=== PATIENT | female | born 1945 | race Caucasian/White ===

== ENCOUNTER → 2018-05-28 | Outpatient (CLI) | payer MEDICARE ==
[2018-05-28 11:34] VITALS: BP 140/65; PULSE 72; TEMP 97.6; BMI 41.8
--- NOTE | 2018-05-28 12:31 | P.HPOB ---
History of Present Illness H&P Date: 05/28/18 Chief Complaint: The patient is here for her routine gynecologic exam and mammogram. This is a 72-year-old with an LMP of 1998. It has been about 5 years since her last pelvic exam. She is without gynecologic complaints and denies any postmenopausal bleeding. Review of Systems She had lost about 85 pounds after lap band surgery in 2004. She states her weight can fluctuate by 15 pounds. She denies respiratory, cardiac and G.I. problems. She denies maltreatment or problems with falling. : she recently started Vesicare for overactive bladder symptoms and this has helped significantly. Past Medical History Past Medical History: Asthma, Osteoarthritis (OA) Additional Past Medical History / Comment(s): Arthritis in knees. ADHD. Overactive bladder. 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 History of Any Multi-Drug Resistant Organisms: None Reported Past Surgical History: Bariatric Surgery (Lap band), Cholecystectomy, Tonsillectomy Additional Past Surgical History / Comment(s): Colonoscopy 2012. Past Psychological History: ADD/ADHD, Depression Smoking Status: Never smoker Past Alcohol Use History: Daily (About 5 drinks per week) Past Drug Use History: None Reported Additional History: She is retired and . She is not seeing anybody at this time. - Past Family History Brother(s) Family Medical History: Diabetes Mellitus, Myocardial Infarction (MA) Father Family Medical History: Cancer (Lung) Mother Family Medical History: COPD Medications and Allergies Home Medications Medication Instructions Recorded Confirmed Type Dextroamphetamine/Amphetamine 30 mg PO QAM 07/23/14 05/28/18 History [Adderall Xr] Furosemide [Lasix] 20 mg PO DAILY 07/23/14 05/28/18 History Sertraline [Zoloft] 200 mg PO DAILY 07/23/14 05/28/18 History Albuterol Sulfate [Proventil Hfa] 1 - 2 puff INHALATION Q6HR PRN 05/28/18 History Solifenacin Succinate [Vesicare] mg PO DAILY 05/28/18 History Allergies Allergy/AdvReac Type Severity Reaction Status Date / Time No Known Allergies Allergy Verified 07/23/14 11:15 Exam Vital Signs Temp Pulse BP 05/28/18 11:28 97.6 F 72 140/65 Intake and Output 05/27/18 05/28/18 05/28/18 22:59 06:59 14:59 Other: Weight 107.048 kg Height 5'3", BMI 41.8. This is a well-developed well-nourished white female who is alert and oriented times 3 in no acute distress. HEENT: Within normal limits. NECK: Supple without mass or thyromegaly. CHEST AND LUNGS: Clear to auscultation. HEART: Regular rate and rhythm. BREASTS: Are without mass or discharge. AXILLARY EXAM: Negative for adenopathy. BACK: Negative for CVA tenderness. ABDOMEN: Soft, nontender, without palpable masses. PELVIC EXAM: Normal external genitalia with mild to moderate atrophy. Cervix and vagina appear normal with mild to moderate atrophy. There is no unusual discharge. There is no evidence of prolapse. The uterus is midposition, nongravid size and nontender. There are no palpable adnexal masses or tenderness. RECTAL EXAM: rectal vaginal exam is negative for mass or tenderness and is negative for occult blood. EXTREMITIES: Nontender. IMPRESSION: 1. 72-year-old menopausal female with normal gynecologic exam. PLAN: 1. Pap smear was performed. 2. Self breast awareness was discussed. 3. Screening mammogram will be done today. 4. Osteoporosis prevention was discussed. Bone density testing will be done today. She had a normal bone density test in 2012. 5. She did receive a flu shot in the fall. 6. She knows her blood pressure was mildly elevated and will follow-up with Dr. Jin for her ongoing medical care. 7. She will return in one year. I have stressed the importance of having regular yearly mammograms and yearly gynecologic exams..
--- NOTE | 2018-05-28 15:12 | BD ---
EXAMINATION TYPE: Axial Bone Density DATE OF EXAM: 05/28/2018 COMPARISON: 02/25/2013 CLINICAL HISTORY: Postmenopausal female. Osteoporosis screening. Height: 62.5 IN Weight: 233 LBS RISK FACTORS HISTORY OF: Active: MODERATE Diet low in dairy products/other sources of calcium: YES Postmenopausal woman: AGE 51 Take estrogen and/or progesterone medications: TOOK FOR LESS THAN 1 YEAR AT AGE 51 MEDICATIONS: Additional Medications: ADDEROL XR, ZOLOFT, VESICARE, LASIX, EXAM MEASUREMENTS: Bone mineral densitometry was performed using the Pivotstream System. Bone mineral density as measured about the Lumbar spine is: ----- L1-L4(G/cm2): 1.234 T Score Values are as follows: ----- L2: -0.8 ----- L3: 0.7 ----- L4: 1.5 ----- L1-L4: 0.4 Bone mineral density has: Increased 5.8% since study of: 02/25/2013 Bone mineral density about the R hip (g/cm2): 0.933 Bone mineral density about the L hip (g/cm2): 0.795 T Score values are as follows: -----R Neck: -0.8 -----L Neck: -1.7 -----R Total: -1.1 -----L Total: -1.4 Bone mineral density has: Decreased -7.6% since study of: 02/25/2013 IMPRESSION: Osteopenia (T Score between -2.5 and -1). There is slightly increased risk of fracture and the patient may be considered for treatment. Re-Screen 2-5 years. NOTE: T-SCORE=SD OF THE YOUNG ADULT MEAN.
--- NOTE | 2018-05-30 10:00 | MM ---
Reason for exam: screening (asymptomatic). Last mammogram was performed 5 years and 3 months ago. History: Patient is postmenopausal and is nulliparous. Physical Findings: A clinical breast exam by your physician is recommended on an annual basis and results should be correlated with mammographic findings. MG 3D Screening Mammo W/Cad Bilateral CC and MLO view(s) were taken. Prior study comparison: February 25, 2013, bilateral digital screening mammo w/CAD. November 23, 2009, bilateral digital screening mammogram. There are scattered fibroglandular densities. Focal asymmetry 7 o'clock left breast appears more defined. ASSESSMENT: Incomplete: need additional imaging evaluation, BI-RAD 0 RECOMMENDATION: Special view mammogram of the left breast. If lesion persists on supplemental views, image directed ultrasound is recommended. [facility] will attempt to contact patient to return for supplemental views and ultrasound if indicated.
== END | disposition home or self-care (01) ==
LOC: WWCWWP 10:59
PROVIDERS: ATTEND Obstetrics & Gynecology
DX: Z12.31 Encounter for screening mammogram for malignant neoplasm of breast (principal); M85.80 Other specified disorders of bone density and structure, unspecified site; Z78.0 Asymptomatic menopausal state
CPT/HCPCS: 77063; 77067; 77080

== ENCOUNTER → 2018-06-20 | Outpatient (CLI) | payer MEDICARE ==
--- NOTE | 2018-06-20 14:33 | MM ---
Reason for exam: additional evaluation requested from abnormal screening. Last mammogram was performed 1 month ago. History: Patient is postmenopausal and is nulliparous. Took hormonal contraceptives for 10 years. Physical Findings: Nurse did not find any significant physical abnormalities on exam. MG 3D Work Up W/Cad LT Spot compression CC, spot compression MLO, and LM view(s) were taken of the left breast. Prior study comparison: May 28, 2018, bilateral MG 3d screening mammo w/cad. February 25, 2013, bilateral digital screening mammo w/CAD. The breast tissue is heterogeneously dense. This may lower the sensitivity of mammography. Focal asymmetry at 6 o'clock persist , ultrasound recommended. These results were verbally communicated with the patient and result sheet given to the patient on 06/20/18. ASSESSMENT: Incomplete: need additional imaging evaluation, BI-RAD 0 RECOMMENDATION: Ultrasound of the left breast.
--- NOTE | 2018-06-20 14:41 | USB ---
Reason for exam: additional evaluation requested from abnormal screening. History: Patient is postmenopausal and is nulliparous. Took hormonal contraceptives for 10 years. US Breast Workup Limited LT Technologist: Merleen Hanson RT (R)(M) Left limited breast ultrasound including focal area of concern, retroareolar and axilla demonstrates no cystic or solid lesion seen. These results were verbally communicated with the patient and result sheet given to the patient on 06/20/18. ASSESSMENT: Probably benign, BI-RAD 3 RECOMMENDATION: Follow-up diagnostic mammogram of the left breast in 6 months.
--- NOTE | 2018-06-25 07:52 | P.PN ---
Progress Note - Text Progress Note Date: 06/25/18 The patient underwent left breast workup on 06/20/2018. The assessment was: probably benign. Recommendation for left diagnostic mammogram in 6 months was made. The patient was apparently verbally given the results on the day of the workup. The order slip for left diagnostic mammogram will be mailed to the patient and she is to do this in late November 2017.
== END | disposition home or self-care (01) ==
LOC: RADMAMWWP 08:52
PROVIDERS: ATTEND Obstetrics & Gynecology
DX: R92.8 Other abnormal and inconclusive findings on diagnostic imaging of breast (principal)
CPT/HCPCS: 77065; 76642; G0279; 77061

== ENCOUNTER → 2018-06-20 | Outpatient (CLI) | payer MEDICARE ==
[2018-06-20 10:44] LABS: Albumin 4.4 g/dL (3.5-5.0); Calcium 9.6 mg/dL (8.4-10.2); Potassium 4.1 mmol/L (3.5-5.1); Total Bilirubin 0.5 mg/dL (0.2-1.3); Total Protein 7.1 g/dL (6.3-8.2)
[2018-06-20 10:52] LABS: Basophils # (A) 0.1 k/uL (0-0.2); Basophils % (A) 1 %; Eosinophils # (A) 0.3 k/uL (0-0.7); Eosinophils % (A) 4 %; HGB 14.1 gm/dL (11.4-16.0); Lymphocytes # (A) 1.6 k/uL (1.0-4.8); Lymphocytes % (A) 19 %; MCH 28.8 pg (25.0-35.0); MCHC 32.9 g/dL (31.0-37.0); MCV 87.6 fL (80.0-100.0); Mean Platelet Volume 6.6; Monocytes # (A) 0.5 k/uL (0-1.0); Monocytes % (A) 6 %; Neutrophils # (A) 5.6 k/uL (1.3-7.7); Neutrophils % (A) 68 %; Platelet Count 206 k/uL (150-450); RBC 4.91 m/uL (3.80-5.40); RDW 13.5 % (11.5-15.5); WBC 8.2 k/uL (3.8-10.6)
[2018-06-20 11:00] LABS: T4, Free (Free Thyroxine) 1.22 ng/dL (0.78-2.19)
[2018-06-20 20:55] LABS: Hemoglobin A1C 4.9 % (4.0-6.0)
== END | disposition home or self-care (01) ==
LOC: LABWHC1 10:03
PROVIDERS: ATTEND Internal Medicine Critical Care Medicine
DX: Z00.00 Encounter for general adult medical examination without abnormal findings (principal); K21.9 Gastro-esophageal reflux disease without esophagitis; J45.909 Unspecified asthma, uncomplicated; E66.9 Obesity, unspecified; F90.9 Attention-deficit hyperactivity disorder, unspecified type
CPT/HCPCS: 36415; 80053; 80061; 82306; 83036; 84439; 84443; 85025

== ENCOUNTER → 2019-11-10 | Outpatient (CLI) | payer MEDICARE ==
--- NOTE | 2019-11-10 14:14 | MR ---
EXAMINATION TYPE: MR brain wo con DATE OF EXAM: 11/10/2019 COMPARISON: NONE HISTORY: Imbalance TECHNIQUE: Multiplanar, multisequence images of the brain and brainstem is performed without intravenous contras t. FINDINGS: There are small bilateral subdural hygromas on coronal image 15 and T2-weighted nonfat sat imaging. These measure only 2 mm in greatest thickness. There is an intra-axial right temporal lobe c ystic mass that follows CSF intensity on all sequences measuring 1.9 x 2.5 x 1.1 cm. This abuts but d oes not appear to directly communicate with the temporal horn of the right lateral ventricle on coron al image 15. There is no surrounding vasogenic edema. Diffusion weighted images demonstrate no evidence of a recent infarct or other diffusion abnormality. There is no extra-axial fluid collection. The ventricular system and cisternal spaces are symmetri radha prominent compatible with age-related volume loss. Scattered foci of T2/FLAIR hyperintensity ar e seen throughout the subcortical and periventricular white matter most commonly on the basis of paralegal dylon microangiopathy with the largest in the left frontal lobe measuring 6 mm. Midline structures demonstrate normal morphology other than incidental note of a partially empty sell a turcica. The craniocervical junction appears within normal limits. Post contrast images demonstrat e no abnormal enhancement. The dural venous sinuses appear patent. The visualized sinuses are clear o ther than scant mucosal thickening in the ethmoid sinuses. And the globes are intact. There is partia l opacification of the right mastoid air cells. IMPRESSION: 1. There are small bilateral nearly symmetric subdural hygromas. No midline shift. 2. 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 This appears intra-axial. No mural nodule or internal septations are seen. Although suspicion for neoplasm is low contrast enhanced MRI sequences of the brain are recommended to exclude peripheral enhancement. Temp oral lobe masses can become a seizure focus. Neuroglial cyst, low-grade glioma, or cystic metastasis are possibilities. 3. Mild burden nonspecific white matter change, likely on the basis of chronic microangiopathy and ag e-related volume loss.
== END | disposition home or self-care (01) ==
LOC: RADMRIMAIN 12:46
PROVIDERS: ATTEND Psychiatry & Neurology Neurology
DX: G96.0 Cerebrospinal fluid leak (principal); R90.89 Other abnormal findings on diagnostic imaging of central nervous system
CPT/HCPCS: 70551

== ENCOUNTER → 2019-12-03 | Outpatient (CLI) | payer MEDICARE ==
--- NOTE | 2019-12-03 22:37 | MR ---
EXAMINATION TYPE: MR brain w con DATE OF EXAM: 12/03/2019 COMPARISON: MRI brain November 10, 2019 HISTORY: Unsteadiness/imbalance, abnormal MRI TECHNIQUE: Multiplanar, multisequence images of the brain and brainstem is performed with IV contrast, utilizing 10 mL intravenous Gadavist . FINDINGS: Postcontrast MRI redemonstrates cystic lesion right temporal region measuring 1.9 cm transv ersely coronal image 20 x 1.16 cm craniocaudal dimension by 2.4 cm AP diameter sagittal image 116 of isointensity to CSF without suspicious nodular or septal enhancement. Postcontrast images show no suspicious enhancement or enhancing masses. Patent dural venous sinuses a re seen. Redemonstration of diffuse cerebral atrophy most prominent over the high calvarial region bilaterally . Craniocervical junction is maintained. Sinuses remain grossly clear. Globes are intact. IMPRESSION: No suspicious enhancement in right temporal lesion favoring a neuroenteric cyst or other benign etiology.
== END | disposition home or self-care (01) ==
LOC: RADMRIMAIN 19:47
PROVIDERS: ATTEND Psychiatry & Neurology Neurology
DX: R94.02 Abnormal brain scan (principal); R26.81 Unsteadiness on feet
CPT/HCPCS: 70552; A9585

== ENCOUNTER → 2019-12-30 | Outpatient (CLI) | payer MEDICARE ==
--- NOTE | 2019-12-30 15:53 | MR ---
MRI CERVICAL SPINE: CLINICAL HISTORY: Cervical myelopathy and imbalance with leg weakness all per order. Additional sympt oms of occasional headaches per patient. TECHNIQUE: Multiplanar, multisequence imaging of the cervical spine is performed without IV contrast. COMPARISON: None. FINDINGS: Sagittal images of the cervical spine show the craniocervical junction to appear within nor mal limits. The cervical and upper thoracic spinal cord is normal in course, caliber, and signal. Th ere is slight grade 1 retrolisthesis C4 on C5 and C5 on C6. The vertebral body heights are normal. Mild to moderate disc space narrowing C5-C6 level with mild disc space narrowing C6-C7 level The bone marrow signal intensity is within normal limits. Axial images as C2-C3 level shows focal left posterior central disc protrusion minimally effacing the anterior thecal sac. Axial images at C3-C4 level show more prominent central disc protrusion effacing the anterior thecal sac axial image 36. Axial images at C4-C5 level shows spondylosis with uncovertebral facet degenerative changes and broad -based posterior disc protrusion with slightly more prominent right foraminal component. There is eff acement of the anterior thecal sac. There is mild left and moderate to severe right-sided neural fora garrison narrowing. Axial images at C5-C6 level show spondylolisthesis and broad base posterior spur disc complex and unc overtebral facet spurring effacing anterior thecal sac and causing moderate left with mild to moderat e right-sided neural foraminal narrowing. Axial images at C6-C7 level show broad-based left paracentral disc protrusion effacing the anterolate ral thecal sac mildly, bilateral neural foramina are patent. Axial images at C7-T1 level are within normal limits. IMPRESSION: Multilevel degenerative changes most prominent at C3-C4 through C5-C6 level as detailed a andrea. Spondylolisthesis also noted at mid cervical levels.
== END | disposition home or self-care (01) ==
LOC: RADMRIMAIN 13:42
PROVIDERS: ATTEND Psychiatry & Neurology Neurology
DX: M43.12 Spondylolisthesis, cervical region (principal); M47.812 Spondylosis without myelopathy or radiculopathy, cervical region
CPT/HCPCS: 72141

== ENCOUNTER 2020-04-21 11:54 | Inpatient (IN) | payer MEDICARE ==
[2020-04-21] MEDS ORDERED: KETOROLAC 30 MG/ML 1 ML VIAL IM STA (12:09)
--- NOTE | 2020-04-21 12:12 | ED ---
Lower Extremity Injury HPI - General Chief Complaint: Extremity Injury, Lower Stated Complaint: Fall/knee pain Time Seen by Provider: 04/21/20 12:01 Source: patient, EMS Mode of arrival: EMS Limitations: no limitations - History of Present Illness Initial Comments: Patient is a 74-year-old female presenting to the emergency department via EMS with complaints of right knee pain after ground level fall. Patient states she was walking on grass, with her cane and lost her balance,falling forward, twisting her right knee. Patient states she did not hit her head, no LOC. Her only complaint after this fall is the right knee pain. Patient denies any p revious surgeries of her knees but does state she has bitaleral arthritis. She states she was not able to bear weight after the fall. She denies any chest pain, abdominal pain, upper extremity pain. She has no further complaints. - Related Data Home Medications Medication Instructions Recorded Confirmed Dextroamphetamine/Amphetamine 30 mg PO QAM 07/23/14 05/28/18 [Adderall Xr] Furosemide [Lasix] 20 mg PO DAILY 07/23/14 05/28/18 Sertraline [Zoloft] 200 mg PO DAILY 07/23/14 05/28/18 Albuterol Sulfate [Proventil Hfa] 1 - 2 puff INHALATION Q6HR PRN 05/28/18 05/28/18 Solifenacin Succinate [Vesicare] mg PO DAILY 05/28/18 Allergies Allergy/AdvReac Type Severity Reaction Status Date / Time No Known Allergies Allergy Verified 06/20/18 09:24 Review of Systems ROS Statement: Those systems with pertinent positive or pertinent negative responses have been documented in the HPI. ROS Other: All systems not noted in ROS Statement are negative. Past Medical History Past Medical History: Asthma, Osteoarthritis (OA) Additional Past Medical History / Comment(s): Arthritis in knees. ADHD. Overactive bladder. 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 History of Any Multi-Drug Resistant Organisms: None Reported Past Surgical History: Bariatric Surgery, Cholecystectomy, Tonsillectomy Additional Past Surgical History / Comment(s): Colonoscopy 2012. Past Psychological History: ADD/ADHD, Depression Smoking Status: Never smoker Past Alcohol Use History: Daily Past Drug Use History: None Reported - Past Family History Brother(s) Family Medical History: Diabetes Mellitus, Myocardial Infarction (ME) Father Family Medical History: Cancer (Lung) Mother Family Medical History: COPD General Exam - General Exam Comments Initial Comments: GENERAL: Obese, well-appearing, well-nourished and in no acute distress. HEAD: Atraumatic, normocephalic. EYES: Pupils equal round and reactive to light, extraocular movements intact, sclera anicteric, conjunctiva are normal. ENT: TMs normal, nares patent, oropharynx clear without exudates. Moist mucous membranes. NECK: Normal range of motion, supple without lymphadenopathy or JVD. LUNGS: Breath sounds clear to auscultation bilaterally and equal. No wheezes rales or rhonchi. HEART: Regular rate and rhythm without murmurs, rubs or gallops. ABDOMEN: Soft, nontender, normoactive bowel sounds. No guarding, no rebound. No masses appreciated. : Deferred EXTREMITIES: Pain with palpation of the entire right knee joint. No obvious swelling or deformity, however patient is obsese. Pain with very slight range of motion. She has neurovascular intact. No clubbing or cyanosis. NEUROLOGICAL: Cranial nerves II through XII grossly intact. Normal speech. PSYCH: Normal mood, normal affect. SKIN: Warm, Dry, normal turgor, no rashes or lesions noted. Limitations: no limitations Course Vital Signs 04/21/20 04/21/20 11:56 14:54 Temperature 97.3 F L 98.0 F Pulse Rate 67 63 Respiratory 18 18 Rate Blood Pressure 161/112 109/54 O2 Sat by Pulse 99 97 Oximetry Medical Decision Making - Medical Decision Making Patient is a 74-year-old female presenting with right knee pain after a mechanical fall from ground level. She has no other complaints this fall other than the right knee pain. She is unable to ambulate after the fall. X-rays reveal an acute distal right femur fracture with angulation. I did speak with on-call ortho, BRINDA Asencio, and Dr. Andrea will accept patient, medicine will be on consult. CT of the right knee is pending at this time. Basic labs were drawn and showed no acute abnormalities. Patient is agreement with this plan of care. Patient is given pain control and is comfortable at this time. Case discussed with Dr. Johnson. - Lab Data Result diagrams: 04/21/20 13:08 04/21/20 13:08 Lab Results 04/21/20 04/21/20 04/21/20 Range/Units 13:08 13:08 13:08 WBC 7.7 (3.8-10.6) k/uL RBC 4.88 (3.80-5.40) m/uL Hgb 14.5 (11.4-16.0) gm/dL Hct 43.0 (34.0-46.0) % MCV 88.1 (80.0-100.0) fL MCH 29.6 (25.0-35.0) pg MCHC 33.6 (31.0-37.0) g/dL RDW 14.3 (11.5-15.5) % Plt Count 184 (150-450) k/uL Neutrophils % 77 % Lymphocytes % 14 % Monocytes % 5 % Eosinophils % 2 % Basophils % 1 % Neutrophils # 6.0 (1.3-7.7) k/uL Lymphocytes # 1.1 (1.0-4.8) k/uL Monocytes # 0.4 (0-1.0) k/uL Eosinophils # 0.2 (0-0.7) k/uL Basophils # 0.1 (0-0.2) k/uL PT 10.9 (9.0-12.0) sec INR 1.1 (<1.2) APTT 21.6 L (22.0-30.0) sec Sodium 138 (137-145) mmol/L Potassium 4.9 (3.5-5.1) mmol/L Chloride 104 (98-107) mmol/L Carbon Dioxide 24 (22-30) mmol/L Anion Gap 10 mmol/L BUN 23 H (7-17) mg/dL Creatinine 0.86 (0.52-1.04) mg/dL Est GFR (CKD-EPI)AfAm 78 (>60 ml/min/1.73 sqM) Est GFR (CKD-EPI)NonAf 68 (>60 ml/min/1.73 sqM) Glucose 100 H (74-99) mg/dL Calcium 9.1 (8.4-10.2) mg/dL Total Bilirubin 0.7 (0.2-1.3) mg/dL AST 32 (14-36) U/L ALT 14 (4-34) U/L Alkaline Phosphatase 78 (38-126) U/L Total Protein 7.1 (6.3-8.2) g/dL Albumin 4.2 (3.5-5.0) g/dL Disposition Clinical Impression: Closed fracture of right distal femur, Fall Disposition: ADMITTED IP TO THIS HOSP Condition: Good Decision Date: 04/21/20 Decision Time: 14:37
[2020-04-21] MEDS ORDERED: MORPHINE SULFATE 4 MG/ML SYRINGE IVP STA ×2 (12:46→13:58)
--- NOTE | 2020-04-21 12:49 | XR ---
EXAMINATION TYPE: XR femur RT, XR knee limited RT DATE OF EXAM: 04/21/2020 CLINICAL HISTORY: Fall injury with pain. TECHNIQUE: Two views of the right femur are obtained. 2 views right knee. COMPARISON: None FINDINGS: There is no acute fracture or dislocation seen in the right femur. Mild to moderate superi or joint space loss right hip. The overlying soft tissue appears mild diffuse prominence presumed pr oduct of patient's body habitus. Images of the right knee show acute oblique displaced fracture of distal femoral metadiaphysis with s ome impaction along with lateral and posterior angulation of distal fracture fragment. Moderate to se kecia tricompartment joint space loss at level of right knee is seen along with mild to moderate trico mpartment spurring. IMPRESSION: There is acute comminuted displaced fracture distal right femoral metadiaphysis. (Initial encounter close type posttraumatic fracture)
[2020-04-21] MEDS ORDERED: ONDANSETRON 4 MG/2 ML VIAL IVP STA (13:14)
[2020-04-21 13:30] LABS: Basophils # (A) 0.1 k/uL (0-0.2); Basophils % (A) 1 %; Eosinophils # (A) 0.2 k/uL (0-0.7); Eosinophils % (A) 2 %; HGB 14.5 gm/dL (11.4-16.0); Lymphocytes # (A) 1.1 k/uL (1.0-4.8); Lymphocytes % (A) 14 %; MCH 29.6 pg (25.0-35.0); MCHC 33.6 g/dL (31.0-37.0); MCV 88.1 fL (80.0-100.0); Mean Platelet Volume 7.9; Monocytes # (A) 0.4 k/uL (0-1.0); Monocytes % (A) 5 %; Neutrophils % (A) 77 %; Platelet Count 184 k/uL (150-450); RBC 4.88 m/uL (3.80-5.40); RDW 14.3 % (11.5-15.5); WBC 7.7 k/uL (3.8-10.6)
[2020-04-21 13:41] LABS: Albumin 4.2 g/dL (3.5-5.0); Calcium 9.1 mg/dL (8.4-10.2); Total Bilirubin 0.7 mg/dL (0.2-1.3); Total Protein 7.1 g/dL (6.3-8.2)
[2020-04-21 13:44] LABS: Potassium 4.9 mmol/L (3.5-5.1)
[2020-04-21 14:18] LABS: INR 1.1 (<1.2); Prothrombin Time 10.9 sec (9.0-12.0)
[2020-04-21 14:19] LABS: Partial Thromboplastin Time 21.6 sec (22.0-30.0)
[2020-04-21] MEDS ORDERED: MORPHINE SULFATE 4 MG/ML SYRINGE IV PRN (14:32)
[2020-04-21] MEDS ORDERED: traMADol 50 MG TAB PO PRN (14:32)
[2020-04-21] MEDS ORDERED: ACETAMINOPHEN TAB 325 MG TAB PO PRN (14:32)
[2020-04-21] MEDS ORDERED: ONDANSETRON 4 MG/2 ML VIAL IVP PRN (14:32)
[2020-04-21] MEDS ORDERED: NALOXONE 0.4 MG/ML 1 ML VIAL IV PRN (14:32)
--- NOTE | 2020-04-21 16:03 | CT ---
EXAMINATION TYPE: CT knee RT wo con DATE OF EXAM: 04/21/2020 COMPARISON: Plain film radiographs 04/21/2020 HISTORY: Pain, distal femoral fracture Automated exposure control for dose reduction was used. Unenhanced CT of the right femur was performe d including the right knee with bone and soft tissue window settings submitted. FINDINGS: Angulated and displaced distal right femoral diametaphyseal fracture noted. Proximal fracture compone nt is displaced medially by approximately 1 cm. Mild comminution noted. Soft tissue deformity and paolo ma noted. There is no evidence for fracture of the right knee. Severe changes of osteoarthritis are n oted to involve all compartments of the knee. Small hemarthrosis identified. No underlying bony lesio n is seen with certainty. Spur formation identified. IMPRESSION: DISPLACED AND MILDLY COMMINUTED AND ANGULATED DISTAL RIGHT FEMORAL DIAMETAPHYSEAL FRACTURE.
--- NOTE | 2020-04-21 16:40 | XR ---
EXAMINATION TYPE: XR chest 1V DATE OF EXAM: 04/21/2020 HISTORY: Shortness of breath. COMPARISON: None. TECHNIQUE: Single view of the chest is submitted. FINDINGS: Demonstrated are scattered senescent parenchymal change. There is no evidence for focal infiltrate. The heart is stable. Hilar and mediastinal structures are within normal limits. Degenerative changes are seen of the dorsal spine. IMPRESSION: 1. Chronic changes without evidence for acute pulmonary disease.
[2020-04-21] MEDS ORDERED: HYDROcodone/APAP 5-325MG 1 EACH TAB PO PRN (19:26)
[2020-04-21] MEDS: HYDROmorphone 0.5 MG/0.5 ML SYRINGE IVP PRN (19:43)
[2020-04-22] MEDS: PANTOPRAZOLE 40 MG/10 ML VIAL IVP SCH ×3 (00:52→20:23)
[2020-04-22] MEDS: HYDROmorphone 0.5 MG/0.5 ML SYRINGE IVP PRN ×4 (00:52→16:50)
[2020-04-22] MEDS: LACTATED RINGERS 1,000 ML IV SCH (00:53)
--- NOTE | 2020-04-22 03:12 | CONS ---
CONSULTATION DATE OF SERVICE: 04/21/2020 REASON FOR CONSULTATION: Advice regarding DJD and multiple other medical issues requested by Orthopedic Surgery. HISTORY OF PRESENT ILLNESS: This 74-year-old woman with a past medical history of asthma, history of DJD, history of bariatric surgery, history of cholecystectomy, ADD, ADHD, depression, being followed by Dr. Jin in the outpatient setting apparently fell and had suffered a right distal comminuted displaced femoral metaphyseal fracture and patient admitted for further evaluation. Patient complaining of severe pain. Otherwise, there is no history of any fever or rigors. No history of headache, loss of consciousness, chest pain, palpitations at this time. PAST MEDICAL HISTORY: History of asthma, DJD, history of bariatric surgery, history of cholecystectomy, ADD, ADHD, depression. MEDICATIONS: Home medications are: 1. VESIcare daily. 2. Zoloft 200 mg p.o. daily. 3. Lasix 20 mg daily. 4. Adderall XR 30 mg q.a.m. 5. Albuterol 1 to 2 puffs q.6 p.r.n. ALLERGIES: None. FAMILY HISTORY: History of diabetes, myocardial infarction in the family. SOCIAL HISTORY: No history of smoking. No history of alcohol intake. REVIEW OF SYSTEMS: ENT: No diminished hearing or diminished vision. CARDIOVASCULAR SYSTEM: No angina or palpitations. RESPIRATORY SYSTEM: As mentioned earlier. GI: No nausea. : No dysuria. NERVOUS SYSTEM: No numbness or weakness. ALLERGY/IMMUNOLOGY: No asthma or hayfever. MUSCULOSKELETAL: As mentioned earlier. HEMATOLOGY/ONCOLOGY: No history of anemia. ENDOCRINE: No history of diabetes or hypothyroidism. CONSTITUTIONAL As mentioned earlier. DERMATOLOGY: Negative. RHEUMATOLOGY: Negative. PSYCHIATRY: As mentioned earlier. PHYSICAL EXAMINATION: Patient is alert and oriented x3. Pulse is 63, blood pressure 109/54, respiration 18, temperature 98 degrees, pulse ox 97% on room air. HEENT: Conjunctivae normal. Oral mucosa moist. NECK: No jugular venous distention. No carotid bruit. No lymph node enlargement. CARDIOVASCULAR: S1, S2 muffled. RESPIRATORY: Breath sounds diminished at the bases. No rhonchi, no crackles. ABDOMEN: Soft, obese, nontender. No mass palpable. LEGS: Status post right femoral fracture. NERVOUS SYSTEM: Higher functions as mentioned. Moves all 4 limbs. No focal motor or sensory deficit. LYMPHATICS: No lymphadenopathy of the neck, axillae or groin. SKIN: No ulcer, rash or bleeding. JOINTS: No active deforming arthropathy. LABS: CBC within normal limits and glucose 100. ASSESSMENT: 1. Status post right distal femoral metaphyseal comminuted displaced fracture. 2. History of the asthma. 3. History of degenerative joint disease. 4. History of overactive bladder. 5. History of bariatric surgery. 6. History of cholecystectomy. 7. History attention deficit disorder, attention deficit hyperactivity disorder. 8. History of depression. RECOMMENDATIONS AND DISCUSSION: In this 74-year-old woman who presented with multiple medical issues, at this time I recommend to continue current medications and symptomatic treatment. Patient is medically stable. Patient is cleared for surgery. I would also recommend baseline EKG. Otherwise, a chest x-ray was personally reviewed showed only chronic changes. Otherwise we will follow the patient closely with you. Thank you Dr. Andrea for letting us participate in the care of this patient. Patient may be asked to follow up with Dr. Jin closely after discharge. MMODL / IJN: [id number] /
[2020-04-22 07:59] LABS: Basophils # (A) 0.1 k/uL (0-0.2); Basophils % (A) 1 %; Eosinophils # (A) 0.2 k/uL (0-0.7); Eosinophils % (A) 3 %; HCT 41.3 % (34.0-46.0); Lymphocytes # (A) 0.6 k/uL (1.0-4.8); Lymphocytes % (A) 7 %; MCH 28.2 pg (25.0-35.0); MCHC 31.6 g/dL (31.0-37.0); MCV 89.1 fL (80.0-100.0); Mean Platelet Volume 7.9; Monocytes # (A) 0.8 k/uL (0-1.0); Monocytes % (A) 9 %; Neutrophils # (A) 6.4 k/uL (1.3-7.7); Neutrophils % (A) 80 %; Platelet Count 173 k/uL (150-450); RBC 4.63 m/uL (3.80-5.40); RDW 14.4 % (11.5-15.5); WBC 8.1 k/uL (3.8-10.6)
--- NOTE | 2020-04-22 12:09 | P.HPOR ---
History of Present Illness H&P Date: 04/22/20 Chief Complaint: Right lower extremity leg pain and inability to ambulate due to fracture Patient is a very pleasant 74-year-old female who is [facility] treatment and evaluation regards to her right distal femur fracture. 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 She states she was ambulating in the grass along her driveway yesterday when she twisted and fell awkwardly on her right leg. She's had significant pain at her lower right thigh since that time. She's been unable to ambulate. She is brought to the emergency department at [facility] for further evaluation. She was found to have a right distal femur fracture. She was admitted to orthopedics with medicine and pulmonology consult. She has remained nonweightbearing on the right lower extremity and on bedrest. She states she normally has difficulty with urinary incontinence. She did have some difficulty with urinary retention last night and required straight catheterization. She denies any other injuries at time of the fall. She denies any pain with the left lower extremity. Patient had multiple images taken in the emergency room including x-rays of the right femur and knee and a CT of the right knee. Patient had been discussed in detail with Dr. Andrea. Patient is currently planning for surgical intervention at her right lower extremity tomorrow. Patient states she is ready to proceed forward surgical intervention. Patient has a medical history which includes asthma, obesity, and osteoarthritis of the knees. A knee immobilizer was ordered in the emergency department but has not yet been delivered or fitted for the patient. Past Medical History Past Medical History: Asthma, Osteoarthritis (OA) Additional Past Medical History / Comment(s): Arthritis in knees. ADHD. O veractive bladder. 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 History of Any Multi-Drug Resistant Organisms: None Reported Past Surgical History: Bariatric Surgery, Cholecystectomy, Tonsillectomy Additional Past Surgical History / Comment(s): Colonoscopy 2012. Past Psychological History: ADD/ADHD, Depression Smoking Status: Never smoker Past Alcohol Use History: Daily Past Drug Use History: None Reported - Past Family History Brother(s) Family Medical History: Diabetes Mellitus, Myocardial Infarction ([place]) Father Family Medical History: Cancer Mother Family Medical History: COPD Medications and Allergies Home Medications Medication Instructions Recorded Confirmed Type Furosemide [Lasix] 20 mg PO DAILY 07/23/14 04/22/20 History Sertraline [Zoloft] 200 mg PO DAILY 07/23/14 04/22/20 History Dextroamphetamine/Amphetamine 20 mg PO QAM 04/22/20 04/22/20 History [Adderall Xr] Mirabegron [Myrbetriq] 50 mg PO DAILY 04/22/20 04/22/20 History lamoTRIgine [LaMICtal] 25 mg PO TID 04/22/20 04/22/20 History Allergies Allergy/AdvReac Type Severity Reaction Status Date / Time No Known Allergies Allergy Verified 04/22/20 09:24 Physical Examination Physical Exam: Patient is awake, alert, and oriented 3 Vital signs stable Good chest excursion with deep inspiration and expiration Abdomen soft nontender No signs or symptoms of DVT; no calf pain Patient is able to perform dorsiflexion and plantar flexion and wiggle toes of the lower extremities bilaterally without difficulty Patient's right lower extremity is currently externally rotated with her knee slightly bent Examination of the right knee shows no significant erythema or bruising Significant pain with any palpation over the right distal femur Patient is unable to perform any active range of motion of the right knee due to pain Results Pertinent studies: CT of the right knee taken on 04/21/2020: Angulated and displaced distal right femoral diametaphyseal fracture with mild comminution; soft tissue deformity and edema noted; no evidence of fracture of the right knee; severe osteoarthritis of the right knee; small hemarthrosis identified; no underlying bony lesion is seen with certainty X-rays of the right femur and knee taken on 04/21/2020: Acute comminuted displaced fracture of the right distal femoral diaphysis with some impaction with lateral and posterior angulation of the distal fracture fragment; moderate severe tricompartment joint space loss of the right knee - Labs Labs: Abnormal Lab Results - Last 24 Hours (Table) 04/21/20 04/21/20 04/22/20 Range/Units 13:08 13:08 06:27 Lymphocytes # 0.6 L (1.0-4.8) k/uL APTT 21.6 L (22.0-30.0) sec BUN 23 H (7-17) mg/dL Glucose 100 H (74-99) mg/dL H & H 04/21/20 04/22/20 Range/Units 13:08 06:27 Hgb 14.5 13.0 (11.4-16.0) gm/dL Hct 43.0 41.3 (34.0-46.0) % Coagulation 04/21/20 Range/Units 13:08 INR 1.1 (<1.2) Result Diagrams: 04/22/20 06:27 04/21/20 13:08 Assessment and Plan Assessment: Assessment: Acute traumatic right distal femur fracture status post fall Right lower extremity leg pain Inability to ambulate due to right femur fracture Severe osteoarthritic his right knee Obesity Asthma History of incontinence while standing Episode of urinary retention (1) Right leg pain Current Visit: Yes Status: Acute Code(s): M79.604 - PAIN IN RIGHT LEG SNOMED Code(s): 701158694 (2) Tricompartment osteoarthritis of right knee Current Visit: Yes Status: Acute Code(s): M17.11 - UNILATERAL PRIMARY OSTEOARTHRITIS, RIGHT KNEE SNOMED Code(s): 927660145 (3) Obesity (BMI 30-39.9) Current Visit: Yes Status: Acute Code(s): E66.9 - OBESITY, UNSPECIFIED SNOMED Code(s): 336955429 (4) Asthma Current Visit: Yes Status: Acute Code(s): J45.909 - UNSPECIFIED ASTHMA, UNCOMPLICATED SNOMED Code(s): 959919770 (5) History of urinary incontinence Current Visit: Yes Status: Acute Code(s): Z87.898 - PERSONAL HISTORY OF OTHER SPECIFIED CONDITIONS SNOMED Code(s): 213921315 (6) Closed fracture of right distal femur Current Visit: Yes Status: Acute Code(s): S72.401A - UNSP FRACTURE OF LOWER END OF RIGHT FEMUR, INIT FOR CLOS FX SNOMED Code(s): 477280762 (7) Fall Current Visit: Yes Status: Acute Code(s): W19.XXXA - UNSPECIFIED FALL, INITI AL ENCOUNTER SNOMED Code(s): 8864750 Plan: Plan: 1. Patient has been discussed in detail with Dr. Andrea. Patient does have evidence of a angulated and displaced distal right femur fracture. Patient is unable to weight-bear due to pain and her fracture of the right lower extremity. We discussed surgical intervention at her right femur and discussed that surgical intervention provides the best opportunity for her to have some increased mobilization and ambulation postoperatively at her fracture site. Without surgical intervention, she would have significant difficulty with regaining active mobility without significant difficulty. Patient states at this time she would like to proceed forward with surgical intervention as she feels it provides her the best opportunity to have some relief of her symptoms and i mprovement in her ambulation and mobility. We discussed the proposed surgical intervention will be a right closed intramedullary nail fixation versus ORIF of the right distal femur. We will currently plan for surgical intervention tomorrow afternoon, 04/23/2020. Patient will be seen and examined by medicine and pulmonology for surgical clearance. Patient will plan to become nothing by mouth status starting at midnight on 04/23/2020 in anticipation for surgical intervention. Patient may continue with a regular diet today. 2. Continue pain control with IV and oral medications 3. Patient to remain non-weightbearing on the right lower extremity and on bedrest 4. A knee immobilizer was ordered for the patient in the emergency department. This brace has not yet been delivered. Once his brace has been delivered and fitted appropriately, patient should keep this brace intact at all times. 5. Dr. Joshua in medicine and Dr. Jin in pulmonology is consulted for surgical clearance prior to surgical intervention 6. Due to the patient's urinary retention and current bedrest and nonweig htbearing status on the right lower extremity, we'll plan for Martínez catheter insertion Time with Patient: Greater than 30 (Including obtaining history, physical examination, reviewing of imaging, and dictation.)
--- NOTE | 2020-04-22 16:01 | PN ---
PROGRESS NOTE DATE OF SERVICE: 04/22/2020 This 74-year-old woman who was admitted with a right distal femoral metaphyseal comminuted fracture is being closely monitored. Surgery is being planned per Orthopedic Surgery. No chest pain. No palpitations. No fever. PHYSICAL EXAMINATION: Alert and oriented x3. The pulse is 73, blood pressure 110/64, respiration 18, temperature 98.4, pulse ox 92% on room air. HEENT: Conjunctivae normal. NECK: No jugular venous distention. CARDIOVASCULAR SYSTEM: S1, S2 muffled. RESPIRATORY SYSTEM: Breath sounds diminished at the bases. No rhonchi. No crackles. ABDOMEN: Soft, non-tender. LEGS: Status post fracture. NERVOUS SYSTEM: No focal deficit. LABS: Labs at this time show CBC within normal limits. Other labs are noted. ASSESSMENT: 1. Status post right distal femoral metaphyseal comminuted displaced fracture with severe pain. 2. History of asthma. 3. History of degenerative joint disease. 4. History of overactive bladder. 5. History of bariatric surgery. 6. History of cholecystectomy. 7. History of attention deficit disorder, attention deficit hyperactivity disorder. 8. History of depression. 9. FULL CODE. RECOMMENDATIONS AND DISCUSSION: In this 74-year-old woman who presented with multiple complex medical issues, we will monitor the patient closely, continue the current medications, continue symptomatic treatment. Otherwise continue with pain medications. Will repeat labs also. Will closely follow with Orthopedic Surgery. Repeat labs tomorrow. Further recommendations to follow. See orders for further details. MMODL / IJN: [id number] /
--- NOTE | 2020-04-22 18:37 | CONS ---
CONSULTATION PULMONARY/CRITICAL CARE CONSULTATION: REASON FOR CONSULTATION: Preoperative clearance. This is a 74-year-old female who actually is one of my primary patients. I have been seeing Nicolle for a number of years now. She apparently fell yesterday while at home. She had a ground level fall. She apparently got stuck on the grass with her cane and lost her balance, falling forward. She twisted her right knee. Her right knee came to rest in a pile of gravel and she just felt like she could not get up. She had a friend with her who called EMS and she was brought in to the emergency room, where she was found to have a right femoral fracture. She has been seen by Orthopedics. Dr. Andrea is going to take her to the operating room tomorrow to repair it. Currently she is doing reasonably well. She denies any chest pain or chest discomfort. There is no shortness of breath, difficulty breathing, coughing, wheezing or phlegm production. MEDICATIONS: Home medications are reviewed. She is on Adderall XR, Lasix, Zoloft, Proventil HFA and VESIcare. ALLERGIES: DENIED. MEDICAL HISTORY: Her medical history is positive for very mild intermittent asthma and osteoarthritis. She also suffers from ADHD and overactive bladder. SURGICAL HISTORY: Her surgical history includes bariatric surgery for obesity, cholecystectomy, tonsillectomy and colonoscopy. SOCIAL HISTORY: Negative for tobacco or illicit drug use. She does drink occasionally. She is a social drinker. FAMILY HISTORY: Positive for brother with diabetes and myocardial infarction. Father with lung cancer and mother with COPD. REVIEW OF SYSTEMS: CONSTITUTIONAL: Negative. NEUROLOGIC: Negative. HEENT: Negative. CARDIOVASCULAR: Negative. PULMONARY: Negative. GI: Negative. : Negative. RHEUMATOLOGIC: Right hip and knee pain. IMMUNOLOGIC: Negative. ENDOCRINOLOGIC: Negative. DERMATOLOGIC: Negative. PHYSICAL EXAMINATION: VITAL SIGNS: Current vital signs are reviewed. Temperature is 98.4, heart rate 73, respiratory rate 18, blood pressure 110/64, mean 79, room-air saturation 93%. GENERAL APPEARANCE: Appears in no acute distress. HEENT: Examination is grossly unremarkable. Mucous membranes are moist. NECK: Supple. Full range of motion. No adenopathy. Neck veins are flat. CARDIOVASCULAR: Examination reveals regular rhythm and rate. Heart rate 73. S1, S2 normal. There is no murmur. LUNGS: Lungs reveal clear breath sounds. No wheezes, rhonchi or crackles. Breath sounds are equal. ABDOMEN: Obese. Bowel sounds are heard. EXTREMITIES: Intact. No cyanosis, clubbing or edema. SKIN: Without rash. NEUROLOGIC: Neurologic examination is brief but nonfocal. Her chest x-ray shows no evidence of acute disease. Her CT scans and x-rays are reviewed. LABS: Reviewed. White count 8.1, hemoglobin 13, hematocrit 41.3, platelet count normal. PT, INR and PTT all normal. Electrolytes, kidney function and comprehensive metabolic profile are all negative. Nasopharyngeal swab via RT/PCR is negative for coronavirus. Medications are reviewed. ASSESSMENT: 1. Recent ground level fall with a distal right femur fracture, requiring surgery, which is anticipated to be tomorrow, April 23. 2. History of mild intermittent asthma, not active at this time. 3. Obesity, status post bariatric surgery. 4. Attention deficit hyperactivity disorder. 5. Degenerative joint disease. 6. History of overactive bladder. PLAN: The patient is doing well. She should have no issues with surgery. She is clinically stable. Preoperatively, I do not find her to have any active issues. Additional recommendations and suggestions are forthcoming. MMODL / IJN: [id number] /
[2020-04-23] MEDS: LACTATED RINGERS 1,000 ML IV SCH ×2 (00:54→18:24)
[2020-04-23] MEDS: HYDROmorphone 0.5 MG/0.5 ML SYRINGE IVP PRN ×2 (01:25→10:51)
[2020-04-23] MEDS: ALPRAZolam 0.25 MG TAB PO PRN ×2 (01:25→21:07)
[2020-04-23 06:51] LABS: Basophils % (A) 1 %; Eosinophils # (A) 0.2 k/uL (0-0.7); Eosinophils % (A) 3 %; HCT 38.6 % (34.0-46.0); HGB 12.4 gm/dL (11.4-16.0); Lymphocytes # (A) 0.8 k/uL (1.0-4.8); Lymphocytes % (A) 10 %; MCH 28.4 pg (25.0-35.0); MCHC 32.2 g/dL (31.0-37.0); MCV 88.1 fL (80.0-100.0); Mean Platelet Volume 7.6; Monocytes # (A) 0.6 k/uL (0-1.0); Monocytes % (A) 8 %; Neutrophils % (A) 78 %; Platelet Count 140 k/uL (150-450); RBC 4.38 m/uL (3.80-5.40); RDW 14.2 % (11.5-15.5); WBC 7.8 k/uL (3.8-10.6)
[2020-04-23 07:03] LABS: Calcium 8.4 mg/dL (8.4-10.2); Potassium 4.1 mmol/L (3.5-5.1)
[2020-04-23] MEDS: PANTOPRAZOLE 40 MG/10 ML VIAL IVP SCH ×2 (08:22→21:09)
[2020-04-23] MEDS ORDERED: IV FLUID CONTINUATION 300 ML IV ONE (11:40)
[2020-04-23] MEDS ORDERED: DEXAMETHASONE SOD PHOSPHATE 10 MG/ML 1 ML VIAL IV ONE (11:59)
[2020-04-23] MEDS ORDERED: ONDANSETRON 4 MG/2 ML VIAL IVP ONE (12:00)
[2020-04-23] MEDS ORDERED: KETAMINE 10 MG/ML 20 ML VIAL ONE (13:35)
[2020-04-23] MEDS ORDERED: fentaNYL (PF) 50 MCG/ML 2 ML AMP ONE (13:35)
[2020-04-23] MEDS ORDERED: PROPOFOL 10 MG/ML 20 ML VIAL IV ONE (13:35)
[2020-04-23] MEDS ORDERED: MIDAZOLAM 2 MG/2 ML VIAL ONE (13:35)
[2020-04-23] MEDS ORDERED: SODIUM CHLORIDE 0.9% 50 ML with ceFAZolin 2,000 MG IV ONE ×2 (13:40)
[2020-04-23] MEDS ORDERED: LACTATED RINGERS 1,000 ML IV ONE (15:40)
--- NOTE | 2020-04-23 15:59 | P.OP ---
Date of Procedure: 04/23/20 Procedure(s) Performed: PREOPERATIVE DIAGNOSES: 1. Right supracondylar femur fracture POSTOPERATIVE DIAGNOSES: 1. Right supracondylar femur fracture with severe comminution 2. Osteoporosis PROCEDURES PERFORMED: 1. Right supracondylar femur fracture open reduction and internal fixation usi ng Synthes periarticular locking plate ANESTHESIA: Spinal with sedation ENGINEERING PATTERNMAKER: Yoon Mckeon PA-C (assistance with exposure, hemostasis, retraction, fixation, closure, dressing, splint) COMPLICATIONS: None ESTIMATED BLOOD LOSS: 200 mL. DISPOSITION: To post-anesthesia care unit INDICATIONS: Mrs. Corona is a 74-year-old female with a history of falling and sustaining a displaced fracture of the right distal femur. Discussion has been held regarding treatment options and patient desires to proceed with open reduction and internal fixation. Risks and potential complications of this operation were discussed at length. These are inclusive of, but not limited to: Bleeding, infection, scarring, discomfort, blood vessel and/or nerve damage, stiffness of the knee, tendon injury, malunion, nonunion, hardware irritation, need for further surgery, blood clot, pulmonary embolism, , loss of ability to walk, and other risks. Consent form has been signed. PROCEDURE: After appropriate consent was obtained, the patient was taken to the operating room placed in the supine position. Anesthesia was initiated, and after confirmation of adequate anesthesia, the patient was carefully positioned. Care was taken to make sure that all pressure points were adequately padded. Prepping and draping were completed in the usual aseptic fashion using ChloraPrep. Timeout was called, confirming patient identity, side, procedure, and administration of antibiotics. C-arm imaging was used throughout the case for assessment of fracture reduction and hardware placement. The joint line was carefully marked on the skin using C-arm imaging guidance, and a lateral incision was created just beyond the joint line distally and proximally for a distance of about 8 cm. Incision was carried down through skin into subcu tissues and down to fascia. IT band and investing fascia was split in line with its fibers and care was taken to stay anterior to the lateral collateral ligament insertion on the femur. Fracture hematoma was evacuated. Bone was exposed for as much visualization as was necessary to place the periarticular plate in a submuscular fashion. Preoperative CT scanning bruno wed no evidence of intercondylar split. The fracture was further reduced with longitudinal traction on the table using a triangular reduction frame. Towels were placed under the fracture site as necessary to adjust the fracture position until an acceptable alignment was achieved. Once the alignment appeared satisfactory in both AP and lateral planes, the periarticular plate was inserted in submuscular bridging fashion along the lateral side of the femur and pinned proximally with a stab incision over the proximal screw holes. Traction was then held on the femur to further reduce the fracture, and the plate was pinned distally as well. Next, several locking screws were placed within the distal fragment to firmly affix the distal fragment to the plate. Subsequently, several small stab wound incisions were created for placement of the proximal locking screws. As the screws were being placed, C-arm interrogation was used to make sure that the screw lengths were adequate and that the hardware placement was satisfactory. Final tightening of the screws was performed by hand, and final C-arm images were taken and saved. The area was thoroughly irrigated with normal saline and hemostasis was obtained throughout the case using electrocautery. Closure of the fascia and IT band was performed using #2 Vicryl suture in interrupted fashion, followed by 2-0 Vicryl suture in subcutaneous tissues. Gallant were used for the skin. Sterile dressing was then applied with abundant Webril covering, and snug knee immobilizer. Vascular status of the foot remained unchanged. Patient tolerated the procedure well and taken to recovery room in stable condition. Sponge and needle counts were correct.
[2020-04-23] MEDS ORDERED: HYDROcodone/APAP 5-325MG 1 EACH TAB PO PRN (16:30)
[2020-04-23] MEDS ORDERED: hydrOXYzine PAMOATE 25 MG CAP PO PRN (16:30)
[2020-04-23] MEDS: HYDROmorphone 1 MG/ML 1 ML SYRINGE IVP ONE ×2 (16:54→17:01)
--- NOTE | 2020-04-23 17:00 | XR ---
EXAMINATION TYPE: XR femur RT, FL guidance operating room DATE OF EXAM: 04/23/2020 COMPARISON: NONE HISTORY: 74-year-old female ORIF right distal femur fracture FINDINGS: There is side plate and multiple screw fixation across the distal femoral shaft extending into the re gion of the metaphysis. FLUOROSCOPY Fluoroscopy time of 2.57 minutes was used during distal right femur fixation. 2 image/s document/s t he procedure. IMPRESSION: Intraoperative fluoroscopy as above.
[2020-04-23 18:13] LABS: Basophils % (A) 0 %; Eosinophils % (A) 0 %; HGB 12.6 gm/dL (11.4-16.0); Lymphocytes # (A) 0.4 k/uL (1.0-4.8); Lymphocytes % (A) 4 %; MCH 28.3 pg (25.0-35.0); MCHC 32.2 g/dL (31.0-37.0); MCV 88.1 fL (80.0-100.0); Mean Platelet Volume 7.6; Monocytes # (A) 0.5 k/uL (0-1.0); Monocytes % (A) 5 %; Neutrophils # (A) 9.7 k/uL (1.3-7.7); Neutrophils % (A) 90 %; Platelet Count 133 k/uL (150-450); RBC 4.43 m/uL (3.80-5.40); WBC 10.7 k/uL (3.8-10.6)
--- NOTE | 2020-04-23 18:42 | PN ---
PROGRESS NOTE DATE OF SERVICE: 04/23/2020 This 74-year-old woman who was admitted after right distal femoral metaphyseal comminuted displaced fracture underwent right open reduction internal fixation using Synthes periarticular locking plate. The patient tolerated the procedure well. Postoperatively the patient is mildly confused. No chest pain. No palpitations. No fever. PHYSICAL EXAMINATION: Pulse 71, blood pressure 122/71, respiration 16, temperature 98 degrees. HEENT: Conjunctivae normal. NECK: No jugular venous distention. CARDIOVASCULAR SYSTEM: S1, S2 muffled. RESPIRATORY SYSTEM: Breath sounds diminished at the bases. No rhonchi. No crackles. ABDOMEN: Soft, non-tender. LEGS: Status post surgery. NERVOUS SYSTEM: No focal deficit. LABS: Platelets 140. Sodium 134. ASSESSMENT: 1. Status post right distal femoral metaphyseal comminuted displaced fracture with severe pain, status post open reduction internal fixation using the Synthes periarticular locking plate. 2. Mild postoperative delirium, as expected. 3. History of asthma. 4. History of degenerative joint disease. 5. Mild hyponatremia. 6. Mild thrombocytopenia. 7. History of degenerative joint disease. 8. History of overactive bladder. 9. History of bariatric surgery. 10.History of cholecystectomy. 11.History of attention deficit disorder, attention deficit hyperactivity disorder. 12.History of depression. 13.FULL CODE. RECOMMENDATIONS AND DISCUSSION: I recommend to continue current medications, continue with the monitoring, symptomatic treatment. Repeat labs in the morning. Reduce the pain medication if the patient continues to be confused. Will continue to monitor. Supplement vitamins and closely follow with Orthopedic Surgery. DVT prophylaxis. Further recommendations to follow. MMODL / IJN: [id number] /
[2020-04-23] MEDS: HYDROcodone/APAP 5-325MG 1 EACH TAB PO PRN (21:07)
[2020-04-23] MEDS: lamoTRIgine 25 MG TAB PO SCH (21:08)
[2020-04-23] MEDS: SENNOSIDES-DOCUSATE SODIUM 1 EACH TAB PO SCH (21:08)
[2020-04-23] MEDS: ASPIRIN 81 MG PO SCH (21:08)
[2020-04-24] MEDS: LACTATED RINGERS 1,000 ML IV SCH ×5 (00:46→21:20)
[2020-04-24] MEDS: HYDROcodone/APAP 5-325MG 1 EACH TAB PO PRN ×3 (03:28→18:14)
[2020-04-24 07:23] LABS: Calcium 8.4 mg/dL (8.4-10.2)
[2020-04-24] MEDS: AMPHETAMINE PO SCH (09:29)
[2020-04-24] MEDS: DEXTROAMPHETAMINE PO SCH (09:29)
[2020-04-24] MEDS: PANTOPRAZOLE 40 MG/10 ML VIAL IVP SCH ×2 (09:30→21:13)
[2020-04-24] MEDS: SERTRALINE 100 MG TAB PO SCH (09:30)
[2020-04-24] MEDS: THIAMINE 100 MG TAB PO SCH (09:31)
[2020-04-24] MEDS: MULTIVITAMINS, THERA 1 EACH TAB PO SCH (09:31)
[2020-04-24] MEDS: FOLIC ACID 1 MG TAB PO SCH (09:31)
[2020-04-24] MEDS: FUROSEMIDE 20 MG TAB PO SCH (09:31)
[2020-04-24] MEDS: lamoTRIgine 25 MG TAB PO SCH ×3 (09:31→21:14)
[2020-04-24] MEDS: ASPIRIN 81 MG PO SCH ×2 (09:31→21:13)
[2020-04-24] MEDS: ALPRAZolam 0.25 MG TAB PO PRN ×2 (09:38→21:14)
[2020-04-24] MEDS: PATIENT'S OWN MED (Mirabegron [Myrbetriq] 50 MG) PO SCH (10:19)
--- NOTE | 2020-04-24 11:29 | P.PN ---
Subjective Progress Note Date: 04/24/20 This patient is a 74-year-old female that is status-post right supracondylar femur fracture open reduction internal fixation on 04/23/[address] Andrea. Today's postoperative day #1. The patient is seen and examined bedside. Patient states she is experiencing mild to moderate pain in the right thigh this morning. She recently received a dose of [place]. She has been up with physical therapy and to the bedside chair. She states she has been remaining toe-touch weight bearing on the operative leg. She tolerated her breakfast well. Patient states she feels tired this morning, otherwise she feels well. She denies chest pain, shortness breath, nausea, vomiting, fevers, chills. Vital signs stable. Objective - Vital Signs Vital signs: Vital Signs Temp 98.7 F 04/24/20 05:04 Pulse 68 04/24/20 05:04 Resp 16 04/24/20 05:04 BP 110/67 04/24/20 05:04 Pulse Ox 95 04/24/20 05:04 Intake & Output 04/23/20 04/24/20 04/24/20 18:59 06:59 18:59 Intake Total 1450 1790 Output Total 300 350 Balance 1150 1440 Intake: IV 1450 Intake, IV Titration 800 Amount Lactated Ringers 1,000 ml 700 @ 100 mls/hr IV .Q10H [facility] Rx#:[id number] ceFAZolin 2 gm In Sodium 100 Chloride 0.9% 50 ml @ 100 mls/hr IVPB Q8HR [facility] Rx# :[id number] Oral 590 Other 400 Output: Urine 100 350 Uretheral (Martínez) 350 Estimated Blood Loss 200 Other: Voiding Method Indwelling Catheter Indwelling Catheter - Exam On examination, the patient is sitting up in the bedside chair in no apparent distress. She is alert and oriented 3. On inspection of the right lower extremity, there is a knee immobilizer in place. Knee immobilizer is opened and reveals a clean, dry, intact surgical dressing in place. There is no drainage or bleeding through the dressing. The right lower extremity is warm and well- perfused with brisk capillary refill distally. Dorsalis pedis pulse +2. Motor and sensory function appear to be intact of the right lower extremity. Patient has good strength and range of motion of the right ankle. - Labs CBC & Chem 7: 04/23/20 17:54 04/24/20 05:30 Labs: Abnormal Lab Results - Last 24 Hours (Table) 04/23/20 04/24/20 Range/Units 17:54 05:30 WBC 10.7 H (3.8-10.6) k/uL Plt Count 133 L (150-450) k/uL Neutrophils # 9.7 H (1.3-7.7) k/uL Lymphocytes # 0.4 L (1.0-4.8) k/uL Sodium 134 L (137-145) mmol/L BUN 20 H (7-17) mg/dL Glucose 136 H (74-99) mg/dL Assessment and Plan Assessment: Status-post right supracondylar femur fracture open reduction and internal fixation on 04/23/[address] Andrea. Postoperative day #1. Plan: - Toe-touch weightbearing on the operative leg. Up with assistance, up with a walker. Physical therapy for gait and balance training. - Keep knee immobilizer in place at all times. - Ice and elevate right thigh for swelling and pain control. [place] and IV Dilaudid as needed for pain control. - Aspirin 81 mg twice a day for DVT prophylaxis. - 2 doses of postoperative antibiotics complete. - We appreciate internal medicine for perioperative medical management. - Patient is planning to discharge to rehab, most likely on Sunday, if medically cleared. Patient discussed with Dr. Andrea.
--- NOTE | 2020-04-24 14:23 | P.PN ---
Subjective Progress Note Date: 04/24/20 Principal diagnosis: Right supracondylar femur fracture, status post open reduction and internal fixation on 04/23/2020. Postoperative day #1 The patient is seen today 04/24/2020 in follow-up on the regular medical floor. She had a right supracondylar femur fracture and is status post open reduction and internal fixation on 04/23/2020. Postoperative day #1. She is currently sitting up in a chair at the bedside. Right leg immobilizer in place. Pedal pulses palpable. She is awake and alert in no acute distress. Her pain is currently well controlled. She is afebrile. Hemodynamically stable. No shortness of breath, cough or congestion. 18 O2 saturations in the 90s on room air. Sodium 134. Potassium 4.0. Creatinine 0.77. She is working well with the incentive spirometer. Objective - Vital Signs Vital signs: Vital Signs Temp 98 F 04/24/20 11:20 Pulse 67 04/24/20 11:20 Resp 16 04/24/20 11:20 BP 111/57 04/24/20 11:20 Pulse Ox 95 04/24/20 11:20 Intake & Output 04/23/20 04/24/20 04/24/20 18:59 06:59 18:59 Intake Total 1450 1790 Output Total 300 350 320 Balance 1150 1440 -320 Intake: IV 1450 Intake, IV Titration 800 Amount Lactated Ringers 1,000 ml 700 @ 100 mls/hr IV .Q10H [facility] Rx#:[id number] ceFAZolin 2 gm In Sodium 100 Chloride 0.9% 50 ml @ 100 mls/hr IVPB Q8HR [facility] Rx# :[id number] Oral 590 Other 400 Output: Urine 100 350 320 Uretheral (Martínez) 350 220 Estimated Blood Loss 200 Other: Voiding Method Indwelling Catheter Indwelling Catheter Indwelling Catheter - Exam GENERAL EXAM: Alert, very pleasant 74-year-old female patient. Currently up in a chair at the bedside, on room air,comfortable in no apparent distress. HEAD: Normocephalic. EYES: Normal reaction of pupils, equal size. NOSE: Clear with pink turbinates. THROAT: No erythema or exudates. NECK: No masses, no JVD. CHEST: No chest wall deformity. LUNGS: Equal air entry with no crackles, wheeze, rhonchi or dullness. CVS: S1 and S2 normal with no audible murmur, regular rhythm. ABDOMEN: No hepatosplenomegaly, normal bowel sounds, no guarding or rigidity. SPINE: No scoliosis or deformity SKIN: No rashes CENTRAL NERVOUS SYSTEM: No focal deficits, tone is normal in all 4 extremities. EXTREMITIES: Right leg immobilizer in place. There is trace peripheral edema. No clubbing, no cyanosis. Peripheral pulses are intact. - Labs CBC & Chem 7: 04/23/20 17:54 04/24/20 05:30 Labs: Abnormal Lab Results - Last 24 Hours (Table) 04/23/20 04/24/20 Range/Units 17:54 05:30 WBC 10.7 H (3.8-10.6) k/uL Plt Count 133 L (150-450) k/uL Neutrophils # 9.7 H (1.3-7.7) k/uL Lymphocytes # 0.4 L (1.0-4.8) k/uL Sodium 134 L (137-145) mmol/L BUN 20 H (7-17) mg/dL Glucose 136 H (74-99) mg/dL Assessment and Plan Assessment: 1 Recent ground-level fall with right supracondylar femur fracture, status post open reduction and internal fixation using Synthes periarticular locking plate. Postoperative day #1. 2 History of mild intermittent chronic bronchial asthma, currently inactive and stable 3 Obesity, status post bariatric surgery For Attention deficit hyperactivity disorder 5 Degenerative joint disease 6 History of overactive bladder Plan: The patient was seen and evaluated by Dr. Jin She is currently stable from the pulmonary standpoint Continue to work with the incentive spirometer Increase her activity as tolerated We'll continue to follow I, the cosigning physician, performed a history & physical examination of the patient. Lungs sounds are clear. Maintaining good O2 saturations in the 90s on room air. I discussed the assessment and plan of care with my nurse practitioner, Keily Paulino. I attest to the above note as dictated by her.
--- NOTE | 2020-04-24 15:49 | PN ---
PROGRESS NOTE DATE OF SERVICE: 04/24/2020 This 74-year-old woman was admitted after right distal femur fracture surgery, is being closely monitored. The patient is complaining of some anxiety. No chest pain. No palpitations. No fever. PT, OT evaluating the patient closely for possible ECF rehab. PHYSICAL EXAMINATION: Alert and oriented x3. Pulse 67, blood pressure 111/57, respirations 16, temperature 98 degrees, pulse ox 94% on room air. HEENT: Conjunctivae clear. Oral mucosa moist. NECK: No jugular venous distention. No lymph node enlargement. RESPIRATORY: Breath sounds diminished at the bases. No rhonchi, no crackles. HEART: S1 and S2, muffled. ABDOMEN: Soft, nontender. LEGS: Status post right leg surgery. NERVOUS: No focal motor or sensory deficits. LABS: WBC 10.2, hemoglobin 12.4 sodium 134. ASSESSMENT: 1. Status post right distal femoral metaphyseal community displaced fracture with severe pain status post ORIF with Synthes periarticular locking plate. 2. Mild postoperative delirium as expected, improved. 3. History of asthma. 4. History of degenerative joint disease. 5. Mild hyponatremia. 6. Mild thrombocytopenia. 7. History of overactive bladder. 8. History of bariatric surgery. 9. History of cholecystectomy. 10.History attention deficit disorder, attention deficit hyperactivity disorder. 11.History of depression. 12.FULL CODE. RECOMMENDATIONS AND DISCUSSION: Recommend to continue current medications, continue to monitor, continue symptomatic treatment. Otherwise, I will recommend repeat CBC. Monitor the platelets closely. DVT prophylaxis. Resume the home medications. Would closely follow with Orthopedic surgery. Further recommendations to follow. MMODL / IJN: [id number] /
[2020-04-24] MEDS: HYDROmorphone 0.5 MG/0.5 ML SYRINGE IVP PRN (21:14)
[2020-04-24] MEDS: SENNOSIDES-DOCUSATE SODIUM 1 EACH TAB PO SCH (21:14)
[2020-04-25] MEDS: FUROSEMIDE 20 MG TAB PO SCH (09:59)
[2020-04-25] MEDS: lamoTRIgine 25 MG TAB PO SCH ×3 (09:59→21:33)
[2020-04-25] MEDS: FOLIC ACID 1 MG TAB PO SCH (09:59)
[2020-04-25] MEDS: ASPIRIN 81 MG PO SCH ×2 (09:59→20:12)
[2020-04-25] MEDS: SERTRALINE 100 MG TAB PO SCH (10:01)
[2020-04-25] MEDS: THIAMINE 100 MG TAB PO SCH (10:01)
[2020-04-25] MEDS: PANTOPRAZOLE 40 MG/10 ML VIAL IVP SCH (10:01)
[2020-04-25] MEDS: MULTIVITAMINS, THERA 1 EACH TAB PO SCH (10:01)
[2020-04-25] MEDS: PATIENT'S OWN MED (Mirabegron [Myrbetriq] 50 MG) PO SCH (10:01)
[2020-04-25] MEDS: DEXTROAMPHETAMINE PO SCH (10:02)
[2020-04-25] MEDS: LACTATED RINGERS 1,000 ML IV SCH ×2 (10:02→17:30)
[2020-04-25] MEDS: AMPHETAMINE PO SCH (10:02)
[2020-04-25] MEDS: HYDROcodone/APAP 5-325MG 1 EACH TAB PO PRN (10:11)
--- NOTE | 2020-04-25 11:16 | P.PN ---
Subjective Progress Note Date: 04/25/20 This patient is a 74-year-old female that is status-post right supracondylar femur fracture open reduction internal fixation on 04/23/[address] Andrea. Today's postoperative day #2. The patient is seen and examined bedside. The patient states her pain is currently well-controlled in the right thigh. She has been up with physical therapy this morning, and she states she feels more confident transferring to the bedside chair with a walker. She states she tolerated her breakfast well. She has not yet had a bowel movement postoperatively, she denies abdominal pain. She states she is feeling well this morning and has no complaints. Patient denies chest pain, soreness breath, nausea, vomiting, fevers, chills. Vital signs stable. Objective - Vital Signs Vital signs: Vital Signs Temp 99 F 04/25/20 04:30 Pulse 72 04/25/20 08:00 Resp 18 04/25/20 08:00 BP 123/57 04/25/20 04:30 Pulse Ox 98 04/25/20 04:30 Intake & Output 04/24/20 04/25/20 04/25/20 18:59 06:59 18:59 Intake Total 1420 Output Total 420 800 Balance -420 620 Intake: Intake, IV Titration 700 Amount Lactated Ringers 1,000 ml 700 @ 100 mls/hr IV .Q10H [facility] Rx#:[id number] Oral 720 Output: Urine 420 800 Uretheral (Martínez) 220 350 Other: Voiding Method Indwelling Catheter Indwelling Catheter Indwelling Catheter # Voids 0 - Exam On examination, the patient is sitting up in the bedside chair in no apparent distress. She is alert and oriented 3. On inspection of the right lower extremity, there is a knee immobilizer in place. Knee immobilizer is opened and reveals a clean, dry, intact surgical dressing in place. There is no drainage or bleeding through the dressing. The right lower extremity is warm and well- perfused with brisk capillary refill distally. Dorsalis pedis pulse +2. Motor and sensory function appear to be intact of the right lower extremity. Patient has good strength and range of motion of the right ankle. - Labs CBC & Chem 7: 04/23/20 17:54 04/24/20 05:30 Assessment and Plan Assessment: Status-post right supracondylar femur fracture open reduction and internal fixation on 04/23/[address] Andrea. Postoperative day #2. Plan: - Toe-touch weightbearing on the operative leg. Up with assistance, up with a walker. Physical therapy for gait and balance training. - Keep knee immobilizer in place at all times. - Ice and elevate right thigh for swelling and pain control. [place] as needed for pain control, decrease use of IV Dilaudid as tolerated. - Aspirin 81 mg twice a day for DVT prophylaxis. - 2 doses of postoperative antibiotics complete. - We appreciate internal medicine for perioperative medical management. - Patient is planning to discharge to rehab, most likely on Sunday, if medically cleared. Patient discussed with Dr. Andrea.
--- NOTE | 2020-04-25 13:06 | P.PN ---
Subjective Progress Note Date: 04/25/20 Principal diagnosis: Right supracondylar femur fracture, status post open reduction and internal fixation on 04/23/2020. Postoperative day #1 The patient is seen today 04/25/2020 in follow-up on the regular medical floor. She is currently sitting up in a chair at the bedside. Right leg immobilizer in place.She had a right supracondylar femur fracture and is status post open reduction and internal fixation on 04/23/2020. Postoperative day #2. She denies any shortness of breath, cough or congestion. Continues to maintain good O2 saturations in the 90s on room air. She's afebrile. Hemodynamically stable. Surgical site pain is well controlled. She has been working with physical therapy. Objective - Vital Signs Vital signs: Vital Signs Temp 98.5 F 04/25/20 11:16 Pulse 69 04/25/20 11:16 Resp 16 04/25/20 11:16 BP 101/52 04/25/20 11:16 Pulse Ox 94 L 04/25/20 11:16 Intake & Output 04/24/20 04/25/20 04/25/20 18:59 06:59 18:59 Intake Total 1420 Output Total 420 800 Balance -420 620 Intake: Intake, IV Titration 700 Amount Lactated Ringers 1,000 ml 700 @ 100 mls/hr IV .Q10H [facility] Rx#:[id number] Oral 720 Output: Urine 420 800 Uretheral (Martínez) 220 350 Other: Voiding Method Indwelling Catheter Indwelling Catheter Indwelling Catheter # Voids 0 - Exam GENERAL EXAM: Alert, very pleasant 74-year-old female patient. Currently up in a chair at the bedside, on room air, comfortable in no apparent distress. HEAD: Normocephalic. EYES: Normal reaction of pupils, equal size. NOSE: Clear with pink turbinates. THROAT: No erythema or exudates. NECK: No masses, no JVD. CHEST: No chest wall deformity. LUNGS: Equal air entry with no crackles, wheeze, rhonchi or dullness. CVS: S1 and S2 normal with no audible murmur, regular rhythm. ABDOMEN: No hepatosplenomegaly, normal bowel sounds, no guarding or rigidity. SPINE: No scoliosis or deformity SKIN: No rashes CENTRAL NERVOUS SYSTEM: No focal deficits, tone is normal in all 4 extremities. EXTREMITIES: Right leg immobilizer in place. There is trace peripheral edema. No clubbing, no cyanosis. Peripheral pulses are intact. - Labs CBC & Chem 7: 04/23/20 17:54 04/24/20 05:30 Assessment and Plan Assessment: 1 Recent ground-level fall with right supracondylar femur fracture, status post open reduction and internal fixation using Synthes periarticular locking plate. Postoperative day #2. 2 History of mild intermittent chronic bronchial asthma, currently inactive and stable 3 Obesity, status post bariatric surgery For Attention deficit hyperactivity disorder 5 Degenerative joint disease 6 History of overactive bladder Plan: The patient was seen and evaluated by Dr. Jin She is stable from the pulmonary standpoint Continue to work with the incentive spirometer Increase her activity as tolerated Probable discharge to subacute rehab in the a.m. We'll continue to follow I, the cosigning physician, performed a history & physical examination of the patient. Lungs sounds are clear. Maintaining good O2 saturations in the 90s on room air. I discussed the assessment and plan of care with my nurse practitioner, Keily Paulino. I attest to the above note as dictated by her.
--- NOTE | 2020-04-25 17:08 | PN ---
PROGRESS NOTE DATE OF SERVICE: 04/25/2020 This 71-year-old woman who was admitted with right distal femoral fracture is being closely monitored. No chest pain. No palpitations. No fever. PHYSICAL EXAMINATION: Alert and oriented x2. Pulse 69. Blood pressure 101/52, respirations 16, temperature 98.4, pulse ox 94% on room air. HEENT: Conjunctivae normal. NECK: No JVD. CARDIOVASCULAR: S1, S2 muffled. RESPIRATORY: Breath sounds diminished in the bases. Scattered rhonchi. No crackles. ABDOMEN: Soft, nontender. LEGS are no edema. No swelling. NERVOUS SYSTEM: No focal deficits. LABS: WBC 10.7, hemoglobin 12.6. ASSESSMENT: 1. Status post right distal femoral metaphyseal comminuted displaced fracture with severe pain status post ORIF with Synthes periarticular locking plate. 2. Mild postoperative delirium as expected, improved. 3. History of asthma. 4. History of degenerative joint disease. 5. Mild hyponatremia. 6. Gait dysfunction. 7. Mild thrombocytopenia. 8. History of overactive bladder. 9. History of bariatric surgery. 10.History of cholecystectomy. 11.History attention-deficit disorder/attention-deficit/hyperactivity disorder. 12.History of depression. 13.FULL CODE. RECOMMENDATIONS AND DISCUSSION: I recommend to continue current medications. Continue to monitor. Symptomatic treatment. Otherwise at this time PT/OT evaluation. Continue the pain management. Pain medications. Closely follow with Orthopedic surgery. Further recommendations to follow. MMODL / IJN: [id number] /
[2020-04-25 17:20] LABS: Basophils % (A) 1 %; Eosinophils # (A) 0.3 k/uL (0-0.7); Eosinophils % (A) 3 %; HCT 32.5 % (34.0-46.0); HGB 10.6 gm/dL (11.4-16.0); Lymphocytes # (A) 0.9 k/uL (1.0-4.8); Lymphocytes % (A) 11 %; MCH 28.9 pg (25.0-35.0); MCHC 32.7 g/dL (31.0-37.0); MCV 88.7 fL (80.0-100.0); Mean Platelet Volume 7.9; Monocytes # (A) 0.6 k/uL (0-1.0); Monocytes % (A) 8 %; Neutrophils # (A) 6.1 k/uL (1.3-7.7); Neutrophils % (A) 76 %; Platelet Count 166 k/uL (150-450); RBC 3.66 m/uL (3.80-5.40); RDW 14.3 % (11.5-15.5)
[2020-04-25] MEDS: PANTOPRAZOLE 40 MG TABLET PO SCH (17:28)
[2020-04-25] MEDS: SENNOSIDES-DOCUSATE SODIUM 1 EACH TAB PO SCH (20:12)
[2020-04-25] MEDS: HYDROmorphone 0.5 MG/0.5 ML SYRINGE IVP PRN (23:44)
[2020-04-26] MEDS: LACTATED RINGERS 1,000 ML IV SCH ×3 (05:54→16:19)
[2020-04-26] MEDS: FOLIC ACID 1 MG TAB PO SCH (09:13)
[2020-04-26] MEDS: ASPIRIN 81 MG PO SCH (09:13)
[2020-04-26] MEDS: MULTIVITAMINS, THERA 1 EACH TAB PO SCH (09:13)
[2020-04-26] MEDS: THIAMINE 100 MG TAB PO SCH (09:13)
[2020-04-26] MEDS: SERTRALINE 100 MG TAB PO SCH (09:13)
[2020-04-26] MEDS: lamoTRIgine 25 MG TAB PO SCH ×2 (09:14→17:53)
[2020-04-26] MEDS: AMPHETAMINE PO SCH (09:14)
[2020-04-26] MEDS: FUROSEMIDE 20 MG TAB PO SCH (09:14)
[2020-04-26] MEDS: PATIENT'S OWN MED (Mirabegron [Myrbetriq] 50 MG) PO SCH (09:14)
[2020-04-26] MEDS: PANTOPRAZOLE 40 MG TABLET PO SCH ×2 (09:14→17:53)
[2020-04-26] MEDS: DEXTROAMPHETAMINE PO SCH (09:14)
--- NOTE | 2020-04-26 10:48 | P.DS ---
Providers Date of admission: 04/21/20 14:52 Expected date of discharge: 04/26/20 Attending physician: Robert Andrea Consults: 04/21/20 14:32 Consult Physician Stat Consulting Provider: Trever Joshua Consult Reason/Comments: Right distal femur fracture, medical management Do you want consulting provider notified?: Yes 04/21/20 18:11 Consult Physician Routine Consulting Provider: Kevon Jin Consult Reason/Comments: knew the pt Do you want consulting provider notified?: Yes Primary care physician: Kevon Jin [place] Hospital Course: This is a 74-year-old female that sustained a right supracondylar femur fracture. Patient presented to [facility] on 04/21/20 and was admitted under the care of Dr. Andrea for surgical intervention. Patient was seen by Dr. Jin and Dr. Joshua pre-operatively and cleared for surgery. Patient underwent an open reduction and internal fixation of the right supracondylar femur fracture on 04/23/20. The procedure was performed without complication or sequelae. The patient is doing well postoperatively. Labs and vital signs are stable on day of discharge. Patient is seen and examined bedside this morning. She states the pain in her right thigh is currently well-controlled. She states she has worked with physical therapy this morning, and per physical therapy, she is transferring to the bedside chair with a walker without issue. She has not had a bowel movement post-operatively, she denies abdominal pain. She denies chest pain, shortness of breath, nausea, vomiting, fevers, chills. She overall feels well. There are no complaints the day of discharge. Vital signs stable. On examination, the patient is sitting up in the bedside chair in no apparent distress. She is alert and oriented 3. On inspection of the right lower extremity, there is a knee immobilizer in place. Knee immobilizer is opened and reveals a clean, dry, intact surgical dressing in place. There is no drainage or bleeding through the dressing. Thigh is soft and compressible. The right lower extremity is warm and well-perfused with brisk capillary refill distally. Dorsalis pedis pulse +2. Motor and sensory function appear to be intact of the right lower extremity. Patient has good strength and range of motion of the right ankle. Patient Condition at Discharge: Good Plan - Discharge Summary Discharge Rx Participant: No New Discharge Prescriptions: New Aspirin 81 mg PO BID 30 Days #60 chewable HYDROcodone/APAP 5-325MG [Sula 5-325] 1 tab PO Q6HR PRN 7 Days #30 tab PRN Reason: Pain No Action Sertraline [Zoloft] 200 mg PO DAILY Furosemide [Lasix] 20 mg PO DAILY Mirabegron [Myrbetriq] 50 mg PO DAILY lamoTRIgine [LaMICtal] 25 mg PO TID Dextroamphetamine/Amphetamine [Adderall Xr] 20 mg PO QAM Discharge Medication List Furosemide [Lasix] 20 mg PO DAILY 07/23/14 [History] Sertraline [Zoloft] 200 mg PO DAILY 07/23/14 [History] Dextroamphetamine/Amphetamine [Adderall Xr] 20 mg PO QAM 04/22/20 [History] Mirabegron [Myrbetriq] 50 mg PO DAILY 04/22/20 [History] lamoTRIgine [LaMICtal] 25 mg PO TID 04/22/20 [History] Aspirin 81 mg PO BID 30 Days #60 chewable 04/26/20 [Rx] HYDROcodone/APAP 5-325MG [Sula 5-325] 1 tab PO Q6HR PRN 7 Days #30 tab 04/26/20 [Rx] Follow up Appointment(s)/Referral(s): Kevon Jin DO [Primary Care Provider] - 1-2 days Robert Andrea MD [STAFF PHYSICIAN] - 2 Weeks Activity/Diet/Wound Care/Special Instructions: Toe-touch weight bearing on operative leg. Physical therapy for gait and balance training. Keep knee immobilizer in place at all times. Optifoam dressing in place for 7-10 days. Aspirin 81mg BID for 1 month for DVT prophylaxis. Take pain medications as prescribed. Follow-up with Dr. Andrea in 2 weeks. Call the office with any questions or concerns, Discharge Disposition: TRANSFER TO SNF/ECF
[2020-04-26 12:40] VITALS: BP 142/75; PULSE 68; RESP 16; TEMP 98.7
--- NOTE | 2020-04-26 13:18 | P.PN ---
Subjective Progress Note Date: 04/26/20 On today's evaluation of 04/26/2020 on seeing this patient for a follow-up. The patient is doing well. The patient is postop day #3. The patient underwent a ORIF of a right supracondylar femur fracture. She is going to be discharged to rehabilitation today. No respiratory difficulties. She is hemodynamic is stable. No altered mentation. No nausea vomiting diarrhea or abdominal pain. No other complaints otherwise. She is afebrile. Her white cell count is at 8 with a hemoglobin of 10.6. No other significant events otherwise over the past 24 hours. Objective - Vital Signs Vital signs: Vital Signs Temp 98.7 F 04/26/20 11:15 Pulse 68 04/26/20 11:15 Resp 16 04/26/20 11:15 BP 142/75 04/26/20 11:15 Pulse Ox 100 04/26/20 11:15 Intake & Output 04/25/20 04/26/20 04/26/20 18:59 06:59 18:59 Intake Total 800 Output Total 650 600 Balance -650 200 Intake: Intake, IV Titration 800 Amount Lactated Ringers 1,000 ml 800 @ 100 mls/hr IV .Q10H [facility] Rx#:[id number] Output: Urine 650 600 Other: Voiding Method Indwelling Catheter Indwelling Catheter Indwelling Catheter # Voids 0 - Exam GENERAL EXAM: Alert, very pleasant 74-year-old female patient. Currently up in a chair at the bedside, on room air, comfortable in no apparent distress. HEAD: Normocephalic. EYES: Normal reaction of pupils, equal size. NOSE: Clear with pink turbinates. THROAT: No erythema or exudates. NECK: No masses, no JVD. CHEST: No chest wall deformity. LUNGS: Equal air entry with no crackles, wheeze, rhonchi or dullness. CVS: S1 and S2 normal with no audible murmur, regular rhythm. ABDOMEN: No hepatosplenomegaly, normal bowel sounds, no guarding or rigidity. SPINE: No scoliosis or deformity SKIN: No rashes CENTRAL NERVOUS SYSTEM: No focal deficits, tone is normal in all 4 extremities. EXTREMITIES: Right leg immobilizer in place. There is trace peripheral edema. No clubbing, no cyanosis. Peripheral pulses are intact. - Labs CBC & Chem 7: 04/25/20 17:10 04/24/20 05:30 Labs: Abnormal Lab Results - Last 24 Hours (Table) 04/25/20 Range/Units 17:10 RBC 3.66 L (3.80-5.40) m/uL Hgb 10.6 L (11.4-16.0) gm/dL Hct 32.5 L (34.0-46.0) % Lymphocytes # 0.9 L (1.0-4.8) k/uL Assessment and Plan Plan: 1 right supracondylar femur fracture secondary to fall and the patient is post ORIF and the patient is postop day #3 2 History of mild intermittent chronic bronchial asthma, currently inactive and stable 3 Obesity, status post bariatric surgery For Attention deficit hyperactivity disorder 5 Degenerative joint disease 6 History of overactive bladder Plan Adequate pain control with [place] Will need rehabilitation the patient is going to [facility] further rehabilitation Outpatient medications have been resumed Follow-up with us in the office following her discharge from rehabilitation.
--- NOTE | 2020-04-26 16:25 | PN ---
PROGRESS NOTE DATE OF SERVICE: 04/26/2020 This 74-year-old woman was admitted after right distal metaphyseal femoral fracture also had ARF. The patient is receiving PT, OT as the pain is tolerable. At this time according to the patient is slated to go to ECF at this time. No chest pain. No palpitations. No fever. Dr. Jin is following the patient in the outpatient setting. PHYSICAL EXAMINATION: Alert and oriented x3. Pulse is 68. Blood pressure 140/70, respirations 16, temperature 98.7, pulse ox 100% on room air. HEENT: Conjunctivae normal. NECK: No jugular venous distension. CARDIOVASCULAR SYSTEM: S1, S2, muffled. RESPIRATION: Breath sounds diminished at the bases, no rhonchi, no crackles. ABDOMEN: Soft, nontender. LEGS: Status post surgery. NERVOUS SYSTEM: No focal deficits. LABS: WBC 8.2, hemoglobin 10.6, sodium 135. ASSESSMENT: 1. Status post right distal femoral metaphyseal community displaced fracture with severe pain status, post ORIF with Synthes periarticular locking plate. 2. Mild possibly delirium as expected, improved. 3. History of asthma. 4. Degenerative joint disease. 5. Mild hyponatremia. 6. Gait dysfunction. 7. History of mild thrombocytopenia. 8. History of overactive bladder. 9. History of bariatric surgery. 10.History of cholecystectomy. 11.History of depression. 12.FULL CODE. RECOMMENDATION: I recommend to continue current management and symptomatic treatment. I recommended follow up with Dr. Richardson in the ECF and follow up with Dr. Jin after discharge from the ECF. The rest of the recommendations per Orthopedic Surgery. Please see orders for the details. MMODL / IJN: [id number] /
== END 2020-04-26 18:15 | DRG 481 ==
LOC: EC 11:54 → 5NMEDONC 14:52
PROVIDERS: ADMIT Orthopaedic Surgery; ATTEND Orthopaedic Surgery
PROC: 0QSB04Z Reposition Right Lower Femur with Internal Fixation Device, Open Approach (ICD-10-PCS; principal; 2020-04-23 12:30)
DX: S72.451A Displaced supracondylar fracture without intracondylar extension of lower end of right femur, initial encounter for closed fracture (principal); E87.1 Hypo-osmolality and hyponatremia; N17.9 Acute kidney failure, unspecified; F05 Delirium due to known physiological condition; Z11.59 Encounter for screening for other viral diseases; D69.6 Thrombocytopenia, unspecified; Z68.38 Body mass index [BMI] 38.0-38.9, adult; M81.0 Age-related osteoporosis without current pathological fracture; M17.0 Bilateral primary osteoarthritis of knee; F90.9 Attention-deficit hyperactivity disorder, unspecified type; N32.81 Overactive bladder; E66.9 Obesity, unspecified; F32.9 Major depressive disorder, single episode, unspecified; F41.9 Anxiety disorder, unspecified; J45.20 Mild intermittent asthma, uncomplicated; R32 Unspecified urinary incontinence; R33.9 Retention of urine, unspecified; W01.0XXA Fall on same level from slipping, tripping and stumbling without subsequent striking against object, initial encounter; X50.1XXA Overexertion from prolonged static or awkward postures, initial encounter; Z79.899 Other long term (current) drug therapy; Z90.49 Acquired absence of other specified parts of digestive tract; Z98.890 Other specified postprocedural states; Z98.84 Bariatric surgery status; Z82.5 Family history of asthma and other chronic lower respiratory diseases; Z83.3 Family history of diabetes mellitus; Z82.49 Family history of ischemic heart disease and other diseases of the circulatory system; Z80.1 Family history of malignant neoplasm of trachea, bronchus and lung
CPT/HCPCS: 36415; 71045; 80048; 80053; 85025; 85610; 85730; 93005; 96372; 96374; 96375; 96376; 99285

== ENCOUNTER → 2023-02-22 | Outpatient (CLI) | payer MEDICARE ==
[2023-02-23 00:10] LABS: Anion Gap 10.8 mmol/L (10.00-18.00); Blood Urea Nitrogen 17.4 mg/dL (9.0-27.0); Carbon Dioxide 25.2 mmol/L (20.0-27.5); Non-African American GFR(CKD) 62.1 (60.0-200.0)
[2023-02-23 01:32] LABS: HCT 41.6 % (37.2-46.3); HGB 12.8 g/dL (12.0-15.0); MCHC 30.8 g/dL (32.0-37.0); NRBC Per 100 WBC 0 /100 WBCS (0.0-0.0); Platelet Count 191 X 10*3/uL (140-440); RBC 4.57 X 10*6/uL (4.10-5.20); WBC 7.18 X 10*3/uL (4.50-10.00)
== END | disposition home or self-care (01) ==
LOC: LABPAT 11:48
PROVIDERS: ATTEND Internal Medicine Interventional Cardiology
DX: Z01.812 Encounter for preprocedural laboratory examination (principal); R94.39 Abnormal result of other cardiovascular function study
CPT/HCPCS: 80051; 82565; 84520; 85027

== ENCOUNTER 2023-02-23 06:37 | Day surgery (SDC) | payer MEDICARE ==
[2023-02-20 14:43] VITALS: BMI 36.3
[~2023-02-23 06:37] MED LIST: ALPRAZolam 0.25 MG TAB PO PRN; ALPRAZolam 0.5 MG TAB PO PRN; ASPIRIN 325 MG TAB PO ONE; ATORVASTATIN 80 MG TAB PO ONE; HEPARIN SODIUM,PORCINE 10,000 UNIT in SODIUM CHLORIDE 0.9% 1,000 ML IRRIGATION PRN; HEPARIN SODIUM,PORCINE 2,500 UNIT in SODIUM CHLORIDE 0.9% 250 ML IRRIGATION PRN; NITROGLYCERIN SL TABS 0.4 MG TAB SUBLINGUAL PRN; SODIUM CHLORIDE 0.9% 1,000 ML in EMPTY BAG 1 BAG IV SCH
[2023-02-23] MEDS ORDERED: ASPIRIN 81 MG ONE (06:54)
[2023-02-23] MEDS ORDERED: fentaNYL (PF) 50 MCG/ML 2 ML AMP ONE (07:05)
[2023-02-23] MEDS ORDERED: VERAPAMIL 2.5 MG/ML 2 ML AMP ONE (07:09)
[2023-02-23] MEDS ORDERED: HEPARIN SODIUM 1,000 UN/ML (10ML VL) ONE (07:10)
[2023-02-23] MEDS: BENZOCAINE SPRAY 1 CAN TOPICAL ONE ×2 (07:11→07:19)
[2023-02-23] MEDS ORDERED: MIDAZOLAM 2 MG/2 ML VIAL IV ONE ×2 (07:20→07:23)
[2023-02-23] MEDS ORDERED: fentaNYL (PF) 50 MCG/ML 2 ML AMP IV ONE (07:20)
[2023-02-23 07:22] VITALS: TEMP 97
--- NOTE | 2023-02-23 07:38 | P.PCN ---
Date of Procedure: 02/23/23 Description of Procedure: Indication: Aortic regurgitation Procedure Description: After explaining the procedure to the patient, it's risk and complications, blood pressure, heart rate and O2 saturation were monitored. The throat was sprayed with Cetacaine. Patient received 3 mg intravenous Versed, 50 mcg intravenous fentanyl. The probe was introduced into the esophagus without difficulty. There was inability to advance the probe to the stomach. Images were obtained. Following that, the probe was removed. There was no immediate complication. Findings: Left atrial size is mildly dilated, left atrial appendage is normal. Left ventricular size and systolic function are normal. The aortic valve is a tricuspid valve with mild fibrocalcific changes and preserved opening. The mitral valve reveals severe calcification of the posterior mitral valve leaflets, the tricuspid valve is normal. The descending thoracic aorta is normal. The intra-atrial septum is highly mobile. No pericardial effusion was noted. Contrast bubble study revealed no shunting across the intra-atrial septum with Valsalva maneuver. Doppler: Pulse wave and color Doppler were obtained, and revealed mild mitral with mild to moderate tricuspid regurgitation. The estimated right ventricle systolic pressure is 45 mmHg. Moderate aortic regurgitation was noted. No shunting across the intra-atrial septum was noted. Conclusion: 1. Normal left ventricle size and systolic function 2. Aortic sclerosis with no evidence of stenosis with moderate aortic regurgitation 3. And mild mitral regurgitation 4. Mild to moderate tricuspid regurgitation with moderate pulmonary hypertension 5. Highly mobile intra-atrial septum with no evidence of shunting
[2023-02-23] MEDS ORDERED: LIDOCAINE 1% INJ 10MG/ML (5 ML VIAL-PF) SQ ONE (07:49)
[2023-02-23] MEDS ORDERED: VERAPAMIL SYRINGE (5 MG/10 ML) INTRAARTER ONE (07:50)
[2023-02-23 07:52] VITALS: RESP 16
[2023-02-23] MEDS ORDERED: HEPARIN SODIUM 1,000 UN/ML (10ML VL) IVP ONE (07:53)
[2023-02-23] MEDS ORDERED: IOPAMIDOL-370 125ML BTL INJ ONE (08:00)
[2023-02-23] MEDS ORDERED: RX INFO: IV CONTRAST WAS GIVEN 1 EACH MISC MISCELLANE PRN (08:10)
[2023-02-23] MEDS ORDERED: ALBUTEROL NEBULIZED 2.5 MG/3 ML INHALATION PRN (08:11)
[2023-02-23] MEDS ORDERED: traZODone HCL 50 MG TAB PO PRN (08:11)
[2023-02-23] MEDS ORDERED: SODIUM CHLORIDE 0.9% 1,000 ML IV SCH (08:15)
--- NOTE | 2023-02-23 08:17 | P.CARDCATH ---
Date of Procedure: 02/23/23 Description of Procedure: Cardiac Catheterization: The patient is a 77 female with a history of hyperlipidemia who has been complaining of progressive dyspnea on exertion, had an abnormal MPI. Recommendations were made regarding cardiac catheterization, the risks and the complications were discussed with the patient who is in full understanding and agreement. 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 Using Xylocaine Anesthesia and Seldinger technique, a 6-Cymro sheath was introduced in the right radial artery . Subsequently, selective coronary angiography was performed using a 5-Cymro 3.5 bend Graham catheter. Multiple views of the coronary artery including hemiaxial views were obtained. The right Graham catheter was used to cross the aortic valve and LVEDP was calculated. Following that, catheter and sheath were removed. Hemostasis was obtained with deployment of TR band . There was no immediate complication. Patient was returned to room in stable condition. Of note, the patient received a total of 5000 units of intravenous heparin as well as intra-arterial verapamil. Findings: Severe mitral annulus calcification was noted Left main: This is a large size vessel, short, bifurcating into LAD and left circumflex, left main has no high-grade stenosis LAD: This is a large size vessel, reaching to the apex, giving rise to a large proximal diagonal branch, second diagonal branch is moderate in caliber. The LAD proximally has a 20% plaque there is another plaque of 30-40% after the second diagonal branch, the rest of the vessel has no high-grade stenosis. A 50% plaque at the takeoff of the second diagonal branch was noted. Left circumflex: This is a large nondominant vessel giving rise to a large obtuse marginal branch, the proximal left circumflex has a 20% plaque the rest of the vessel has no high-grade stenosis. RCA: This is a dominant vessel bifurcating into PDA and PLV the mid RCA has a 20% plaque the rest of the vessel has no high-grade stenosis Left Ventriculogram: Not performed Hemodynamics: There was no gradient across the aortic valve , LVEDP was 12-16 mmHg Conclusion: 1. Mild to moderate disease in the LAD 2. Mild RCA and left circumflex disease 3. Right dominance 4. Mitral annulus calcification Recommendations: I have recommended to continue medical therapy with aggressive coronary risks modification. The findings and the recommendations were discussed with the patient and the family and they were in full understanding and agreement. Duration of sedation is 19 minutes.
[2023-02-23] MEDS ORDERED: NON FORMULARY DRUG (Vitamin C/Biotin [Hair, Skin And Nails Chew] 1 EACH Tab.Chew) PO SCH (09:00)
[2023-02-23] MEDS ORDERED: ASPIRIN 81 MG PO SCH (09:00)
[2023-02-23] MEDS ORDERED: DEXTROAMPHETAMINE PO SCH (09:00)
[2023-02-23] MEDS ORDERED: AMPHETAMINE PO SCH (09:00)
[2023-02-23 11:18] VITALS: BP 112/69; PULSE 73
[2023-02-23] MEDS ORDERED: SERTRALINE 100 MG TAB PO SCH (21:00)
[2023-02-23] MEDS ORDERED: lamoTRIgine 25 MG TAB PO SCH (21:00)
== END 2023-02-23 12:22 | disposition home or self-care (01) ==
LOC: CATHCVL 06:37
PROVIDERS: ATTEND Internal Medicine Interventional Cardiology
DX: I25.10 Atherosclerotic heart disease of native coronary artery without angina pectoris (principal); I08.3 Combined rheumatic disorders of mitral, aortic and tricuspid valves; I27.20 Pulmonary hypertension, unspecified; I25.9 Chronic ischemic heart disease, unspecified; E78.5 Hyperlipidemia, unspecified; Z86.16 Personal history of COVID-19; Z85.79 Personal history of other malignant neoplasms of lymphoid, hematopoietic and related tissues; Z82.49 Family history of ischemic heart disease and other diseases of the circulatory system; Z79.899 Other long term (current) drug therapy; J45.909 Unspecified asthma, uncomplicated; F32.A Depression, unspecified; Z79.51 Long term (current) use of inhaled steroids; Z79.82 Long term (current) use of aspirin; Z98.84 Bariatric surgery status; Z90.49 Acquired absence of other specified parts of digestive tract
CPT/HCPCS: 93458; 93312; 93320; 93325; 99152; C1769 ×2; C1894; J2250; J2001; J3010; J1644; Q9967

== ENCOUNTER 2024-03-09 15:40 | Emergency (ER) | payer MEDICARE ==
[2024-03-09 18:04] LABS: Partial Thromboplastin Time 24.8 sec (22.0-30.0); Prothrombin Time 10.7 sec (10.0-12.5)
[2024-03-09] MEDS: MORPHINE SULFATE 2 MG/ML SYRINGE IVP ONE (18:05)
[2024-03-09 18:06] LABS: Anisocytosis Slight; Basophils # (A) 0.1 k/uL (0-0.2); Basophils % (A) 0 %; Eosinophils # (A) 0.6 k/uL (0-0.7); Eosinophils % (A) 3 %; HCT 29.2 % (34.0-46.0); HGB 9.2 gm/dL (11.4-16.0); Hypochromasia Slight; Lymphocytes % (A) 6 %; MCH 27.4 pg (25.0-35.0); MCHC 31.5 g/dL (31.0-37.0); MCV 86.9 fL (80.0-100.0); Mean Platelet Volume 7.7; Monocytes % (A) 5 %; Neutrophils # (A) 15.9 k/uL (1.3-7.7); Neutrophils % (A) 85 %; Platelet Count 190 k/uL (150-450); RBC 3.36 m/uL (3.80-5.40); RDW 17.5 % (11.5-15.5); WBC 18.8 k/uL (3.8-10.6)
[2024-03-09 18:19] LABS: ALT 10 U/L (4-34); AST 37 U/L (14-36); African American GFR (CKD) 21 (>60 ml/min/1.73 sqM); Alkaline Phosphatase 131 U/L (38-126); Anion Gap 16 mmol/L; Blood Urea Nitrogen 47 mg/dL (7-17); Calcium 9.3 mg/dL (8.4-10.2); Carbon Dioxide 14 mmol/L (22-30); Chloride 111 mmol/L (98-107); Glucose 97 mg/dL (74-99); Non-African American GFR(CKD) 18 (>60 ml/min/1.73 sqM); Potassium 3.8 mmol/L (3.5-5.1); Sodium 141 mmol/L (137-145); Total Bilirubin 0.5 mg/dL (0.2-1.3)
--- NOTE | 2024-03-09 19:04 | XR ---
EXAMINATION TYPE: XR lumbar spine 2 or 3V DATE OF EXAM: 03/09/2024 6:22 PM CLINICAL INDICATION:Female, 78 years old with history of back pain sciatica; COMPARISON: None TECHNIQUE: XR lumbar spine 2 or 3V - Frontal, lateral and coned in L5-S1 lateral views of the spine. FINDINGS: No evidence of any acute osseous pathology. No evidence of loss of vertebral body height i s seen. There is normal alignment of the lumbar vertebral bodies. Mild scattered disc space narrowing . Multilevel marginal osteophyte formation throughout the visualized spine. There is facet joint arth ropathy throughout the spine. Scattered at least mild neural foraminal stenosis. Gastric lap band is present and appears in appropriate position. Right upper quadrant likely secondary clips. IMPRESSION: 1. No acute fracture. 2. Moderate multilevel disc degeneration.
--- NOTE | 2024-03-09 19:04 | XR ---
EXAMINATION TYPE: XR chest 2V DATE OF EXAM: 03/09/2024 6:22 PM CLINICAL INDICATION:Female, 78 years old with history of Chest Pain; COMPARISON: Chest radiographs from 04/21/2020. TECHNIQUE: XR chest 2V Frontal and lateral views of the chest. FINDINGS: Lungs/Pleura: There is no evidence of pleural effusion, focal consolidation, or pneumothorax. Pulmonary vascularity: Unremarkable. Heart/mediastinum: Cardiomediastinal silhouette is unremarkable. Musculoskeletal: Degenerative changes of the shoulder joints. Other findings: None IMPRESSION: No acute cardiopulmonary disease/process.
--- NOTE | 2024-03-09 19:13 | ED ---
Extremity Problem HPI - General Chief complaint: Extremity Problem,Nontraumatic Stated complaint: Back pain Time Seen by Provider: 03/09/24 15:56 Source: patient, EMS Mode of arrival: EMS Limitations: no limitations - History of Present Illness Initial comments: 78-year-old female with a history of lymphedema and no known history of CHF primarily presenting to the ED with a chief complaint of "sciatica". Denies any new injury or trauma. Reports over the past few weeks has had pain from her left buttock going down her left leg. Also reports since the has had increasing bilateral lower extremity swelling. Denies pain of the legs. Denies shortness of breath or chest pain. Due to both of these, reports that she is having lots of difficulties taking care of herself at home. Reports that symptoms became so bad she fears that she will not be able to take care of herself and go to her PCP later this week and therefore called EMS to help her bring her here for further evaluation. No other complaints at this time. Upon obtaining additional history. Patient reports remote history of incontinence device placed. Since then she reports pelvic pain and vaginal bleeding for at least the past year and a half and reportedly kept putting off evaluation of this vaginal bleeding and pelvic pain as she thought that this was secondary to this device being implanted. Patient reports today pain is worse than usual as well. - Related Data Home Medications Medication Instructions Recorded Confirmed lamoTRIgine [LaMICtal] 75 mg PO HS 04/22/20 02/23/23 Albuterol Sulfate [Proventil Hfa] 1 puff INHALATION Q6H PRN 02/20/23 02/20/23 Aspirin 81 mg PO DAILY 02/20/23 02/23/23 Dextroamphetamine/Amphetamine 25 mg PO DAILY 02/20/23 02/23/23 [Adderall Xr 25 mg Capsule] Sertraline [Zoloft] 200 mg PO HS 02/20/23 02/23/23 Vitamin C/Biotin [Hair, Skin and 1 tab PO DAILY 02/20/23 02/23/23 Nails Chew] traZODone HCL [Desyrel] 50 mg PO HS PRN 02/20/23 02/23/23 Previous Rx's Medication Instructions Recorded Atorvastatin [Lipitor] 40 mg PO HS #90 tablet 02/23/23 Allergies Allergy/AdvReac Type Severity Reaction Status Date / Time No Known Allergies Allergy Verified 02/20/23 13:51 Review of Systems ROS Statement: Those systems with pertinent positive or pertinent negative responses have been documented in the HPI. ROS Other: All systems not noted in ROS Statement are negative. Past Medical History Past Medical History: Asthma, GERD/Reflux, Osteoarthritis (OA) Additional Past Medical History / Comment(s): lymph edema lower legs-uses compression pump at night and velco wraps during the day., Overactive bladder with urine incontinence., has neuro stimulator for incontence (states currently not working)., frequent diarrhea., pt has lap band., arthritis knees., hx of covid jan 17 with residual cough., See Cardiology [facility] & [facility]. History of Any Multi-Drug Resistant Organisms: None Reported Past Surgical History: Bariatric Surgery, Cholecystectomy, Tonsillectomy Additional Past Surgical History / Comment(s): Colonoscopy , lap band with hiatal hernia repair (Dr. Pink), fx right femur (march 2020)., interstem neuro stimulatoror (Sep 2022)., Past Anesthesia/Blood Transfusion Reactions: No Reported Reaction, Motion Sickness Past Psychological History: ADD/ADHD, Anxiety, Depression Smoking Status: Never smoker Past Alcohol Use History: Occasional Past Drug Use History: None Reported - Past Family History Brother(s) Family Medical History: Cancer, COPD, Diabetes Mellitus, Deep Vein Thrombosis (DVT), Hypertension, Myocardial Infarction ([place]), Vascular Disorder Additional Family Medical History / Comment(s): pt has twin brothers. non hodgkins lymphoma, bladder cancer Father Family Medical History: Cancer, Coronary Artery Disease (CAD) Mother Family Medical History: COPD General Exam Limitations: no limitations General appearance: alert, in no apparent distress Eye exam: Present: normal appearance Neck exam: Present: normal inspection Respiratory exam: Present: normal lung sounds bilaterally Cardiovascular Exam: Present: regular rate GI/Abdominal exam: Present: soft, normal bowel sounds. Absent: distended, tenderness, guarding, rebound, rigid Extremities exam: Present: other (Swelling of bilateral lower extremities. DP/PT pulses palpable.) Back exam: Present: other (No midline spinal tenderness to palpation.) Neurological exam: Present: alert, oriented X3 Skin exam: Present: warm, dry Course Vital Signs 03/09/24 03/09/24 15:48 18:03 Temperature 98.0 F Pulse Rate 76 80 Respiratory 18 18 Rate Blood Pressure 186/79 205/95 O2 Sat by Pulse 97 97 Oximetry Medical Decision Making - Medical Decision Making Was pt. sent in by a medical professional or institution (BRINDA Liz, DIETICIAN, urgent care, hospital, or usp...) When possible be specific @ -No Did you speak to anyone other than the patient for history (EMS, parent, family, police, friend...)? What history was obtained from this source @ -No Did you review nursing and triage notes (agree or disagree)? Why? @ -I reviewed and agree with nursing and triage notes Were old charts reviewed (outside hosp., previous admission, EMS record, old EKG, old radiological studies, urgent care reports/EKG's, usp records)? Report findings @ -No old charts were reviewed Differential Diagnosis (chest pain, altered mental status, abdominal pain women, abdominal pain men, vaginal bleeding, weakness, fever, dyspnea, syncope, headache, dizziness, GI bleed, back pain, seizure, CVA, palpatations, mental health, musculoskeletal)? @ -Differential Musculoskeletal Muscular strain, contusion, ligament sprain, fracture, arthritis, septic arthritis, bursitis, cellulitis, muscle spasm, nerve compression, DVT, arterial occlusion, herpes zoster, electrolyte abnormality, tumor.... This is not meant to be in all inclusive list EKG interpreted by me (3pts min.). @ -EKG interpreted me showing a sinus rhythm at [address] or T wave changes. PA 164, QRS 114, QT/QTc 416/443. X-rays interpreted by me (1pt min.). @ -None done CT interpreted by me (1pt min.). @ -Noncontrast CT of abdomen pelvis interpreted by me which reveals pelvic lymphadenopathy suspicious for malignancy/metastatic disease. Also findings of left pelvic sidewall mass which erodes into the osseous structures near the acetabulum. U/S interpreted by me (1pt. min.). @ -None done What testing was considered but not performed or refused? (CT, X-rays, U/S, labs)? Why? @ -None What meds were considered but not given or refused? Why? @ -None Did you discuss the management of the patient with other professionals (professionals i.e. BRINDA Liz, DIETICIAN, lab, RT, psych nurse, oncology social worker, sales vice president, teacher, occupational health and safety officer, piano case and bench assembler)? Give summary @ -Case discussed with of general surgery who advises transfer Case discussed with Dr. Prieot Carranza of Project Manager/Team Coach/Onc, who will see the patient at [facility] Case discussed with Dr. Riley, ED attending at [facility], who accepted ED to ED transfer. Was smoking cessation discussed for >3mins.? @ -No Was critical care preformed (if so, how long)? @ -No Were there social determinants of health that impacted care today? How? (Homelessness, low income, unemployed, alcoholism, drug addiction, transportation, low edu. Level, literacy, decrease access to med. care, fdc, rehab)? @ -No Was there de-escalation of care discussed even if they declined (Discuss DNR or withdrawal of care, Hospice)? DNR status @ -No What co-morbidities impacted this encounter? (DM, HTN, Smoking, COPD, CAD, Cancer, CVA, ARF, Chemo, Hep., AIDS, mental health diagnosis, sleep apnea, morbid obesity)? @ -None Was patient admitted / discharged? Hospital course, mention meds given and route, prescriptions, significant lab abnormalities, going to OR and other pertinent info. @ -Transfer 78-year-old female presenting initially to the ED with complaints of sciatic pain with pain starting from the buttocks going down her left leg however upon further investigation reports ever since she had a device implanted for urinary incontinence has also had increasing pelvic pain and vaginal bleeding. Laboratory studies reviewed. CBC significant for an elevated white blood cell count at 18.8, anemia with hemoglobin 9.2, elevated neutrophils at 15.9. Chemistry panel significant for kidney injury with a BUN of 47, creatinine of 2.46. UA shows no significant evidence of infection at this time. CT abdomen pelvis shows pelvic lymphadenopathy with a left pelvic sidewall mass with erosion into the osseous structures near the acetabulum with bilateral hydronephrosis secondary to this. At this time, patient will need multidisciplinary care and therefore will be transferred to [facility], which is her preferred facility. Spoke to physicians as above who will see the patient at [facility]. Discussed plan of care with patient who is in agreement. Undiagnosed new problem with uncertain prognosis? @ -No Drug Therapy requiring intensive monitoring for toxicity (Heparin, Nitro, Insulin, Cardizem)? @ -No Were any procedures done? @ -No Diagnosis/symptom? @ -Left pelvic mass with erosion to osseous structures, kidney injury Acute, or Chronic, or Acute on Chronic? @ -Acute on chronic Uncomplicated (without systemic symptoms) or Complicated (systemic symptoms)? @ -Complicated Side effects of treatment? @ -No Exacerbation, Progression, or Severe Exacerbation? @ -No Poses a threat to life or bodily function? How? (Chest pain, [place], [place], pneumonia, PE, COPD, DKA, ARF, appy, cholecystitis, CVA, Diverticulitis, Homicidal, Suicidal, threat to staff... and all critical care pts) @ -Possibly - Lab Data Result diagrams: 03/09/24 17:50 03/09/24 17:50 Lab Results 03/09/24 03/09/24 03/09/24 Range/Units 17:50 17:50 17:50 WBC 18.8 H (3.8-10.6) k/uL RBC 3.36 L (3.80-5.40) m/uL Hgb 9.2 L (11.4-16.0) gm/dL Hct 29.2 L (34.0-46.0) % MCV 86.9 (80.0-100.0) fL MCH 27.4 (25.0-35.0) pg MCHC 31.5 (31.0-37.0) g/dL RDW 17.5 H (11.5-15.5) % Plt Count 190 (150-450) k/uL MPV 7.7 Neutrophils % 85 % Lymphocytes % 6 % Monocytes % 5 % Eosinophils % 3 % Basophils % 0 % Neutrophils # 15.9 H (1.3-7.7) k/uL Lymphocytes # 1.0 (1.0-4.8) k/uL Monocytes # 1.0 (0-1.0) k/uL Eosinophils # 0.6 (0-0.7) k/uL Basophils # 0.1 (0-0.2) k/uL Hypochromasia Slight Anisocytosis Slight PT 10.7 (10.0-12.5) sec INR 1.0 (<1.2) APTT 24.8 (22.0-30.0) sec Sodium 141 (137-145) mmol/L Potassium 3.8 (3.5-5.1) mmol/L Chloride 111 H (98-107) mmol/L Carbon Dioxide 14 L (22-30) mmol/L Anion Gap 16 mmol/L BUN 47 H (7-17) mg/dL Creatinine 2.46 H (0.52-1.04) mg/dL Est GFR (CKD-EPI)AfAm 21 (>60 ml/min/1.73 sqM) Est GFR (CKD-EPI)NonAf 18 (>60 ml/min/1.73 sqM) Glucose 97 (74-99) mg/dL Calcium 9.3 (8.4-10.2) mg/dL Magnesium 2.0 (1.6-2.3) mg/dL Total Bilirubin 0.5 (0.2-1.3) mg/dL AST 37 H (14-36) U/L ALT 10 (4-34) U/L Alkaline Phosphatase 131 H (38-126) U/L Troponin I (0.000-0.034) ng/mL NT-Pro-B Natriuret Pep pg/mL Total Protein 7.0 (6.3-8.2) g/dL Albumin 4.0 (3.5-5.0) g/dL Urine Color Urine Appearance (Clear) Urine pH (5.0-8.0) Ur Specific Fountain (1.001-1.035) Urine Protein (Negative) Urine Glucose (UA) (Negative) Urine Ketones (Negative) Urine Blood (Negative) Urine Nitrite (Negative) Urine Bilirubin (Negative) Urine Urobilinogen (<2.0) mg/dL Ur Leukocyte Esterase (Negative) Urine RBC (0-5) /hpf Urine WBC (0-5) /hpf Urine Bacteria (None) /hpf 03/09/24 03/09/24 03/09/24 Range/Units 17:50 17:50 19:45 WBC (3.8-10.6) k/uL RBC (3.80-5.40) m/uL Hgb (11.4-16.0) gm/dL Hct (34.0-46.0) % MCV (80.0-100.0) fL MCH (25.0-35.0) pg MCHC (31.0-37.0) g/dL RDW (11.5-15.5) % Plt Count (150-450) k/uL MPV Neutrophils % % Lymphocytes % % Monocytes % % Eosinophils % % Basophils % % Neutrophils # (1.3-7.7) k/uL Lymphocytes # (1.0-4.8) k/uL Monocytes # (0-1.0) k/uL Eosinophils # (0-0.7) k/uL Basophils # (0-0.2) k/uL Hypochromasia Anisocytosis PT (10.0-12.5) sec INR (<1.2) APTT (22.0-30.0) sec Sodium (137-145) mmol/L Potassium (3.5-5.1) mmol/L Chloride (98-107) mmol/L Carbon Dioxide (22-30) mmol/L Anion Gap mmol/L BUN (7-17) mg/dL Creatinine (0.52-1.04) mg/dL Est GFR (CKD-EPI)AfAm (>60 ml/min/1.73 sqM) Est GFR (CKD-EPI)NonAf (>60 ml/min/1.73 sqM) Glucose (74-99) mg/dL Calcium (8.4-10.2) mg/dL Magnesium (1.6-2.3) mg/dL Total Bilirubin (0.2-1.3) mg/dL AST (14-36) U/L ALT (4-34) U/L Alkaline Phosphatase (38-126) U/L Troponin I 0.022 (0.000-0.034) ng/mL NT-Pro-B Natriuret Pep 73209 pg/mL Total Protein (6.3-8.2) g/dL Albumin (3.5-5.0) g/dL Urine Color Yellow Urine Appearance Clear (Clear) Urine pH 6.0 (5.0-8.0) Ur Specific Fountain 1.021 (1.001-1.035) Urine Protein 1+ H (Negative) Urine Glucose (UA) Negative (Negative) Urine Ketones Negative (Negative) Urine Blood Large H (Negative) Urine Nitrite Negative (Negative) Urine Bilirubin Negative (Negative) Urine Urobilinogen <2.0 (<2.0) mg/dL Ur Leukocyte Esterase Small H (Negative) Urine RBC >182 H (0-5) /hpf Urine WBC 7 H (0-5) /hpf Urine Bacteria Rare H (None) /hpf Disposition Clinical Impression: Pelvic mass, Kidney injury Disposition: OTHER INSTITUTION NOT DEFINED Condition: Good Referrals: Mark Richardson DO [Primary Care Provider] - 1-2 days Time of Disposition: 23:00 - Out of Hospital Transfer - Req. Specs Out of Hospital Transfer - Requested Specifics: Other Emergency Center ([facility])
--- NOTE | 2024-03-09 19:55 | US ---
EXAMINATION TYPE: US venous doppler duplex LE BI DATE OF EXAM: 03/09/2024 7:28 PM COMPARISON: NONE CLINICAL INDICATION: Female, 78 years old with history of r/o dvt; pain lymphedema exam limited due t o body habitus. SIDE PERFORMED: Bilateral TECHNIQUE: The lower extremity deep venous system is examined utilizing real time linear array sonog gregorio with graded compression, doppler sonography and color-flow sonography. VESSELS IMAGED: Common Femoral Vein Deep Femoral Vein Greater Saphenous Vein * Femoral Vein Popliteal Vein Right Leg: Negative for DVT Left Leg: Negative for DVT IMPRESSION: Grayscale, color doppler, spectral doppler imaging performed of the deep veins of the lo wer extremities. There is normal flow, compressibility, vascular waveforms.
[2024-03-09 20:21] LABS: Appearance,Urine Clear (Clear); Bacteria,Urine Rare /hpf; Bilirubin,Urine Negative (Negative); Blood,Urine Large (Negative); Color,Urine Yellow; Glucose,Urine (UA) Negative (Negative); Ketones,Urine Negative (Negative); Leukocyte Esterase,Urine Small (Negative); Nitrite,Urine Negative (Negative); Protein,Urine 1+ (Negative); RBC,Urine >182 /hpf (0-5); Specific Gravity,Urine 1.021 (1.001-1.035); Urobilinogen,Urine <2.0 mg/dL (<2.0); WBC,Urine 7 /hpf (0-5)
--- NOTE | 2024-03-09 21:38 | CT ---
EXAMINATION TYPE: CT abdomen pelvis wo con CT DLP: 1375.4 mGycm, Automated exposure control for dose reduction was used. DATE OF EXAM: 03/09/2024 9:22 PM COMPARISON: CT abdomen pelvis most recent from CLINICAL INDICATION:Female, 78 years old with history of hematuria; Bilateral lower extremity edema a nd back pain. hematuria TECHNIQUE: Axial CT abdomen pelvis wo con;Sagittal and coronal reformats were created on a separate workstation. Contrast used: mL of , (none if empty) Oral contrast used: without Oral Contrast (none if empty) FINDINGS: LOWER CHEST: Heart is mildly enlarged for size. Pulmonary vascular congestion with interstitial and b ursal thickening most pronounced in left lower lung. ABDOMEN LIVER: Unremarkable GALLBLADDER AND BILE DUCTS: Gallbladder is surgically absent with mild intrahepatic and extra hepatic biliary dilatation likely physiologic and a postcholecystectomy change. No evidence of choledocholit hiasis. PANCREAS: Unremarkable. SPLEEN: Unremarkable. ADRENAL GLANDS: Unremarkable. KIDNEYS AND URETERS: Bilateral hydroureteronephrosis with poor evaluation of the distal ureters due t o pelvic lymphadenopathy and patient's body habitus. PELVIS BLADDER: Unremarkable REPRODUCTIVE: Uterus is poorly visualized due to lack of IV contrast. Possible tubal ligation clips d evices are seen bilaterally. ABDOMEN & PELVIS STOMACH AND BOWEL: No evidence of bowel obstruction. Scattered colonic diverticula. Gastric lap band in place in appropriate position. PERITONEUM/RETROPERITONEUM: No evidence of pneumoperitoneum or free fluid. VASCULATURE: No evidence of aortic aneurysm. MUSCULOSKELETAL: No acute osseous abnormalities. Moderate disc degeneration changes are present throu ghout the thoracolumbar spine. Grade I anterolisthesis of L3 on L4. The1 LYMPH NODES: Enlarged lymph nodes are seen within the pelvis findings are new from prior. The largest in the right external iliac chain measuring up to 33 mm in short axis and in the left external iliac chain measuring 17 mm. Additional left pelvic sidewall soft tissue mass with erosion into the left a cetabulum. Series 201 image 115. Mass measures roughly 39 x 25 mm. SOFT TISSUE/ABDOMINAL WALL: Diffuse anasarca of the soft tissues. There are stimulator device is present. IMPRESSION: 1. Pelvic lymphadenopathy suspicious for malignancy/metastatic disease until proven otherwise. The l eft pelvic sidewall mass does erode into the osseous structures near the acetabulum. Evaluation limit ed without IV contrast. Consideration for MRI pelvis recommended for further evaluation of the bony s tructures and uterus. Oncology workup recommended. 2. Cardiomegaly with Diffuse anasarca of the soft tissues. Correlate with serum BNP for congestive h eart failure. 3. Bilateral hydronephrosis likely secondary to #1.
[2024-03-10 01:43] VITALS: RESP 18
[2024-03-10] MEDS: MORPHINE SULFATE 4 MG/ML SYRINGE IVP STA (02:32)
[2024-03-10 03:04] VITALS: BP 165/77; PULSE 76; TEMP 98.1
== END 2024-03-10 02:32 | disposition other institution (70) ==
LOC: EC 15:40
DX: S37.002A Unspecified injury of left kidney, initial encounter (principal); R22.43 Localized swelling, mass and lump, lower limb, bilateral; R19.00 Intra-abdominal and pelvic swelling, mass and lump, unspecified site; X58.XXXA Exposure to other specified factors, initial encounter
CPT/HCPCS: 99285 ×2; 96374 ×2; 96376 ×2; 36415; 93005; 83880; 80053; 83735; 84484; 85025; 85610; 85730; 81001; 72100; 71046; 93970; 74176; J2270 ×2

== ENCOUNTER 2024-04-26 18:34 | Inpatient (IN) | payer MEDICARE ==
--- NOTE | 2024-04-26 19:07 | ED ---
General Adult HPI - General Chief complaint: Recheck/Abnormal Lab/Rx Stated complaint: hypertension Time Seen by Provider: 04/26/24 18:37 Source: patient, EMS, RN notes reviewed Mode of arrival: EMS Limitations: no limitations - History of Present Illness Initial comments: Patient is a pleasant 78-year-old female presenting from assisted with concerns for hypertension. Patient had blood pressure of 200 and refused her medications. Patient states she refused her medications because she does not trust them at the assisted. Patient is there recently. Patient states she was in the hospital recently with new diagnosis of stage IV endometrial cancer. Treatment has not been started yet for this. Patient has no complaints otherwise. Patient does admit to having decreased appetite and not eating or drinking much recently. Patient also admits to having some loose stools when questioned. - Related Data Home Medications Medication Instructions Recorded Confirmed lamoTRIgine [LaMICtal] 75 mg PO HS@209904/22/20 04/26/24 Sertraline [Zoloft] 100 mg PO HS@209902/20/23 04/26/24 ARIPiprazole [Abilify] 15 mg PO DAILY@79904/26/24 04/26/24 Acetaminophen Tab [Tylenol Tab] 500 - 1,000 mg PO Q8H PRN 04/26/24 04/26/24 Albuterol Sulfate [Albuterol 1 - 2 puff PO RT-Q4H PRN 04/26/24 04/26/24 Sulfate Hfa] Biotin 5,000 mcg PO DAILY@79904/26/24 04/26/24 Cholecalciferol [Vitamin D3 (25 100 mcg PO DAILY 04/26/24 04/26/24 Mcg = 1000 Iu)] Ensure Clear 120 - 237 ml PO TID@0800,1200,1700 04/26/24 04/26/24 Ferrous Sulfate [Feosol] 325 mg PO DAILY@79904/26/24 04/26/24 HYDROcodone/APAP 10-325MG [[place] 1 tab PO Q4HR PRN 04/26/24 04/26/24 10-325] Ipratropium-Albuterol Nebulize 3 ml INHALATION RT-Q6H PRN 04/26/24 04/26/24 [Duoneb 0.5 mg-3 mg/3 ml Soln] Lidocaine-Prilocaine Cream [Emla 1 applic TOPICAL DAILY@0800 04/26/24 04/26/24 Cream 2.5%/2.5%] Loperamide HCl [Imodium A-D] 2 mg PO BID PRN 04/26/24 04/26/24 Magnesium Hydroxide [Milk of 7,200 mg PO Q48H PRN 04/26/24 04/26/24 Magnesia Concentrate] Melatonin 3 mg PO HS@209904/26/24 04/26/24 Metoprolol Tartrate [Lopressor] 50 mg PO BID@0800,1700 04/26/24 04/26/24 Na Phos,M-B/Na Phos,Di-Ba [Fleet 133 ml RECTAL DAILY PRN 04/26/24 04/26/24 Adult] bisacodyL [Dulcolax] 10 mg RECTAL DAILY PRN 04/26/24 04/26/24 guaiFENesin [guaiFENesin Oral 200 mg PO Q4H PRN 04/26/24 04/26/24 Solution] ondansetron HCL [Ondansetron HCl] 8 mg PO Q8H PRN 04/26/24 04/26/24 ondansetron HCL [Zofran] 4 mg PO TID@0600,1400,2200 04/26/24 04/26/24 traZODone HCL [Desyrel] 75 mg PO HS@209904/26/24 04/26/24 Allergies Allergy/AdvReac Type Severity Reaction Status Date / Time No Known Allergies Allergy Verified 04/26/24 19:27 Review of Systems ROS Statement: Those systems with pertinent positive or pertinent negative responses have been documented in the HPI. ROS Other: All systems not noted in ROS Statement are negative. Constitutional: Denies: fever Eyes: Denies: eye pain Respiratory: Denies: dyspnea Cardiovascular: Denies: chest pain Gastrointestinal: Reports: as per HPI, nausea. Denies: vomiting Genitourinary: Denies: dysuria Musculoskeletal: Denies: back pain Past Medical History Past Medical History: Asthma, Cancer, GERD/Reflux, Osteoarthritis (OA) Additional Past Medical History / Comment(s): lymph edema lower legs-uses compression pump at night and velco wraps during the day., Overactive bladder with urine incontinence., has neuro stimulator for incontinence (states currently not working)., frequent diarrhea., pt has lap band., arthritis knees., hx of covid jan 17 with residual cough., See [facility]. Has recent stage 4 endometrial cancer. History of Any Multi-Drug Resistant Organisms: None Reported Past Surgical History: Bariatric Surgery, Cholecystectomy, Tonsillectomy Additional Past Surgical History / Comment(s): Colonoscopy , lap band with hi atal hernia repair (Dr. Pink), fx right femur (march 2020)., interstem neuro stimulatoror (Sep 2022)., Past Anesthesia/Blood Transfusion Reactions: No Reported Reaction, Motion Sickness Past Psychological History: ADD/ADHD, Anxiety, Depression Smoking Status: Never smoker Past Alcohol Use History: Occasional Past Drug Use History: None Reported - Past Family History Brother(s) Family Medical History: Cancer, COPD, Diabetes Mellitus, Deep Vein Thrombosis (DVT), Hypertension, Myocardial Infarction ([place]), Vascular Disorder Additional Family Medical History / Comment(s): pt has twin brothers. non hodgkins lymphoma, bladder cancer Father Family Medical History: Cancer, Coronary Artery Disease (CAD) Mother Family Medical History: COPD General Exam Limitations: no limitations General appearance: alert, in no apparent distress Head exam: Present: normocephalic Eye exam: Present: normal appearance ENT exam: Present: mucous membranes dry Neck exam: Present: normal inspection Respiratory exam: Present: normal lung sounds bilaterally Cardiovascular Exam: Present: regular rate, normal rhythm GI/Abdominal exam: Present: soft. Absent: distended, tenderness, pulsatile mass Extremities exam: Present: normal inspection Neurological exam: Present: alert, oriented X3 Psychiatric exam: Present: normal affect, normal mood Skin exam: Present: normal color Course Vital Signs 04/26/24 18:54 Temperature 98.2 F Pulse Rate 65 Respiratory 16 Rate Blood Pressure 195/82 O2 Sat by Pulse 97 Oximetry EKG Findings - EKG Results: EKG: interpreted by ERMD, sinus rhythm, normal axis, normal QRS, normal ST/T Medical Decision Making - Medical Decision Making Was pt. sent in by a medical professional or institution (, PA, STEEL [employer]TER, urgent care, hospital, or assisted...) When possible be specific @ -Patient was sent from nursing facility Did you speak to anyone other than the patient for history (EMS, parent, family, police, friend...)? What history was obtained from this source @ -No Did you review nursing and triage notes (agree or disagree)? Why? @ -I reviewed and agree with nursing and triage notes Were old charts reviewed (outside hosp., previous admission, EMS record, old EKG, old radiological studies, urgent care reports/EKG's, assisted records)? Report findings @ -Chart reviewed from nursing facility Differential Diagnosis (chest pain, altered mental status, abdominal pain women, abdominal pain men, vaginal bleeding, weakness, fever, dyspnea, syncope, headache, dizziness, GI bleed, back pain, seizure, CVA, palpatations, mental health, musculoskeletal)? @ -MDM differential mild to mental EKG interpreted by me (3pts min.). @ -As above X-rays interpreted by me (1pt min.). @ -Chest x-ray shows no acute process CT interpreted by me (1pt min.). @ -CT scan of the brain similar to previous without acute changes U/S interpreted by me (1pt. min.). @ -None done What testing was considered but not performed or refused? (CT, X-rays, U/S, labs)? Why? @ -None What meds were considered but not given or refused? Why? @ -None Did you discuss the management of the patient with other professionals (professionals i.e. , PA, [employer]TER, lab, RT, psych nurse, foster care social worker, [employer], teacher, medical officer, high risk case manager)? Give summary @ -Case discussed with Dr. Mcmillan who will admit covering Dr. Ambrose, who admits for Dr. Richardson. Was smoking cessation discussed for >3mins.? @ -No Was critical care preformed (if so, how long)? @ -No Were there social determinants of health that impacted care today? How? (Homelessness, low income, unemployed, alcoholism, drug addiction, transp ortation, low edu. Level, literacy, decrease access to med. care, skilled nursing, rehab)? @ -No Was there de-escalation of care discussed even if they declined (Discuss DNR or withdrawal of care, Hospice)? DNR status @ -No What co-morbidities impacted this encounter? (DM, HTN, Smoking, COPD, CAD, Cancer, CVA, ARF, Chemo, Hep., AIDS, mental health diagnosis, sleep apnea, morbid obesity)? @ -None Was patient admitted / discharged? Hospital course, mention meds given and route, prescriptions, significant lab abnormalities, going to OR and other pertinent info. @ -Patient presents with concerns for hypertension and possible change in mental status, refusing medications. Patient has urinary tract infection and elevated white blood cell count. Patient will be admitted with psychiatric consult Undiagnosed new problem with uncertain prognosis? @ -No Drug Therapy requiring intensive monitoring for toxicity (Heparin, Nitro, Insulin, Cardizem)? @ -No Were any procedures done? @ -No Diagnosis/symptom? @ -UTI, altered mental status Acute, or Chronic, or Acute on Chronic? @ -Acute, acute Uncomplicated (without systemic symptoms) or Complicated (systemic symptoms)? @ -Default Side effects of treatment? @ -No Exacerbation, Progression, or Severe Exacerbation? @ -No Poses a threat to life or bodily function? How? (Chest pain, [place], [place], pneumonia, PE, COPD, DKA, ARF, appy, cholecystitis, CVA, Diverticulitis, Homicidal, Suicidal, threat to staff... and all critical care pts) @ -No - Lab Data Result diagrams: 04/26/24 19:14 04/26/24 19:14 Lab Results 04/26/24 04/26/24 04/26/24 Range/Units 19:12 19:14 19:14 WBC 17.2 H (3.8-10.6) k/uL RBC 3.53 L (3.80-5.40) m/uL Hgb 9.7 L (11.4-16.0) gm/dL Hct 30.6 L (34.0-46.0) % MCV 86.8 (80.0-100.0) fL MCH 27.6 (25.0-35.0) pg MCHC 31.8 (31.0-37.0) g/dL RDW 17.8 H (11.5-15.5) % Plt Count 172 (150-450) k/uL MPV 7.4 Neutrophils % 90 % Lymphocytes % 5 % Monocytes % 3 % Eosinophils % 1 % Basophils % 1 % Neutrophils # 15.5 H (1.3-7.7) k/uL Lymphocytes # 0.8 L (1.0-4.8) k/uL Monocytes # 0.5 (0-1.0) k/uL Eosinophils # 0.1 (0-0.7) k/uL Basophils # 0.1 (0-0.2) k/uL Hypochromasia Moderate Poikilocytosis Slight Anisocytosis Slight PT 11.1 (10.0-12.5) sec INR 1.0 (<1.2) APTT 25.0 (22.0-30.0) sec Sodium (137-145) mmol/L Potassium (3.5-5.1) mmol/L Chloride (98-107) mmol/L Carbon Dioxide (22-30) mmol/L Anion Gap mmol/L BUN (7-17) mg/dL Creatinine (0.52-1.04) mg/dL Est GFR (CKD-EPI)AfAm (>60 ml/min/1.73 sqM) Est GFR (CKD-EPI)NonAf (>60 ml/min/1.73 sqM) Glucose (74-99) mg/dL POC Glucose (mg/dL) 111 H (70-110) mg/dL POC Glu Cork Tile Floor Layer ID Mark Wadsworth Calcium (8.4-10.2) mg/dL Total Bilirubin (0.2-1.3) mg/dL AST (14-36) U/L ALT (4-34) U/L Alkaline Phosphatase (38-126) U/L Troponin I (0.000-0.034) ng/mL Total Protein (6.3-8.2) g/dL Albumin (3.5-5.0) g/dL Urine Color Urine Appearance (Clear) Urine pH (5.0-8.0) Ur Specific [place] (1.001-1.035) Urine Protein (Negative) Urine Glucose (UA) (Negative) Urine Ketones (Negative) Urine Blood (Negative) Urine Nitrite (Negative) Urine Bilirubin (Negative) Urine Urobilinogen (<2.0) mg/dL Ur Leukocyte Esterase (Negative) Urine RBC (0-5) /hpf Urine WBC (0-5) /hpf Urine WBC Clumps (None) /hpf Ur Squamous Epith Cells (0-4) /hpf Amorphous Sediment (None) /hpf 04/26/24 04/26/24 04/26/24 Range/Units 19:14 19:14 19:43 WBC (3.8-10.6) k/uL RBC (3.80-5.40) m/uL Hgb (11.4-16.0) gm/dL Hct (34.0-46.0) % MCV (80.0-100.0) fL MCH (25.0-35.0) pg MCHC (31.0-37.0) g/dL RDW (11.5-15.5) % Plt Count (150-450) k/uL MPV Neutrophils % % Lymphocytes % % Monocytes % % Eosinophils % % Basophils % % Neutrophils # (1.3-7.7) k/uL Lymphocytes # (1.0-4.8) k/uL Monocytes # (0-1.0) k/uL Eosinophils # (0-0.7) k/uL Basophils # (0-0.2) k/uL Hypochromasia Poikilocytosis Anisocytosis PT (10.0-12.5) sec INR (<1.2) APTT (22.0-30.0) sec Sodium 133 L (137-145) mmol/L Potassium 4.8 (3.5-5.1) mmol/L Chloride 104 (98-107) mmol/L Carbon Dioxide 23 (22-30) mmol/L Anion Gap 6 mmol/L BUN 20 H (7-17) mg/dL Creatinine 1.03 (0.52-1.04) mg/dL Est GFR (CKD-EPI)AfAm 61 (>60 ml/min/1.73 sqM) Est GFR (CKD-EPI)NonAf 53 (>60 ml/min/1.73 sqM) Glucose 108 H (74-99) mg/dL POC Glucose (mg/dL) (70-110) mg/dL POC Glu Cork Tile Floor Layer ID Calcium 9.0 (8.4-10.2) mg/dL Total Bilirubin 0.7 (0.2-1.3) mg/dL AST 24 (14-36) U/L ALT 9 (4-34) U/L Alkaline Phosphatase 139 H (38-126) U/L Troponin I <0.012 (0.000-0.034) ng/mL Total Protein 6.4 (6.3-8.2) g/dL Albumin 3.6 (3.5-5.0) g/dL Urine Color Light Brown Urine Appearance Cloudy H (Clear) Urine pH 7.5 (5.0-8.0) Ur Specific [place] 1.013 (1.001-1.035) Urine Protein 1+ H (Negative) Urine Glucose (UA) Negative (Negative) Urine Ketones Trace H (Negative) Urine Blood Large H (Negative) Urine Nitrite Negative (Negative) Urine Bilirubin Negative (Negative) Urine Urobilinogen <2.0 (<2.0) mg/dL Ur Leukocyte Esterase Large H (Negative) Urine RBC >182 H (0-5) /hpf Urine WBC 96 H (0-5) /hpf Urine WBC Clumps Occasional H (None) /hpf Ur Squamous Epith Cells 1 (0-4) /hpf Amorphous Sediment Occasional H (None) /hpf Disposition Clinical Impression: Urinary tract infection, Altered mental status Disposition: ADMITTED IP TO THIS HOSP Is patient prescribed a controlled substance at d/c from ED?: No Referrals: Mark Richardson DO [Primary Care Provider] - 1-2 days Time of Disposition: 21:11
[2024-04-26 19:14] LABS: Glucose,Whole Blood 111 mg/dL (70-110)
[2024-04-26 19:29] LABS: Anisocytosis Slight; Basophils # (A) 0.1 k/uL (0-0.2); Basophils % (A) 1 %; Eosinophils # (A) 0.1 k/uL (0-0.7); Eosinophils % (A) 1 %; HCT 30.6 % (34.0-46.0); HGB 9.7 gm/dL (11.4-16.0); Hypochromasia Moderate; Lymphocytes # (A) 0.8 k/uL (1.0-4.8); Lymphocytes % (A) 5 %; MCH 27.6 pg (25.0-35.0); MCHC 31.8 g/dL (31.0-37.0); MCV 86.8 fL (80.0-100.0); Mean Platelet Volume 7.4; Monocytes # (A) 0.5 k/uL (0-1.0); Monocytes % (A) 3 %; Neutrophils # (A) 15.5 k/uL (1.3-7.7); Neutrophils % (A) 90 %; Platelet Count 172 k/uL (150-450); Poikilocytosis Slight; RBC 3.53 m/uL (3.80-5.40); RDW 17.8 % (11.5-15.5); WBC 17.2 k/uL (3.8-10.6)
[2024-04-26 19:32] LABS: Prothrombin Time 11.1 sec (10.0-12.5)
[2024-04-26 19:34] LABS: ALT 9 U/L (4-34); AST 24 U/L (14-36); African American GFR (CKD) 61 (>60 ml/min/1.73 sqM); Albumin 3.6 g/dL (3.5-5.0); Alkaline Phosphatase 139 U/L (38-126); Blood Urea Nitrogen 20 mg/dL (7-17); Carbon Dioxide 23 mmol/L (22-30); Chloride 104 mmol/L (98-107); Glucose 108 mg/dL (74-99); Non-African American GFR(CKD) 53 (>60 ml/min/1.73 sqM); Total Bilirubin 0.7 mg/dL (0.2-1.3); Total Protein 6.4 g/dL (6.3-8.2)
[2024-04-26] MEDS: SODIUM CHLORIDE 0.9% 1,000 ML IV ONE (19:36)
[2024-04-26] MEDS: FAMOTIDINE 20 MG/2 ML VIAL IV STA (19:37)
[2024-04-26] MEDS: METOPROLOL TARTRATE 25 MG TAB PO STA (19:37)
[2024-04-26] MEDS: ONDANSETRON 4 MG/2 ML VIAL IVP STA (19:38)
[2024-04-26 20:10] LABS: Anion Gap 6 mmol/L; Potassium 4.8 mmol/L (3.5-5.1); Sodium 133 mmol/L (137-145)
[2024-04-26 20:35] LABS: Amorphous Sediment,Urine Occasional /hpf; Appearance,Urine Cloudy (Clear); Bilirubin,Urine Negative (Negative); Blood,Urine Large (Negative); Color,Urine Light Brown; Glucose,Urine (UA) Negative (Negative); Ketones,Urine Trace (Negative); Leukocyte Esterase,Urine Large (Negative); Nitrite,Urine Negative (Negative); PH, Urine 7.5 (5.0-8.0); Protein,Urine 1+ (Negative); RBC,Urine >182 /hpf (0-5); Specific Gravity,Urine 1.013 (1.001-1.035); Squamous Epithelial Cell,Urine 1 /hpf (0-4); Urobilinogen,Urine <2.0 mg/dL (<2.0); WBC,Urine 96 /hpf (0-5)
[2024-04-26] MEDS ORDERED: ONDANSETRON 4 MG/2 ML VIAL IVP PRN (21:12)
[2024-04-26] MEDS ORDERED: NALOXONE 0.4 MG/ML 1 ML VIAL IV PRN (21:12)
[2024-04-26] MEDS ORDERED: ACETAMINOPHEN TAB 325 MG TAB PO PRN (21:12)
[2024-04-26] MEDS ORDERED: IPRATROPIUM-ALBUTEROL 3 ML NEB INHALATION PRN (21:14)
[2024-04-26] MEDS ORDERED: guaiFENesin SYRUP 100MG/5ML 200 MG/10 ML CUP PO PRN (21:14)
[2024-04-26] MEDS: HYDROcodone/APAP 10-325MG 1 EACH TAB PO PRN (22:50)
--- NOTE | 2024-04-26 23:15 | XR ---
EXAMINATION TYPE: XR chest 2V DATE OF EXAM: 04/26/2024 COMPARISON: 03/09/2024 TECHNIQUE: PA and lateral views submitted. HISTORY: Altered mental status FINDINGS: Mediport catheter seen somewhat coiled in the soft tissue the neck with the tip overlies the SVC. Hea rt is enlarged and there is tortuosity of the aorta with atherosclerotic change. Underlying COPD. Sma ll amount of air is seen along the right chest wall. No sizable pneumothorax. There does appear to be increased density in the lateral view only at the left lung base with tiny left pleural effusion. No overt failure. IMPRESSION: 1. There is increased density at the left lung base with tiny effusion correlate for underlying pneum onia. Underlying neoplasm not excluded. Consider follow-up CT of the chest.
--- NOTE | 2024-04-26 23:28 | CT ---
EXAM: CT Head Without Intravenous Contrast CLINICAL HISTORY: ITS.REASON CT Reason: Altered mental status TECHNIQUE: Axial computed tomography images of the head/brain without intravenous contrast. This CT exam was performed using one or more of the following dose reduction techniques: automated exposure control, adjustment of the mA and/or kV according to patient size, and/or use of iterative reconstruction technique. COMPARISON: No relevant prior studies available. FINDINGS: No acute intracranial hemorrhage. No midline shift or mass effect. The territorial segura-white matter differentiation is maintained throughout. Age-related cerebral volume loss. Periventricular and subcortical white matter hypoattenuation, consistent with chronic microangiopathy. The visualized orbits appear grossly unremarkable. The calvarium is intact. The visualized paranasal sinuses and mastoid air cells are grossly clear. IMPRESSION: No acute intracranial hemorrhage, midline shift, or mass effect.
[2024-04-27 03:50] LABS: Anisocytosis Slight; Basophils % (A) 0 %; Eosinophils % (A) 0 %; HCT 30.8 % (34.0-46.0); HGB 9.6 gm/dL (11.4-16.0); Hypochromasia Moderate; Lymphocytes # (A) 0.8 k/uL (1.0-4.8); Lymphocytes % (A) 5 %; MCH 27.5 pg (25.0-35.0); MCHC 31.2 g/dL (31.0-37.0); MCV 88.2 fL (80.0-100.0); Mean Platelet Volume 7.7; Monocytes # (A) 0.7 k/uL (0-1.0); Monocytes % (A) 4 %; Neutrophils # (A) 15.3 k/uL (1.3-7.7); Neutrophils % (A) 90 %; Platelet Count 167 k/uL (150-450); Poikilocytosis Slight; RBC 3.49 m/uL (3.80-5.40); RDW 17.7 % (11.5-15.5)
[2024-04-27 04:49] LABS: ALT 10 U/L (4-34); AST 28 U/L (14-36); African American GFR (CKD) 59 (>60 ml/min/1.73 sqM); Albumin 3.5 g/dL (3.5-5.0); Alkaline Phosphatase 137 U/L (38-126); Anion Gap 8 mmol/L; Blood Urea Nitrogen 20 mg/dL (7-17); Carbon Dioxide 21 mmol/L (22-30); Chloride 105 mmol/L (98-107); Glucose 109 mg/dL (74-99); Non-African American GFR(CKD) 51 (>60 ml/min/1.73 sqM); Potassium 4.8 mmol/L (3.5-5.1); Sodium 134 mmol/L (137-145); Total Bilirubin 0.9 mg/dL (0.2-1.3); Total Protein 6.2 g/dL (6.3-8.2)
[2024-04-27] MEDS: HALOPERIDOL LACTATE 5 MG/ML 1 ML VIAL IVP ONE (06:55)
[2024-04-27] MEDS ORDERED: NON FORMULARY DRUG (Biotin [Biotin] 5,000 MCG Tab.Chew) PO SCH (08:00)
[2024-04-27] MEDS ORDERED: FAMOTIDINE 20 MG TAB PO SCH (09:00)
[2024-04-27] MEDS: FAMOTIDINE 20 MG TAB PO SCH ×2 (09:13→13:04)
[2024-04-27] MEDS: FERROUS SULFATE 325 MG TAB PO SCH (09:13)
[2024-04-27] MEDS: METOPROLOL TARTRATE 50 MG TAB PO SCH (09:13)
[2024-04-27] MEDS: CHOLECALCIFEROL 25 MCG (1000 IU) TABLET PO SCH (09:14)
--- NOTE | 2024-04-27 10:58 | P.CN ---
Psychiatric Consult - . Consult date: 04/27/24 Consult:: 04/27/24 10:51 Patient Name: Anupama Corona Date of : 1945 Patient Status: Observation Attending Provider: Puneet Rajan Date: 04/27/24 19:05 Initialization Date: 04/26/24 19:05 This is a psychiatric assessment on Noelle nicholson who is a 78-year-old female and is currently hospitalized for uncontrolled hypertension Patient was requested for a psychiatric evaluation due to refusal of taking her medications Patient has stated that she had refused her medications because she did not trust them at the senior living Patient however states that she is taking her medications here She also reported that she is being treated for cancer but had much difficulty explaining the type of cancer Patient has recently been diagnosed with stage IV endometrial cancer Patient states that she had to trials of chemotherapy and that they have not done any more treatment since then She states that she currently lives in a senior living and otherwise is not having any issues She states that she is not suicidal or homicidal she states that she would like to get back on her feet and get her walker so she can go around helping people She said that she was taught some self defense techniques yesterday She also states that she has to go to the [facility] She states that many of her family members are currently hospitalized and [facility] She said that she has a degree in [employer] and 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 Orientation times 1 Dressed and Groomed: Adequately in hospital clothes. Casually dressed and groomed Obese Pleasant and cooperative. Psychomotor Activity: Normal psychomotor activity Speech: Normal in tone, quality, ,verbal Mood: Euthymic, pleasant Affect: euthymic. SI or HI: None. Perceptual disturbance: None. Thought Content: Mild cognitive decline noted with decline in her recent memory Thought Process: Goal directed sequential Cognition: Impaired Judgment and Insight: Has some insight AIMS: Normal Labs: Available labs reviewed. Diagnosis: Major neurocognitive disorder/mild dementia History of bipolar disorder? Plan: Patient this time is not a candidate for inpatient psychiatric hospitalization The patient at this time admits that she is taking her medications and her refusal to take the medication appears to be sporadic No further intervention appears to be necessary at this time except for increased the patient with support to take the medications as prescribed Patient is currently on Abilify 15 mg and if the paranoia continues to be significantly worse then would recommend increasing it to up to 30 mg a day or switching to a different antipsychotic like Latuda 20 to 100 mg a day or Resporal to 20 mg a day as tolerated Monitor for EPS tremors tardive dyskinesia or akathisia QTc prolongation Thank you very much for your kind referral and please feel free to contact me if you have any further questions Jorge Dunlap MD
[2024-04-27] MEDS ORDERED: QUEtiapine 25 MG TAB PO PRN (11:48)
[2024-04-27] MEDS ORDERED: LOSARTAN-HCTZ 50-12.5 MG 1 EACH TAB PO SCH (11:50)
--- NOTE | 2024-04-27 11:59 | P.HPIM ---
History of Present Illness Patient send 71-year-old female [facility] because of elevated blood pressure although her blood pressure is 1 in 170s systolic at this time. Although patient is being treated for multiple medical problems at this time patient is significantly abnormal urine when questioned about symptoms of UTI patient does admit to occasional dysuria. Patient has significantly increased white blood cell count in the urine. Patient does have leukocytosis 20 which is not explained by anything else chest x-ray was done which showed nodular lesion because of which I am obtaining a CT of the chest. Patient apparently was confused as well requiring Haldol last night because of which CT of the head was obtained and patient was eval by psychiatry and they believe it secondary to dementia which I agree with the patient is alert oriented x 3 but does have memory issues. Patient has significant muscle wasting does not amb[facility] much [facility] the [facility]. [facility]. Is occasionally confused Review of systems: Rest of the review of systems are negative except those mentioned above - PHYSICAL EXAMINATION: GENERAL: The patient is alert and oriented x3, not in any acute distress. Well developed, well nourished. Still confused obese HEENT: Pupils are round and equally reacting to light. EOMI. No scleral icterus. No conjunctival pallor. Normocephalic, atraumatic. No pharyngeal erythema. No thyromegaly. CARDIOVASCULAR: S1 and S2 present. No murmurs, rubs, or gallops. PULMONARY: Chest is clear to auscultation, no wheezing or crackles. ABDOMEN: Soft, nontender, nondistended, normoactive bowel sounds. No palpable organomegaly. MUSCULOSKELETAL: No joint swelling or deformity. EXTREMITIES: No cyanosis, clubbing, extensive bilateral pedal edema NEUROLOGICAL: Gross neurological examination did not reveal any focal deficits. SKIN: No rashes. Assessment and plan -Possible urinary tract infection unexplained leukocytosis and symptoms of dysuria along with abnormal urine, patient will be continued on Rocephin urine cultures in the are pending at this time -Pulmonary nodule on on the x-ray will obtain a CT of the chest without contrast for this -Uncontrolled elevated blood pressure patient is hypertensive patient was started on losartan because of pedal edema and not using any calcium channel blockers the patient is mildly hyponatremic because of which hydrochlorothiazide is probably not a good idea patient is slightly hypervolemic with pedal edema because of which I will use a dose of Lasix. -Hypervolemic hyponatremia IV fluids will be discontinued Lasix as mentioned above -Chronic venous stasis and peripheral edema secondary to venous stasis -Asthma without any acute exacerbation -Lymphedema of bilateral lower extremities patient does use compression pumps -Vascular dementia moderate-severe -Depression For above-mentioned chronic medical problems patient was resumed on appropriate home medications -Generalized deconditioning physical therapy Occupational Therapy eval DVT prophylaxis: 60 mg of Lovenox patient creatinine is at borderline need to be monitored. Past Medical History Past Medical History: Asthma, Cancer, GERD/Reflux, Osteoarthritis (OA) Additional Past Medical History / Comment(s): lymph edema lower legs-uses compression pump at night and velco wraps during the day., Overactive bladder with urine incontinence., has neuro stimulator for incontinence (states currently not working)., frequent diarrhea., pt has lap band., arthritis knees., hx of covid dec 22 with residual cough., See [facility]. Has recent stage 4 endometrial cancer. History of Any Multi-Drug Resistant Organisms: None Reported Past Surgical History: Bariatric Surgery, Cholecystectomy, Tonsillectomy Additional Past Surgical History / Comment(s): Colonoscopy , lap band with hia rosa hernia repair (Dr. Pink), fx right femur (march 2020)., interstem neuro stimulatoror (Sep 2022)., Past Anesthesia/Blood Transfusion Reactions: No Reported Reaction, Motion Sickness Past Psychological History: ADD/ADHD, Anxiety, Depression Smoking Status: Never smoker Past Alcohol Use History: Occasional Past Drug Use History: None Reported - Past Family History Brother(s) Family Medical History: Cancer, COPD, Diabetes Mellitus, Deep Vein Thrombosis (DVT), Hypertension, Myocardial Infarction (SD), Vascular Disorder Additional Family Medical History / Comment(s): pt has twin brothers. non hodgkins lymphoma, bladder cancer Father Family Medical History: Cancer, Coronary Artery Disease (CAD) Mother Family Medical History: COPD Medications and Allergies Home Medications Medication Instructions Recorded Confirmed Type lamoTRIgine [LaMICtal] 75 mg PO HS@209904/22/20 04/26/24 History Sertraline [Zoloft] 100 mg PO HS@209902/20/23 04/26/24 History ARIPiprazole [Abilify] 15 mg PO DAILY@79904/26/2404/26/24 History Acetaminophen Tab [Tylenol Tab] 500 - 1,000 mg PO Q8H PRN 04/26/24 04/26/24 History Albuterol Sulfate [Albuterol 1 - 2 puff PO RT-Q4H PRN 04/26/24 04/26/24 History Sulfate Hfa] Biotin 5,000 mcg PO DAILY@0800 04/26/24 04/26/24 History Cholecalciferol [Vitamin D3 (25 100 mcg PO DAILY 04/26/24 04/26/24 History Mcg = 1000 Iu)] Ensure Clear 120 - 237 ml PO TID@0800,1200,1700 04/26/24 04/26/24 History Ferrous Sulfate [Feosol] 325 mg PO DAILY@0800 04/26/24 04/26/24 History HYDROcodone/APAP 10-325MG [[place] 1 tab PO Q4HR PRN 04/26/24 04/26/24 History 10-325] Ipratropium-Albuterol Nebulize 3 ml INHALATION RT-Q6H PRN 04/26/24 04/26/24 History [Duoneb 0.5 mg-3 mg/3 ml Soln] Lidocaine-Prilocaine Cream [Emla 1 applic TOPICAL DAILY@0804/26/24 04/26/24 History Cream 2.5%/2.5%] Loperamide HCl [Imodium A-D] 2 mg PO BID PRN 04/26/24 04/26/24 History Magnesium Hydroxide [Milk of 7,200 mg PO Q48H PRN 04/26/24 04/26/24 History Magnesia Concentrate] Melatonin 3 mg PO HS@2100 04/26/24 04/26/24 History Metoprolol Tartrate [Lopressor] 50 mg PO BID@0800,1700 04/26/24 04/26/24 History Na Phos,M-B/Na Phos,Di-Ba [Fleet 133 ml RECTAL DAILY PRN 04/26/24 04/26/24 History Adult] bisacodyL [Dulcolax] 10 mg RECTAL DAILY PRN 04/26/24 04/26/24 History guaiFENesin [guaiFENesin Oral 200 mg PO Q4H PRN 04/26/24 04/26/24 History Solution] ondansetron HCL [Ondansetron HCl] 8 mg PO Q8H PRN 04/26/24 04/26/24 History ondansetron HCL [Zofran] 4 mg PO TID@0600,1400,2200 04/26/24 04/26/24 History traZODone HCL [Desyrel] 75 mg PO HS@2100 04/26/24 04/26/24 History Allergies Allergy/AdvReac Type Severity Reaction Status Date / Time No Known Allergies Allergy Verified 04/26/24 19:27 Physical Exam Vitals: Vital Signs Temp Pulse Pulse Resp BP BP Pulse Ox 04/27/24 09:20 64 16 184/76 96 04/27/24 06:40 97.8 F 62 16 176/89 96 04/27/24 04:34 60 18 169/76 96 04/27/24 03:08 59 L 17 163/63 98 04/27/24 02:00 92 16 135/88 97 04/26/24 18:54 98.2 F 65 16 195/82 97 Intake and Output 04/26/24 04/27/24 04/27/24 22:59 06:59 14:59 Other: Voiding Method Diaper Incontinent Weight 96.615 kg Results CBC & Chem 7: 04/27/24 02:56 04/27/24 02:56 Labs: Abnormal Lab Results - Last 24 Hours (Table) 04/26/24 04/26/24 04/26/24 Range/Units 19:12 19:14 19:14 WBC 17.2 H (3.8-10.6) k/uL RBC 3.53 L (3.80-5.40) m/uL Hgb 9.7 L (11.4-16.0) gm/dL Hct 30.6 L (34.0-46.0) % RDW 17.8 H (11.5-15.5) % Neutrophils # 15.5 H (1.3-7.7) k/uL Lymphocytes # 0.8 L (1.0-4.8) k/uL Sodium 133 L (137-145) mmol/L Carbon Dioxide (22-30) mmol/L BUN 20 H (7-17) mg/dL Creatinine (0.52-1.04) mg/dL Glucose 108 H (74-99) mg/dL POC Glucose (mg/dL) 111 H (70-110) mg/dL Alkaline Phosphatase 139 H (38-126) U/L Total Protein (6.3-8.2) g/dL Urine Appearance (Clear) Urine Protein (Negative) Urine Ketones (Negative) Urine Blood (Negative) Ur Leukocyte Esterase (Negative) Urine RBC (0-5) /hpf Urine WBC (0-5) /hpf Urine WBC Clumps (None) /hpf Amorphous Sediment (None) /hpf 04/26/24 04/27/24 04/27/24 Range/Units 19:43 02:56 02:56 WBC 17.0 H (3.8-10.6) k/uL RBC 3.49 L (3.80-5.40) m/uL Hgb 9.6 L (11.4-16.0) gm/dL Hct 30.8 L (34.0-46.0) % RDW 17.7 H (11.5-15.5) % Neutrophils # 15.3 H (1.3-7.7) k/uL Lymphocytes # 0.8 L (1.0-4.8) k/uL Sodium 134 L (137-145) mmol/L Carbon Dioxide 21 L (22-30) mmol/L BUN 20 H (7-17) mg/dL Creatinine 1.06 H (0.52-1.04) mg/dL Glucose 109 H (74-99) mg/dL POC Glucose (mg/dL) (70-110) mg/dL Alkaline Phosphatase 137 H (38-126) U/L Total Protein 6.2 L (6.3-8.2) g/dL Urine Appearance Cloudy H (Clear) Urine Protein 1+ H (Negative) Urine Ketones Trace H (Negative) Urine Blood Large H (Negative) Ur Leukocyte Esterase Large H (Negative) Urine RBC >182 H (0-5) /hpf Urine WBC 96 H (0-5) /hpf Urine WBC Clumps Occasional H (None) /hpf Amorphous Sediment Occasional H (None) /hpf
[2024-04-27] MEDS ORDERED: NIFEdipine 10 MG CAP PO SCH (12:00)
[2024-04-27] MEDS: LOSARTAN 50 MG TAB PO SCH (13:02)
[2024-04-27] MEDS: FUROSEMIDE 10 MG/ML 4 ML VIAL IV STA (13:03)
--- NOTE | 2024-04-27 14:25 | CT ---
EXAMINATION TYPE: CT chest wo con CT DLP: 320.2 mGycm, Automated exposure control for dose reduction was used. DATE OF EXAM: 04/27/2024 2:11 PM COMPARISON: 03/09/2024 CT. CLINICAL INDICATION:Female, 78 years old with history of Pulmonary nodule; TECHNIQUE: Multiple axial images were obtained through the chest. Sagittal and coronal reformats were created for review. Contrast used: mL of (None if empty) Oral contrast used: (None if empty) FINDINGS: LUNGS/ PLEURA: Right upper lobe medial 3 mm nodule series 201 image 19. Right lower lobe nodule measu ring 3 mm image 57. Airspace consolidation changes in the left lung base with small left pleural effusion. AIRWAY: Patent and unremarkable. HEART: Heart is mildly enlarged for size. Mitral valve annular desiccation. Aortic valve consultation s. Coronary artery calcifications. MEDIASTINUM: No gross evidence of adenopathy. VASCULATURE: No aortic aneurysm. Partially visualized IVC filter. MUSCULOSKELETAL: No acute osseous abnormalities SOFT TISSUES/LYMPH NODES: Anasarca is throughout the soft tissues. LOWER NECK: No significant findings. UPPER ABDOMEN: Partially visualized left ureteral stent. Patellar surgically absent. Gastric lap band identified hardware appears intact. IMPRESSION: 1. Left lower lung airspace consolidation has progressed from prior on 03/09/2024 with associated lef t pleural effusion correlate for pneumonia. 2. Sub-5 mm nodules in the right upper lung and right lower lung which in the setting cancer could r epresent metastatic disease. 3. Mild cardiomegaly
[2024-04-27] MEDS: ARIPiprazole 15 MG TAB PO SCH (15:58)
[2024-04-27] MEDS: traZODone HCL 50 MG TAB PO SCH (21:16)
[2024-04-27] MEDS: MELATONIN 3 MG TABLET PO SCH (21:17)
[2024-04-27] MEDS: SERTRALINE 100 MG TAB PO SCH (21:17)
[2024-04-27] MEDS: lamoTRIgine 25 MG TAB PO SCH (21:17)
--- NOTE | 2024-04-28 00:22 | P.CNNES ---
History of Present Illness Consult date: 04/27/24 Requesting physician: Chong Benoit Reason for Consult: Altered mental status History of Present Illness: Patient is a 78-year-old female, recently diagnosed with advanced endometrial cancer came to the hospital by ambulance yesterday at 6:34 PM for altered mental status. Patient does not know details, but I spoke to patient's brother, who believes that mental confusion is related to pain medication. She is on "heavy duty of pain medication". 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 She has no children. Patient at present concerned about "not able to have children" because of endometrial cancer. As per EMS flowsheet, when they arrived, patient was laying supine in the bed in care of nursing staff. Staff mentioned that patient was found to be hypertensive and initially refused transport and medication, finally agreed to transport by EMS for checkout. Patient mentioned that she "does not trust the staff here". She mentioned that she has been having abdominal cramping and pain for approximately 2 to 3 weeks and was diagnosed the same time with endometrial cancer. She is also complaining of shortness of breath and nausea. Patient was alert, oriented [address] person[address] EKG shows sinus rhythm. Patient's blood pressure was 220/102, pulse rate 64, respiration 18, saturation 96%. Repeat blood pressure was 220/100. Blood test shows WBC 17.2, hemoglobin 9.7, platelets are normal. PT PTT normal, sodium 133 potassium is normal renal functions normal. Hepatic panel normal. Troponin negative. UA shows large amount of leukocyte esterase and more than 182 RBCs and 96 WBC with occasional clumps. 1 squamous epithelial cell. EKG showed sinus rhythm. Chest x-ray showed increased density at the left lung base with tiny effusion, correlate for underlying pneumonia. Underlying neoplasm not excluded. Consider follow-up CT of the chest. CT of the head showed no acute process, midline shift. I personally reviewed CT head, agree with the findings. There is evidence of a cystic lesion in the right temporal lobe, which has been present as far as MRI from 11/10/2019. CT of the chest on 04/27/2024 revealed l eft lower lobe airspace consolidation has progressed from prior on 03/09/2024 with associated left pleural effusion, correlate for pneumonia. Sub-5 mm nodules in the right upper lung and right lower lung which in the setting of cancer could represent metastatic disease. Mild cardiomegaly. Patient was diagnosed with endometrial cancer about 2 to 3 weeks ago. It is advanced, at least 3-4 stage, per patient's brother. Patient recently started having sciatica. Workup revealed endometrial cancer. It was felt too late to be treated with surgery. She underwent chemo cycles and was then transferred to [facility]. At present she cannot walk on her own. She has not been able to walk for last 4 months. Her balance is off, needs 24 hours care at this time. She also has problem with the knees, cannot stand on the legs. Patient is a non-smoker, very seldom drinks alcohol. Review of Systems All pertinent positive and negative review of systems mentioned in the HPI. Patient has significant peripheral edema. Denies headache. No chest pain. Past Medical History Past Medical History: Asthma, Cancer, GERD/Reflux, Osteoarthritis (OA) Additional Past Medical History / Comment(s): lymph edema lower legs-uses compression pump at night and velco wraps during the day., Overactive bladder with urine incontinence., has neuro stimulator for incontinence (states currently not working)., frequent diarrhea., pt has lap band., arthritis knees., hx of covid jan 17 with residual cough., See [facility]. Has recent stage 4 endometrial cancer. History of Any Multi-Drug Resistant Organisms: None Reported Past Surgical History: Bariatric Surgery, Cholecystectomy, Tonsillectomy Additional Past Surgical History / Comment(s): Colonoscopy , lap band with hiatal hernia repair (Dr. Pink), fx right femur (march 2020)., interstem neuro stimulatoror (Sep 2022)., Past Anesthesia/Blood Transfusion Reactions: No Reported Reaction, Motion Sickness Smoking Status: Never smoker - Past Family History Brother(s) Family Medical History: Cancer, COPD, Diabetes Mellitus, Deep Vein Thrombosis (DVT), Hypertension, Myocardial Infarction (PR), Vascular Disorder Additional Family Medical History / Comment(s): pt has twin brothers. non hodgkins lymphoma, bladder cancer Father Family Medical History: Cancer, Coronary Artery Disease (CAD) Mother Family Medical History: COPD Medications and Allergies Home Medications Medication Instructions Recorded Confirmed Type lamoTRIgine [LaMICtal] 75 mg PO HS@2100 04/22/20 04/26/24 History Sertraline [Zoloft] 100 mg PO HS@209902/20/23 04/26/24 History ARIPiprazole [Abilify] 15 mg PO DAILY@79904/26/24 04/26/24 History Acetaminophen Tab [Tylenol Tab] 500 - 1,000 mg PO Q8H PRN 04/26/24 04/26/24 History Albuterol Sulfate [Albuterol 1 - 2 puff PO RT-Q4H PRN 04/26/24 04/26/24 History Sulfate Hfa] Biotin 5,000 mcg PO DAILY@79904/26/24 04/26/24 History Cholecalciferol [Vitamin D3 (25 100 mcg PO DAILY 04/26/24 04/26/24 History Mcg = 1000 Iu)] Ensure Clear 120 - 237 ml PO TID@0800,1200,1700 04/26/24 04/26/24 History Ferrous Sulfate [Feosol] 325 mg PO DAILY@79904/26/24 04/26/24 History HYDROcodone/APAP 10-325MG [[place]ora 1 tab PO Q4HR PRN 04/26/24 04/26/24 History 10-325] Ipratropium-Albuterol Nebulize 3 ml INHALATION RT-Q6H PRN 04/26/24 04/26/24 History [Duoneb 0.5 mg-3 mg/3 ml Soln] Lidocaine-Prilocaine Cream [Emla 1 applic TOPICAL DAILY@79904/26/24 04/26/24 History Cream 2.5%/2.5%] Loperamide HCl [Imodium A-D] 2 mg PO BID PRN 04/26/24 04/26/24 History Magnesium Hydroxide [Milk of 7,200 mg PO Q48H PRN 04/26/24 04/26/24 History Magnesia Concentrate] Melatonin 3 mg PO HS@209904/26/24 04/26/24 History Metoprolol Tartrate [Lopressor] 50 mg PO BID@0800,1700 04/26/24 04/26/24 History Na Phos,M-B/Na Phos,Di-Ba [Fleet 133 ml RECTAL DAILY PRN 04/26/24 04/26/24 History Adult] bisacodyL [Dulcolax] 10 mg RECTAL DAILY PRN 04/26/24 04/26/24 History guaiFENesin [guaiFENesin Oral 200 mg PO Q4H PRN 04/26/24 04/26/24 History Solution] ondansetron HCL [Ondansetron HCl] 8 mg PO Q8H PRN 04/26/24 04/26/24 History ondansetron HCL [Zofran] 4 mg PO TID@0600,1400,2200 04/26/24 04/26/24 History traZODone HCL [Desyrel] 75 mg PO HS@2100 04/26/24 04/26/24 History Allergies Allergy/AdvReac Type Severity Reaction Status Date / Time No Known Allergies Allergy Verified 04/26/24 19:27 Physical Examination - Vital Signs Vital Signs: Vital Signs Temp Pulse Pulse Pulse Resp BP BP 04/27/24 16:35 98.5 F 65 14 04/27/24 15:00 98.2 F 72 16 189/90 04/27/24 14:00 64 16 04/27/24 09:20 64 16 184/76 04/27/24 06:40 97.8 F 62 16 176/89 04/27/24 04:34 60 18 169/76 04/27/24 03:08 59 L 17 163/63 04/27/24 02:00 92 16 135/88 BP Pulse Ox 04/27/24 16:35 146/74 97 04/27/24 15:00 97 04/27/24 14:00 04/27/24 09:20 96 04/27/24 06:40 96 04/27/24 04:34 96 04/27/24 03:08 98 04/27/24 02:00 97 Intake and Output 04/27/24 04/27/24 04/27/24 06:59 14:59 22:59 Other: Voiding Method Diaper Diaper Incontinent Incontinent Weight 96.615 kg Patient is an elderly female, very pleasant, in no acute distress. Patient is alert awake oriented to time place and person. Patient knows it is April 2024 and that she is in [facility] imported on [place] and name of the current president Mr. Miller. She knows her age 78. Speech and language functions are normal. Patient can name and repeat very well. No aphasia or dysarthria. Attention, concentration and fund of knowledge is adequate. Detailed cognitive function testing deferred. On cranial nerve examination, pupils are small, equal, round and reacting to light, visual galindo are full on confrontation, with no neglect on double simultaneous stimulation. Extraocular muscles are intact with no nystagmus. Face is symmetric, tongue protrudes to the midline. Palatal elevation and sensation normal, hearing and shoulder shrug normal, facial sensation normal. On muscle strength testing, there is no pronator drift and the strength is normal in arms and legs distally and proximally, except hip flexion which is 4- on the right, 2 left. Deep tendon reflexes are symmetric all over and plantars are probable upgoing bilaterally. Sensory to touch is equal with no neglect on double simultaneous stimulation. Cerebellar function showed no ataxia for [id number] testing. No dysdiadochokinesia. No ataxia for [id number] testing on either side. Tone and bulk of muscles normal. Gait deferred.. On general examination, there is no carotid bruit or murmur, S1-S2 audible. Chest is clear on consultation. Abdomen is soft nontender. No organomegaly, bowel sounds present. Peripheral pulses are present. Moderate to severe peripheral edema. Results - Laboratory Findings CBC and BMP: 04/27/24 02:56 04/27/24 02:56 Abnormal Lab Findings: Abnormal Labs 04/26/24 04/26/24 04/26/24 19:12 19:14 19:14 WBC 17.2 H RBC 3.53 L Hgb 9.7 L Hct 30.6 L RDW 17.8 H Neutrophils # 15.5 H Lymphocytes # 0.8 L Sodium 133 L Carbon Dioxide BUN 20 H Creatinine Glucose 108 H POC Glucose (mg/dL) 111 H Alkaline Phosphatase 139 H Total Protein Urine Appearance Urine Protein Urine Ketones Urine Blood Ur Leukocyte Esterase Urine RBC Urine WBC Urine WBC Clumps Amorphous Sediment 04/26/24 04/27/24 04/27/24 19:43 02:56 02:56 WBC 17.0 H RBC 3.49 L Hgb 9.6 L Hct 30.8 L RDW 17.7 H Neutrophils # 15.3 H Lymphocytes # 0.8 L Sodium 134 L Carbon Dioxide 21 L BUN 20 H Creatinine 1.06 H Glucose 109 H POC Glucose (mg/dL) Alkaline Phosphatase 137 H Total Protein 6.2 L Urine Appearance Cloudy H Urine Protein 1+ H Urine Ketones Trace H Urine Blood Large H Ur Leukocyte Esterase Large H Urine RBC >182 H Urine WBC 96 H Urine WBC Clumps Occasional H Amorphous Sediment Occasional H Assessment and Plan Assessment: * Altered mental status, likely due to metabolic encephalopathy. Reasons multifactorial, including possibility of UTI, pain medications. * Recent diagnosis of endometrial cancer, stage IV. * Lymphedema lower extremities * Chronic incontinence, has neurostimulator. * Obesity Plan: * Patient being treated with ceftriaxone for UTI. CT of chest also showed possibility of pneumonia. Also has left pleural effusion. * Check B12, folate. * TSH is elevated 5.53, with normal free T41.26. We will defer to IM. * Hemoglobin A1c 5.4. * Patient has stage IV endometrial cancer. Suggest oncology consultation. * Dr. Anup Jin to resume neurology service in the morning. * Thank you for the consultation. Time with Patient: Greater than 30
[2024-04-28 02:14] LABS: Anisocytosis Slight; HCT 31.2 % (34.0-46.0); HGB 9.8 gm/dL (11.4-16.0); Hypochromasia Moderate; MCH 27.7 pg (25.0-35.0); MCHC 31.3 g/dL (31.0-37.0); MCV 88.3 fL (80.0-100.0); Mean Platelet Volume 7.7; Platelet Count 154 k/uL (150-450); RBC 3.54 m/uL (3.80-5.40); RDW 17.9 % (11.5-15.5); WBC 23.7 k/uL (3.8-10.6)
[2024-04-28 02:18] LABS: African American GFR (CKD) 52 (>60 ml/min/1.73 sqM); Anion Gap 12 mmol/L; Blood Urea Nitrogen 23 mg/dL (7-17); Calcium 9.2 mg/dL (8.4-10.2); Carbon Dioxide 24 mmol/L (22-30); Chloride 100 mmol/L (98-107); Glucose 118 mg/dL (74-99); Magnesium 1.9 mg/dL (1.6-2.3); Non-African American GFR(CKD) 45 (>60 ml/min/1.73 sqM); Potassium 4.1 mmol/L (3.5-5.1); Sodium 136 mmol/L (137-145)
[2024-04-28] MEDS: ENOXAPARIN 60 MG/0.6 ML SYRINGE SQ SCH (08:42)
[2024-04-28] MEDS: FOLIC ACID 1 MG TAB PO SCH (11:42)
[2024-04-28] MEDS: hydrALAZINE HCL 25 MG TAB PO SCH (11:42)
[2024-04-28] MEDS: SODIUM CHLORIDE 0.9% 1,000 ML IV SCH (15:05)
--- NOTE | 2024-04-28 16:30 | P.PN ---
Subjective Progress Note Date: 04/28/24 Patient send 71-year-old female sent in from jail because of elevated blood pressure although her blood pressure is 1 in 170s systolic at this time. Although patient is being treated for multiple medical problems at this time patient is significantly abnormal urine when questioned about symptoms of UTI patient does admit to occasional dysuria. Patient has significantly increased white blood cell count in the urine. Patient does have leukocytosis 20 which is not explained by anything else chest x-ray was done which showed nodular lesion because of which I am obtaining a CT of the chest. Patient apparently was confused as well requiring Haldol last night because of which CT of the head was obtained and patient was eval by psychiatry and they believe it secondary to dementia which I agree with the patient is alert oriented x 3 but does have memory issues. Patient has significant muscle wasting does not ambulate much at the jail. Patient was discharged from jail after her hospitalization. Is occasionally confused 04/28/2024 Patient is evaluated today in follow up. Having difficulty with bowel movement and will be given soap suds enema. Urine culture positive for gram negative bacilli. Blood culture does come back positive for enterococcus. On IV ceftriaxone and IV daptomycin. Chest CT was completed in follow-up for the lung nodules found on the chest x-ray. Chest CT shows left lower lung airspace consolidation progressed from prior on March 09, 2024 with associated left pleural effusion correlate for pneumonia. There is a sub-5 mm nodules in the right upper lung and right lower lung which in the setting of cancer could represent metastatic disease. There is mild cardiomegaly. White blood cell count 23.7. BUN 23, creatinine 1.17. Review of Systems Constitutional: Denied any fatigue denied any fever. Cardio vascular: denied any chest pain, palpitations Gastrointestinal: denied any nausea, vomiting, diarrhea, reports constipation Pulmonary: Denied any shortness of breath cough Neurologic denied any new focal deficits All inpatient medications were reviewed and appropriate changes in these medications as dictated in the interval history and assessment and plan. PHYSICAL EXAMINATION: GENERAL: The patient is alert and oriented x3, not in any acute distress. Well developed, well nourished. Still confused obese HEENT: Pupils are round and equally reacting to light. EOMI. No scleral icterus. No conjunctival pallor. Normocephalic, atraumatic. No pharyngeal erythema. No thyromegaly. CARDIOVASCULAR: S1 and S2 present. No murmurs, rubs, or gallops. PULMONARY: Chest is clear to auscultation, no wheezing or crackles. ABDOMEN: Soft, nontender, nondistended, normoactive bowel sounds. No palpable organomegaly. MUSCULOSKELETAL: No joint swelling or deformity. EXTREMITIES: No cyanosis, clubbing, extensive bilateral pedal edema NEUROLOGICAL: Gross neurological examination did not reveal any focal deficits. SKIN: No rashes. Assessment and plan -Urinary tract infection with sepsis unexplained leukocytosis and symptoms of dysuria along with abnormal urine, patient will be continued on Rocephin urine cultures showing gram negative bacilli -Pulmonary nodule on on the x-ray with follow up chest CT revealing pulmonary nodules unable to rule out metastatic disease -Enterococcus bacteremia on IV daptomycin repeat cultures pending and ID has been consulted for further evaluation. -Recent diagnosis of stage IV endometrial cancer -Uncontrolled elevated blood pressure patient is hypertensive patient was started on losartan because of pedal edema and not using any calcium channel blockers the patient is mildly hyponatremic because of which hydrochlorothiazide is probably not a good idea patient is slightly hypervolemic with pedal edema. BP improving. -Hypervolemic hyponatremia although on room air. Patient with sepsis and bacteremia will be continued on IV fluids. -Chronic venous stasis and peripheral edema secondary to venous stasis -Asthma without any acute exacerbation -Lymphedema of bilateral lower extremities patient does use compression pumps -Vascular dementia moderate-severe -Depression -Generalized deconditioning physical therapy Occupational Therapy eval DVT prophylaxis: 60 mg of Lovenox patient creatinine is at borderline need to be monitored. The impression and plan of care has been dictated by Crystal Christiansen Nurse Practitioner as directed. Dr. Vidal MD I have performed a history and physical examination and medical decision making of this patient, discussed the same with the dictator, and agree with the dictators assessment and plan as written, documented as a scribe. Based on total visit time, I have performed more than 50% of this visit. Objective - Vital Signs Vital signs: Vital Signs Temp 97.6 F 04/28/24 07:00 Pulse 61 04/28/24 11:40 Resp 16 04/28/24 07:00 BP 132/63 04/28/24 11:40 Pulse Ox 99 04/28/24 11:40 FiO2 Intake & Output 04/27/24 04/28/24 04/28/24 18:59 06:59 18:59 Output Total 600 Balance -600 Weight 96.615 kg Output: Urine 600 Other: Voiding Method Diaper Diaper Diaper Incontinent Incontinent External Catheter # Bowel Movements 0 - Labs CBC & Chem 7: 04/28/24 01:25 04/28/24 01:25 Labs: Abnormal Lab Results - Last 24 Hours (Table) 04/28/24 04/28/24 Range/Units 01:25 01:25 WBC 23.7 H (3.8-10.6) k/uL RBC 3.54 L (3.80-5.40) m/uL Hgb 9.8 L (11.4-16.0) gm/dL Hct 31.2 L (34.0-46.0) % RDW 17.9 H (11.5-15.5) % Sodium 136 L (137-145) mmol/L BUN 23 H (7-17) mg/dL Creatinine 1.17 H (0.52-1.04) mg/dL Glucose 118 H (74-99) mg/dL Microbiology - Last 24 Hours (Table) 04/26/24 23:00 Blood Culture - Preliminary Blood 04/26/24 23:24 Urine Culture - Preliminary Urine,Voided Gram Neg Bacilli 04/26/24 23:27 Blood Culture Gram Stain - Preliminary Blood Blood Culture - Preliminary Molecular ID Assessment and Plan Time with Patient: Less than 30
--- NOTE | 2024-04-29 06:47 | P.CONS ---
History of Present Illness - Reason for Consult Consult date: 04/28/24 - History of Present Illness Patient is a 78-year-old female with a past medical history significant for recent diagnosis of stage IV endometrial cancer, hypertension osteoarthritis reflux asthma overactive bladder patient presented to hospital 2 days ago from the local custodial concerning for elevated blood pressure as her systolic was around 200 and the patient refused to take her medication as the patient was not resting them at the custodial patient complains of feeling weak and decreased appetite not eating and drinking anything patient denies having any headache or URI symptoms no chest pain shortness of breath or cough no abdominal pain did have some diarrhea has reported by the ER physician patient on presentation to the hospital was afebrile and no fever have been recorded subsequently patient was not tachycardic hypotensive or hypoxic and no need for supplemental oxygen patient did have a white count of 17.2 at admission which is up to 23.7 creatinine is mildly elevated liver enzymes are normal urine has been positive with large leukocyte Estrace patient blood cultures came back positive with VRE for the patient was started on daptomycin pending evaluation this morning patient did have a CT of the chest during this admission which did shows left lower lobe airspace consolidation has progressed from primus correlate for pneumonia and urine is currently growing gram-negative bacilli Past Medical History Past Medical History: Asthma, Cancer, GERD/Reflux, Osteoarthritis (OA) Additional Past Medical History / Comment(s): lymph edema lower legs-uses compression pump at night and velco wraps during the day., Overactive bladder with urine incontinence., has neuro stimulator for incontinence (states currently not working)., frequent diarrhea., pt has lap band., arthritis knees., hx of covid jan 17 with residual cough., See [facility] Has recent stage 4 endometrial cancer. History of Any Multi-Drug Resistant Organisms: None Reported Past Surgical History: Bariatric Surgery, Cholecystectomy, Tonsillectomy Additional Past Surgical History / Comment(s): Colonoscopy , lap band with hiatal hernia repair (Dr. Pink), fx right femur (march 2020)., interstem neuro stimulatoror (Sep 2022)., Past Anesthesia/Blood Transfusion Reactions: No Reported Reaction, Motion Sickness Smoking Status: Never smoker - Past Family History Brother(s) Family Medical History: Cancer, COPD, Diabetes Mellitus, Deep Vein Thrombosis (DVT), Hypertension, Myocardial Infarction ([place]), Vascular Disorder Additional Family Medical History / Comment(s): pt has twin brothers. non hodgkins lymphoma, bladder cancer Father Family Medical History: Cancer, Coronary Artery Disease (CAD) Mother Family Medical History: COPD Medications and Allergies Home Medications Medication Instructions Recorded Confirmed Type lamoTRIgine [LaMICtal] 75 mg PO HS@209904/22/20 04/26/24 History Sertraline [Zoloft] 100 mg PO HS@209902/20/23 04/26/24 History ARIPiprazole [Abilify] 15 mg PO DAILY@79904/26/24 04/26/24 History Acetaminophen Tab [Tylenol Tab] 500 - 1,000 mg PO Q8H PRN 04/26/24 04/26/24 History Albuterol Sulfate [Albuterol 1 - 2 puff PO RT-Q4H PRN 04/26/24 04/26/24 History Sulfate Hfa] Biotin 5,000 mcg PO DAILY@79904/26/24 04/26/24 History Cholecalciferol [Vitamin D3 (25 100 mcg PO DAILY 04/26/24 04/26/24 History Mcg = 1000 Iu)] Ensure Clear 120 - 237 ml PO TID@0800,1200,1700 04/26/24 04/26/24 History Ferrous Sulfate [Feosol] 325 mg PO DAILY@79904/26/24 04/26/24 History HYDROcodone/APAP 10-325MG [Venus 1 tab PO Q4HR PRN 04/26/24 04/26/24 History 10-325] Ipratropium-Albuterol Nebulize 3 ml INHALATION RT-Q6H PRN 04/26/24 04/26/24 History [Duoneb 0.5 mg-3 mg/3 ml Soln] Lidocaine-Prilocaine Cream [Emla 1 applic TOPICAL DAILY@79904/26/24 04/26/24 History Cream 2.5%/2.5%] Loperamide HCl [Imodium A-D] 2 mg PO BID PRN 04/26/24 04/26/24 History Magnesium Hydroxide [Milk of 7,200 mg PO Q48H PRN 04/26/24 04/26/24 History Magnesia Concentrate] Melatonin 3 mg PO HS@209904/26/24 04/26/24 History Metoprolol Tartrate [Lopressor] 50 mg PO BID@0800,1700 04/26/24 04/26/24 History Na Phos,M-B/Na Phos,Di-Ba [Fleet 133 ml RECTAL DAILY PRN 04/26/24 04/26/24 History Adult] bisacodyL [Dulcolax] 10 mg RECTAL DAILY PRN 04/26/24 04/26/24 History guaiFENesin [guaiFENesin Oral 200 mg PO Q4H PRN 04/26/24 04/26/24 History Solution] ondansetron HCL [Ondansetron HCl] 8 mg PO Q8H PRN 04/26/24 04/26/24 History ondansetron HCL [Zofran] 4 mg PO TID@0600,1400,2200 04/26/24 04/26/24 History traZODone HCL [Desyrel] 75 mg PO HS@2100 04/26/24 04/26/24 History Allergies Allergy/AdvReac Type Severity Reaction Status Date / Time No Known Allergies Allergy Verified 04/26/24 19:27 Physical Exam Vitals: Vital Signs Temp Pulse Pulse Resp BP BP BP 04/28/24 11:40 61 132/63 04/28/24 07:00 97.6 F 67 16 197/74 04/28/24 02:00 98.2 F 66 190/80 04/27/24 20:00 98.1 F 67 187/72 04/27/24 16:35 98.5 F 65 14 146/74 04/27/24 15:00 98.2 F 72 16 189/90 04/27/24 14:00 64 16 Pulse Ox 04/28/24 11:40 99 04/28/24 07:00 96 04/28/24 02:00 97 04/27/24 20:00 95 04/27/24 16:35 97 04/27/24 15:00 97 04/27/24 14:00 Intake and Output 04/27/24 04/28/24 04/28/24 22:59 06:59 14:59 Output Total 600 Balance -600 Output: Urine 600 Other: Voiding Method Diaper Diaper Diaper Incontinent Incontinent External Catheter External Catheter # Bowel Movements 0 Weight 96.615 kg Results CBC & Chem 7: 06/03/24 01:25 04/28/24 01:25 Labs: Abnormal Lab Results - Last 24 Hours (Table) 04/28/24 04/28/24 Range/Units 01:25 01:25 WBC 23.7 H (3.8-10.6) k/uL RBC 3.54 L (3.80-5.40) m/uL Hgb 9.8 L (11.4-16.0) gm/dL Hct 31.2 L (34.0-46.0) % RDW 17.9 H (11.5-15.5) % Sodium 136 L (137-145) mmol/L BUN 23 H (7-17) mg/dL Creatinine 1.17 H (0.52-1.04) mg/dL Glucose 118 H (74-99) mg/dL Microbiology - Last 24 Hours (Table) 04/26/24 23:24 Urine Culture - Preliminary Urine,Voided Gram Neg Bacilli 04/26/24 23:27 Blood Culture Gram Stain - Preliminary Blood Blood Culture - Preliminary Molecular ID Assessment and Plan Plan: 1patient with VRE bacteremia which is usually a gut/urinary source, patient did have some minimal symptom history of incontinence however the urine is showing gram-negative henselae to rule out any intra-abdominal etiology for this bacteremia we will evaluate, pathogen to cause pneumonia 2-blood cultures will be repeated to document clearance of bacteremia 3-check a CT of abdominal pelvis with oral contrast only because of elevated creatinine 4-daptomycin 6 mg/kg IV daily and Rocephin 2 g daily to continue while waiting for the workup to be completed We will follow on clinical condition and cultures to further adjust medication if needed Thank you for this consultation we will follow the patient along with you Dictation was produced using [employer] dictation software. please excuse any grammatical, word or spelling errors. Time with Patient: Greater than 30
[2024-04-29 10:24] LABS: HGB 8.8 g/dL (12.0-15.0); MCH 27.6 pg (27.0-32.0); MCHC 31.4 g/dL (32.0-37.0); MCV 87.8 FL (80.0-97.0); Mean Platelet Volume 10.6 FL (9.5-12.2); NRBC Per 100 WBC 0 X 10*3/uL (0.00-0.01); Platelet Count 127 X 10*3/uL (140-440); RBC 3.19 X 10*6/uL (4.10-5.20); WBC 31.86 X 10*3/uL (4.50-10.00)
[2024-04-29 10:28] LABS: BUN/Creat Ratio 18.23 Ratio (12.00-20.00); Blood Urea Nitrogen 23.7 mg/dL (9.0-27.0); Calcium 8.8 mg/dL (8.7-10.3); Carbon Dioxide 22.6 mmol/L (21.6-31.8); Chloride 100 mmol/L (96-109); Glucose 87 mg/dL (70-110); Magnesium 1.9 mg/dL (1.5-2.4); Potassium 3.8 mmol/L (3.5-5.5); Sodium 138 mmol/L (135-145)
[2024-04-29] MEDS: IOPAMIDOL CONTRAST (ORAL USE) VIAL PO PRN (11:33)
[2024-04-29 12:26] LABS: Basophils # (A) 0.08 X 10*3/uL (0.00-0.10); Basophils % (A) 0.3 %; Eosinophils # (A) 0 X 10*3/uL (0.04-0.35); Eosinophils % (A) 0 %; Lymphocytes # (A) 1.16 X 10*3/uL (0.90-5.00); Lymphocytes % (A) 3.6 %; Monocytes # (A) 1.36 X 10*3/uL (0.20-1.00); Monocytes % (A) 4.3 %; Neutrophils # (A) 29.02 X 10*3/uL (1.80-7.70)
--- NOTE | 2024-04-29 14:12 | CT ---
EXAMINATION TYPE: CT abdomen pelvis wo con CT DLP: 1088.6 mGycm, Automated exposure control for dose reduction was used. DATE OF EXAM: 04/29/2024 1:08 PM COMPARISON: CT abdomen pelvis most recent from 03/09/2024 CLINICAL INDICATION:Female, 78 years old with history of VRE bacteremia; VRE bacteremia TECHNIQUE: Axial CT abdomen pelvis wo con;Sagittal and coronal reformats were created on a separate workstation. Contrast used: mL of , (none if empty) Oral contrast used: with Oral Contrast (none if empty) FINDINGS: LOWER CHEST: Left lower lung airspace opacities heart is mildly enlarged for size. Mitral valve annul ar calcifications. ABDOMEN LIVER: Unremarkable GALLBLADDER AND BILE DUCTS: Unremarkable. PANCREAS: Unremarkable. SPLEEN: Unremarkable. ADRENAL GLANDS: Unremarkable. KIDNEYS AND URETERS: Bilateral ureteral stents are present with details in appropriate position. No evidence of hydronephrosis or renal calculus. The ureters are unremarkable. PELVIS BLADDER: Ureteral stents in appropriate position. Decompressed and grossly unremarkable. REPRODUCTIVE: Unremarkable. ABDOMEN & PELVIS STOMACH AND BOWEL: No evidence of bowel obstruction. Gastric lap band present and in appropriate posi tion. Mild reflux noted. PERITONEUM/RETROPERITONEUM: No evidence of pneumoperitoneum or free fluid. VASCULATURE: No evidence of aortic aneurysm. MUSCULOSKELETAL: Pathologic fracture of the left pelvis according the inferior and superior pubic danny i with intra-articular extension to the left acetabulum additional left iliac fracture also present.. There is fractures of the superior and inferior pubic ramus with intra-articular extension. Left pel daniel sidewall hematoma along the iliac is muscle. Multi leveled degeneration most pronounced in the lo wer spine with grade 1 anterior listhesis of L3 and L4. LYMPH NODES: r there remains lymphadenopathy low pelvis to 33 mm on the right and 31 mm on the left. SOFT TISSUE/ABDOMINAL WALL: Anasarca of the soft tissues. IMPRESSION: 1. New pathologic fractures of the left pelvis likely secondary to mass eroding into the acetabulum seen on prior.. There is an associated hematoma around the fracture site. 2. Left lower lobe airspace consolidation correlate for pneumonia. 3. Ureteral stents in appropriate position. 4. Persistent adenopathy in the pelvis. Findings communicated to Dr. Alonzo Reddy 04/29/2024 2:[address] Kevon Worthington.
--- NOTE | 2024-04-29 15:46 | P.PN ---
Subjective Progress Note Date: 04/29/24 Principal diagnosis: Reason for follow-up is a VRE bacteremia and leukocytosis Patient is a 78-year-old female with a past medical history significant for recent diagnosis of stage IV endometrial cancer, hypertension osteoarthritis reflux asthma overactive bladder patient presented to hospital for evaluation of elevated blood pressure and patient also noticed to have elevated white count and evidence of VRE bacteremia. On today's evaluation that is 04/29/2024,the patient remains to be afebrile, patient is on room air not requiring supplemental oxygen and denies any shortness of breath no chest pain or cough.Patient denies having any nausea or vomiting, no abdominal pain and no diarrhea has been reported, patient was initially refusing to drink contrast for the CAT scan subsequently agreed. Patient white count is up to 31.86 creatinine is 1.3 urine showing gram-negative blood culture with VRE repeat blood culture currently pending CT abdominal pelvis with a new pathological fracture left pelvis left lower lobe consolidation Objective - Vital Signs Vital signs: Vital Signs Temp 97.4 F L 04/29/24 07:51 Pulse 64 04/29/24 07:51 Resp 14 04/29/24 07:51 BP 159/71 04/29/24 07:51 Pulse Ox 95 04/29/24 07:51 FiO2 Intake & Output 04/28/24 04/29/24 04/29/24 18:59 06:59 18:59 Other: Voiding Method Diaper Diaper Incontinent # Voids 4 1 # Bowel Movements 1 - Exam GENERAL DESCRIPTION: An elderly female lying in bed in no distress RESPIRATORY SYSTEM: Unlabored breathing , decreased breath sounds at bases HEART: S1 S2 regular rate and rhythm , ABDOMEN: Soft , no tenderness EXTREMITIES: No edema feet - Labs CBC & Chem 7: 04/29/24 07:47 04/29/24 07:47 Labs: Abnormal Lab Results - Last 24 Hours (Table) 04/29/24 04/29/24 Range/Units 07:47 07:47 WBC 31.86 H (4.50-10.00) X 10*3/uL RBC 3.19 L (4.10-5.20) X 10*6/uL Hgb 8.8 L (12.0-15.0) g/dL Hct 28.0 L (37.2-46.3) % MCHC 31.4 L (32.0-37.0) g/dL RDW 18.0 H (11.5-14.5) % Plt Count 127 L (140-440) X 10*3/uL Immature Gran # 0.24 H (0.00-0.04) X 10*3/uL Neutrophils # 29.02 H (1.80-7.70) X 10*3/uL Monocytes # 1.36 H (0.20-1.00) X 10*3/uL Eosinophils # 0 L (0.04-0.35) X 10*3/uL Anion Gap 15.40 H (4.00-12.00) mmol/L Est GFR (CKD-EPI) 42 L (>=60) Microbiology - Last 24 Hours (Table) 04/28/24 01:25 Blood Culture - Preliminary Blood 04/28/24 01:41 Blood Culture - Preliminary Blood 04/26/24 23:00 Blood Culture - Preliminary Blood 04/26/24 23:27 Blood Culture Gram Stain - Preliminary Blood Blood Culture - Preliminary Enterococcus faecalis Molecular ID 04/26/24 23:24 Urine Culture - Preliminary Urine,Voided Gram Neg Bacilli Assessment and Plan (1) Leukocytosis Current Visit: Yes Status: Acute Code(s): D72.829 - ELEVATED WHITE BLOOD CELL COUNT, UNSPECIFIED SNOMED Code(s): 937846382 (2) Positive blood culture Current Visit: Yes Status: Acute Code(s): R78.81 - BACTEREMIA SNOMED Code(s): 179619616 (3) Urinary tract infection Current Visit: Yes Status: Acute Code(s): N39.0 - URINARY TRACT INFECTION, SITE NOT SPECIFIED SNOMED Code(s): 73704724 Plan: 1patient with VRE bacteremia which is usually a gut/urinary source, patient did have some minimal symptom history of incontinence however the urine is showing gram-negative henselae to rule out any intra-abdominal etiology for this bacteremia we will evaluate, pathogen to cause pneumonia 2-blood cultures has been repeated to document clearance of bacteremia 3-CT of abdominal pelvis with oral contrast only because of elevated creatinine, did shows evidence of pathological fracture to the pelvis and associated hematoma 4-patient benefit from oncology/Ortho evaluation for the pelvic fracture and the hematoma continue with daptomycin with worsening of the white count we will switch Rocephin to Zosyn Dictation was produced using [employer] software. please excuse any grammatical, word or spelling errors. Time with Patient: Greater than 30
[2024-04-29] MEDS: ERTAPENEM 1 GM in SODIUM CHLORIDE 0.9% 50 ML IVPB SCH (15:47)
--- NOTE | 2024-04-29 18:00 | P.PN ---
Subjective Progress Note Date: 04/29/24 I am seeing the patient for the first time during this admission. Per Dr. Emanuel it seems patient has AMS due to metabolic encephalopathy and pain medication. Upon seeing the patient she continues to be drowsy. Objective - Vital Signs Vital signs: Vital Signs Temp 98.5 F 04/29/24 14:00 Pulse 62 04/29/24 14:00 Resp 14 04/29/24 14:00 BP 144/70 04/29/24 14:00 Pulse Ox 96 04/29/24 14:00 FiO2 Intake & Output 04/28/24 04/29/24 04/29/24 18:59 06:59 18:59 Other: Voiding Method Diaper Diaper Incontinent # Voids 4 1 1 # Bowel Movements 1 1 - Exam General: Lying in bed and does not appear in acute distress. Neuro: Limited The patient is drowsy but is awakeable to voice. Is oriented to self. She correctly stated the current year and stated the month is January. She stated she is in [facility]. Patient is following simple commands. No facial weakness. Neuro: Strength is limited in assessment because of her cooperation. - Labs CBC & Chem 7: 04/29/24 07:47 04/29/24 07:47 Labs: Abnormal Lab Results - Last 24 Hours (Table) 04/29/24 04/29/24 Range/Units 07:47 07:47 WBC 31.86 H (4.50-10.00) X 10*3/uL RBC 3.19 L (4.10-5.20) X 10*6/uL Hgb 8.8 L (12.0-15.0) g/dL Hct 28.0 L (37.2-46.3) % MCHC 31.4 L (32.0-37.0) g/dL RDW 18.0 H (11.5-14.5) % Plt Count 127 L (140-440) X 10*3/uL Immature Gran # 0.24 H (0.00-0.04) X 10*3/uL Neutrophils # 29.02 H (1.80-7.70) X 10*3/uL Monocytes # 1.36 H (0.20-1.00) X 10*3/uL Eosinophils # 0 L (0.04-0.35) X 10*3/uL Anion Gap 15.40 H (4.00-12.00) mmol/L Est GFR (CKD-EPI) 42 L (>=60) Microbiology - Last 24 Hours (Table) 04/26/24 23:24 Urine Culture - Final Urine,Voided Escherichia coli 04/28/24 01:25 Blood Culture - Preliminary Blood 04/28/24 01:41 Blood Culture - Preliminary Blood 04/26/24 23:00 Blood Culture - Preliminary Blood 04/26/24 23:27 Blood Culture Gram Stain - Preliminary Blood Blood Culture - Preliminary Enterococcus faecalis Molecular ID Assessment and Plan Assessment: * Altered mental status, likely due to metabolic encephalopathy and septic encephalopathy (acute UTI septsemia). * Sepsis with Acute UTI and culture is E coli Bactermia with blood culture positive for Enteroccocus faecalis * Recent diagnosis of endometrial cancer, stage IV. * Lymphedema lower extremities * Chronic incontinence, has neurostimulator. * Obesity Plan: * I.D. is on board. * B12: 632, folate 7.8. Because of low normal folate will start patient on folic acid 1mg daily. * TSH is elevated 5.53, with normal free T41.26. We will defer to IM. * Hemoglobin A1c 5.4. * Patient has stage IV endometrial cancer. Oncology is on consult. * Will defer the rest of medical management to the primary team and other specialist. Will follow-up with patient sporadically. Time with Patient: Less than 30
--- NOTE | 2024-04-29 20:53 | P.PN ---
Subjective Progress Note Date: 04/29/24 Patient send 71-year-old female sent in from residential because of elevated blood pressure although her blood pressure is 1 in 170s systolic at this time. Although patient is being treated for multiple medical problems at this time patient is significantly abnormal urine when questioned about symptoms of UTI patient does admit to occasional dysuria. Patient has significantly increased white blood cell count in the urine. Patient does have leukocytosis 20 which is not explained by anything else chest x-ray was done which showed nodular lesion because of which I am obtaining a CT of the chest. Patient apparently was confused as well requiring Haldol last night because of which CT of the head was obtained and patient was eval by psychiatry and they believe it secondary to dementia which I agree with the patient is alert oriented x 3 but does have memory issues. Patient has significant muscle wasting does not ambulate much at the residential. Patient was discharged from residential after her hospitalization. Is occasionally confused 04/28/2024 Patient is evaluated today in follow up. Having difficulty with bowel movement and will be given soap suds enema. Urine culture positive for gram negative bacilli. Blood culture does come back positive for enterococcus. On IV ceftriaxone and IV daptomycin. Chest CT was completed in follow-up for the lung nodules found on the chest x-ray. Chest CT shows left lower lung airspace consolidation progressed from prior on March 09, 2024 with associated left pleural effusion correlate for pneumonia. There is a sub-5 mm nodules in the right upper lung and right lower lung which in the setting of cancer could represent metastatic disease. There is mild cardiomegaly. White blood cell count 23.7. BUN 23, creatinine 1.17. 04/29/2024 Patient evaluated today resting in bed more lethargic than yesterday. Patients white blood cell count continues to worsen and currently 31.86. ID following and abdominal pelvis CT was done showing a new pathologic fracture of the left pelvis likely secondary to mass eroding into the acetabulum as seen on prior. There is associated hematoma around the fracture site. Left lower lobe airspace consolidation concerning for pneumonia. Ureteral stents are in place. Persistent adenopathy in the pelvis. The findings of the pelvic lymphadenopathy were found on CT scan back in february of 2024 at that time patient was noted to have hydronephrosis and appears to have undergone ureteral stent placement since. C ontinues on antibiotics IV daptomycin and IV zosyn. Review of Systems Constitutional: Reports fatigue, denied any fever. Cardio vascular: denied any chest pain, palpitations Gastrointestinal: denied any nausea, vomiting, diarrhea Pulmonary: Denied any shortness of breath cough Neurologic denied any new focal deficits All inpatient medications were reviewed and appropriate changes in these medi cations as dictated in the interval history and assessment and plan. PHYSICAL EXAMINATION: GENERAL: The patient is alert and oriented x2, lethargic, not in any acute distress. Well developed, well nourished. Still confused obese HEENT: Pupils are round and equally reacting to light. EOMI. No scleral icterus. No conjunctival pallor. Normocephalic, atraumatic. No pharyngeal erythema. No thyromegaly. CARDIOVASCULAR: S1 and S2 present. No murmurs, rubs, or gallops. PULMONARY: Chest is clear to auscultation, no wheezing or crackles. ABDOMEN: Soft, nontender, nondistended, normoactive bowel sounds. No palpable organomegaly. MUSCULOSKELETAL: No joint swelling or deformity. EXTREMITIES: No cyanosis, clubbing, extensive bilateral pedal edema NEUROLOGICAL: Gross neurological examination did not reveal any focal deficits. Diffuse weakness. SKIN: No rashes. Assessment and plan -Urinary tract infection with sepsis unexplained leukocytosis and symptoms of dysuria along with abnormal urine, urine culture showing E. Coli -Pulmonary nodule on the x-ray with follow up chest CT revealing pulmonary nodules unable to rule out metastatic disease -Enterococcus bacteremia on IV daptomycin repeat cultures pending and ID following -Recent diagnosis of stage IV endometrial cancer -Leukocytosis oncology has been consulted as white blood cell count is up to 37 with recent diagnosis of stage IV endometrial cancer unsure if patient has been to see oncology as of yet. -Uncontrolled elevated blood pressure patient is hypertensive patient was started on losartan -Hypervolemic hyponatremia resolved. -Chronic venous stasis and peripheral edema secondary to venous stasis -Asthma without any acute exacerbation -Lymphedema of bilateral lower extremities patient does use compression pumps -Vascular dementia moderate-severe -Depression -Generalized deconditioning physical therapy Occupational Therapy eval DVT prophylaxis: 60 mg of Lovenox patient creatinine is at borderline need to be monitored. Patient evaluated today did have bowel movement with the soap suds enema. Not reporting any pain today. Evidence of pathologic fracture which is new in the left pelvis. Also pulmonary nodules and recent diagnosis stage IV endometrial cancer. Oncology and orthopedics have been consulted for evaluation. Continue antibiotics. Repeat blood work in the AM. The impression and plan of care has been dictated by Crystal Christiansen, Nurse Practitioner as directed. Dr. Vidal MD I have performed a history and physical examination and medical decision making of this patient, discussed the same with the dictator, and agree with the dictators assessment and plan as written, documented as a scribe. Based on total visit time, I have performed more than 50% of this visit. Objective - Vital Signs Vital signs: Vital Signs Temp 98.1 F 04/29/24 20:00 Pulse 62 04/29/24 20:00 Resp 15 04/29/24 20:00 BP 155/71 04/29/24 20:00 Pulse Ox 96 04/29/24 20:00 FiO2 Intake & Output 04/29/24 04/29/24 04/30/24 06:59 18:59 06:59 Other: Voiding Method Diaper Incontinent # Voids 1 1 # Bowel Movements 1 - Labs CBC & Chem 7: 04/29/24 07:47 04/29/24 07:47 Labs: Abnormal Lab Results - Last 24 Hours (Table) 04/29/24 04/29/24 Range/Units 07:47 07:47 WBC 31.86 H (4.50-10.00) X 10*3/uL RBC 3.19 L (4.10-5.20) X 10*6/uL Hgb 8.8 L (12.0-15.0) g/dL Hct 28.0 L (37.2-46.3) % MCHC 31.4 L (32.0-37.0) g/dL RDW 18.0 H (11.5-14.5) % Plt Count 127 L (140-440) X 10*3/uL Immature Gran # 0.24 H (0.00-0.04) X 10*3/uL Neutrophils # 29.02 H (1.80-7.70) X 10*3/uL Monocytes # 1.36 H (0.20-1.00) X 10*3/uL Eosinophils # 0 L (0.04-0.35) X 10*3/uL Anion Gap 15.40 H (4.00-12.00) mmol/L Est GFR (CKD-EPI) 42 L (>=60) Microbiology - Last 24 Hours (Table) 04/26/24 23:24 Urine Culture - Final Urine,Voided Escherichia coli 04/28/24 01:25 Blood Culture - Preliminary Blood 04/28/24 01:41 Blood Culture - Preliminary Blood 04/26/24 23:00 Blood Culture - Preliminary Blood 04/26/24 23:27 Blood Culture Gram Stain - Preliminary Blood Blood Culture - Preliminary Enterococcus faecalis Molecular ID Assessment and Plan Time with Patient: Less than 30
[2024-04-30] MEDS: PIPERACILLIN-TAZOBACTAM 3.375 GM in SODIUM CHLORIDE 0.9% 100 ML IVPB SCH (00:57)
[2024-04-30 10:30] LABS: BUN/Creat Ratio 18.08 Ratio (12.00-20.00); Blood Urea Nitrogen 23.5 mg/dL (9.0-27.0); Calcium 8.6 mg/dL (8.7-10.3); Carbon Dioxide 21.7 mmol/L (21.6-31.8); Chloride 100 mmol/L (96-109); Glucose 70 mg/dL (70-110); Magnesium 1.9 mg/dL (1.5-2.4); Potassium 3.7 mmol/L (3.5-5.5); Sodium 137 mmol/L (135-145)
[2024-04-30 10:35] LABS: Basophils # (A) 0.06 X 10*3/uL (0.00-0.10); Basophils % (A) 0.2 %; Eosinophils # (A) 0.01 X 10*3/uL (0.04-0.35); Eosinophils % (A) 0 %; HCT 26.7 % (37.2-46.3); HGB 8.4 g/dL (12.0-15.0); Lymphocytes # (A) 1.04 X 10*3/uL (0.90-5.00); Lymphocytes % (A) 3.7 %; MCH 27.6 pg (27.0-32.0); MCHC 31.5 g/dL (32.0-37.0); MCV 87.8 FL (80.0-97.0); Mean Platelet Volume 10.3 FL (9.5-12.2); Monocytes # (A) 1.29 X 10*3/uL (0.20-1.00); Monocytes % (A) 4.6 %; NRBC Per 100 WBC 0 X 10*3/uL (0.00-0.01); Neutrophils # (A) 25.23 X 10*3/uL (1.80-7.70); Neutrophils % (A) 90.7 %; Platelet Count 110 X 10*3/uL (140-440); RBC 3.04 X 10*6/uL (4.10-5.20); RDW 18.2 % (11.5-14.5); WBC 27.85 X 10*3/uL (4.50-10.00)
--- NOTE | 2024-04-30 12:58 | P.CNOR ---
History of Present Illness - HPI Consult date: 04/30/24 History of present illness: This is a 78-year-old female who is admitted for UTI and altered mental status. Patient states that she has been at a rehab facility for the past couple of months. Patient's past medical history is significant for stage IV endometrial cancer, asthma, GERD, osteoarthritis, lymphedema of the lower legs, urinary incontinence. Orthopedics is consulted for left pathologic pelvis fracture seen on CT of the abdomen and pelvis. Patient denies any recent falls, but is slightly confused this morning. There is no family present in the room at this time. Patient states that she has noticed pain in her left groin. Patient states that she was able to walk with a walker at her rehab facility. Patient is also being followed by infectious disease for positive blood cultures. Patient denies any fever/chills, chest pain, shortness breath, abdominal pain, numbness, weakness or tingling. Review of Systems See HPI. Past Medical History Past Medical History: Asthma, Cancer, GERD/Reflux, Osteoarthritis (OA) Additional Past Medical History / Comment(s): lymph edema lower legs-uses compression pump at night and velco wraps during the day., Overactive bladder with urine incontinence., has neuro stimulator for incontinence (states currently not working)., frequent diarrhea., pt has lap band., arthritis k nees., hx of covid jan 17 with residual cough., See [facility] Has recent stage 4 endometrial cancer. IVC, ureteral stents, recent IV chemo History of Any Multi-Drug Resistant Organisms: None Reported Past Surgical History: Bariatric Surgery, Cholecystectomy, Tonsillectomy Additional Past Surgical History / Comment(s): Colonoscopy , lap band with hiatal hernia repair (Dr. Pink), fx right femur (march 2020)., interstem neuro stimulatoror (Sep 2022)., Past Anesthesia/Blood Transfusion Reactions: No Reported Reaction, Motion Sickness Past Psychological History: ADD/ADHD, Anxiety, Depression Smoking Status: Never smoker Past Alcohol Use History: Occasional Past Drug Use History: None Reported - Past Family History Brother(s) Family Medical History: Cancer, COPD, Diabetes Mellitus, Deep Vein Thrombosis (DVT), Hypertension, Myocardial Infarction (AL), Vascular Disorder Additional Family Medical History / Comment(s): pt has twin brothers. non hodgkins lymphoma, bladder cancer Father Family Medical History: Cancer, Coronary Artery Disease (CAD) Mother Family Medical History: COPD Medications and Allergies Home Medications Medication Instructions Recorded Confirmed Type lamoTRIgine [LaMICtal] 75 mg PO HS@209904/22/20 04/26/24 History Sertraline [Zoloft] 100 mg PO HS@209902/20/23 04/26/24 History ARIPiprazole [Abilify] 15 mg PO DAILY@79904/26/24 04/26/24 History Acetaminophen Tab [Tylenol Tab] 500 - 1,000 mg PO Q8H PRN 04/26/24 04/26/24 History Albuterol Sulfate [Albuterol 1 - 2 puff PO RT-Q4H PRN 04/26/24 04/26/24 History Sulfate Hfa] Biotin 5,000 mcg PO DAILY@79904/26/24 04/26/24 History Cholecalciferol [Vitamin D3 (25 100 mcg PO DAILY 04/26/24 04/26/24 History Mcg = 1000 Iu)] Ensure Clear 120 - 237 ml PO TID@0800,1200,1700 04/26/24 04/26/24 History Ferrous Sulfate [Feosol] 325 mg PO DAILY@79904/26/24 04/26/24 History HYDROcodone/APAP 10-325MG [[place] 1 tab PO Q4HR PRN 04/26/24 04/26/24 History 10-325] Ipratropium-Albuterol Nebulize 3 ml INHALATION RT-Q6H PRN 04/26/24 04/26/24 History [Duoneb 0.5 mg-3 mg/3 ml Soln] Lidocaine-Prilocaine Cream [Emla 1 applic TOPICAL DAILY@79904/26/24 04/26/24 History Cream 2.5%/2.5%] Loperamide HCl [Imodium A-D] 2 mg PO BID PRN 04/26/24 04/26/24 History Magnesium Hydroxide [Milk of 7,200 mg PO Q48H PRN 04/26/24 04/26/24 History Magnesia Concentrate] Melatonin 3 mg PO HS@209904/26/24 04/26/24 History Metoprolol Tartrate [Lopressor] 50 mg PO BID@0800,1700 04/26/24 04/26/24 History Na Phos,M-B/Na Phos,Di-Ba [Fleet 133 ml RECTAL DAILY PRN 04/26/24 04/26/24 His tory Adult] bisacodyL [Dulcolax] 10 mg RECTAL DAILY PRN 04/26/24 04/26/24 History guaiFENesin [guaiFENesin Oral 200 mg PO Q4H PRN 04/26/24 04/26/24 History Solution] ondansetron HCL [Ondansetron HCl] 8 mg PO Q8H PRN 04/26/24 04/26/24 History ondansetron HCL [Zofran] 4 mg PO TID@0600,1400,2200 04/26/24 04/26/24 History traZODone HCL [Desyrel] 75 mg PO HS@2100 04/26/24 04/26/24 History Allergies Allergy/AdvReac Type Severity Reaction Status Date / Time No Known Allergies Allergy Verified 04/26/24 19:27 Physical Examination On exam patient is resting comfortably in bed in no acute distress. Patient is alert and oriented. Left lower extremity: There is mild pain with logroll of the left lower extremity. Patient has lymphedema to bilateral lower extremities. Calves are soft and nontender to palpation. Sensation intact. Neurovascular status and circulatory status are intact. Results A CT of the abdomen and pelvis without contrast dated 04/29/2024 shows: 1. New pathologic fractures of the left pelvis likely secondary to mass eroding into the acetabulum seen on prior. There is an associated hematoma around the fracture site. 2. Left lower lobe airspace consolidation correlate for pneumonia. 3. Ureteral stents in appropriate position. 4. Persistent adenopathy in the pelvis. - Labs Labs: Abnormal Lab Results - Last 24 Hours (Table) 04/29/24 04/29/24 Range/Units 07:47 07:47 WBC 31.86 H (4.50-10.00) X 10*3/uL RBC 3.19 L (4.10-5.20) X 10*6/uL Hgb 8.8 L (12.0-15.0) g/dL Hct 28.0 L (37.2-46.3) % MCHC 31.4 L (32.0-37.0) g/dL RDW 18.0 H (11.5-14.5) % Plt Count 127 L (140-440) X 10*3/uL Immature Gran # 0.24 H (0.00-0.04) X 10*3/uL Neutrophils # 29.02 H (1.80-7.70) X 10*3/uL Monocytes # 1.36 H (0.20-1.00) X 10*3/uL Eosinophils # 0 L (0.04-0.35) X 10*3/uL Anion Gap 15.40 H (4.00-12.00) mmol/L Est GFR (CKD-EPI) 42 L (>=60) Microbiology - Last 24 Hours (Table) 04/26/24 23:24 Urine Culture - Final Urine,Voided Escherichia coli 04/28/24 01:25 Blood Culture - Preliminary Blood 04/28/24 01:41 Blood Culture - Preliminary Blood 04/26/24 23:00 Blood Culture - Preliminary Blood 04/26/24 23:27 Blood Culture Gram Stain - Preliminary Blood Blood Culture - Preliminary Enterococcus faecalis Molecular ID H & H 04/26/24 04/27/24 04/28/24 Range/Units 19:14 02:56 01:25 Hgb 9.7 L 9.6 L 9.8 L (11.4-16.0) gm/dL Hct 30.6 L 30.8 L 31.2 L (34.0-46.0) % 04/29/24 Range/Units 07:47 Hgb 8.8 L (11.4-16.0) gm/dL Hct 28.0 L (34.0-46.0) % Coagulation 04/26/24 Range/Units 19:14 INR 1.0 (<1.2) Result Diagrams: 04/30/24 06:55 04/30/24 06:55 Assessment and Plan (1) Pathologic pelvic fracture Current Visit: Yes Status: Acute Code(s): M84.454A - PATHOLOGICAL FRACTURE, PELVIS, INIT ENCNTR FOR FRACTURE SNOMED Code(s): 192925555 Plan: 1. Patient is to be nonweightbearing to the left lower extremity. 2.An x-ray of the pelvis is pending. Further recommendations pending x-ray results.
--- NOTE | 2024-04-30 13:58 | XR ---
EXAMINATION TYPE: XR pelvis AP view DATE OF EXAM: 04/30/2024 Comparison: Correlation CT 04/29/2024 Clinical History: 78 year-old female fracture Findings: Known lytic osseous disease such as the anterior right acetabulum, left pubic body, left acetabulum. Other known lytic disease involving the left iliac crest with pathologic fracture not well seen. Nondisplaced pathologic fracture left acetabulum and left superior and inferior pubic rami are seen. Bilateral ureteral stents. Left-sided generator device with a sacral stimulator lead to the right. No displaced fracture seen. Lytic disease of the left sacrum not as well appreciated. Impression: Known pathologic fractures of the left pubic rami, left acetabulum, and left iliac wing with underlyi ng lytic osseous disease better seen on patient's CT from yesterday. Lytic lesion anterior right acet abulum also noted.
--- NOTE | 2024-04-30 19:26 | P.PN ---
Progress Note - Text Progress Note Date: 04/30/24 Patient send 71-year-old female sent in from [facility]-way because of elevated blood pressure although her blood pressure is 1 in 170s systolic at this time. Although patient is being treated for multiple medical problems at this time patient is significantly abnormal urine when questioned about symptoms of UTI patient does admit to occasional dysuria. Patient has significantly increased white blood cell count in the urine. Patient does have leukocytosis 20 which is not explained by anything else chest x-ray was done which showed nodular lesion because of which I am obtaining a CT of the chest. Patient apparently was confused as well requiring Haldol last night because of which CT of the head was obtained and patient was eval by psychiatry and they believe it secondary to dementia which I agree with the patient is alert oriented x 3 but does have memory issues. Patient has significant muscle wasting does not ambulate much at the half-way. Patient was discharged from half-way after her hospitalization. Is occasionally confused 04/28/2024 Patient is evaluated today in follow up. Having difficulty with bowel movement and will be given soap suds enema. Urine culture positive for gram negative bacilli. Blood culture does come back positive for enterococcus. On IV ce ftriaxone and IV daptomycin. Chest CT was completed in follow-up for the lung nodules found on the chest x-ray. Chest CT shows left lower lung airspace consolidation progressed from prior on March 09, 2024 with associated left pleural effusion correlate for pneumonia. There is a sub-5 mm nodules in the right upper lung and right lower lung which in the setting of cancer could represent metastatic disease. There is mild cardiomegaly. White blood cell count 23.7. BUN 23, creatinine 1.17. 04/29/2024 Patient evaluated today resting in bed more lethargic than yesterday. Patients white blood cell count continues to worsen and currently 31.86. ID following and abdominal pelvis CT was done showing a new pathologic fracture of the left pelvis likely secondary to mass eroding into the acetabulum as seen on prior. There is associated hematoma around the fracture site. Left lower lobe airspace consolidation concerning for pneumonia. Ureteral stents are in place. Persistent adenopathy in the pelvis. The findings of the pelvic lymphadenopathy were found on CT scan back in february of 2024 at that time patient was noted to have hydronephrosis and appears to have undergone ureteral stent placement since. Continues on antibiotics IV daptomycin and IV zosyn. April 30, 2024: Laying in bed. Baseline full assist. Has chronic pain all over. Had a bowel movement yesterday. Did not eat breakfast. Patient was seen by orthopedics. Diet adjusted Active Medications Acetaminophen (Acetaminophen Tab 325 Mg Tab) 650 mg PO Q6HR PRN PRN Reason: Mild Pain or Fever > 100.5 Albuterol/Ipratropium (Ipratropium-Albuterol 3 Ml Neb) 3 ml INHALATION RT-Q6H PRN PRN Reason: Shortness Of Breath Aripiprazole (Aripiprazole 15 Mg Tab) 15 mg PO DAILY@0800 [facility] Last Admin: 04/30/24 10:41 Dose: 15 mg Cholecalciferol (Cholecalciferol 25 Mcg (1000 Iu) Tablet) 100 mcg PO DAILY [facility] Last Admin: 04/30/24 10:41 Dose: 100 mcg Enoxaparin Sodium (Enoxaparin 60 Mg/0.6 Ml Syringe) 60 mg SQ DAILY [facility] Last Admin: 04/30/24 10:40 Dose: 60 mg Famotidine (Famotidine 20 Mg Tab) 20 mg PO DAILY [facility] Last Admin: 04/30/24 10:41 Dose: 20 mg Ferrous Sulfate (Ferrous Sulfate 325 Mg Tab) 325 mg PO DAILY@0800 [facility] Last Admin: 04/30/24 10:41 Dose: 325 mg Folic Acid (Folic Acid 1 Mg Tab) 1 mg PO DAILY [facility] Last Admin: 04/30/24 10:41 Dose: 1 mg Guaifenesin (Guaifenesin Syrup 100mg/5ml 200 Mg/10 Ml Cup) 200 mg PO Q4H PRN PRN Reason: Cough Hydralazine HCl (Hydralazine Hcl 25 Mg Tab) 25 mg PO BID [facility] Last Admin: 04/30/24 10:42 Dose: 25 mg Daptomycin 400 mg/ Sodium (Chloride) 50 mls @ 100 mls/hr IVPB Q24H [facility] Last Admin: 04/30/24 02:30 Dose: 100 mls/hr Piperacillin Sod/Tazobactam (Sod 3.375 gm/ Sodium Chloride) 100 mls @ 25 mls/hr IVPB Q8HR [facility]; Protocol Last Admin: 04/30/24 17:04 Dose: 25 mls/hr Lamotrigine (Lamotrigine 25 Mg Tab) 75 mg PO HS@2099 [facility] Last Admin: 04/29/24 20:20 Dose: Not Given Losartan Potassium (Losartan 50 Mg Tab) 100 mg PO DAILY [facility] Last Admin: 04/30/24 10:41 Dose: 100 mg Melatonin (Melatonin 3 Mg Tablet) 3 mg PO HS@2099 [facility] Last Admin: 04/29/24 20:20 Dose: Not Given Metoprolol Tartrate (Metoprolol Tartrate 50 Mg Tab) 50 mg PO BID@0800,1700 [facility] Last Admin: 04/30/24 17:05 Dose: 50 mg Naloxone HCl (Naloxone 0.4 Mg/Ml 1 Ml Vial) 0.2 mg IV Q2M PRN PRN Reason: Opioid Reversal Ondansetron HCl (Ondansetron 4 Mg/2 Ml Vial) 4 mg IVP Q8HR PRN PRN Reason: Nausea And Vomiting Quetiapine Fumarate (Quetiapine 25 Mg Tab) 25 mg PO HS PRN PRN Reason: Agitation Sertraline HCl (Sertraline 100 Mg Tab) 100 mg PO HS@2099 [facility] Last Admin: 04/29/24 20:20 Dose: Not Given Trazodone HCl (Trazodone Hcl 50 Mg Tab) 75 mg PO HS@2099 [facility] Last Admin: 04/29/24 20:20 Dose: Not Given On examination: VITAL SIGNS: [98.5, 61, 16, 161/64, 96% room air] GENERAL APPEARANCE: Laying in bed awake not in distress. HEENT: Normal external appearance of nose and ear. Oral cavity normal EYES: Pupils equal. Conjunctiva normal. NECK: JVD not raised. Mass not palpable. RESPIRATORY: Respiratory effort normal. Lungs clear to auscultation. CARDIOVASCULAR: First and second sounds normal. No edema. ABDOMEN: Soft. Liver and spleen not palpable. No tenderness. No mass palpable. PSYCHIATRY: Able to answer simple questions INVESTIGATIONS, reviewed in the clinical context: April 30, 2024: White count was 10.8 hemoglobin 8.4 platelets 110 sodium 137 potassium 3.7 BUN 23.5 creatinine 1.3 B12 632 folate 7.8 Pelvic x-ray known pathological fracture of the left pubic rami. Left acetabulum. Left iliac wing with underlying lytic osseous disease. Lytic lesion also in the anterior right acetabulum noted. CT scan abdomen pelvis with contrast:New pathologic fracture of the left pelvis likely secondary to mass eroding into the acetabulum seen on prior. Associated hematoma around the fracture site. Ureteral stents in appropriate positions. Adenopathy. Assessment and plan -Urinary tract infection with cystitis with sepsis unexplained leukocytosis and symptoms of dysuria along with abnormal urine, urine culture showing E. Coli IV daptomycin -Pulmonary nodule on the x-ray with follow up chest CT revealing pulmonary nodules unable to rule out metastatic disease -Enterococcus bacteremia On IV daptomycin repeat cultures pending and ID following -Recent diagnosis of stage IV endometrial cancer -Leukocytosis could be multifactorial including bacteremia, leukemoid from the malignancy -Essential hypertension Losartan -Hypervolemic hyponatremia resolved. -Chronic venous stasis and peripheral edema secondary to venous stasis -Asthma without any acute exacerbation -Lymphedema of bilateral lower extremities patient does use compression pumps -Vascular dementia moderate-severe -Depression -Generalized deconditioning physical therapy Occupational Therapy eval -DNR -Disposition: [facility]
--- NOTE | 2024-04-30 22:09 | P.CONS ---
History of Present Illness - Reason for Consult Consult date: 04/30/24 stage IV endometrial carcinoma Requesting physician: Sofia Lake - Chief Complaint hypertension - History of Present Illness Pt admitted from [facility] for confusion and hypertension. She was not able to provide me with a lot of details about her recent diagnosis but she reports she has had some chemotherapy for a recent diagnosis of metastatic endometrial cancer. She was seen by Dr. Floyd. Spoke with brother on the phone who reports that pt was diagnosed at [facility] and has had 2 doses of chemo. Records received, summarized below: Patient was admitted to the emergency department at [facility] 03/10/2024 for evaluation of vaginal bleeding, hydronephrosis and acute kidney injury. She was evaluated by Urology and [facility]. She had a left percutaneous nephrostomy tube and right stent placement. He had vaginal and cervical biopsies03/12/24 showing FIGO grade 2 endometrioid type endometrial adenocarcinoma involving vaginal and cervix. CT CAP showing uterine mass, bilateral pelvic lymph nodes, several large soft tissue lesions in the pelvis, lung nodules concerning for metastatic disease. Patient has a large burden of disease. Palliative rosalba tment options of radiation and chemo were discussed. Pt opted for chemo, had port placed. Cycle 1 day 1 of weekly carbo/Taxol 03/31/2024. Keytruda planned to be added to cycle 2. Patient did receive C1 D8 and then was discharged to subacute rehab. She was started on a folic acid supplement. Concerns for DVT/high risk for DVT because of tumor compression on the bilateral lower extremities on the CT. She is not a candidate for anticoagulation because of vaginal bleeding. She did have an IVC filter placed. She was discharged to subacute rehab 04/08/2024. Patient is currently admitted from acute rehab for confusion and hypertension. Patient has blood cultures positive for VRE, urinary culture is showing a different infectious organism. Current imaging: Head CT without IV contrast showed no acute hemorrhage midline shift or mass effect. CT of the chest without contrast reporting left lower lung airspace consolidation progressed from 03/09/2024. Associated left pleural effusion. 5 mm nodules in the right upper lung and right lower lung. CT of the abdomen and pelvis without contrast reporting new pathological fractures of the left pelvis likely secondary to the mass eroding into the acetabulum. There is an associated hematoma around the fracture site. Left lower lobe consolidation. Ureteral stents. Persistent adenopathy in the pelvis. Pelvic x-ray reporting pathological fractures of the left pubic rami, left acetabulum, left iliac wing with underlying lytic osseous disease. Lytic lesion anterior to the right acetabulum also noted. Orthopedics has seen the patient she has been made nonweightbearing to the left lower extremity. Further recommendations after they have reviewed the pelvic x-ray. [facility] imaging 03/25/24 CT CAP with IV and oral contrast reported 5.1 cm soft tissue fullness in the lower uterine segment/cervix. Enlarged bilateral pelvic lymph nodes. Soft tissue enlargement of the left iliopsoas muscle and left obturator internus muscle, soft tissue posterior to obturator internus concerning for tumor invasion which extends into the left sacral neural foramina. Destructive osseous lesion involving the pubic bones bilaterally at the level of the acetabulum as well as the left sacrum. Appears to be a fracture in the left iliac bone near the crest likely pathologic. Pulmonary nodules suspicious for metastasis. Area of consolidation in the left lower lobe either representing masslike infiltrate or neoplasm, small to moderate left pleural effusion. Apparent filling defects in the common iliac vein suspicious for DVT-patient is not a candidate for anticoagulation because of vaginal bleeding, IVC filter was placed. The pelvic masses and adenopathy exert mass effect on the iliac and femoral vessels. Bilateral nephroureteral stents and left percutaneous nephrostomy tube were seen. Adjacent to the medial aspect of the spleen and percutaneous nephrostomy tube is a high attenuation collection suspicious for a hematoma. Review of Systems Focused review of systems is as stated in HPI ROS unobtainable: due to mental status Past Medical History Past Medical History: Asthma, Cancer, GERD/Reflux, Osteoarthritis (OA) Additional Past Medical History / Comment(s): lymph edema lower legs-uses compression pump at night and velco wraps during the day., Overactive bladder with urine incontinence., has neuro stimulator for incontinence (states currently not working)., frequent diarrhea., pt has lap band., arthritis knees., hx of covid jan 17 with residual cough., See [facility] Has recent stage 4 endometrial cancer. IVC, ureteral stents, recent IV chemo History of Any Multi-Drug Resistant Organisms: None Reported Past Surgical History: Bariatric Surgery, Cholecystectomy, Tonsillectomy Additional Past Surgical History / Comment(s): Colonoscopy , lap band with hiatal hernia repair (Dr. Pink), fx right femur (march 2020)., interstem neuro stimulatoror (Sep 2022)., Past Anesthesia/Blood Transfusion Reactions: No Reported Reaction, Motion Sickness Past Psychological History: ADD/ADHD, Anxiety, Depression Smoking Status: Never smoker Past Alcohol Use History: Occasional Past Drug Use History: None Reported - Past Family History Brother(s) Family Medical History: Cancer, COPD, Diabetes Mellitus, Deep Vein Thrombosis (DVT), Hypertension, Myocardial Infarction (PA), Vascular Disorder Additional Family Medical History / Comment(s): pt has twin brothers. non hodgkins lymphoma, bladder cancer Father Family Medical History: Cancer, Coronary Artery Disease (CAD) Mother Family Medical History: COPD Medications and Allergies Home Medications Medication Instructions Recorded Confirmed Type lamoTRIgine [LaMICtal] 75 mg PO HS@209904/22/20 04/26/24 History Sertraline [Zoloft] 100 mg PO HS@209902/20/23 04/26/24 History ARIPiprazole [Abilify] 15 mg PO DAILY@79904/26/24 04/26/24 History Acetaminophen Tab [Tylenol Tab] 500 - 1,000 mg PO Q8H PRN 04/26/24 04/26/24 History Albuterol Sulfate [Albuterol 1 - 2 puff PO RT-Q4H PRN 04/26/24 04/26/24 History Sulfate Hfa] Biotin 5,000 mcg PO DAILY@79904/26/24 04/26/24 History Cholecalciferol [Vitamin D3 (25 100 mcg PO DAILY 04/26/24 04/26/24 History Mcg = 1000 Iu)] Ensure Clear 120 - 237 ml PO TID@0800,1200,1700 04/26/24 04/26/24 History Ferrous Sulfate [Feosol] 325 mg PO DAILY@79904/26/24 04/26/24 History HYDROcodone/APAP 10-325MG [[place] 1 tab PO Q4HR PRN 04/26/24 04/26/24 History 10-325] Ipratropium-Albuterol Nebulize 3 ml INHALATION RT-Q6H PRN 04/26/24 04/26/24 History [Duoneb 0.5 mg-3 mg/3 ml Soln] Lidocaine-Prilocaine Cream [Emla 1 applic TOPICAL DAILY@0800 04/26/24 04/26/24 History Cream 2.5%/2.5%] Loperamide HCl [Imodium A-D] 2 mg PO BID PRN 04/26/24 04/26/24 History Magnesium Hydroxide [Milk of 7,200 mg PO Q48H PRN 04/26/24 04/26/24 History Magnesia Concentrate] Melatonin 3 mg PO HS@2100 04/26/24 04/26/24 History Metoprolol Tartrate [Lopressor] 50 mg PO BID@0800,1700 04/26/24 04/26/24 History Na Phos,M-B/Na Phos,Di-Ba [Fleet 133 ml RECTAL DAILY PRN 04/26/24 04/26/24 History Adult] bisacodyL [Dulcolax] 10 mg RECTAL DAILY PRN 04/26/24 04/26/24 History guaiFENesin [guaiFENesin Oral 200 mg PO Q4H PRN 04/26/24 04/26/24 History Solution] ondansetron HCL [Ondansetron HCl] 8 mg PO Q8H PRN 04/26/24 04/26/24 History ondansetron HCL [Zofran] 4 mg PO TID@0600,1400,2200 04/26/24 04/26/24 History traZODone HCL [Desyrel] 75 mg PO HS@209904/26/24 04/26/24 History Allergies Allergy/AdvReac Type Severity Reaction Status Date / Time No Known Allergies Allergy Verified 04/26/24 19:27 Physical Exam Vitals: Vital Signs Temp Pulse Resp BP BP Pulse Ox 04/30/24 07:45 97.5 F L 64 16 172/66 95 04/30/24 02:26 98.6 F 66 15 147/68 98 04/29/24 20:00 98.1 F 62 15 155/71 96 04/29/24 14:00 98.5 F 62 14 144/70 96 Intake and Output 04/29/24 04/30/24 04/30/24 22:59 06:59 14:59 Other: Voiding Method Incontinent # Voids 2 # Bowel Movements 2 - Constitutional General appearance: cooperative, morbidly obese, no acute distress - EENT coated tongue Eyes: anicteric sclerae, EOMI ENT: hearing grossly normal - Neck Neck: no lymphadenopathy - Respiratory Respiratory: bilateral: CTA - Cardiovascular Rhythm: regular Heart sounds: normal: S1, S2 Abnormal Heart Sounds: systolic murmur (4/6 harsh) leg Peripheral Edema: bilateral: 2+, Pitting - Gastrointestinal large pannus General gastrointestinal: no absent bowel sounds, no decreased bowel sounds, no distended, no hepatomegaly, no hyperactive bowel sounds, normal bowel sounds, no organomegaly, no rigid, no scaphoid, soft, no splenomegaly, no tenderness, no umbilical hernia, no ventral hernia - Integumentary Integumentary: normal - Neurologic Neurologic: CNII-XII intact - Musculoskeletal Musculoskeletal: generalized weakness - Psychiatric A&O to self, not to time or place. She does give details of her health history that are mostly accurate Results CBC & Chem 7: 04/30/24 06:55 04/30/24 06:55 Labs: Abnormal Lab Results - Last 24 Hours (Table) 04/29/24 04/29/24 Range/Units 07:47 07:47 WBC 31.86 H (4.50-10.00) X 10*3/uL RBC 3.19 L (4.10-5.20) X 10*6/uL Hgb 8.8 L (12.0-15.0) g/dL Hct 28.0 L (37.2-46.3) % MCHC 31.4 L (32.0-37.0) g/dL RDW 18.0 H (11.5-14.5) % Plt Count 127 L (140-440) X 10*3/uL Immature Gran # 0.24 H (0.00-0.04) X 10*3/uL Neutrophils # 29.02 H (1.80-7.70) X 10*3/uL Monocytes # 1.36 H (0.20-1.00) X 10*3/uL Eosinophils # 0 L (0.04-0.35) X 10*3/uL Anion Gap 15.40 H (4.00-12.00) mmol/L Est GFR (CKD-EPI) 42 L (>=60) Microbiology - Last 24 Hours (Table) 04/26/24 23:24 Urine Culture - Final Urine,Voided Escherichia coli 04/28/24 01:25 Blood Culture - Preliminary Blood 04/28/24 01:41 Blood Culture - Preliminary Blood 04/26/24 23:00 Blood Culture - Preliminary Blood 04/26/24 23:27 Blood Culture Gram Stain - Preliminary Blood Blood Culture - Preliminary Enterococcus faecalis Molecular ID Chest x-ray: report reviewed CT scan - abdomen: report reviewed CT scan - chest: report reviewed CT Scan - head: report reviewed CT scan - pelvis: report reviewed Assessment and Plan (1) Altered mental status Current Visit: Yes Status: Acute Priority: High Code(s): R41.82 - ALTERED MENTAL STATUS, UNSPECIFIED SNOMED Code(s): 218267772 (2) Pathologic pelvic fracture Current Visit: Yes Status: Acute Priority: High Code(s): M84.454A - PA THOLOGICAL FRACTURE, PELVIS, INIT ENCNTR FOR FRACTURE SNOMED Code(s): 426 161098 (3) Endometrial adenocarcinoma Current Visit: Yes Status: Acute Priority: High Code(s): C54.1 - MALIGNANT NEOPLASM OF ENDOMETRIUM SNOMED Code(s): 137682354 Plan: AMS -Likely secondary to infection -Positive blood and urine cultures -Infectious disease following Endometrial adenocarcinoma -Diagnosed 03/12/2024 -Patient had carbo/Taxol weekly x 2 while inpatient at [place] -Plans for follow-up with Medical Oncologist after case review with [facility] Dr. Sylvester and pt released from rehab -Below is current imaging summarized as well as [facility] imaging from 03/25/2024 summarized. Does not appear to be significant change. -Fracture in the left iliac bone, bilateral pubic bone invasion, may possibly be some additional pathological bony findings. Orthopedics has assessed the patient. Pending additional x-rays. -Radiation Oncology consulted Current imaging: Head CT without IV contrast showed no acute hemorrhage midline shift or mass effect. CT of the chest without contrast reporting left lower lung airspace consolidation progressed from 03/09/2024. Associated left pleural effusion. 5 mm nodules in the right upper lung and right lower lung. CT of the abdomen and pelvis without contrast reporting new pathological fractures of the left pelvis likely secondary to the mass eroding into the acetabulum. There is an associated hematoma around the fracture site. Left lower lobe consolidation. Ureteral stents. Persistent adenopathy in the pelvis. Pelvic x-ray reporting pathological fractures of the left pubic rami, left acetabulum, left iliac wing with underlying lytic osseous disease. Lytic lesion anterior to the right acetabulum also noted. Orthopedics has seen the patient she has been made nonweightbearing to the left lower extremity. Further recommendations after they have reviewed the pelvic x-ray. [facility] imaging 03/25/24: CT CAP with IV and oral contrast reported 5.1 cm soft tissue fullness in the lower uterine segment/cervix. Enlarged bilateral pelvic lymph nodes. Soft tissue enlargement of the left iliopsoas muscle and left obturator internus muscle, soft tissue posterior to obturator internus concerning for tumor invasion which extends into the left sacral neural foramina. Destructive osseous lesion involving the pubic bones bilaterally at the level of the acetabulum as well as the left sacrum. Appears to be a fracture in the left iliac bone near the crest likely pathologic. Pulmonary nodules suspicious for metastasis. Area of consolidation in the left lower lobe either representing masslike infiltrate or neoplasm, small to moderate left pleural effusion. Apparent filling defects in the common iliac vein suspicious for DVT-patient is not a candidate for anticoagulation because of vaginal bleeding, IVC filter was placed. The pelvic masses and adenopathy exert mass effect on the iliac and femoral vessels. Bilateral nephroureteral stents and left percutaneous nephrostomy tube were seen. Adjacent to the medial aspect of the spleen and percutaneous nephrostomy tube is a high attenuation collection suspicious for a hematoma. Current goals are for treatment of infection and for patient to return to rehabilitation. Patient will not be receiving any treatment for malignancy well and rehabilitation. Will plan for follow-up with medical oncologist after rehab to assess the patient's performance status to see if she is still a candidate for palliative treatment.
--- NOTE | 2024-05-01 12:46 | P.PN ---
Subjective Progress Note Date: 05/01/24 05/01/2024: Patient is seen and evaluated at bedside today and x-ray results are discussed. Patient does not complain of any pain or new issues today. Patient states that she is planning to go back to [facility]. 04/30/2024: This is a 78-year-old female who is admitted for UTI and altered mental status. Patient states that she has been at a rehab facility for the past couple of months. Patient's past medical history is significant for stage IV endometrial cancer, asthma, GERD, osteoarthritis, lymphedema of the lower legs, urinary incontinence. Orthopedics is consulted for left pathologic pelvis fracture seen on CT of the abdomen and pelvis. Patient denies any recent falls, but is slightly confused this morning. There is no family present in the room at this time. Patient states that she has noticed pain in her left groin. Patient states that she was able to walk with a walker at her rehab facility. Patient is also being followed by infectious disease for positive blood cultures. Patient denies any fever/chills, chest pain, shortness breath, abdominal pain, numbness, weakness or tingling. Objective - Vital Signs Vital signs: Vital Signs Temp 97.8 F 05/01/24 08:00 Pulse 16 L 05/01/24 08:00 Resp 16 05/01/24 08:00 BP 146/63 05/01/24 08:00 Pulse Ox 97 05/01/24 08:00 FiO2 Intake & Output 04/30/24 05/01/24 05/01/24 18:59 06:59 18:59 Other: Voiding Method Bedpan Diaper Diaper External Catheter # Voids 2 1 # Bowel Movements 1 1 - Exam On exam patient is resting comfortably in bed in no acute distress. Patient is alert and oriented. Left lower extremity: There is mild pain with logroll of the left lower extremity. Patient has lymphedema to bilateral lower extremities. Calves are soft and nontender to palpation. Sensation intact. Neurovascular status and circulatory status are intact. - Labs CBC & Chem 7: 04/30/24 06:55 04/30/24 06:55 Labs: Microbiology - Last 24 Hours (Table) 04/26/24 23:27 Blood Culture Gram Stain - Final Blood Blood Culture - Final Enterococcus faecalis VRE Molecular ID 04/29/24 13:23 Blood Culture - Preliminary Blood 04/28/24 01:25 Blood Culture - Preliminary Blood 04/28/24 01:41 Blood Culture - Preliminary Blood 04/26/24 23:00 Blood Culture - Preliminary Blood Assessment and Plan (1) Pathologic pelvic fracture Current Visit: Yes Status: Acute Priority: High Code(s): M84.454A - PATHOLOGICAL FRACTURE, PELVIS, INIT ENCNTR FOR FRACTURE SNOMED Code(s): 865468517 Plan: X-ray report of the pelvis dated 04/29/2024 reveals: Known pathologic fractures of the left pubic rami, left acetabulum, and left iliac wing with underlying lytic osseous disease better seen on patient CT from yesterday. Lytic lesion anterior right acetabulum also noted. 1. Patient is to be strictly nonweightbearing to bilateral lower extremities. 2. There is no surgical intervention planned. Patient is a poor surgical candidate and palliative care is recommended at this time. Patient may follow up on an as needed basis.
--- NOTE | 2024-05-01 15:59 | P.PN ---
Subjective Progress Note Date: 05/01/24 Principal diagnosis: Metastatic endometrial carcinoma In f/u today pt is more clear in her thinking, she is able to have a clearer discussion. She has pain on the left hip when rolled to that side, she is no non-wt bearing bilaterally-reviewed with PT their plans for her. No other physical c/o at this time. Pt has questions about her diagnosis and what could be expected. We has a long discussion. Objective - Vital Signs Vital signs: Vital Signs Temp 98.2 F 05/01/24 14:53 Pulse 60 05/01/24 14:53 Resp 17 05/01/24 14:53 BP 135/68 05/01/24 14:53 Pulse Ox 97 05/01/24 14:53 FiO2 Intake & Output 04/30/24 05/01/24 05/01/24 18:59 06:59 18:59 Intake Total 118 Balance 118 Intake: Oral 118 Other: Voiding Method Bedpan Diaper Diaper Diaper External Catheter # Voids 2 1 # Bowel Movements 1 1 - Constitutional General appearance: Present: cooperative, morbidly obese, no acute distress - EENT Eyes: Present: anicteric sclerae, EOMI ENT: Present: hearing grossly normal - Respiratory Details: resp even and unlabored - Integumentary Integumentary: Present: pale - Neurologic Neurologic: Present: CNII-XII intact - Musculoskeletal Musculoskeletal: Present: generalized weakness - Psychiatric Psychiatric: Present: A&O x's 3, appropriate affect, intact judgment & insight - Labs CBC & Chem 7: 04/30/24 06:55 04/30/24 06:55 Labs: Microbiology - Last 24 Hours (Table) 04/28/24 01:25 Blood Culture - Preliminary Blood 04/28/24 01:41 Blood Culture - Preliminary Blood 04/26/24 23:27 Blood Culture Gram Stain - Final Blood Blood Culture - Final Enterococcus faecalis VRE Molecular ID 04/29/24 13:23 Blood Culture - Preliminary Blood 04/26/24 23:00 Blood Culture - Preliminary Blood Assessment and Plan (1) Altered mental status Current Visit: Yes Status: Acute Priority: High Code(s): R41.82 - ALTERED MENTAL STATUS, UNSPECIFIED SNOMED Code(s): 820662619 (2) Pathologic pelvic fracture Current Visit: Yes Status: Acute Priority: High Code(s): M84.454A - PATHOLOGICAL FRACTURE, PELVIS, INIT ENCNTR FOR FRACTURE SNOMED Code(s): 972192139 (3) Endometrial adenocarcinoma Current Visit: Yes Status: Acute Priority: High Code(s): C54.1 - MALIGNANT NEOPLASM OF ENDOMETRIUM SNOMED Code(s): 623730424 Plan: AMS -Likely secondary to infection -Positive blood and urine cultures -Infectious disease following -Slightly improved today Endometrial adenocarcinoma -Diagnosed 03/12/2024 -Patient had carbo/Taxol weekly x 2 while inpatient at [place] -Plans for follow-up with Medical Oncologist after case review with [facility] [employer] [facility] [employer] [facility] Dr. Sylvester and pt released from rehab -Prev summarized recent and current imaging (read reports). Does not appear to be significant change. -Fracture in the left iliac bone, bilateral pubic bone invasion, may possibly be some additional pathological bony findings. Orthopedics has assessed the patie nt. Pending additional x-rays. Radiation Oncology consulted. Did speak with Rad Onc this AM -We discussed active cancer treatment and reviewed palliative intent of treatment. We discussed hospice philosophy. She will speak with her family about the same -Discussed case with Attending and Physical therapist Pathological fractures pelvis/hip -Orthopedics want pt non-wt bearing, bilateral hips. -PT explained that pt rehab will be focused on upper body strength, twisting at waist and transferring -Pending Rad Onc eval -Pain mgmt -Pt will need assistive devices Current goals are for treatment of infection and for patient to return to rehabilitation. Patient will not be receiving any treatment for malignancy while in rehabilitation. Appt for follow-up with Medical Oncologist after rehab to assess the patient's performance status to see if she is still a candidate for palliative treatment. Pt will be contacted with appt date and time.
--- NOTE | 2024-05-01 18:22 | P.PN ---
Progress Note - Text Progress Note Date: 05/01/24 Patient send 71-year-old female sent in from [facility] because of elevated blood pressure although her blood pressure is 1 in 170s systolic at this time. Although patient is being treated for multiple medical problems at this time patient is significantly abnormal urine when questioned about symptoms of UTI patient does admit to occasional dysuria. Patient has significantly increased white blood cell count in the urine. Patient does have leukocytosis 20 which is not explained by anything else chest x-ray was done which showed nodular lesion because of which I am obtaining a CT of the chest. Patient apparently was confused as well requiring Haldol last night because of which CT of the head was obtained and patient was eval by psychiatry and they believe it secondary to dementia which I agree with the patient is alert oriented x 3 but does have memory issues. Patient has significant muscle wasting does not ambulate much at the sn[facility]. Patient was discharged from [facility] after her hospitalization. Is occasionally confused 04/28/2024 Patient is evaluated today in follow up. Having difficulty with bowel movement and will be given soap suds enema. Urine culture positive for gram negative bacilli. Blood culture does come back positive for enterococcus. On IV ce ftriaxone and IV daptomycin. Chest CT was completed in follow-up for the lung nodules found on the chest x-ray. Chest CT shows left lower lung airspace consolidation progressed from prior on March 09, 2024 with associated left pleural effusion correlate for pneumonia. There is a sub-5 mm nodules in the right upper lung and right lower lung which in the setting of cancer could represent metastatic disease. There is mild cardiomegaly. White blood cell count 23.7. BUN 23, creatinine 1.17. 04/29/2024 Patient evaluated today resting in bed more lethargic than yesterday. Patients white blood cell count continues to worsen and currently 31.86. ID following and abdominal pelvis CT was done showing a new pathologic fracture of the left pelvis likely secondary to mass eroding into the acetabulum as seen on prior. There is associated hematoma around the fracture site. Left lower lobe airspace consolidation concerning for pneumonia. Ureteral stents are in place. Persistent adenopathy in the pelvis. The findings of the pelvic lymphadenopathy were found on CT scan back in february of 2024 at that time patient was noted to have hydronephrosis and appears to have undergone ureteral stent placement since. Continues on antibiotics IV daptomycin and IV zosyn. April 30, 2024: Laying in bed. Baseline full assist. Has chronic pain all over. Had a bowel movement yesterday. Did not eat breakfast. Patient was seen by orthopedics. Diet adjusted May 01: In some positions patient is rather comfortable. Given her mass in the left pelvic area abutting on the bone is understandable with every movement she will get some more pain. Pending input from Will Calderon from radiation oncology. All of patient's care had otherwise been at [facility]. Oral intake rather limited. He does have some cognitive impairment. Add Marinol Active Medications Acetaminophen (Acetaminophen Tab 325 Mg Tab) 650 mg PO Q6HR PRN PRN Reason: Mild Pain or Fever > 100.5 Albuterol/Ipratropium (Ipratropium-Albuterol 3 Ml Neb) 3 ml INHALATION RT-Q6H PRN PRN Reason: Shortness Of Breath Aripiprazole (Aripiprazole 15 Mg Tab) 15 mg PO DAILY@0800 [facility] Last Admin: 05/01/24 10:54 Dose: 15 mg Cholecalciferol (Cholecalciferol 25 Mcg (1000 Iu) Tablet) 100 mcg PO DAILY [facility] Last Admin: 05/01/24 10:54 Dose: 100 mcg Dronabinol (Dronabinol 2.5 Mg Cap) 5 mg PO AC-BID [facility] Enoxaparin Sodium (Enoxaparin 60 Mg/0.6 Ml Syringe) 60 mg SQ DAILY [facility] Last Admin: 05/01/24 10:54 Dose: 60 mg Famotidine (Famotidine 20 Mg Tab) 20 mg PO DAILY [facility] Last Admin: 05/01/24 10:55 Dose: 20 mg Ferrous Sulfate (Ferrous Sulfate 325 Mg Tab) 325 mg PO DAILY@0800 [facility] Last Admin: 05/01/24 10:55 Dose: 325 mg Folic Acid (Folic Acid 1 Mg Tab) 1 mg PO DAILY [facility] Last Admin: 05/01/24 10:55 Dose: 1 mg Guaifenesin (Guaifenesin Syrup 100mg/5ml 200 Mg/10 Ml Cup) 200 mg PO Q4H PRN PRN Reason: Cough Hydralazine HCl (Hydralazine Hcl 25 Mg Tab) 25 mg PO BID [facility] Last Admin: 05/01/24 10:54 Dose: 25 mg Daptomycin 400 mg/ Sodium (Chloride) 50 mls @ 100 mls/hr IVPB Q24H [facility] Last Admin: 05/01/24 02:27 Dose: 100 mls/hr Ceftriaxone Sodium 2 gm/ (Sodium Chloride) 50 mls @ 100 mls/hr IVPB Q24HR [facility]; Protocol Lamotrigine (Lamotrigine 25 Mg Tab) 75 mg PO HS@2100 [facility] Last Admin: 04/30/24 20:15 Dose: 75 mg Losartan Potassium (Losartan 50 Mg Tab) 100 mg PO DAILY [facility] Last Admin: 05/01/24 10:54 Dose: 100 mg Melatonin (Melatonin 3 Mg Tablet) 3 mg PO HS@2100 [facility] Last Admin: 04/30/24 20:15 Dose: 3 mg Metoprolol Tartrate (Metoprolol Tartrate 50 Mg Tab) 50 mg PO BID@0800,1700 [facility] Last Admin: 05/01/24 18:07 Dose: 50 mg Naloxone HCl (Naloxone 0.4 Mg/Ml 1 Ml Vial) 0.2 mg IV Q2M PRN PRN Reason: Opioid Reversal Ondansetron HCl (Ondansetron 4 Mg/2 Ml Vial) 4 mg IVP Q8HR PRN PRN Reason: Nausea And Vomiting Quetiapine Fumarate (Quetiapine 25 Mg Tab) 25 mg PO HS PRN PRN Reason: Agitation Sertraline HCl (Sertraline 100 Mg Tab) 100 mg PO HS@2100 [facility] Last Admin: 04/30/24 20:16 Dose: 100 mg Trazodone HCl (Trazodone Hcl 50 Mg Tab) 75 mg PO HS@2100 [facility] Last Admin: 04/30/24 20:15 Dose: 75 mg On examination: VITAL SIGNS: 98.2, 60, 17, 135 x 68, 97% room air GENERAL APPEARANCE: Laying in bed awake he is comfortable HEENT: Normal external appearance of nose and ear. Oral cavity normal EYES: Pupils equal. Conjunctiva normal. NECK: JVD not raised. Mass not palpable. RESPIRATORY: Respiratory effort normal. Lungs clear to auscultation. CARDIOVASCULAR: First and second sounds normal. No edema. ABDOMEN: Soft. Liver and spleen not palpable. No tenderness. No mass palpable. PSYCHIATRY: Able to answer simple questions. Patient think she is at [facility]. INVESTIGATIONS, reviewed in the clinical context: April 30, 2024: White count was 10.8 hemoglobin 8.4 platelets 110 sodium 137 potassium 3.7 BUN 23.5 creatinine 1.3 B12 632 folate 7.8 Pelvic x-ray known pathological fracture of the left pubic rami. Left acetabulum. Left iliac wing with underlying lytic osseous disease. Lytic lesion also in the anterior right acetabulum noted. CT scan abdomen pelvis with contrast:New pathologic fracture of the left pelvis likely secondary to mass eroding into the acetabulum seen on prior. Associated hematoma around the fracture site. Ureteral stents in appropriate positions. Adenopathy. Assessment and plan -Urinary tract infection with cystitis with sepsis unexplained leukocytosis and symptoms of dysuria along with abnormal urine, urine culture showing E. Coli IV daptomycin -Pulmonary nodule on the x-ray with follow up chest CT revealing pulmonary nodules unable to rule out metastatic disease -Enterococcus bacteremia On IV daptomycin repeat cultures pending and ID following Recent diagnosis of stage IV endometrial cancer -Diagnosed 03/12/2024 -Patient had carbo/Taxol weekly x 2 while inpatient at [facility] -Plans for follow-up with Medical Oncologist after case review with [employer] Supervisor Onc Dr. Sylvester and pt released from rehab -Prev summarized recent and current imaging (read reports). Does not appear to be significant change. Oncology team is down to the patient about palliative possible radiation treatment. Also possible hospice. -Leukocytosis could be multifactorial including bacteremia, leukemoid from the malignancy -Essential hypertension Losartan -Hypervolemic hyponatremia resolved. -Chronic venous stasis and peripheral edema secondary to venous stasis -Asthma without any acute exacerbation -Lymphedema of bilateral lower extremities patient does use compression pumps -Vascular dementia moderate-severe -Depression -Generalized deconditioning physical therapy Occupational Therapy eval -DNR -Disposition: [facility] Await input from radiation oncologist. Repeat cultures pending.
[2024-05-01] MEDS: droNABinol 2.5 MG CAP PO SCH (19:27)
--- NOTE | 2024-05-01 22:37 | P.PN ---
Subjective Progress Note Date: 04/30/24 Principal diagnosis: Reason for follow-up is a VRE bacteremia and leukocytosis Patient is a 78-year-old female with a past medical history significant for recent diagnosis of stage IV endometrial cancer, hypertension osteoarthritis reflux asthma overactive bladder patient presented to hospital for evaluation of elevated blood pressure and patient also noticed to have elevated white count and evidence of VRE bacteremia. On today's evaluation that is 04/30/2024, the patient continues to be afebrile, the patient is on room air and breathing comfortably, the Pt denies having any chest pain or cough, the patient has been complaining of some lower abdominal pain no vomiting or any diarrhea has been reported by the nursing staff. Patient white count is down to 27.85, creatinine is 1 point 3 repeat blood cultures pending Objective - Vital Signs Vital signs: Vital Signs Temp 98.5 F 04/30/24 14:00 Pulse 61 04/30/24 14:00 Resp 16 04/30/24 14:00 BP 161/64 04/30/24 14:00 Pulse Ox 96 04/30/24 14:00 FiO2 Intake & Output 04/29/24 04/30/24 04/30/24 18:59 06:59 18:59 Other: Voiding Method Incontinent Incontinent Bedpan Diaper External Catheter # Voids 1 2 # Bowel Movements 1 2 - Exam GENERAL DESCRIPTION: An elderly female lying in bed in no distress RESPIRATORY SYSTEM: Unlabored breathing , decreased breath sounds at bases HEART: S1 S2 regular rate and rhythm , ABDOMEN: Soft , no tenderness EXTREMITIES: No edema feet - Labs CBC & Chem 7: 04/30/24 06:55 04/30/24 06:55 Labs: Abnormal Lab Results - Last 24 Hours (Table) 04/30/24 04/30/24 Range/Units 06:55 06:55 WBC 27.85 H (4.50-10.00) X 10*3/uL RBC 3.04 L (4.10-5.20) X 10*6/uL Hgb 8.4 L (12.0-15.0) g/dL Hct 26.7 L (37.2-46.3) % MCHC 31.5 L (32.0-37.0) g/dL RDW 18.2 H (11.5-14.5) % Plt Count 110 L (140-440) X 10*3/uL Immature Gran # 0.22 H (0.00-0.04) X 10*3/uL Neutrophils # 25.23 H (1.80-7.70) X 10*3/uL Monocytes # 1.29 H (0.20-1.00) X 10*3/uL Eosinophils # 0.01 L (0.04-0.35) X 10*3/uL Anion Gap 15.30 H (4.00-12.00) mmol/L Est GFR (CKD-EPI) 42 L (>=60) Calcium 8.6 L (8.7-10.3) mg/dL Microbiology - Last 24 Hours (Table) 04/28/24 01:25 Blood Culture - Preliminary Blood 04/28/24 01:41 Blood Culture - Preliminary Blood 04/26/24 23:00 Blood Culture - Preliminary Blood 04/26/24 23:24 Urine Culture - Final Urine,Voided Escherichia coli 04/26/24 23:27 Blood Culture Gram Stain - Preliminary Blood Blood Culture - Preliminary Enterococcus faecalis Molecular ID Assessment and Plan (1) Leukocytosis Current Visit: Yes Status: Acute Code(s): D72.829 - ELEVATED WHITE BLOOD CELL COUNT, UNSPECIFIED SNOMED Code(s): 135599680 (2) Positive blood culture Current Visit: Yes Status: Acute Code(s): R78.81 - BACTEREMIA SNOMED Code(s): 313008685 (3) Urinary tract infection Current Visit: Yes Status: Acute Code(s): N39.0 - URINARY TRACT INFECTION, SITE NOT SPECIFIED SNOMED Code(s): 82777926 Plan: 1patient with VRE bacteremia which is usually a gut/urinary source, patient did have some minimal symptom history of incontinence however the urine is showing gram-negative henselae to rule out any intra-abdominal etiology for this bacteremia we will evaluate, pathogen to cause pneumonia 2-blood cultures has been repeated to document clearance of bacteremia 3-CT of abdominal pelvis with oral contrast only because of elevated creatinine, did shows evidence of pathological fracture to the pelvis and associated hematoma 4-patient has been ordered by oncology/Ortho 5-blood culture repeated so far pending continue with the daptomycin and Zosyn white count is trending down Dictation was produced using [employer] software. please excuse any grammatical, word or spelling errors. Time with Patient: Less than 30
--- NOTE | 2024-05-01 22:38 | P.PN ---
Subjective Progress Note Date: 05/01/24 Principal diagnosis: Reason for follow-up is a VRE bacteremia and leukocytosis Patient is a 78-year-old female with a past medical history significant for recent diagnosis of stage IV endometrial cancer, hypertension osteoarthritis reflux asthma overactive bladder patient presented to hospital for evaluation of elevated blood pressure and patient also noticed to have elevated white count and evidence of VRE bacteremia. On today's evaluation that is 05/01/2024, Patient is afebrile patient is currently on room air and denies having any shortness of breath, the patient denies any chest pain or cough, the patient did have some nausea but no vomiting some lower abdominal discomfort no diarrhea. No negative has been repeated today blood culture repeat currently pending urine did show E. coli Objective - Vital Signs Vital signs: Vital Signs Temp 97.8 F 05/01/24 08:00 Pulse 16 L 05/01/24 08:00 Resp 16 05/01/24 08:00 BP 146/63 05/01/24 08:00 Pulse Ox 97 05/01/24 08:00 FiO2 Intake & Output 04/30/24 05/01/24 05/01/24 18:59 06:59 18:59 Intake Total 118 Balance 118 Intake: Oral 118 Other: Voiding Method Bedpan Diaper Diaper External Catheter # Voids 2 1 # Bowel Movements 1 1 - Exam GENERAL DESCRIPTION: An elderly female lying in bed in no distress RESPIRATORY SYSTEM: Unlabored breathing , decreased breath sounds at bases HEART: S1 S2 regular rate and rhythm , ABDOMEN: Soft , no tenderness EXTREMITIES: No edema feet - Labs CBC & Chem 7: 04/30/24 06:55 04/30/24 06:55 Labs: Microbiology - Last 24 Hours (Table) 04/28/24 01:25 Blood Culture - Preliminary Blood 04/28/24 01:41 Blood Culture - Preliminary Blood 04/26/24 23:27 Blood Culture Gram Stain - Final Blood Blood Culture - Final Enterococcus faecalis VRE Molecular ID 04/29/24 13:23 Blood Culture - Preliminary Blood 04/26/24 23:00 Blood Culture - Preliminary Blood Assessment and Plan (1) Leukocytosis Current Visit: Yes Status: Acute Code(s): D72.829 - ELEVATED WHITE BLOOD CELL COUNT, UNSPECIFIED SNOMED Code(s): 569769766 (2) Positive blood culture Current Visit: Yes Status: Acute Code(s): R78.81 - BACTEREMIA SNOMED Code(s): 846113153 (3) Urinary tract infection Current Visit: Yes Status: Acute Code(s): N39.0 - URINARY TRACT INFECTION, S ITE NOT SPECIFIED SNOMED Code(s): 52629196 Plan: 1patient with VRE bacteremia which is usually a gut/urinary source, patient did have some minimal symptom history of incontinence however the urine is showing gram-negative henselae to rule out any intra-abdominal etiology for this bacteremia we will evaluate, pathogen to cause pneumonia 2-blood cultures has been repeated to document clearance of bacteremia 3-CT of abdominal pelvis with oral contrast only because of elevated creatinine, did shows evidence of pathological fracture to the pelvis and associated hematoma 4-patient has been ordered by oncology/Ortho 5-blood culture repeated so far pending, source of the VRE bacteremia could be abdominal however the patient did have a systolic murmur we will check an echocardiogram continue with the daptomycin repeat blood culture has been negative so far 6-E. coli urinary tract infection switch Zosyn to Rocephin to which the organism is sensitive Dictation was produced using [employer] dictation software. please excuse any grammatical, word or spelling errors. Time with Patient: Less than 30
--- NOTE | 2024-05-02 10:15 | CA ---
Transthoracic Echo Report Name: Anupama Corona Age: 78 Gender: F : 1945 Exam Date: 05/01/2024 17:30 Exam Location: [place] [facility] Ht (in): 63 Wt (lb): 213 Ordering Physician: Alonzo Stiles MD Attending/Referring Phys: [employer] Manager Yessy Maloney RDCS Procedure CPT: Indications: bacteremia Cardiac Hx: Technical Quality: Fair Contrast 1: Total Dose (mL): Contrast 2: Total Dose (mL): MEASUREMENTS (Male / Female) Normal Values 2D ECHO LV Diastolic Diameter PLAX 4.9 cm 4.2 - 5.9 / 3.9 - 5.3 cm LV Systolic Diameter PLAX 2.4 cm IVS Diastolic Thickness 1.1 cm 0.6 - 1.0 / 0.6 - 0.9 cm LVPW Diastolic Thickness 1.2 cm 0.6 - 1.0 / 0.6 - 0.9 cm LV Relative Wall Thickness 0.5 RV Internal Dim ED PLAX 2.4 cm LVOT Diameter 2.1 cm LA Systolic Diameter LX 4.7 cm 3.0 - 4.0 / 2.7 - 3.8 cm LV Diastolic Volume MOD BP 76.0 cm??? 67 - 155 / 56 - 104 cm??? LV Systolic Volume MOD BP 22.4 cm??? 22 - 58 / 19 - 49 cm??? LV Ejection Fraction MOD BP 70.6 % >= 55 % LV Cardiac Index MOD BP 1264.9 cm???/min???m??? LV Diastolic Volume MOD 4C 84.4 cm??? LV Systolic Volume MOD 4C 25.0 cm??? LV Ejection Fraction MOD 4C 70.4 % LV Cardiac Index MOD 4C 1400.9 cm???/min???m??? LV Diastolic Length 4C 7.0 cm LV Systolic Length 4C 5.5 cm LV Diastolic Volume MOD 2C 67.2 cm??? LV Systolic Volume MOD 2C 10.1 cm??? LV Ejection Fraction MOD 2C 85.0 % LV Cardiac Index MOD 2C 1346.5 cm???/min???m??? LV Diastolic Length 2C 6.8 cm LV Systolic Length 2C 2.4 cm LA Volume 136.3 cm??? 18 - 58 / 22 - 52 cm??? LA Volume Index 64.3 cm???/m??? 16 - 28 cm???/m??? M-MODE Aortic Root Diameter MM 2.8 cm LA Systolic Diameter MM 5.0 cm LA Ao Ratio MM 1.8 AV Cusp Separation MM 0.9 cm DOPPLER AV Peak Velocity 281.1 cm/s AV Peak Gradient 31.6 mmHg AV Mean Velocity 189.9 cm/s AV Mean Gradient 17.2 mmHg AV Velocity Time Integral 70.1 cm AI Peak Velocity 416.4 cm/s AI Peak Gradient 69.4 mmHg AI Pressure Half Time 663.9 ms LVOT Peak Velocity 153.8 cm/s LVOT Peak Gradient 9.5 mmHg LVOT Velocity Time Integral 38.2 cm LVOT Stroke Volume 131.3 cm??? LVOT Stroke Volume Index 66.1 ml/m??? LVOT Cardiac Index 3096.0 cm???/min???m??? AV Area Cont Eq vti 1.9 cm??? AV Area Cont Eq pk 1.9 cm??? MV Peak Velocity 177.7 cm/s MV Peak Gradient 12.6 mmHg MV Mean Velocity 100.7 cm/s MV Mean Gradient 5.0 mmHg MV Velocity Time Integral 63.8 cm MV Area PHT 1.5 cm??? Mitral E Point Velocity 144.6 cm/s Mitral A Point Velocity 156.5 cm/s Mitral E to A Ratio 0.9 MV Deceleration Time 504.8 ms TR Peak Velocity 307.7 cm/s TR Peak Gradient 37.9 mmHg Right Ventricular Systolic Press 42.1 mmHg FINDINGS Left Ventricle Left ventricular ejection fraction is estimated at 60-65 %. Mildly increased septal wall thickness. Mildly increased posterior wall thickness. Left ventricular cavity size normal. No obvious regional wall motion abnormalities. Right Ventricle Normal right ventricular size and function. Mild pulmonary hypertension. Right Atrium Mild right atrial dilatation. Left Atrium Severely increased left atrial diameter. Severely increased left atrial volume. Moderately increased left atrial area. Mitral Valve Mild thickening/calcification of the anterior mitral valve leaflet. Severe thickening/calcification of the posterior mitral valve leaflet. No mitral stenosis. [id number] mitral regurgitation. Aortic Valve Trileaflet aortic valve. Mild aortic stenosis with a peak gradient of 31 mmHg and a mean gradient of 17mmHg. [id number] aortic regurgitation. Tricuspid Valve Structurally normal tricuspid valve. Moderate tricuspid regurgitation. Pulmonic Valve Structurally normal pulmonic valve. Mild pulmonic regurgitation. Pericardium No pericardial or pleural effusion. Aorta Normal size aortic root and proximal ascending aorta. CONCLUSIONS Normal LV function Mild to moderate mitral regurgitation Mild to moderate aortic regurgitation with mild aortic stenosis Previewed by: Dr. Jamie Khan MD (Electronically Signed) Final Date: 02 May 2024 10:14
[2024-05-02 11:33] LABS: Basophils # (A) 0.06 X 10*3/uL (0.00-0.10); Basophils % (A) 0.2 %; Eosinophils # (A) 0.01 X 10*3/uL (0.04-0.35); Eosinophils % (A) 0 %; HCT 29.2 % (37.2-46.3); HGB 8.9 g/dL (12.0-15.0); Lymphocytes # (A) 1.23 X 10*3/uL (0.90-5.00); MCH 27.7 pg (27.0-32.0); MCHC 30.5 g/dL (32.0-37.0); Monocytes # (A) 1.06 X 10*3/uL (0.20-1.00); Monocytes % (A) 4.3 %; NRBC Per 100 WBC 0 X 10*3/uL (0.00-0.01); Neutrophils # (A) 22.26 X 10*3/uL (1.80-7.70); Platelet Count 119 X 10*3/uL (140-440); RBC 3.21 X 10*6/uL (4.10-5.20); RDW 18.4 % (11.5-14.5); WBC 24.75 X 10*3/uL (4.50-10.00)
[2024-05-02 11:37] LABS: ALT 8 U/L (8-44); AST 59 U/L (13-35); Albumin 3.7 g/dL (3.8-4.9); Albumin/Globulin Ratio 1.42 Ratio (1.60-3.17); Alkaline Phosphatase 177 U/L (41-126); BUN/Creat Ratio 18.54 Ratio (12.00-20.00); Blood Urea Nitrogen 24.1 mg/dL (9.0-27.0); Calcium 8.9 mg/dL (8.7-10.3); Carbon Dioxide 21.4 mmol/L (21.6-31.8); Chloride 100 mmol/L (96-109); Globulin 2.6 g/dL (1.6-3.3); Glucose 60 mg/dL (70-110); Potassium 3.6 mmol/L (3.5-5.5); Sodium 139 mmol/L (135-145); Total Bilirubin 0.5 mg/dL (0.3-1.2); Total Protein 6.3 g/dL (6.2-8.2)
[2024-05-02 11:49] LABS: Erythrocyte Sedimentation Rate 34 mm/Hr (0-30)
--- NOTE | 2024-05-02 15:57 | P.CONS ---
History of Present Illness - Reason for Consult Consult date: 05/01/24 Metastatic uterine cancer Requesting physician: Cinda Floyd - Chief Complaint "I have uterine cancer" - History of Present Illness Ms. Corona is a 78-year-old with metastatic uterine cancer, status post 2 cycles of carboplatin/Taxol. She presents with pathologic fractures of the left pubic ramus and iliac wing. Her pertinent history begins with vaginal bleeding in 02/2024. She presented to [facility], with CT imaging demonstrating uterine mass, bilateral pelvic a denopathy, and lung nodules. Biopsies of the vagina/cervix purportedly demonstrated FIGO grade 2 endometrioid carcinoma. She underwent 2 cycles of carboplatin/Taxol and was discharged to [facility]. She also had IVC filter placed. She presented to the ED with HTN on 04/26/2024. CT chest on 04/27/2024 demonstrated LLL airspace consolidation. 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 CT abdomen/pelvis demonstrated pelvic adenopathy with inferior/superior left pubic ramus fractures with extension to the left acetabulum and a left iliac wing fracture. She was seen by orthopedics with no plans for surgery. She is non weightbearing on the left lower extremity. Today, she notes mild pelvic pain, 4/10, which is controlled with Tylenol. She has never had radiation therapy and does not have a pacemaker. Review of Systems as per HPI Past Medical History Past Medical History: Asthma, Cancer, GERD/Reflux, Osteoarthritis (OA) Additional Past Medical History / Comment(s): lymph edema lower legs-uses compression pump at night and velco wraps during the day., Overactive bladder with urine incontinence., has neuro stimulator for incontinence (states currently not working)., frequent diarrhea., pt has lap band., arthritis knees., hx of covid jan 17 with residual cough., See [facility]. Has recent stage 4 endometrial cancer. IVC, ureteral stents, recent IV chemo History of Any Multi-Drug Resistant Organisms: None Reported Past Surgical History: Bariatric Surgery, Cholecystectomy, Tonsillectomy Additional Past Surgical History / Comment(s): Colonoscopy , lap band with hiatal hernia repair (Dr. Pink), fx right femur (march 2020)., interstem neuro stimulatoror (Sep 2022)., Past Anesthesia/Blood Transfusion Reactions: No Reported Reaction, Motion Sickness Past Psychological History: ADD/ADHD, Anxiety, Depression Smoking Status: Never smoker Past Alcohol Use History: Occasional Past Drug Use History: None Reported - Past Family History Brother(s) Family Medical History: Cancer, COPD, Diabetes Mellitus, Deep Vein Thrombosis (DVT), Hypertension, Myocardial Infarction ([place]), Vascular Disorder Additional Family Medical History / Comment(s): pt has twin brothers. non hodgkins lymphoma, bladder cancer Father Family Medical History: Cancer, Coronary Artery Disease (CAD) Mother Family Medical History: COPD Medications and Allergies Home Medications Medication Instructions Recorded Confirmed Type lamoTRIgine [LaMICtal] 75 mg PO HS@209904/22/20 04/26/24 History Sertraline [Zoloft] 100 mg PO HS@209902/20/23 04/26/24 History ARIPiprazole [Abilify] 15 mg PO DAILY@79904/26/24 04/26/24 History Acetaminophen Tab [Tylenol Tab] 500 - 1,000 mg PO Q8H PRN 04/26/24 04/26/24 History Albuterol Sulfate [Albuterol 1 - 2 puff PO RT-Q4H PRN 04/26/24 04/26/24 History Sulfate Hfa] Biotin 5,000 mcg PO DAILY@79904/26/24 04/26/24 History Cholecalciferol [Vitamin D3 (25 100 mcg PO DAILY 04/26/24 04/26/24 History Mcg = 1000 Iu)] Ensure Clear 120 - 237 ml PO TID@0800,1200,1700 04/26/24 04/26/24 History Ferrous Sulfate [Feosol] 325 mg PO DAILY@79904/26/24 04/26/24 History HYDROcodone/APAP 10-325MG [[place] 1 tab PO Q4HR PRN 04/26/24 04/26/24 History 10-325] Ipratropium-Albuterol Nebulize 3 ml INHALATION RT-Q6H PRN 04/26/24 04/26/24 History [Duoneb 0.5 mg-3 mg/3 ml Soln] Lidocaine-Prilocaine Cream [[place] 1 applic TOPICAL DAILY@79904/26/24 04/26/24 History Cream 2.5%/2.5%] Loperamide HCl [Imodium A-D] 2 mg PO BID PRN 04/26/24 04/26/24 History Magnesium Hydroxide [Milk of 7,200 mg PO Q48H PRN 04/26/24 04/26/24 History Magnesia Concentrate] Melatonin 3 mg PO HS@209904/26/24 04/26/24 History Metoprolol Tartrate [Lopressor] 50 mg PO BID@0800,1700 04/26/24 04/26/24 History Na Phos,M-B/Na Phos,Di-Ba [Fleet 133 ml RECTAL DAILY PRN 04/26/24 04/26/24 History Adult] bisacodyL [Dulcolax] 10 mg RECTAL DAILY PRN 04/26/24 04/26/24 History guaiFENesin [guaiFENesin Oral 200 mg PO Q4H PRN 04/26/24 04/26/24 History Solution] ondansetron HCL [Ondansetron HCl] 8 mg PO Q8H PRN 04/26/24 04/26/24 History ondansetron HCL [Zofran] 4 mg PO TID@0600,1400,2200 04/26/24 04/26/24 History traZODone HCL [Desyrel] 75 mg PO HS@209904/26/24 04/26/24 History DAPTOmycin [Cubicin] 500 mg IV DAILY #10 each 05/02/24 Rx cefUROXime axetiL [Ceftin] 500 mg PO BID 10 Days #20 tab 05/02/24 Rx metroNIDAZOLE [Flagyl] 500 mg PO TID #30 tab 05/02/24 Rx Allergies Allergy/AdvReac Type Severity Reaction Status Date / Time No Known Allergies Allergy Verified 04/26/24 19:27 Physical Exam Vitals: Vital Signs Temp Pulse Resp BP BP Pulse Ox 05/02/24 13:58 98.3 F 58 L 16 147/66 99 05/02/24 07:10 97.9 F 57 L 16 159/64 98 05/02/24 01:05 97.6 F 57 L 18 154/78 97 05/01/24 18:46 98.1 F 58 L 18 152/61 98 Intake and Output 05/02/24 05/02/24 05/02/24 06:59 14:59 22:59 Intake Total 550 Balance 550 Intake: Intake, IV Titration 50 Amount DAPTOmycin 400 mg In 50 Sodium Chloride 0.9% 50 ml @ 100 mls/hr IVPB Q24H [facility] Rx#:[id number] Oral 500 Other: # Voids 1 1 # Bowel Movements 1 - Constitutional General appearance: no acute distress - Respiratory Respiratory: negative: prolonged expiration, prolonged inspiration - Psychiatric Psychiatric: A&O x's 3, appropriate affect, intact judgment & insight Results CBC & Chem 7: 05/02/24 06:25 05/02/24 06:25 Labs: Abnormal Lab Results - Last 24 Hours (Table) 05/02/24 05/02/24 Range/Units 06:25 06:25 WBC 24.75 H (4.50-10.00) X 10*3/uL RBC 3.21 L (4.10-5.20) X 10*6/uL Hgb 8.9 L (12.0-15.0) g/dL Hct 29.2 L (37.2-46.3) % MCHC 30.5 L (32.0-37.0) g/dL RDW 18.4 H (11.5-14.5) % Plt Count 119 L (140-440) X 10*3/uL Immature Gran # 0.13 H (0.00-0.04) X 10*3/uL Neutrophils # 22.26 H (1.80-7.70) X 10*3/uL Monocytes # 1.06 H (0.20-1.00) X 10*3/uL Eosinophils # 0.01 L (0.04-0.35) X 10*3/uL ESR 34 H (0-30) mm/Hr Carbon Dioxide 21.4 L (21.6-31.8) mmol/L Anion Gap 17.60 H (4.00-12.00) mmol/L Est GFR (CKD-EPI) 42 L (>=60) Glucose 60 L (70-110) mg/dL AST 59 H (13-35) U/L Alkaline Phosphatase 177 H (41-126) U/L C-Reactive Protein 9.40 H (0.00-0.80) mg/dL Albumin 3.7 L (3.8-4.9) g/dL Albumin/Globulin Ratio 1.42 L (1.60-3.17) Ratio Microbiology - Last 24 Hours (Table) 04/26/24 23:00 Blood Culture - Final Blood 04/29/24 13:23 Blood Culture - Preliminary Blood 04/28/24 01:25 Blood Culture - Preliminary Blood 04/28/24 01:41 Blood Culture - Preliminary Blood Assessment and Plan Assessment: Ms. Corona is a 78-year-old with metastatic uterine cancer, status post 2 cycles of carboplatin/Taxol. She presents with pathologic fractures of the left pubic ramus and iliac wing. Plan: The patient has metastatic uterine cancer with several pathologic fractures. She is not a surgical candidate in light of her co-morbidities. Radiation therapy alone would be unlikely to heal the fractures. Moreover, she has very mild symptoms at this time. Her prognosis is overall poor. Due to the above, I do not recommend radiation therapy at this time. If her pain were to significantly worsen, palliative treatment could be offered in the future, but again, this would unlikely change her non-weightbearing status. Zach Herrera MD Radiation Oncology Time with Patient: Greater than 30
--- NOTE | 2024-05-02 18:58 | P.PN ---
Subjective Progress Note Date: 05/02/24 Family meeting held today to discuss disease state, prognosis and treatment versus comfort care measures. Patient is reporting mild pelvic discomfort otherwise reporting no other symptoms. Objective - Vital Signs Vital signs: Vital Signs Temp 98.3 F 05/02/24 13:58 Pulse 58 L 05/02/24 13:58 Resp 16 05/02/24 13:58 BP 147/66 05/02/24 13:58 Pulse Ox 99 05/02/24 13:58 FiO2 Intake & Output 05/01/24 05/02/24 05/02/24 18:59 06:59 18:59 Intake Total 118 550 Output Total 0 Balance 118 550 Intake: Intake, IV Titration 50 Amount DAPTOmycin 400 mg In 50 Sodium Chloride 0.9% 50 ml @ 100 mls/hr IVPB Q24H [facility] Rx#:[id number] Oral 118 500 Output: Urine 0 Other: Voiding Method Diaper # Voids 1 1 # Bowel Movements 1 - Constitutional General appearance: Present: average body habitus, no acute distress - EENT Eyes: Present: anicteric sclerae, EOMI ENT: Present: hearing grossly normal - Respiratory Details: breathing is even and unlabored - Cardiovascular Details: well perfused - Integumentary Integumentary: Absent: cyanotic, jaundiced - Neurologic Neurologic: Present: CNII-XII intact - Psychiatric Psychiatric: Present: A&O x's 3 - Labs CBC & Chem 7: 05/02/24 06:25 05/02/24 06:25 Labs: Abnormal Lab Results - Last 24 Hours (Table) 05/02/24 05/02/24 Range/Units 06:25 06:25 WBC 24.75 H (4.50-10.00) X 10*3/uL RBC 3.21 L (4.10-5.20) X 10*6/uL Hgb 8.9 L (12.0-15.0) g/dL Hct 29.2 L (37.2-46.3) % MCHC 30.5 L (32.0-37.0) g/dL RDW 18.4 H (11.5-14.5) % Plt Count 119 L (140-440) X 10*3/uL Immature Gran # 0.13 H (0.00-0.04) X 10*3/uL Neutrophils # 22.26 H (1.80-7.70) X 10*3/uL Monocytes # 1.06 H (0.20-1.00) X 10*3/uL Eosinophils # 0.01 L (0.04-0.35) X 10*3/uL ESR 34 H (0-30) mm/Hr Carbon Dioxide 21.4 L (21.6-31.8) mmol/L Anion Gap 17.60 H (4.00-12.00) mmol/L Est GFR (CKD-EPI) 42 L (>=60) Glucose 60 L (70-110) mg/dL AST 59 H (13-35) U/L Alkaline Phosphatase 177 H (41-126) U/L C-Reactive Protein 9.40 H (0.00-0.80) mg/dL Albumin 3.7 L (3.8-4.9) g/dL Albumin/Globulin Ratio 1.42 L (1.60-3.17) Ratio Microbiology - Last 24 Hours (Table) 04/26/24 23:00 Blood Culture - Final Blood 04/29/24 13:23 Blood Culture - Preliminary Blood 04/28/24 01:25 Blood Culture - Preliminary Blood 04/28/24 01:41 Blood Culture - Preliminary Blood 04/26/24 23:27 Blood Culture Gram Stain - Final Blood Blood Culture - Final Enterococcus faecalis VRE Molecular ID Assessment and Plan (1) Altered mental status Current Visit: Yes Status: Acute Priority: High Code(s): R41.82 - ALTERED MENTAL STATUS, UNSPECIFIED SNOMED Code(s): 641184264 (2) Endometrial adenocarcinoma Current Visit: Yes Status: Acute Priority: High Code(s): C54.1 - MALIGNANT NEOPLASM OF ENDOMETRIUM SNOMED Code(s): 009374457 (3) Leukocytosis Current Visit: Yes Status: Acute Priority: Medium Code(s): D72.829 - ELEVATED WHITE BLOOD CELL COUNT, UNSPECIFIED SNOMED Code(s): 757876378 (4) Pathologic pelvic fracture Current Visit: Yes Status: Acute Priority: High Code(s): M84.454A - PATHO LOGICAL FRACTURE, PELVIS, INIT ENCNTR FOR FRACTURE SNOMED Code(s): 721915029 Plan: AMS -Likely secondary to infection -Positive blood and urine cultures -Infectious disease following -Mentation back at baseline Endometrial adenocarcinoma -Diagnosed 03/12/2024 -Patient had carbo/Taxol weekly x 2 while inpatient at [facility] -Plans for follow-up with Medical Oncologist after case review with [facility] Dr. Sylvester and pt released from rehab -Previous and current imaging, does not appear to be significant change. -Fracture in the left iliac bone, bilateral pubic bone invasion, may possibly be some additional pathological bony findings. Orthopedics has assessed the patient. Pelvic xray showing known pathological fractures of the left pubic rami, left Acetabulum and left iliac wing with underlying lytic osseous disease. Lytic lesion anterior right acetabulum. Radiation Oncology consulted. No plan for palliative RT at this time -We discussed active cancer treatment and reviewed palliative intent of treatment, and also discussed hospice philosophy. Pathological fractures pelvis/hip -Orthopedics want pt non-wt bearing, bilateral hips. -PT explained that pt rehab will be focused on upper body strength, twisting at waist and transferring -Rad onc consulted, no plan for palliative RT at this time -Pain mgmt -Pt will need assistive devices Had long discussion with patient and family today in regards to disease state, prognosis, treatment options and comfort care measures. At this time, patients symptoms are mild, and it would be reasonable for her to continue in rehab and f/u with Dr. Floyd upon discharge. If she is unable to complete rehabilitation and symptoms begin to progress, she can always consider hospice at that time. Patient was agreeable with this plan Current goals are for treatment of infection and for patient to return to rehabilitation. Patient will not be receiving any treatment for malignancy while in rehabilitation. Appt for follow-up with Medical Oncologist after rehab to assess the patient's performance status to see if she is still a candidate for palliative treatment. attests: I have performed H&P and developed impression and plan of care for patient, discussed with dictator. I agree with dictated note, documented as a scribe
--- NOTE | 2024-05-02 19:58 | P.PN ---
Subjective Progress Note Date: 05/02/24 Principal diagnosis: Reason for follow-up is a VRE bacteremia and leukocytosis Patient is a 78-year-old female with a past medical history significant for recent diagnosis of stage IV endometrial cancer, hypertension osteoarthritis reflux asthma overactive bladder patient presented to hospital for evaluation of elevated blood pressure and patient also noticed to have elevated white count and evidence of VRE bacteremia. On today's evaluation that is 05/02/2024, patient has been afebrile, patient is breathing comfortably and is currently on room air, patient denies having any significant cough no chest pain shortness of breath, patient denies nausea vomiting or diarrhea some lower abdominal discomfort. Patient white count is down to 24.75, creatinine is 1.3 blood with repeat has been negative Objective - Vital Signs Vital signs: Vital Signs Temp 97.9 F 05/02/24 07:10 Pulse 57 L 05/02/24 07:10 Resp 16 05/02/24 07:10 BP 159/64 05/02/24 07:10 Pulse Ox 98 05/02/24 07:10 FiO2 Intake & Output 05/01/24 05/02/24 05/02/24 18:59 06:59 18:59 Intake Total 118 550 Output Total 0 Balance 118 550 Intake: Intake, IV Titration 50 Amount DAPTOmycin 400 mg In 50 Sodium Chloride 0.9% 50 ml @ 100 mls/hr IVPB Q24H [facility] Rx#:[id number] Oral 118 500 Output: Urine 0 Other: Voiding Method Diaper # Voids 1 1 # Bowel Movements 1 - Exam GENERAL DESCRIPTION: An elderly female lying in bed in no distress RESPIRATORY SYSTEM: Unlabored breathing , decreased breath sounds at bases HEART: S1 S2 regular rate and rhythm , ABDOMEN: Soft , no tenderness EXTREMITIES: No edema feet - Labs CBC & Chem 7: 05/02/24 06:25 05/02/24 06:25 Labs: Abnormal Lab Results - Last 24 Hours (Table) 05/02/24 05/02/24 Range/Units 06:25 06:25 WBC 24.75 H (4.50-10.00) X 10*3/uL RBC 3.21 L (4.10-5.20) X 10*6/uL Hgb 8.9 L (12.0-15.0) g/dL Hct 29.2 L (37.2-46.3) % MCHC 30.5 L (32.0-37.0) g/dL RDW 18.4 H (11.5-14.5) % Plt Count 119 L (140-440) X 10*3/uL Immature Gran # 0.13 H (0.00-0.04) X 10*3/uL Neutrophils # 22.26 H (1.80-7.70) X 10*3/uL Monocytes # 1.06 H (0.20-1.00) X 10*3/uL Eosinophils # 0.01 L (0.04-0.35) X 10*3/uL ESR 34 H (0-30) mm/Hr Carbon Dioxide 21.4 L (21.6-31.8) mmol/L Anion Gap 17.60 H (4.00-12.00) mmol/L Est GFR (CKD-EPI) 42 L (>=60) Glucose 60 L (70-110) mg/dL AST 59 H (13-35) U/L Alkaline Phosphatase 177 H (41-126) U/L C-Reactive Protein 9.40 H (0.00-0.80) mg/dL Albumin 3.7 L (3.8-4.9) g/dL Albumin/Globulin Ratio 1.42 L (1.60-3.17) Ratio Microbiology - Last 24 Hours (Table) 04/29/24 13:23 Blood Culture - Preliminary Blood 04/28/24 01:25 Blood Culture - Preliminary Blood 04/28/24 01:41 Blood Culture - Preliminary Blood 04/26/24 23:27 Blood Culture Gram Stain - Final Blood Blood Culture - Final Enterococcus faecalis VRE Molecular ID Assessment and Plan (1) Leukocytosis Current Visit: Yes Status: Acute Priority: Medium Code(s): D72.829 - ELEVATED WHITE BLOOD CELL COUNT, UNSPECIFIED SNOMED Code(s): 877830316 (2) Positive blood culture Current Visit: Yes Status: Acute Code(s): R78.81 - BACTEREMIA SNOMED Code(s): 006780060 (3) Urinary tract infection Current Visit: Yes Status: Acute Code(s): N39.0 - URINARY TRACT INFECTION, SITE NOT SPECIFIED SNOMED Code(s): 60575795 Plan: 1patient with VRE bacteremia which is usually a gut/urinary source, patient did have some minimal symptom history of incontinence however the urine is showing gram-negative henselae to rule out any intra-abdominal etiology for this bactere talia we will evaluate, pathogen to cause pneumonia 2-blood cultures has been repeated to document clearance of bacteremia 3-CT of abdominal pelvis with oral contrast only because of elevated creatinine, did shows evidence of pathological fracture to the pelvis and associated hematoma 4-patient has been ordered by oncology/Ortho 5-blood culture repeated so far negative, source of the VRE bacteremia could be abdominal however the patient did have a systolic murmur we will check an echocardiogram did not show any vegetation, patient to continue with the daptomycin plan for a 10-day course on discharge 6-E. coli urinary tract infection to continue with Rocephin , finishing therapy with Ceftin and Flagyl May be candidate for hospice Dictation was produced using [employer] dictation software. please excuse any grammatical, word or spelling errors. Time with Patient: Less than 30
--- NOTE | 2024-05-02 21:47 | P.PN ---
Progress Note - Text Progress Note Date: 05/02/24 Patient send 71-year-old female sent in from [facility] because of elevated blood pressure although her blood pressure is 1 in 170s systolic at this time. Although patient is being treated for multiple medical problems at this time patient is significantly abnormal urine when questioned about symptoms of UTI patient does admit to occasional dysuria. Patient has significantly increased white blood cell count in the urine. Patient does have leukocytosis 20 which is not explained by anything else chest x-ray was done which showed nodular lesion because of which I am obtaining a CT of the chest. Patient apparently was confused as well requiring Haldol last night because of which CT of the head was obtained and patient was eval by psychiatry and they believe it secondary to dementia which I agree with the patient is alert oriented x 3 but does have memory issues. Patient has significant muscle wasting does not ambulate much at the [facility]. Patient was discharged from [facility] after her hospitalization. Is occasionally confused 04/28/2024 Patient is evaluated today in follow up. Having difficulty with bowel movement and will be given soap suds enema. Urine culture positive for gram negative bacilli. Blood culture does come back positive for enterococcus. On IV ce ftriaxone and IV daptomycin. Chest CT was completed in follow-up for the lung nodules found on the chest x-ray. Chest CT shows left lower lung airspace consolidation progressed from prior on March 09, 2024 with associated left pleural effusion correlate for pneumonia. There is a sub-5 mm nodules in the right upper lung and right lower lung which in the setting of cancer could represent metastatic disease. There is mild cardiomegaly. White blood cell count 23.7. BUN 23, creatinine 1.17. 04/29/2024 Patient evaluated today resting in bed more lethargic than yesterday. Patients white blood cell count continues to worsen and currently 31.86. ID following and abdominal pelvis CT was done showing a new pathologic fracture of the left pelvis likely secondary to mass eroding into the acetabulum as seen on prior. There is associated hematoma around the fracture site. Left lower lobe airspace consolidation concerning for pneumonia. Ureteral stents are in place. Persistent adenopathy in the pelvis. The findings of the pelvic lymphadenopathy were found on CT scan back in february of 2024 at that time patient was noted to have hydronephrosis and appears to have undergone ureteral stent placement since. Continues on antibiotics IV daptomycin and IV zosyn. April 30, 2024: Laying in bed. Baseline full assist. Has chronic pain all over. Had a bowel movement yesterday. Did not eat breakfast. Patient was seen by orthopedics. Diet adjusted May 01: In some positions patient is rather comfortable. Given her mass in the left pelvic area abutting on the bone is understandable with every movement she will get some more pain. Pending input from Will Calderon from radiation oncology. All of patient's care had otherwise been at [facility]. Oral intake rather limited. He does have some cognitive impairment. Add Marinol May 02: Pain is well-controlled. Per radiation oncology no further intervention. Lengthy discussion with the patient and to present at the bedside. Hospice was discussed. Present time patient was to go for rehab and will decide from there. Also patient did required IV antibiotics for Enterococcus faecalis VRE. Oral intake about 25%. Midline ordered Active Medications Acetaminophen (Acetaminophen Tab 325 Mg Tab) 650 mg PO Q6HR PRN PRN Reason: Mild Pain or Fever > 100.5 Albuterol/Ipratropium (Ipratropium-Albuterol 3 Ml Neb) 3 ml INHALATION RT-Q6H PRN PRN Reason: Shortness Of Breath Aripiprazole (Aripiprazole 15 Mg Tab) 15 mg PO DAILY@0800 [facility] Last Admin: 05/02/24 08:27 Dose: 15 mg Cholecalciferol (Cholecalciferol 25 Mcg (1000 Iu) Tablet) 100 mcg PO DAILY [facility] Last Admin: 05/02/24 08:26 Dose: 100 mcg Dronabinol (Dronabinol 2.5 Mg Cap) 5 mg PO AC-BID [facility] Last Admin: 05/02/24 18:26 Dose: 5 mg Enoxaparin Sodium (Enoxaparin 60 Mg/0.6 Ml Syringe) 60 mg SQ DAILY [facility] Last Admin: 05/02/24 08:25 Dose: 60 mg Famotidine (Famotidine 20 Mg Tab) 20 mg PO DAILY [facility] Last Admin: 05/02/24 08:26 Dose: 20 mg Ferrous Sulfate (Ferrous Sulfate 325 Mg Tab) 325 mg PO DAILY@0800 [facility] Last Admin: 05/02/24 08:27 Dose: 325 mg Folic Acid (Folic Acid 1 Mg Tab) 1 mg PO DAILY [facility] Last Admin: 05/02/24 08:27 Dose: 1 mg Guaifenesin (Guaifenesin Syrup 100mg/5ml 200 Mg/10 Ml Cup) 200 mg PO Q4H PRN PRN Reason: Cough Hydralazine HCl (Hydralazine Hcl 25 Mg Tab) 25 mg PO BID [facility] Last Admin: 05/02/24 21:17 Dose: 25 mg Daptomycin 400 mg/ Sodium (Chloride) 50 mls @ 100 mls/hr IVPB Q24H [facility] Last Admin: 05/02/24 01:01 Dose: 100 mls/hr Ceftriaxone Sodium 2 gm/ (Sodium Chloride) 50 mls @ 100 mls/hr IVPB Q24HR [facility]; Protocol Last Admin: 05/02/24 08:27 Dose: 100 mls/hr Lamotrigine (Lamotrigine 25 Mg Tab) 75 mg PO HS@2099 [facility] Last Admin: 05/02/24 21:16 Dose: 75 mg Losartan Potassium (Losartan 50 Mg Tab) 100 mg PO DAILY [facility] Last Admin: 05/02/24 08:26 Dose: 100 mg Melatonin (Melatonin 3 Mg Tablet) 3 mg PO HS@2099 [facility] Last Admin: 05/02/24 21:16 Dose: 3 mg Metoprolol Tartrate (Metoprolol Tartrate 50 Mg Tab) 50 mg PO BID@0800,1700 [facility] Last Admin: 05/02/24 18:26 Dose: 50 mg Naloxone HCl (Naloxone 0.4 Mg/Ml 1 Ml Vial) 0.2 mg IV Q2M PRN PRN Reason: Opioid Reversal Ondansetron HCl (Ondansetron 4 Mg/2 Ml Vial) 4 mg IVP Q8HR PRN PRN Reason: Nausea And Vomiting Quetiapine Fumarate (Quetiapine 25 Mg Tab) 25 mg PO HS PRN PRN Reason: Agitation Sertraline HCl (Sertraline 100 Mg Tab) 100 mg PO HS@2100 [facility] Last Admin: 05/02/24 21:16 Dose: 100 mg Trazodone HCl (Trazodone Hcl 50 Mg Tab) 75 mg PO HS@2100 [facility] Last Admin: 05/02/24 21:16 Dose: 75 mg On examination: VITAL SIGNS: 98, 54, 16, 128 x 52, 94% room air GENERAL APPEARANCE: Propped in bed, more cheerful today. HEENT: Normal external appearance of nose and ear. Oral cavity normal EYES: Pupils equal. Conjunctiva normal. NECK: JVD not raised. Mass not palpable. RESPIRATORY: Respiratory effort normal. Lungs clear to auscultation. CARDIOVASCULAR: First and second sounds normal. No edema. ABDOMEN: Soft. Liver and spleen not palpable. No tenderness. No mass palpable. PSYCHIATRY: Able to answer simple questions. Able to hold a simple conversation INVESTIGATIONS, reviewed in the clinical context: May 02: White count 24.7 hemoglobin 8.9 potassium 3.6 creatinine 1.3 April 30, 2024: White count was 10.8 hemoglobin 8.4 platelets 110 sodium 137 potassium 3.7 BUN 23.5 creatinine 1.3 B12 632 folate 7.8 Pelvic x-ray known pathological fracture of the left pubic rami. Left acetabulum. Left iliac wing with underlying lytic osseous disease. Lytic lesion also in the anterior right acetabulum noted. CT scan abdomen pelvis with contrast:New pathologic fracture of the left pelvis likely secondary to mass eroding into the acetabulum seen on prior. Associated hematoma around the fracture site. Ureteral stents in appropriate positions. Adenopathy. Assessment and plan -Urinary tract infection with cystitis with sepsis unexplained leukocytosis and symptoms of dysuria along with abnormal urine, urine culture showing VRE IV daptomycin -Pulmonary nodule on the x-ray with follow up chest CT revealing pulmonary nodules unable to rule out metastatic disease -Enterococcus bacteremia On IV daptomycin Recent diagnosis of stage IV endometrial cancer -Diagnosed 03/12/2024 -Patient had carbo/Taxol weekly x 2 while inpatient at [facility] -Plans for follow-up with Medical Oncologist after case review with Medical [employer]ator Onc Dr. Sylvester and pt released from rehab -Prev summarized recent and current imaging (read reports). Does not appear to be significant change. Seen by radiation oncology. Not for any radiation -Leukocytosis could be multifactorial including bacteremia, leukemoid from the malignancy -Essential hypertension Losartan -Hypervolemic hyponatremia resolved. -Chronic venous stasis and peripheral edema secondary to venous stasis -Asthma without any acute exacerbation -Lymphedema of bilateral lower extremities patient does use compression pumps -Vascular dementia moderate-severe -Depression -Generalized deconditioning physical therapy Occupational Therapy eval -DNR -Disposition: [facility] Advance care planning: May 02, 2024: End-of-life care was discussed at length with the patient 2 brothers at the bedside. Also was present to assist in [place]. Patient has several questions. She understands prognosis guarded. At this point she wishes to continue with no code. Has not opted for hospice. She also notes she has still has an option to go to treatment for her tumor though a very poor functional status would not allow the same. Several questions were answered present. This also somewhat reiterated by the oncology team. Total time spent about 30 minutes
--- NOTE | 2024-05-03 13:10 | P.DS ---
Providers Date of admission: 04/28/24 07:48 Expected date of discharge: 05/03/24 Attending physician: Jeff Ambrose Consults: 04/26/24 21:12 Consult Physician Routine Consulting Provider: Jhoan Emanuel Consult Reason/Comments: ams Do you want consulting provider notified?: Yes Consult Physician Routine Consulting Provider: Jorge Dunlap Consult Reason/Comments: Refusing medication Do you want consulting provider notified?: Yes 04/28/24 01:02 Consult Physician Routine Consulting Provider: Alonzo Stiles Consult Reason/Comments: positive blood cultures Do you want consulting provider notified?: Yes, Notify in am 04/29/24 14:46 Consult Physician Urgent Consulting Provider: Cinda Floyd Consult Reason/Comments: stage 4 endometrial ca Do you want consulting provider notified?: Yes 04/29/24 14:47 Consult Physician Urgent Consulting Provider: Mina Lopez Consult Reason/Comments: pathologic pelvic fx Do you want consulting provider notified?: Yes 04/30/24 17:40 Consult Physician Routine Consulting Provider: Graham Calderon Consult Reason/Comments: pathological fracture Do you want consulting provider notified?: Yes, Notify in am Primary care physician: [facility] Course: Patient send 71-year-old female sent in from long-term because of elevated blood pressure although her blood pressure is 1 in 170s systolic at this time. Although patient is being treated for multiple medical problems at this time patient is significantly abnormal urine when questioned about symptoms of UTI patient does admit to occasional dysuria. Patient has significantly increased white blood cell count in the urine. Patient does have leukocytosis 20 which is not explained by anything else chest x-ray was done which showed nodular lesion because of which I am obtaining a CT of the chest. Patient apparently was confused as well requiring Haldol last night because of which CT of the head was obtained and patient was eval by psychiatry and they believe it secondary to dementia which I agree with the patient is alert oriented x 3 but does have memory issues. Patient has significant muscle wasting does not ambulate much at the long-term. Patient was discharged from long-term after her hospitalization. Is occasionally confused 04/28/2024 Patient is evaluated today in follow up. Having difficulty with bowel movement and will be given soap suds enema. Urine culture positive for gram negative bacilli. Blood culture does come back positive for enterococcus. On IV ceftriaxone and IV daptomycin. Chest CT was completed in follow-up for the lung nodules found on the chest x-ray. Chest CT shows left lower lung airspace consolidation progressed from prior on March 09, 2024 with associated left pleural effusion correlate for pneumonia. There is a sub-5 mm nodules in the right upper lung and right lower lung which in the setting of cancer could represent metastatic disease. There is mild cardiomegaly. White blood cell c ount 23.7. BUN 23, creatinine 1.17. 04/29/2024 Patient evaluated today resting in bed more lethargic than yesterday. Patients white blood cell count continues to worsen and currently 31.86. ID following and abdominal pelvis CT was done showing a new pathologic fracture of the left pelvis likely secondary to mass eroding into the acetabulum as seen on prior. There is associated hematoma around the fracture site. Left lower lobe airspace consolidation concerning for pneumonia. Ureteral stents are in place. Persistent adenopathy in the pelvis. The findings of the pelvic lymphadenopathy were found on CT scan back in february of 2024 at that time patient was noted to have hydronephrosis and appears to have undergone ureteral stent placement since. Continues on antibiotics IV daptomycin and IV zosyn. April 30, 2024: Laying in bed. Baseline full assist. Has chronic pain all over. Had a bowel movement yesterday. Did not eat breakfast. Patient was seen by orthopedics. Diet adjusted May 01: In some positions patient is rather comfortable. Given her mass in the left pelvic area abutting on the bone is understandable with every movement she will get some more pain. Pending input from Will Calderon from radiation oncology. All of patient's care had otherwise been at [facility]. Oral intake rather limited. He does have some cognitive impairment. Add Marinol May 02: Pain is well-controlled. Per radiation oncology no further intervention. Lengthy discussion with the patient and to present at the bedside. Hospice was discussed. Present time patient was to go for rehab and will decide from there. Also patient did required IV antibiotics for Enterococcus faecalis VRE. Oral intake about 25%. Midline ordered May 03: Comfortable in bed. Eating small amounts. Again discussed with patient. Patient may consider hospice down the road. Discharge antibiotics per ID. Go to [facility] On examination: VITAL SIGNS: 97.7, 54, 18, 154 x 54, 99% room GENERAL APPEARANCE: Comfortable in bed HEENT: Normal external appearance of nose and ear. Oral cavity normal EYES: Pupils equal. Conjunctiva normal. NECK: JVD not raised. Mass not palpable. RESPIRATORY: Respiratory effort normal. Lungs clear to auscultation. CARDIOVASCULAR: First and second sounds normal. No edema. ABDOMEN: Soft. Liver and spleen not palpable. No tenderness. No mass palpable. PSYCHIATRY: Able to answer simple questions. Able to hold a simple conversation INVESTIGATIONS, reviewed in the clinical context: May 02: White count 24.7 hemoglobin 8.9 potassium 3.6 creatinine 1.3 April 30, 2024: White count was 10.8 hemoglobin 8.4 platelets 110 sodium 137 potassium 3.7 BUN 23.5 creatinine 1.3 B12 632 folate 7.8 Pelvic x-ray known pathological fracture of the left pubic rami. Left acetabulum. Left iliac wing with underlying lytic osseous disease. Lytic lesion also in the anterior right acetabulum noted. CT scan abdomen pelvis with contrast:New pathologic fracture of the left pelvis likely secondary to mass eroding into the acetabulum seen on prior. Associated hematoma around the fracture site. Ureteral stents in appropriate positions. Adenopathy. Assessment and plan -Urinary tract infection with cystitis with sepsis unexplained leukocytosis and symptoms of dysuria along with abnormal urine, urine culture showing VRE IV daptomycin -Pulmonary nodule on the x-ray with follow up chest CT revealing pulmonary nodules unable to rule out metastatic disease -Enterococcus bacteremia On IV daptomycin Recent diagnosis of stage IV endometrial cancer -Diagnosed 03/12/2024 -Patient had carbo/Taxol weekly x 2 while inpatient at [facility] -Plans for follow-up with Medical Oncologist after case review with [employer] Onc Dr. Sylvester and pt released from rehab -Prev summarized recent and current imaging (read reports). Does not appear to be significant change. Seen by radiation oncology. Not for any radiation Hospice was discussed with the patient: Patient considering the same -Leukocytosis could be multifactorial including bacteremia, leukemoid from the malignancy -Essential hypertension Losartan -Hypervolemic hyponatremia resolved. -Chronic venous stasis and peripheral edema secondary to venous stasis -Asthma without any acute exacerbation -Lymphedema of bilateral lower extremities patient does use compression pumps -Vascular dementia moderate-severe -Depression -Generalized deconditioning physical therapy Occupational Therapy eval -DNR -Disposition: [facility] Advance care planning: May 02, 2024: End-of-life care was discussed at length with the patient 2 brothers at the bedside. Also was present to assist in [place]. Patient has several questions. She understands prognosis guarded. At this point she wishes to continue with no code. Has not opted for hospice. She also notes she has still has an option to go to treatment for her tumor though a very poor functional status would not allow the same. Several questions were answered present. This also somewhat reiterated by the oncology team. Total time spent about 30 minutes Plan - Discharge Summary New Discharge Prescriptions: New DAPTOmycin [Cubicin] 500 mg IV DAILY #10 each Folic Acid 1 mg PO DAILY tab cefUROXime axetiL [Ceftin] 500 mg PO BID 10 Days #20 tab metroNIDAZOLE [Flagyl] 500 mg PO TID #30 tab hydrALAZINE HCL [Apresoline] 25 mg PO BID tab Losartan [Cozaar] 100 mg PO DAILY tab traZODone HCL [Desyrel] 75 mg PO HS@2100 #5 tab droNABinol [Marinol] 5 mg PO AC-BID #6 cap Famotidine [Pepcid] 20 mg PO DAILY tab QUEtiapine [SEROquel] 25 mg PO HS PRN tab PRN Reason: Agitation Acetaminophen Tab [Tylenol] 650 mg PO Q6HR PRN tab PRN Reason: Mild Pain Or Fever > 100.5 Continue Magnesium Hydroxide [Milk of Magnesia Concentrate] 7,200 mg PO Q48H PRN PRN Reason: Constipation Loperamide HCl [Imodium A-D] 2 mg PO BID PRN PRN Reason: Diarrhea Albuterol Sulfate [Albuterol Sulfate Hfa] 1 - 2 puff PO RT-Q4H PRN PRN Reason: Shortness Of Breath ondansetron HCL [Zofran] 8 mg PO Q8H PRN PRN Reason: Nausea lamoTRIgine [LaMICtal] 75 mg PO HS@2100 #9 tab HYDROcodone/APAP 10-325MG [Lane 10-325] 1 tab PO Q4HR PRN #18 tab PRN Reason: Pain Sertraline [Zoloft] 100 mg PO HS@2100 Ipratropium-Albuterol Nebulize [Duoneb 0.5 mg-3 mg/3 ml Soln] 3 ml INHALATION RT-Q6H PRN PRN Reason: Shortness Of Breath bisacodyL [Dulcolax] 10 mg RECTAL DAILY PRN PRN Reason: Constipation Na Phos,M-B/Na Phos,Di-Ba [Fleet Adult] 133 ml RECTAL DAILY PRN PRN Reason: Constipation Metoprolol Tartrate [Lopressor] 50 mg PO BID@0800,1700 Ensure Clear 120 - 237 ml PO TID@0800,1200,1700 Cholecalciferol [Vitamin D3 (25 Mcg = 1000 Iu)] 100 mcg PO DAILY Melatonin 3 mg PO HS@2100 Ferrous Sulfate [Iron (65 MG Elemental)] 325 mg PO DAILY@0800 Biotin 5,000 mcg PO DAILY@0800 ARIPiprazole [Abilify] 15 mg PO DAILY@0800 Discontinued guaiFENesin [guaiFENesin Oral Solution] 200 mg PO Q4H PRN PRN Reason: Cough ondansetron HCL [Zofran] 4 mg PO TID@0600,1400,2200 Acetaminophen Tab [Tylenol Tab] 500 - 1,000 mg PO Q8H PRN PRN Reason: Pain traZODone HCL [Desyrel] 75 mg PO HS@2100 Lidocaine-Prilocaine Cream [Emla Cream 2.5%/2.5%] 1 applic TOPICAL DAILY@0800 Discharge Medication List Sertraline [Zoloft] 100 mg PO HS@2100 02/20/23 [History] ARIPiprazole [Abilify] 15 mg PO DAILY@0800 04/26/24 [History] Albuterol Sulfate [Albuterol Sulfate Hfa] 1 - 2 puff PO RT-Q4H PRN 04/26/24 [History] Biotin 5,000 mcg PO DAILY@0800 04/26/24 [History] Cholecalciferol [Vitamin D3 (25 Mcg = 1000 Iu)] 100 mcg PO DAILY 04/26/24 [History] Ensure Clear 120 - 237 ml PO TID@0800,1200,1700 04/26/24 [History] Ferrous Sulfate [Iron (65 MG Elemental)] 325 mg PO DAILY@0800 04/26/24 [History] Ipratropium-Albuterol Nebulize [Duoneb 0.5 mg-3 mg/3 ml Soln] 3 ml INHALATION RT-Q6H PRN 04/26/24 [History] Loperamide HCl [Imodium A-D] 2 mg PO BID PRN 04/26/24 [History] Magnesium Hydroxide [Milk of Magnesia Concentrate] 7,200 mg PO Q48H PRN 04/26/24 [History] Melatonin 3 mg PO HS@2100 04/26/24 [History] Metoprolol Tartrate [Lopressor] 50 mg PO BID@0800,1700 04/26/24 [History] Na Phos,M-B/Na Phos,Di-Ba [Fleet Adult] 133 ml RECTAL DAILY PRN 04/26/24 [History] bisacodyL [Dulcolax] 10 mg RECTAL DAILY PRN 04/26/24 [History] ondansetron HCL [Zofran] 8 mg PO Q8H PRN 04/26/24 [History] DAPTOmycin [Cubicin] 500 mg IV DAILY #10 each 05/02/24 [Rx] cefUROXime axetiL [Ceftin] 500 mg PO BID 10 Days #20 tab 05/02/24 [Rx] metroNIDAZOLE [Flagyl] 500 mg PO TID #30 tab 05/02/24 [Rx] Acetaminophen Tab [Tylenol] 650 mg PO Q6HR PRN tab 05/03/24 [Rx] Famotidine [Pepcid] 20 mg PO DAILY tab 05/03/24 [Rx] Folic Acid 1 mg PO DAILY tab 05/03/24 [Rx] HYDROcodone/APAP 10-325MG [Lane 10-325] 1 tab PO Q4HR PRN #18 tab 05/03/24 [Rx] Losartan [Cozaar] 100 mg PO DAILY tab 05/03/24 [Rx] QUEtiapine [SEROquel] 25 mg PO HS PRN tab 05/03/24 [Rx] droNABinol [Marinol] 5 mg PO AC-BID #6 cap 05/03/24 [Rx] hydrALAZINE HCL [Apresoline] 25 mg PO BID tab 05/03/24 [Rx] lamoTRIgine [LaMICtal] 75 mg PO HS@2100 #9 tab 05/03/24 [Rx] traZODone HCL [Desyrel] 75 mg PO HS@2100 #5 tab 06/08/24 [Rx] Follow up Appointment(s)/Referral(s): Mark Richardson DO [Primary Care Provider] - 1-2 days Herson Floyd MD [STAFF PHYSICIAN] - 6 Weeks
[2024-05-03 13:25] VITALS: BP 152/63; PULSE 57; RESP 16; TEMP 97.8
== END 2024-05-03 16:51 | DRG 871 ==
LOC: EC 18:34 → 6NMEDSUR 21:16 → OBSVTOIN 04-28 07:48 → 5NMEDONC 05-01 14:24
PROVIDERS: ADMIT Hospitalist; ATTEND Hospitalist
PROC: 05HC33Z Insertion of Infusion Device into Left Basilic Vein, Percutaneous Approach (ICD-10-PCS; principal; 2024-05-02 19:25)
DX: A41.81 Sepsis due to Enterococcus (principal); G93.41 Metabolic encephalopathy; J18.9 Pneumonia, unspecified organism; C79.51 Secondary malignant neoplasm of bone; J90 Pleural effusion, not elsewhere classified; E87.1 Hypo-osmolality and hyponatremia; M84.550A Pathological fracture in neoplastic disease, pelvis, initial encounter for fracture; N13.30 Unspecified hydronephrosis; F01.B3 Vascular dementia, moderate, with mood disturbance; F01.B4 Vascular dementia, moderate, with anxiety; Z16.21 Resistance to vancomycin; R65.20 Severe sepsis without septic shock; C54.1 Malignant neoplasm of endometrium; C52 Malignant neoplasm of vagina; Z93.6 Other artificial openings of urinary tract status; N30.90 Cystitis, unspecified without hematuria; E11.9 Type 2 diabetes mellitus without complications; I10 Essential (primary) hypertension; F32.A Depression, unspecified; E66.01 Morbid (severe) obesity due to excess calories; Z68.37 Body mass index [BMI] 37.0-37.9, adult; Z95.828 Presence of other vascular implants and grafts; Z66 Do not resuscitate; B96.20 Unspecified Escherichia coli [E. coli] as the cause of diseases classified elsewhere; G89.29 Other chronic pain; M62.50 Muscle wasting and atrophy, not elsewhere classified, unspecified site; E87.70 Fluid overload, unspecified; I89.0 Lymphedema, not elsewhere classified; I87.8 Other specified disorders of veins; R32 Unspecified urinary incontinence; N32.81 Overactive bladder; R19.7 Diarrhea, unspecified; M54.30 Sciatica, unspecified side; R59.0 Localized enlarged lymph nodes; R91.1 Solitary pulmonary nodule; F90.9 Attention-deficit hyperactivity disorder, unspecified type; K21.9 Gastro-esophageal reflux disease without esophagitis; M17.0 Bilateral primary osteoarthritis of knee; Z79.899 Other long term (current) drug therapy; Z96.0 Presence of urogenital implants; Z86.16 Personal history of COVID-19; Z98.84 Bariatric surgery status
CPT/HCPCS: 36410; 36415; 70450; 71046; 71250; 72170; 74176; 76937; 80048; 80053; 80175; 81001; 82607; 82746; 83605; 83735; 84484; 85025; 85027; 85610; 85652; 85730; 86140; 87040; 87077; 87086; 87186; 93005; 93306; 96361; 96365; 96366; 96375; 99285

== ENCOUNTER 2024-05-13 06:37 | Inpatient (IN) | payer MEDICARE ==
[2024-05-13 07:41] LABS: Anisocytosis Slight; Basophils % (A) 0 %; Eosinophils # (A) 0.3 k/uL (0-0.7); Eosinophils % (A) 1 %; HCT 32.9 % (34.0-46.0); HGB 10.1 gm/dL (11.4-16.0); Hypochromasia Moderate; Lymphocytes # (A) 0.8 k/uL (1.0-4.8); Lymphocytes % (A) 4 %; MCHC 30.7 g/dL (31.0-37.0); Mean Platelet Volume 7.6; Monocytes # (A) 0.5 k/uL (0-1.0); Monocytes % (A) 3 %; Neutrophils # (A) 17.7 k/uL (1.3-7.7); Neutrophils % (A) 91 %; Platelet Count 187 k/uL (150-450); RBC 3.61 m/uL (3.80-5.40); RDW 18.6 % (11.5-15.5); WBC 19.5 k/uL (3.8-10.6)
[2024-05-13 07:46] LABS: INR 1.1 (<1.2); Partial Thromboplastin Time 27.5 sec (22.0-30.0); Prothrombin Time 11.5 sec (10.0-12.5)
--- NOTE | 2024-05-13 07:53 | ED ---
General Adult HPI - General Chief complaint: Recheck/Abnormal Lab/Rx Stated complaint: confusion Time Seen by Provider: 05/13/24 06:42 Source: patient, EMS, RN notes reviewed, old records reviewed Mode of arrival: EMS Limitations: no limitations - History of Present Illness Initial comments: 78-year-old female presenting from halfway with elevated BUN and creatinine. Patient had apparently been confused which she does admit to but is alert and oriented at the time my evaluation. She is able to give detailed history. She has been at the halfway and is nonambulatory. She had outpatient laboratory testing drawn yesterday which showed elevated white blood cell count and an elevated BUN and creatinine. She states she does have skin breakdown that is being monitored by nursing staff on her sacrum. She does not denies cough. Denies fever. Denies pain complaints. Patient states she has not been eating and drinking well and has not been urinating normally. - Related Data Home Medications Medication Instructions Recorded Confirmed Sertraline [Zoloft] 100 mg PO HS@209902/20/23 04/26/24 ARIPiprazole [Abilify] 15 mg PO DAILY@79904/26/24 04/26/24 Albuterol Sulfate [Albuterol 1 - 2 puff PO RT-Q4H PRN 04/26/24 04/26/24 Sulfate Hfa] Biotin 5,000 mcg PO DAILY@79904/26/24 04/26/24 Cholecalciferol [Vitamin D3 (25 100 mcg PO DAILY 04/26/24 04/26/24 Mcg = 1000 Iu)] Ensure Clear 120 - 237 ml PO TID@0800,1200,1700 04/26/24 04/26/24 Ferrous Sulfate [Iron (65 MG 325 mg PO DAILY@79904/26/24 04/26/24 Elemental)] Ipratropium-Albuterol Nebulize 3 ml INHALATION RT-Q6H PRN 04/26/24 04/26/24 [Duoneb 0.5 mg-3 mg/3 ml Soln] Loperamide HCl [Imodium A-D] 2 mg PO BID PRN 04/26/24 04/26/24 Magnesium Hydroxide [Milk of 7,200 mg PO Q48H PRN 04/26/24 04/26/24 Magnesia Concentrate] Melatonin 3 mg PO HS@2100 04/26/24 04/26/24 Metoprolol Tartrate [Lopressor] 50 mg PO BID@0800,1700 04/26/24 04/26/24 Na Phos,M-B/Na Phos,Di-Ba [Fleet 133 ml RECTAL DAILY PRN 04/26/24 04/26/24 Adult] bisacodyL [Dulcolax] 10 mg RECTAL DAILY PRN 04/26/24 04/26/24 ondansetron HCL [Zofran] 8 mg PO Q8H PRN 04/26/24 04/26/24 Previous Rx's Medication Instructions Recorded DAPTOmycin [Cubicin] 500 mg IV DAILY #10 each 05/02/24 cefUROXime axetiL [Ceftin] 500 mg PO BID 10 Days #20 tab 05/02/24 metroNIDAZOLE [Flagyl] 500 mg PO TID #30 tab 05/02/24 Acetaminophen Tab [Tylenol] 650 mg PO Q6HR PRN tab 05/03/24 Famotidine [Pepcid] 20 mg PO DAILY tab 05/03/24 Folic Acid 1 mg PO DAILY tab 05/03/24 HYDROcodone/APAP 10-325MG [[place] 1 tab PO Q4HR PRN #18 tab 05/03/24 10-325] Losartan [Cozaar] 100 mg PO DAILY tab 05/03/24 QUEtiapine [SEROquel] 25 mg PO HS PRN tab 05/03/24 droNABinol [Marinol] 5 mg PO AC-BID #6 cap 05/03/24 hydrALAZINE HCL [Apresoline] 25 mg PO BID tab 05/03/24 lamoTRIgine [LaMICtal] 75 mg PO HS@2100 #9 tab 05/03/24 traZODone HCL [Desyrel] 75 mg PO HS@2100 #5 tab 05/03/24 Allergies Allergy/AdvReac Type Severity Reaction Status Date / Time No Known Allergies Allergy Verified 05/13/24 08:35 Review of Systems ROS Statement: Those systems with pertinent positive or pertinent negative responses have been documented in the HPI. ROS Other: All systems not noted in ROS Statement are negative. Past Medical History Past Medical History: Asthma, Cancer, GERD/Reflux, Osteoarthritis (OA) Additional Past Medical History / Comment(s): lymph edema lower legs-uses compression pump at night and velco wraps during the day., Overactive bladder with urine incontinence., has neuro stimulator for incontinence (states currently not working)., frequent diarrhea., pt has lap band., arthritis knees., hx of covid jan 17 with residual cough., See Cardiology [facility]. Has recent stage 4 endometrial cancer. IVC, ureteral stents, recent IV chemo History of Any Multi-Drug Resistant Organisms: None Reported Past Surgical History: Bariatric Surgery, Cholecystectomy, Tonsillectomy Additional Past Surgical History / Comment(s): Colonoscopy , lap band with hiatal hernia repair (Dr. Pink), fx right femur (march 2020)., interstem neuro stimulatoror (Sep 2022)., Past Anesthesia/Blood Transfusion Reactions: No Reported Reaction, Motion Si ckness Past Psychological History: ADD/ADHD, Anxiety, Depression Smoking Status: Never smoker Past Alcohol Use History: Occasional Past Drug Use History: None Reported - Past Family History Brother(s) Family Medical History: Cancer, COPD, Diabetes Mellitus, Deep Vein Thrombosis (DVT), Hypertension, Myocardial Infarction (VT), Vascular Disorder Additional Family Medical History / Comment(s): pt has twin brothers. non hodgkins lymphoma, bladder cancer Father Family Medical History: Cancer, Coronary Artery Disease (CAD) Mother Family Medical History: COPD General Exam General appearance: alert, in no apparent distress Head exam: Present: atraumatic, normocephalic Eye exam: Present: normal appearance, PERRL ENT exam: Present: mucous membranes dry Neck exam: Present: normal inspection. Absent: tenderness, meningismus Respiratory exam: Present: normal lung sounds bilaterally. Absent: respiratory distress, wheezes Cardiovascular Exam: Present: regular rate, normal rhythm GI/Abdominal exam: Present: soft. Absent: distended, tenderness Back exam: Present: other (Sacral decubitus ulcer) Neurological exam: Present: alert, oriented X3 Psychiatric exam: Present: normal affect, normal mood Course Vital Signs 05/13/24 05/13/24 06:54 08:22 Temperature 98.0 F Pulse Rate 70 66 Respiratory 18 18 Rate Blood Pressure 175/76 160/63 O2 Sat by Pulse 98 99 Oximetry Medical Decision Making - Medical Decision Making Was pt. sent in by a medical professional or institution (, PA, NEW CAR DRIVER, urgent care, hospital, or halfway...) When possible be specific @ -No Did you speak to anyone other than the patient for history (EMS, parent, family, police, friend...)? What history was obtained from this source @ -No Did you review nursing and triage notes (agree or disagree)? Why? @ -I reviewed and agree with nursing and triage notes Were old charts reviewed (outside hosp., previous admission, EMS record, old EKG, old radiological studies, urgent care reports/EKG's, halfway records)? Report findings @ -No old charts were reviewed Differential Weakness: MARLEE, Hypoglycemia, shock, sepsis, hyponatremia, anemia, infection, VT, ETOH, adverse medicine reaction, overdose, stroke, this is not meant to be an all- inclusive list. EKG interpreted by me (3pts min.). @Sinus rhythm rate of 67 LA interval 185, QRS duration 116, QTc [address] segment elevation. X-rays interpreted by me (1pt min.). @ -[Chest x-ray negative for consolidated pneumonia, no pneumothorax CT interpreted by me (1pt min.). @ -None done U/S interpreted by me (1pt. min.). @ -None done What testing was considered but not performed or refused? (CT, X-rays, U/S, labs)? Why? @ -None What meds were considered but not given or refused? Why? @ -None Did you discuss the management of the patient with other professionals (professionals i.e. , PA, NEW CAR DRIVER, lab, RT, psych nurse, social and human services assistant, contact printer dry film, teacher, gift officer, sample case porter)? Give summary @ -EMH Was smoking cessation discussed for >3mins.? @ -No Was critical care preformed (if so, how long)? @ -No Were there social determinants of health that impacted care today? How? (Homelessness, low income, unemployed, alcoholism, drug addiction, transportation, low edu. Level, literacy, decrease access to med. care, long term, rehab)? @ -No Was there de-escalation of care discussed even if they declined (Discuss DNR or withdrawal of care, Hospice)? DNR status @ -No What co-morbidities impacted this encounter? (DM, HTN, Smoking, COPD, CAD, Cancer, CVA, ARF, Chemo, Hep., AIDS, mental health diagnosis, sleep apnea, morbid obesity)? @ -Debility Was patient admitted / discharged? Hospital course, mention meds given and route, prescriptions, significant lab abnormalities, going to OR and other [facility] info. @78-year-old female presenting with elevated BUN and creatinine. Patient admits to not eating or drinking well and having decreased urine output. Martínez catheter is initiated as well as IV fluids. Laboratory studies reveal elevated BUN and creatinine. Patient has had persistent leukocytosis over the past 1 month. Blood cultures and urine cultures are pending. Antibiotics are initia megan in the emergency department.. Urinalysis is pending. Chest x-ray is clear. Patient Undiagnosed new problem with uncertain prognosis? @ -No Drug Therapy requiring intensive monitoring for toxicity (Heparin, Nitro, Insulin, Cardizem)? @ -No Were any procedures done? @ -No Diagnosis/symptom? @Acute renal failure, dehydration, leukocytosis Acute, or Chronic, or Acute on Chronic? @ -[Acute Uncomplicated (without systemic symptoms) or Complicated (systemic symptoms)? @ -Default Side effects of treatment? @ -No Exacerbation, Progression, or Severe Exacerbation? @ -No Poses a threat to life or bodily function? How? (Chest pain, USA, VT, pneumonia, PE, COPD, DKA, ARF, appy, cholecystitis, CVA, Diverticulitis, Homicidal, Suicidal, threat to staff... and all critical care pts) @ -Yes, sepsis, renal failure, electrolyte abnormality - Lab Data Result diagrams: 05/13/24 07:29 05/13/24 07:29 Lab Results 05/13/24 05/13/24 05/13/24 Range/Units 07:29 07:29 07:29 WBC 19.5 H (3.8-10.6) k/uL RBC 3.61 L (3.80-5.40) m/uL Hgb 10.1 L (11.4-16.0) gm/dL Hct 32.9 L (34.0-46.0) % MCV 91.0 (80.0-100.0) fL MCH 28.0 (25.0-35.0) pg MCHC 30.7 L (31.0-37.0) g/dL RDW 18.6 H (11.5-15.5) % Plt Count 187 (150-450) k/uL MPV 7.6 Neutrophils % 91 % Lymphocytes % 4 % Monocytes % 3 % Eosinophils % 1 % Basophils % 0 % Neutrophils # 17.7 H (1.3-7.7) k/uL Lymphocytes # 0.8 L (1.0-4.8) k/uL Monocytes # 0.5 (0-1.0) k/uL Eosinophils # 0.3 (0-0.7) k/uL Basophils # 0.0 (0-0.2) k/uL Hypochromasia Moderate Anisocytosis Slight PT 11.5 (10.0-12.5) sec INR 1.1 (<1.2) APTT 27.5 (22.0-30.0) sec Sodium 139 (137-145) mmol/L Potassium 4.8 (3.5-5.1) mmol/L Chloride 106 (98-107) mmol/L Carbon Dioxide 22 (22-30) mmol/L Anion Gap 11 mmol/L BUN 73 H (7-17) mg/dL Creatinine 5.45 H (0.52-1.04) mg/dL Est GFR (CKD-EPI)AfAm 8 (>60 ml/min/1.73 sqM) Est GFR (CKD-EPI)NonAf 7 (>60 ml/min/1.73 sqM) Glucose 101 H (74-99) mg/dL Plasma Lactic Acid Allen (0.7-2.0) mmol/L Calcium 8.7 (8.4-10.2) mg/dL Magnesium 2.3 (1.6-2.3) mg/dL Total Bilirubin 0.7 (0.2-1.3) mg/dL AST 38 H (14-36) U/L ALT 8 (4-34) U/L Alkaline Phosphatase 219 H (38-126) U/L Total Protein 5.9 L (6.3-8.2) g/dL Albumin 3.3 L (3.5-5.0) g/dL 05/13/24 Range/Units 07:29 WBC (3.8-10.6) k/uL RBC (3.80-5.40) m/uL Hgb (11.4-16.0) gm/dL Hct (34.0-46.0) % MCV (80.0-100.0) fL MCH (25.0-35.0) pg MCHC (31.0-37.0) g/dL RDW (11.5-15.5) % Plt Count (150-450) k/uL MPV Neutrophils % % Lymphocytes % % Monocytes % % Eosinophils % % Basophils % % Neutrophils # (1.3-7.7) k/uL Lymphocytes # (1.0-4.8) k/uL Monocytes # (0-1.0) k/uL Eosinophils # (0-0.7) k/uL Basophils # (0-0.2) k/uL Hypochromasia Anisocytosis PT (10.0-12.5) sec INR (<1.2) APTT (22.0-30.0) sec Sodium (137-145) mmol/L Potassium (3.5-5.1) mmol/L Chloride (98-107) mmol/L Carbon Dioxide (22-30) mmol/L Anion Gap mmol/L BUN (7-17) mg/dL Creatinine (0.52-1.04) mg/dL Est GFR (CKD-EPI)AfAm (>60 ml/min/1.73 sqM) Est GFR (CKD-EPI)NonAf (>60 ml/min/1.73 sqM) Glucose (74-99) mg/dL Plasma Lactic Acid Allen 1.4 (0.7-2.0) mmol/L Calcium (8.4-10.2) mg/dL Magnesium (1.6-2.3) mg/dL Total Bilirubin (0.2-1.3) mg/dL AST (14-36) U/L ALT (4-34) U/L Alkaline Phosphatase (38-126) U/L Total Protein (6.3-8.2) g/dL Albumin (3.5-5.0) g/dL Disposition Clinical Impression: Acute renal failure Disposition: ADMITTED IP TO THIS HOSP Condition: Stable Is patient prescribed a controlled substance at d/c from ED?: No Referrals: Mark Richardson DO [Primary Care Provider] - 1-2 days Time of Disposition: 08:37
[2024-05-13 08:02] LABS: ALT 8 U/L (4-34); AST 38 U/L (14-36); African American GFR (CKD) 8 (>60 ml/min/1.73 sqM); Albumin 3.3 g/dL (3.5-5.0); Alkaline Phosphatase 219 U/L (38-126); Anion Gap 11 mmol/L; Blood Urea Nitrogen 73 mg/dL (7-17); Calcium 8.7 mg/dL (8.4-10.2); Carbon Dioxide 22 mmol/L (22-30); Chloride 106 mmol/L (98-107); Glucose 101 mg/dL (74-99); Magnesium 2.3 mg/dL (1.6-2.3); Non-African American GFR(CKD) 7 (>60 ml/min/1.73 sqM); Potassium 4.8 mmol/L (3.5-5.1); Sodium 139 mmol/L (137-145); Total Bilirubin 0.7 mg/dL (0.2-1.3); Total Protein 5.9 g/dL (6.3-8.2)
[2024-05-13] MEDS ORDERED: NALOXONE 0.4 MG/ML 1 ML VIAL IV PRN (08:19)
[2024-05-13] MEDS: SODIUM CHLORIDE 0.9% 1,000 ML IV SCH (08:19)
[2024-05-13] MEDS: SODIUM CHLORIDE 0.9% 1,000 ML IV ONE (08:22)
--- NOTE | 2024-05-13 08:34 | XR ---
EXAMINATION TYPE: XR chest 1V portable DATE OF EXAM: 05/13/2024 COMPARISON: 04/26/2024 INDICATION: Weakness TECHNIQUE: Single frontal view of the chest is obtained. FINDINGS: The heart size is normal. The pulmonary vasculature is normal. The lungs are clear. There is a port on the right with the tip in the region of the superior vena cava. Positioning is sta ble. IMPRESSION: 1. No acute pulmonary process.
--- NOTE | 2024-05-13 10:52 | P.NPCON ---
History of Present Illness - Reason for Consult acute renal failure - History of Present Illness Reason for consultation: Acute kidney injury History of present illness: Patient is a 78-year-old female seen in renal consultation for acute kidney injury. Patient was sent from an extended care facility to the hospital due to acute kidney injury. Patient is not a very reliable historian and has history o f dementia. It was noted in the records that patient was having dysuria and there was concern for urinary tract infection. Patient does admit to loose bowel movements. Denies nausea or vomiting. Patient currently has a Martínez catheter. It is also noted the patient's blood pressure was running high. Most recent blood pressure in the hospital has been 157/67. She is on room air. She received a liter of normal saline and is currently maintained on normal saline at 130 cc an hour. I do see Fleet enemas on her home medication list. I do not see any NSAIDs on her home medication list. Creatinine was 5.6 prior to admission and was stable at 5.45 when checked in the hospital. Vital signs are stable. General: No acute distress. HEENT: Head exam is unremarkable. LUNGS: No audible rhonchi or wheezes. HEART: Rate and Rhythm are regular. ABDOMEN: Nontender. EXTREMITITES: 1+ edema. Past Medical History Past Medical History: Asthma, Cancer, GERD/Reflux, Osteoarthritis (OA) Additional Past Medical History / Comment(s): lymph edema lower legs-uses compression pump at night and velco wraps during the day., Overactive bladder with urine incontinence., has neuro stimulator for incontinence (states currently not working)., frequent diarrhea., pt has lap band., arthritis knees., hx of covid jan 17 with residual cough., See Cardiology [facility]. Has recent stage 4 endometrial cancer. IVC, ureteral stents, recent IV chemo History of Any Multi-Drug Resistant Organisms: None Reported Past Surgical History: Bariatric Surgery, Cholecystectomy, Tonsillectomy Additional Past Surgical History / Comment(s): Colonoscopy , lap band with hiatal hernia repair (Dr. Pink), fx right femur (march 2020)., interstem neuro stimulatoror (Sep 2022)., Past Anesthesia/Blood Transfusion Reactions: No Reported Reaction, Motion Sickness Past Psychological History: ADD/ADHD, Anxiety, Depression Smoking Status: Never smoker Past Alcohol Use History: Occasional Past Drug Use History: None Reported - Past Family History Brother(s) Family Medical History: Cancer, COPD, Diabetes Mellitus, Deep Vein Thrombosis (DVT), Hypertension, Myocardial Infarction ([place]), Vascular Disorder Additional Family Medical History / Comment(s): pt has twin brothers. non hodgkins lymphoma, bladder cancer Father Family Medical History: Cancer, Coronary Artery Disease (CAD) Mother Family Medical History: COPD Medications and Allergies Home Medications Medication Instructions Recorded Confirmed Type Sertraline [Zoloft] 100 mg PO HS@2100 02/20/23 05/13/24 History ARIPiprazole [Abilify] 15 mg PO DAILY@0800 04/26/24 05/13/24 History Albuterol Sulfate [Albuterol 1 - 2 puff PO RT-Q4H PRN 04/26/24 05/13/24 History Sulfate Hfa] Biotin 5,000 mcg PO DAILY@0800 04/26/24 05/13/24 History Cholecalciferol [Vitamin D3 (25 100 mcg PO DAILY@79904/26/24 05/13/24 History Mcg = 1000 Iu)] Ferrous Sulfate [Iron (65 MG 325 mg PO DAILY@0804/26/24 05/13/24 History Elemental)] Ipratropium-Albuterol Nebulize 3 ml INHALATION RT-Q6H PRN 04/26/24 05/13/24 History [Duoneb 0.5 mg-3 mg/3 ml Soln] Loperamide HCl [Imodium A-D] 2 mg PO BID PRN 04/26/24 05/13/24 History Magnesium Hydroxide [Milk of 7,200 mg PO Q48H PRN 04/26/24 05/13/24 History Magnesia Concentrate] Melatonin 3 mg PO HS@2100 04/26/24 05/13/24 History Metoprolol Tartrate [Lopressor] 50 mg PO BID@0800,1700 04/26/24 05/13/24 History Na Phos,M-B/Na Phos,Di-Ba [Fleet 133 ml RECTAL DAILY PRN 04/26/24 05/13/24 History Adult] bisacodyL [Dulcolax] 10 mg RECTAL DAILY PRN 04/26/24 05/13/24 History ondansetron HCL [Zofran] 4 mg PO TID@0600,1400,2200 04/26/24 05/13/24 History HYDROcodone/APAP 10-325MG [[place] 1 tab PO Q4HR PRN #18 tab 05/03/24 05/13/24 Rx 10-325] lamoTRIgine [LaMICtal] 75 mg PO HS@2100 #9 tab 05/03/24 05/13/24 Rx traZODone HCL [Desyrel] 75 mg PO HS@2100 #5 tab 05/03/24 05/13/24 Rx 0.9 % Sodium Chloride [Sodium 10 ml IV DAILY@0800 05/13/24 05/13/24 History Chloride Flush] Acetaminophen Tab [Tylenol Tab] 500 - 1,000 mg PO Q8H PRN 05/13/24 05/13/24 History Ciclopirox Olamine [Loprox 0.77% 1 applic TOPICAL BID@0800,2100 05/13/24 05/13/24 History cream] DAPTOmycin [Cubicin] 500 mg IV DAILY@0800 05/13/24 05/13/24 History Lidocaine-Prilocaine Cream [[place] 1 applic TOPICAL DAILY@0800 05/13/24 05/13/24 History Cream 2.5%/2.5%] cefUROXime axetiL [Ceftin] 500 mg PO BID@0800,1700 05/13/24 05/13/24 History dronabinoL [Marinol] 5 mg PO BID@0800,1700 05/13/24 05/13/24 History guaiFENesin [guaiFENesin Oral 200 mg PO Q4H PRN 05/13/24 05/13/24 History Solution] metroNIDAZOLE [Flagyl] 500 mg PO TID@0800,1400,209905/13/24 05/13/24 History ondansetron HCL [Zofran] 8 mg PO Q8HR PRN 05/13/24 05/13/24 History Allergies Allergy/AdvReac Type Severity Reaction Status Date / Time No Known Allergies Allergy Verified 05/13/24 08:35 Physical Exam Vitals: Vital Signs Temp Pulse Resp BP Pulse Ox 05/13/24 09:00 68 18 157/57 100 05/13/24 08:22 66 18 160/63 99 05/13/24 06:54 98.0 F 70 18 175/76 98 Intake and Output 05/12/24 05/13/24 05/13/24 22:59 06:59 14:59 Output Total 10 Balance -10 Output: Urine 10 Uretheral (Martínez) 10 Other: Weight 91.172 kg Results - Lab Results Most recent lab results Calcium 8.7 mg/dL (8.4-10.2) 05/13/24 07:29 Magnesium 2.3 mg/dL (1.6-2.3) 05/13/24 07:29 05/13/24 07:29 05/13/24 07:29 Assessment and Plan Plan: Assessment: 1. Acute kidney injury secondary to ATN. Also concern for AIN from antibiotic use. Creatinine 5.6 yesterday and 5.45 today. Creatinine earlier this month was as low as 1.03. 2. Benign hypertension. 3. UTI. Plan: Maintain IV fluids. Follow-up cultures. Defer antibiotics to primary team. Avoid nephrotoxins, including NSAIDs and Fleet enemas. Check renal ultrasound. Maintain Martínez catheter. Strict I's and O's. Continue to monitor renal function and urine output. Check urine eosinophils. Check UA. Thank you for the consultation. I will continue to follow the patient with you during her hospital stay.
--- NOTE | 2024-05-13 11:58 | US ---
EXAMINATION TYPE: US kidneys/renal and bladder DATE OF EXAM: 05/13/2024 COMPARISON: NONE CLINICAL INDICATION: Female, 78 years old with history of marlee; MARLEE EXAM MEASUREMENTS: Right Kidney: 11 x 6 x 5.5 cm Left Kidney: 7.2 x 2.6 x 2.7 cm Right Kidney: Mild to moderate hydronephrosis Left Kidney: Atrophic Bladder: not visualized, has catheter in IMPRESSION: 1. Moderate right hydronephrosis
--- NOTE | 2024-05-13 12:48 | P.HPIM ---
History of Present Illness 78-year-old female was sent in because of acute renal failure on lab test that were done at the senior living. Patient is basically bedbound patient does have dementia patient I believe he is confused when I evaluate the patient although she is able to provide me a good history sometimes she does not make sense.. Patient was discharged on multiple antibiotics on May 03 to a senior living after she was found to have enterococcal bacteremia but patient is also on Ceftin and metronidazole along with the daptomycin unsure of the accuracy of these medications. Patient was also having diarrhea C. difficile is being ordered patient was started on normal saline and is admitted with with highly elevated creatinine of 5.435 baseline is around 1.2.. REVIEW OF SYSTEMS: CONSTITUTIONAL: No fever, no malaise, no fatigue. HEENT: No recent visual problems or hearing problems. Denied any sore throat. CARDIOVASCULAR: No chest pain, orthopnea, PND, no palpitations, no syncope. PULMONARY: No shortness of breath, no cough, no hemoptysis. GASTROINTESTINAL: As mentioned in the HPI NEUROLOGICAL: No headaches, no weakness, no numbness. HEMATOLOGICAL: Denies any bleeding or petechiae. GENITOURINARY: Denies any burning micturition, frequency, or urgency. MUSCULOSKELETAL/RHEUMATOLOGICAL: Denies any joint pain, swelling, or any muscle pain. ENDOCRINE: Denies any polyuria or polydipsia. The rest of the 14-point review of systems is negative. PHYSICAL EXAMINATION: GENERAL: The patient is alert and confused-acute renal failure not in any acute distress. Well developed, well nourished. HEENT: Pupils are round and equally reacting to light. EOMI. No scleral icterus. No conjunctival pallor. Normocephalic, atraumatic. No pharyngeal erythema. No thyromegaly. CARDIOVASCULAR: S1 and S2 present. No murmurs, rubs, or gallops. PULMONARY: Chest is clear to auscultation, no wheezing or crackles. ABDOMEN: Soft, nontender, nondistended, normoactive bowel sounds. No palpable organomegaly. MUSCULOSKELETAL: No joint swelling or deformity. EXTREMITIES: No cyanosis, clubbing, or pedal edema. NEUROLOGICAL: Gross neurological examination did not reveal any focal deficits. Patient has significant generalized weakness bedbound SKIN: No rashes. Assessment and plan --Acute kidney injury secondary to acute tubular necrosis which was believed to be secondary to antibiotic use urination with her being obtained earlier for an allergic interstitial nephritis antibiotics are being held until infectious disease evaluate the patient again for recent enterococcal bacteremia patient is on IV fluids -Benign hypertension -History of endometrial cancer her last chemo was in month of March and chemotherapy is being held because of her recent infection -Dementia with confusion at this time secondary to delirium secondary to hospitalization or may be even secondary to renal failure will use Seroquel at nighttime for agitation if needed -Generalized weakness chronic deconditioning -Depression -Gastroesophageal reflux disease DVT prophylaxis: Subcutaneous heparin Past Medical History Past Medical History: Asthma, Cancer, GERD/Reflux, Osteoarthritis (OA) Additional Past Medical History / Comment(s): lymph edema lower legs-uses compression pump at night and velco wraps during the day., Overactive bladder with urine incontinence., has neuro stimulator for incontinence (states currently not working)., frequent diarrhea., pt has lap band., arthritis knees., hx of covid jan 17 with residual cough., [facility] Has recent stage 4 endometrial cancer. IVC, ureteral stents, recent IV chemo History of Any Multi-Drug Resistant Organisms: None Reported Past Surgical History: Bariatric Surgery, Cholecystectomy, Tonsillectomy Additional Past Surgical History / Comment(s): Colonoscopy , lap band with hiatal hernia repair (Dr. Pink), fx right femur (march 2020)., interstem neuro stimulatoror (Sep 2022)., Past Anesthesia/Blood Transfusion Reactions: No Reported Reaction, Motion Sickness Past Psychological History: ADD/ADHD, Anxiety, Depression Smoking Status: Never smoker Past Alcohol Use History: Occasional Past Drug Use History: None Reported - Past Family History Brother(s) Family Medical History: Cancer, COPD, Diabetes Mellitus, Deep Vein Thrombosis (DVT), Hypertension, Myocardial Infarction ([place]), Vascular Disorder Additional Family Medical History / Comment(s): pt has twin brothers. non hodgkins lymphoma, bladder cancer Father Family Medical History: Cancer, Coronary Artery Disease (CAD) Mother Family Medical History: COPD Medications and Allergies Home Medications Medication Instructions Recorded Confirmed Type Sertraline [Zoloft] 100 mg PO HS@2100 02/20/23 05/13/24 History ARIPiprazole [Abilify] 15 mg PO DAILY@0800 04/26/24 05/13/24 History Albuterol Sulfate [Albuterol 1 - 2 puff PO RT-Q4H PRN 04/26/24 05/13/24 History Sulfate Hfa] Biotin 5,000 mcg PO DAILY@0800 04/26/24 05/13/24 History Cholecalciferol [Vitamin D3 (25 100 mcg PO DAILY@0800 04/26/24 05/13/24 History Mcg = 1000 Iu)] Ferrous Sulfate [Iron (65 MG 325 mg PO DAILY@0804/26/24 05/13/24 History Elemental)] Ipratropium-Albuterol Nebulize 3 ml INHALATION RT-Q6H PRN 04/26/24 05/13/24 History [Duoneb 0.5 mg-3 mg/3 ml Soln] Loperamide HCl [Imodium A-D] 2 mg PO BID PRN 04/26/24 05/13/24 History Magnesium Hydroxide [Milk of 7,200 mg PO Q48H PRN 04/26/24 05/13/24 History Magnesia Concentrate] Melatonin 3 mg PO HS@209904/26/24 05/13/24 History Metoprolol Tartrate [Lopressor] 50 mg PO BID@0800,1700 04/26/24 05/13/24 History Na Phos,M-B/Na Phos,Di-Ba [Fleet 133 ml RECTAL DAILY PRN 04/26/24 05/13/24 History Adult] bisacodyL [Dulcolax] 10 mg RECTAL DAILY PRN 04/26/24 05/13/24 History ondansetron HCL [Zofran] 4 mg PO TID@0600,1400,2200 04/26/24 05/13/24 History HYDROcodone/APAP 10-325MG [[place] 1 tab PO Q4HR PRN #18 tab 05/03/24 05/13/24 Rx 10-325] lamoTRIgine [LaMICtal] 75 mg PO HS@2100 #9 tab 05/03/24 05/13/24 Rx traZODone HCL [Desyrel] 75 mg PO HS@2100 #5 tab 05/03/24 05/13/24 Rx 0.9 % Sodium Chloride [Sodium 10 ml IV DAILY@0800 05/13/24 05/13/24 History Chloride Flush] Acetaminophen Tab [Tylenol Tab] 500 - 1,000 mg PO Q8H PRN 05/13/24 05/13/24 History Ciclopirox Olamine [Loprox 0.77% 1 applic TOPICAL BID@0800,2100 05/13/24 05/13/24 History cream] DAPTOmycin [Cubicin] 500 mg IV DAILY@0800 05/13/24 05/13/24 History Lidocaine-Prilocaine Cream [Emla 1 applic TOPICAL DAILY@0800 05/13/24 05/13/24 History Cream 2.5%/2.5%] cefUROXime axetiL [Ceftin] 500 mg PO BID@0800,1700 05/13/24 05/13/24 History dronabinoL [Marinol] 5 mg PO BID@0800,1700 05/13/24 05/13/24 History guaiFENesin [guaiFENesin Oral 200 mg PO Q4H PRN 05/13/24 05/13/24 History Solution] metroNIDAZOLE [Flagyl] 500 mg PO TID@0800,1400,2100 05/13/24 05/13/24 History ondansetron HCL [Zofran] 8 mg PO Q8HR PRN 05/13/24 05/13/24 History Allergies Allergy/AdvReac Type Severity Reaction Status Date / Time No Known Allergies Allergy Verified 05/13/24 08:35 Physical Exam Vitals: Vital Signs Temp Pulse Resp BP Pulse Ox 05/13/24 09:00 68 18 157/57 100 05/13/24 08:22 66 18 160/63 99 05/13/24 06:54 98.0 F 70 18 175/76 98 Intake and Output 05/12/24 05/13/24 05/13/24 22:59 06:59 14:59 Output Total 10 Balance -10 Output: Urine 10 Uretheral (Martínez) 10 Other: Weight 91.172 kg Results CBC & Chem 7: 05/13/24 07:29 05/13/24 07:29 Labs: Abnormal Lab Results - Last 24 Hours (Table) 05/13/24 05/13/24 Range/Units 07:29 07:29 WBC 19.5 H (3.8-10.6) k/uL RBC 3.61 L (3.80-5.40) m/uL Hgb 10.1 L (11.4-16.0) gm/dL Hct 32.9 L (34.0-46.0) % MCHC 30.7 L (31.0-37.0) g/dL RDW 18.6 H (11.5-15.5) % Neutrophils # 17.7 H (1.3-7.7) k/uL Lymphocytes # 0.8 L (1.0-4.8) k/uL BUN 73 H (7-17) mg/dL Creatinine 5.45 H (0.52-1.04) mg/dL Glucose 101 H (74-99) mg/dL AST 38 H (14-36) U/L Alkaline Phosphatase 219 H (38-126) U/L Total Protein 5.9 L (6.3-8.2) g/dL Albumin 3.3 L (3.5-5.0) g/dL
[2024-05-13] MEDS ORDERED: QUEtiapine 25 MG TAB PO PRN (12:53)
[2024-05-13 13:25] LABS: Appearance,Urine Cloudy (Clear); Bilirubin,Urine Negative (Negative); Blood,Urine Large (Negative); Color,Urine Light Red; Glucose,Urine (UA) Negative (Negative); Ketones,Urine Negative (Negative); Leukocyte Esterase,Urine Large (Negative); Nitrite,Urine Negative (Negative); Protein,Urine 2+ (Negative); RBC,Urine >182 /hpf (0-5); Specific Gravity,Urine 1.016 (1.001-1.035); Squamous Epithelial Cell,Urine 2 /hpf (0-4); Urobilinogen,Urine <2.0 mg/dL (<2.0); WBC,Urine 181 /hpf (0-5)
--- NOTE | 2024-05-13 14:22 | P.GSCN ---
History of Present Illness Consult date: 05/13/24 Reason for Consult: Right hydronephrosis History of present illness: This is a 78-year-old female admitted to the hospital with acute kidney injury, creatinine at 5.4 from a baseline of 1.3. Patient is a poor historian thus a limited history was obtained. But she indicated she was sent to the hospital from the alf due to abnormal labs. Denies any abdominal or flank pain. She does have history of stage IV uterine cancer causing compression of the ureter and per patient and her family is currently being managed with a ureteral stent, she indicated she did have a stent placed at [facility] approximately a month ago following stent insertion kidney function did improve. On presentation she did undergo a renal ultrasound which showed evidence of right- sided hydronephrosis, there is no visualization of the stent. She also had a recent hospital admission for UTI and she was discharged home on antibiotics, at that admission she did undergo a CT abdomen and pelvis on 04/29 that showed bilateral ureteral stents in adequate location and at that time her creatinine was at 1.3 Review of Systems - Constitutional Reports as per HPI - EENT Ears, nose, mouth and throat: Denies dysphagia - Cardiovascular Denies chest pain, Denies shortness of breath - Respiratory Denies cough, Denies 7 - Gastrointestinal Reports as per HPI Past Medical History Past Medical History: Asthma, Cancer, GERD/Reflux, Osteoarthritis (OA) Additional Past Medical History / Comment(s): lymph edema lower legs-uses compression pump at night and velco wraps during the day., Overactive bladder with urine incontinence., has neuro stimulator for incontinence (states currently not working)., frequent diarrhea., pt has lap band., arthritis knees., hx of covid jan 17 with residual cough., See [facility] Has recent stage 4 endometrial cancer. IVC, ureteral stents, recent IV chemo History of Any Multi-Drug Resistant Organisms: None Reported Past Surgical History: Bariatric Surgery, Cholecystectomy, Tonsillectomy Additional Past Surgical History / Comment(s): Colonoscopy , lap band with hiatal hernia repair (Dr. Pink), fx right femur (march 2020)., interstem neuro stimulatoror (Sep 2022)., Past Anesthesia/Blood Transfusion Reactions: No Reported Reaction, Motion Sickness Past Psychological History: ADD/ADHD, Anxiety, Depression Smoking Status: Never smoker Past Alcohol Use History: Occasional Past Drug Use History: None Reported - Past Family History Brother(s) Family Medical History: Cancer, COPD, Diabetes Mellitus, Deep Vein Thrombosis (DVT), Hypertension, Myocardial Infarction ([place]), Vascular Disorder Additional Family Medical History / Comment(s): pt has twin brothers. non hodgkins lymphoma, bladder cancer Father Family Medical History: Cancer, Coronary Artery Disease (CAD) Mother Family Medical History: COPD Medications and Allergies Home Medications Medication Instructions Recorded Confirmed Type Sertraline [Zoloft] 100 mg PO HS@2100 02/20/23 05/13/24 History ARIPiprazole [Abilify] 15 mg PO DAILY@0804/26/24 05/13/24 History Albuterol Sulfate [Albuterol 1 - 2 puff PO RT-Q4H PRN 04/26/24 05/13/24 History Sulfate Hfa] Biotin 5,000 mcg PO DAILY@0800 04/26/24 05/13/24 History Cholecalciferol [Vitamin D3 (25 100 mcg PO DAILY@79904/26/24 05/13/24 History Mcg = 1000 Iu)] Ferrous Sulfate [Iron (65 MG 325 mg PO DAILY@0800 04/26/24 05/13/24 History Elemental)] Ipratropium-Albuterol Nebulize 3 ml INHALATION RT-Q6H PRN 04/26/24 05/13/24 History [Duoneb 0.5 mg-3 mg/3 ml Soln] Loperamide HCl [Imodium A-D] 2 mg PO BID PRN 04/26/24 05/13/24 History Magnesium Hydroxide [Milk of 7,200 mg PO Q48H PRN 04/26/24 05/13/24 History Magnesia Concentrate] Melatonin 3 mg PO HS@2100 04/26/24 05/13/24 History Metoprolol Tartrate [Lopressor] 50 mg PO BID@0800,1700 04/26/24 05/13/24 History Na Phos,M-B/Na Phos,Di-Ba [Fleet 133 ml RECTAL DAILY PRN 04/26/24 05/13/24 History Adult] bisacodyL [Dulcolax] 10 mg RECTAL DAILY PRN 04/26/24 05/13/24 History ondansetron HCL [Zofran] 4 mg PO TID@0600,1400,2200 04/26/24 05/13/24 History HYDROcodone/APAP 10-325MG [[place] 1 tab PO Q4HR PRN #18 tab 05/03/24 05/13/24 Rx 10-325] lamoTRIgine [LaMICtal] 75 mg PO HS@2100 #9 tab 05/03/24 05/13/24 Rx traZODone HCL [Desyrel] 75 mg PO HS@2100 #5 tab 05/03/24 05/13/24 Rx 0.9 % Sodium Chloride [Sodium 10 ml IV DAILY@0800 05/13/24 05/13/24 History Chloride Flush] Acetaminophen Tab [Tylenol Tab] 500 - 1,000 mg PO Q8H PRN 05/13/24 05/13/24 History Ciclopirox Olamine [Loprox 0.77% 1 applic TOPICAL BID@0800,2100 05/13/24 05/13/24 History cream] DAPTOmycin [Cubicin] 500 mg IV DAILY@0800 05/13/24 05/13/24 History Lidocaine-Prilocaine Cream [Emla 1 applic TOPICAL DAILY@0800 05/13/24 05/13/24 History Cream 2.5%/2.5%] cefUROXime axetiL [Ceftin] 500 mg PO BID@0800,1700 05/13/24 05/13/24 History dronabinoL [Marinol] 5 mg PO BID@0800,1700 05/13/24 05/13/24 History guaiFENesin [guaiFENesin Oral 200 mg PO Q4H PRN 05/13/24 05/13/24 History Solution] metroNIDAZOLE [Flagyl] 500 mg PO TID@0800,1400,2100 05/13/24 05/13/24 History ondansetron HCL [Zofran] 8 mg PO Q8HR PRN 05/13/24 05/13/24 History Allergies Allergy/AdvReac Type Severity Reaction Status Date / Time No Known Allergies Allergy Verified 05/13/24 08:35 Surgical - Exam Vital Signs Temp Pulse Resp BP Pulse Ox 98.0 F 70 18 175/76 98 05/13/24 06:54 05/13/24 06:54 05/13/24 06:54 05/13/24 06:54 05/13/24 06:54 - General no distress, no pain - Eyes normal ocular movement, no pale - ENT normal nares, normal mucosa - Respiratory normal expansion, normal respiratory effort - Abdomen Abdomen: soft, non tender - Psychiatric oriented to time, oriented to person, oriented to place Results - Labs 05/13/24 07:29 05/13/24 07:29 Abnormal Lab Results - Last 24 Hours (Table) 05/13/24 05/13/24 05/13/24 Range/Units 07:29 07:29 11:00 WBC 19.5 H (3.8-10.6) k/uL RBC 3.61 L (3.80-5.40) m/uL Hgb 10.1 L (11.4-16.0) gm/dL Hct 32.9 L (34.0-46.0) % MCHC 30.7 L (31.0-37.0) g/dL RDW 18.6 H (11.5-15.5) % Neutrophils # 17.7 H (1.3-7.7) k/uL Lymphocytes # 0.8 L (1.0-4.8) k/uL BUN 73 H (7-17) mg/dL Creatinine 5.45 H (0.52-1.04) mg/dL Glucose 101 H (74-99) mg/dL AST 38 H (14-36) U/L Alkaline Phosphatase 219 H (38-126) U/L Total Protein 5.9 L (6.3-8.2) g/dL Albumin 3.3 L (3.5-5.0) g/dL Urine Appearance Cloudy H (Clear) Urine Protein 2+ H (Negative) Urine Blood Large H (Negative) Ur Leukocyte Esterase Large H (Negative) Urine RBC >182 H (0-5) /hpf Urine WBC 181 H (0-5) /hpf Urine WBC Clumps Few H (None) /hpf Diabetes panel 05/13/24 Range/Units 07:29 Sodium 139 (137-145) mmol/L Potassium 4.8 (3.5-5.1) mmol/L Chloride 106 (98-107) mmol/L Carbon Dioxide 22 (22-30) mmol/L BUN 73 H (7-17) mg/dL Creatinine 5.45 H (0.52-1.04) mg/dL Glucose 101 H (74-99) mg/dL Calcium 8.7 (8.4-10.2) mg/dL AST 38 H (14-36) U/L ALT 8 (4-34) U/L Alkaline Phosphatase 219 H (38-126) U/L Total Protein 5.9 L (6.3-8.2) g/dL Albumin 3.3 L (3.5-5.0) g/dL Calcium panel 05/13/24 Range/Units 07:29 Calcium 8.7 (8.4-10.2) mg/dL Albumin 3.3 L (3.5-5.0) g/dL Pituitary panel 05/13/24 Range/Units 07:29 Sodium 139 (137-145) mmol/L Potassium 4.8 (3.5-5.1) mmol/L Chloride 106 (98-107) mmol/L Carbon Dioxide 22 (22-30) mmol/L BUN 73 H (7-17) mg/dL Creatinine 5.45 H (0.52-1.04) mg/dL Glucose 101 H (74-99) mg/dL Calcium 8.7 (8.4-10.2) mg/dL Adrenal panel 05/13/24 Range/Units 07:29 Sodium 139 (137-145) mmol/L Potassium 4.8 (3.5-5.1) mmol/L Chloride 106 (98-107) mmol/L Carbon Dioxide 22 (22-30) mmol/L BUN 73 H (7-17) mg/dL Creatinine 5.45 H (0.52-1.04) mg/dL Glucose 101 H (74-99) mg/dL Calcium 8.7 (8.4-10.2) mg/dL Total Bilirubin 0.7 (0.2-1.3) mg/dL AST 38 H (14-36) U/L ALT 8 (4-34) U/L Alkaline Phosphatase 219 H (38-126) U/L Total Protein 5.9 L (6.3-8.2) g/dL Albumin 3.3 L (3.5-5.0) g/dL Assessment and Plan Assessment: 78-year-old female history of stage IV uterine cancer causing bilateral ureteral obstruction and underwent stent insertion at [facility] approximately a month ago, creatinine 2 weeks ago was 1.3 presented back to the hospital with acute kidney injury and creatinine 5.4. Had a renal ultrasound that showed moderate right-sided hydronephrosis. From urology standpoint she recently had a stent insertion, and no indication to exchange the stents at this time, she will req uire stent exchange in 3 to 4 months by her urologist at [facility]. The hydronephrosis could be secondary to reflux from the stent rather than an obstruction given that the stent was recently placed. No acute surgical intervention from urology standpoint. At this point recommend continue to trend creatinine and continue with bladder decompression with a Martínez catheter.
[2024-05-13] MEDS: HEPARIN SODIUM,PORCINE 5,000 UNIT/ML 1 ML VIAL SQ SCH (17:01)
[2024-05-13] MEDS: METOPROLOL TARTRATE 50 MG TAB PO SCH (17:01)
[2024-05-13] MEDS ORDERED: HYDROcodone/APAP 10-325MG 1 EACH TAB PO PRN (18:52)
[2024-05-13] MEDS ORDERED: IPRATROPIUM-ALBUTEROL 3 ML NEB INHALATION PRN (18:52)
[2024-05-13] MEDS: lamoTRIgine 25 MG TAB PO SCH (20:19)
[2024-05-13] MEDS: ZINC OXIDE PASTE (Z-GUARD) 1 APPLIC TOPICAL SCH (20:20)
[2024-05-13] MEDS: traZODone HCL 50 MG TAB PO SCH (20:20)
[2024-05-13] MEDS: SERTRALINE 100 MG TAB PO SCH (20:20)
[2024-05-13] MEDS: MELATONIN 3 MG TABLET PO PRN (20:20)
--- NOTE | 2024-05-13 22:38 | P.CONS ---
History of Present Illness - Reason for Consult Consult date: 05/13/24 Enterococcal bacteremia on daptomycin Requesting physician: Chris Drake - Chief Complaint Worsening kidney function x 1 day - History of Present Illness Patient is a 78-year-old female with a past medical history significant for asthma reflux osteoarthritis, did have a stage IV uterine cancer and was not being considered for radiation or chemotherapy patient did have a ureteral stent placement at [place] about a month ago and was recently admitted at this facility where the patient did have a VRE bacteremia while the patient has been advised IV daptomycin with the patient was currently receiving at the local [facility] patient has been sent back to the ER this morning concerning for worsening of her BUN and creatinine patient denies having any fever or any chills denies any headache no chest pain or shortness with occasional cough no nausea no vomiting no abdominal pain no diarrhea overall patient seem to be pleasantly confused and elevated good historian, patient did have white count of 19.5 with a left shift BUN of 73 creatinine is 5.45 urine is positive with Leukocyte esterase 181 WBC blood cultures obtained which are currently pending infectious disease was consulted for further management of antibiotic therapy Review of Systems Positive point and negatives has been mentioned in the HPI, complete review of systems was performed and all other systems are negative Past Medical History Past Medical History: Asthma, Cancer, GERD/Reflux, Osteoarthritis (OA) Additional Past Medical History / Comment(s): lymph edema lower legs-uses comp ression pump at night and velco wraps during the day., Overactive bladder with urine incontinence., has neuro stimulator for incontinence (states currently not working)., frequent diarrhea., pt has lap band., arthritis knees., hx of covid jan 17 with residual cough., See [facility] Has recent stage 4 endometrial cancer. IVC, ureteral stents, recent IV chemo History of Any Multi-Drug Resistant Organisms: None Reported Past Surgical History: Bariatric Surgery, Cholecystectomy, Tonsillectomy Additional Past Surgical History / Comment(s): Colonoscopy , lap band with hiatal hernia repair (Dr. Pink), fx right femur (march 2020)., interstem neuro stimulatoror (Sep 2022)., Past Anesthesia/Blood Transfusion Reactions: No Reported Reaction, Motion Sickness Past Psychological History: ADD/ADHD, Anxiety, Depression Smoking Status: Never smoker Past Alcohol Use History: Occasional Past Drug Use History: None Reported - Past Family History Brother(s) Family Medical History: Cancer, COPD, Diabetes Mellitus, Deep Vein Thrombosis (DVT), Hypertension, Myocardial Infarction ([place]), Vascular Disorder Additional Family Medical History / Comment(s): pt has twin brothers. non hodgkins lymphoma, bladder cancer Father Family Medical History: Cancer, Coronary Artery Disease (CAD) Mother Family Medical History: COPD Medications and Allergies Home Medications Medication Instructions Recorded Confirmed Type Sertraline [Zoloft] 100 mg PO HS@209902/20/23 05/13/24 History ARIPiprazole [Abilify] 15 mg PO DAILY@0800 04/26/24 05/13/24 History Albuterol Sulfate [Albuterol 1 - 2 puff PO RT-Q4H PRN 04/26/24 05/13/24 History Sulfate Hfa] Ipratropium-Albuterol Nebulize 3 ml INHALATION RT-Q6H PRN 04/26/24 05/13/24 History [Duoneb 0.5 mg-3 mg/3 ml Soln] Loperamide HCl [Imodium A-D] 2 mg PO BID PRN 04/26/24 05/13/24 History Melatonin 3 mg PO HS@209904/26/24 05/13/24 History Metoprolol Tartrate [Lopressor] 50 mg PO BID@0800,1700 04/26/24 05/13/24 History HYDROcodone/APAP 10-325MG [[place] 1 tab PO Q4HR PRN #18 tab 05/03/24 05/13/24 Rx 10-325] lamoTRIgine [LaMICtal] 75 mg PO HS@2100 #9 tab 05/03/24 05/13/24 Rx traZODone HCL [Desyrel] 75 mg PO HS@2100 #5 tab 05/03/24 05/13/24 Rx Acetaminophen Tab [Tylenol] 500 - 1,000 mg PO Q8H PRN 05/13/24 05/13/24 History Ciclopirox Olamine [Loprox 0.77% 1 applic TOPICAL BID@0800,2100 05/13/24 05/13/24 History cream] Lidocaine-Prilocaine Cream [Emla 1 applic TOPICAL DAILY@0800 05/13/24 05/13/24 History Cream 2.5%/2.5%] dronabinoL [Marinol] 5 mg PO BID@0800,1700 05/13/24 05/13/24 History ondansetron HCL [Zofran] 8 mg PO Q8HR PRN 05/13/24 05/13/24 History QUEtiapine [SEROquel] 25 mg PO HS PRN tab 05/16/24 Rx Allergies Allergy/AdvReac Type Severity Reaction Status Date / Time No Known Allergies Allergy Verified 05/13/24 08:35 Physical Exam Vitals: Vital Signs Temp Pulse Resp BP Pulse Ox 05/13/24 12:00 68 18 131/72 96 05/13/24 11:00 68 18 140/71 97 05/13/24 09:00 68 18 157/57 100 05/13/24 08:22 66 18 160/63 99 05/13/24 06:54 98.0 F 70 18 175/76 98 Intake and Output 05/12/24 05/13/24 05/13/24 22:59 06:59 14:59 Output Total 10 Balance -10 Output: Urine 10 Uretheral (Martínez) 10 Other: Weight 91.172 kg GENERAL DESCRIPTION: Elderly female lying in bed, no distress. No tachypnea or accessory muscle of respiration use. HEENT: Shows Pallor , no scleral icterus. Oral mucous membrane is dry. No pharyngeal erythema or thrush NECK: Trachea central, no thyromegaly. LUNGS: Unlabored breathing. Clear to auscultation anteriorly. No wheeze or crackle. HEART: S1, S2, regular rate and rhythm. No loud murmur ABDOMEN: Soft, 9984 tenderness , no guarding or rigidity, no organomegaly EXTREMITIES: No edema of feet. SKIN: No rash, no masses palpable. NEUROLOGICAL: The patient is awake, alert, oriented x3, mood and affect normal. Results CBC & Chem 7: 05/13/24 07:29 05/15/24 03:48 Labs: Abnormal Lab Results - Last 24 Hours (Table) 05/13/24 05/13/24 Range/Units 07:29 07:29 WBC 19.5 H (3.8-10.6) k/uL RBC 3.61 L (3.80-5.40) m/uL Hgb 10.1 L (11.4-16.0) gm/dL Hct 32.9 L (34.0-46.0) % MCHC 30.7 L (31.0-37.0) g/dL RDW 18.6 H (11.5-15.5) % Neutrophils # 17.7 H (1.3-7.7) k/uL Lymphocytes # 0.8 L (1.0-4.8) k/uL BUN 73 H (7-17) mg/dL Creatinine 5.45 H (0.52-1.04) mg/dL Glucose 101 H (74-99) mg/dL AST 38 H (14-36) U/L Alkaline Phosphatase 219 H (38-126) U/L Total Protein 5.9 L (6.3-8.2) g/dL Albumin 3.3 L (3.5-5.0) g/dL Assessment and Plan (1) Positive blood culture Status: Acute Code(s): R78.81 - BACTEREMIA SNOMED Code(s): 550491407 (2) Urinary tract infection Status: Acute Code(s): N39.0 - URINARY TRACT INFECTION, SITE NOT SPECIFIED SNOMED Code(s): 27078299 Plan: 1patient presented to the hospital with a worsening of the kidney function in this patient who was recently admitted to the hospital he did have a enterococcal bacteremia now noted to have significantly positive UA elevated white count concerning for persistent UTI. 2urine culture has been requested as well as blood cultures 3we will continue with the daptomycin while waiting for the culture to finalize We will follow on clinical condition and cultures to further adjust medication if needed Thank you for this consultation we will follow the patient along with you Dictation was produced using [employer] dictation software. please excuse any grammatical, word or spelling errors. Time with Patient: Greater than 30
[2024-05-13] MEDS: CLOTRIMAZOLE 1% CREAM 30 GM TUBE TOPICAL SCH (23:43)
[2024-05-14 08:43] LABS: BUN/Creat Ratio 11.95 Ratio (12.00-20.00); Blood Urea Nitrogen 74.1 mg/dL (9.0-27.0); Calcium 8.2 mg/dL (8.7-10.3); Carbon Dioxide 16.7 mmol/L (21.6-31.8); Chloride 104 mmol/L (96-109); Glucose 79 mg/dL (70-110); Magnesium 2.3 mg/dL (1.5-2.4); Potassium 4.7 mmol/L (3.5-5.5); Sodium 140 mmol/L (135-145)
[2024-05-14] MEDS: ARIPiprazole 15 MG TAB PO SCH (08:50)
[2024-05-14] MEDS: CHOLECALCIFEROL 25 MCG (1000 IU) TABLET PO SCH (08:50)
--- NOTE | 2024-05-14 12:25 | P.PN ---
Subjective Patient is seen in follow-up for acute kidney injury. Renal function worse. Has Martínez catheter. Urine output low. Denies chest pain or shortness of breath. Vital signs are stable. General: No acute distress. HEENT: Head exam is unremarkable. LUNGS: No audible rhonchi or wheezes. HEART: Rate and Rhythm are regular. ABDOMEN: Obese, nontender. EXTREMITITES: 1+ edema. Objective - Vital Signs Vital signs: Vital Signs Temp 97 F L 05/14/24 11:51 Pulse 59 L 05/14/24 11:51 Resp 16 05/14/24 11:51 BP 163/97 05/14/24 11:51 Pulse Ox 95 05/14/24 11:51 FiO2 Intake & Output 05/13/24 05/14/24 05/14/24 18:59 06:59 18:59 Intake Total 130 590 Output Total 10 100 Balance 120 490 Weight 91.172 kg Intake: Intake, IV Titration 130 Amount Sodium Chloride 0.9% 1, 130 000 ml @ 130 mls/hr IV . Q7H42M [facility] Rx#:[id number] Oral 590 Output: Urine 10 100 Uretheral (Martínez) 10 Post Void Residual 0 Other: Voiding Method Indwelling Catheter - Labs CBC & Chem 7: 05/13/24 07:29 05/14/24 05:14 Labs: Abnormal Lab Results - Last 24 Hours (Table) 05/13/24 05/14/24 Range/Units 11:00 05:14 Carbon Dioxide 16.7 L (21.6-31.8) mmol/L Anion Gap 19.30 H (4.00-12.00) mmol/L BUN 74.1 H (9.0-27.0) mg/dL Creatinine 6.2 H (0.6-1.5) mg/dL Est GFR (CKD-EPI) 6 L (>=60) BUN/Creatinine Ratio 11.95 L (12.00-20.00) Ratio Calcium 8.2 L (8.7-10.3) mg/dL Urine Appearance Cloudy H (Clear) Urine Protein 2+ H (Negative) Urine Blood Large H (Negative) Ur Leukocyte Esterase Large H (Negative) Urine RBC >182 H (0-5) /hpf Urine WBC 181 H (0-5) /hpf Urine WBC Clumps Few H (None) /hpf Assessment and Plan Plan: Assessment: 1. Acute kidney injury secondary to ATN. Also concern for AIN from antibiotic use. 1% urine eosinophils. creatinine 5.6 yesterday and up to 6.2 today. Oliguric. Creatinine earlier this month was as low as 1.03. Moderate hydronephrosis noted on kidney ultrasound. Seen by urology. Patient does have recently placed ureteral stent. 2. Benign hypertension. 3. UTI. On antibiotics. ID following. 4. Dementia. 5. History of endometrial cancer. 6. Metabolic acidosis secondary to acute kidney injury and IV fluids. Plan: Change IV fluids to bicarb drip. Lasix 80 mg IV once today. Follow-up cultures. Avoid nephrotoxins, including NSAIDs and Fleet enemas. Maintain Martínez catheter. Strict I's and O's. Continue to monitor renal function and urine output. With worsening renal function, oliguria, acidosis, initiate renal replacement therapy if family agreeable. Hospice also being considered.
[2024-05-14] MEDS: FUROSEMIDE 10 MG/ML 10 ML VIAL IV STA (13:14)
[2024-05-14] MEDS: DEXTROSE 5% IN WATER 1,000 ML with SODIUM BICARB (1 MEQ/ML) 150 ML IV SCH (13:14)
--- NOTE | 2024-05-14 15:39 | P.PN ---
Subjective Progress Note Date: 05/14/24 78-year-old female was sent in because of acute renal failure on lab test that were done at the care home. Patient is basically bedbound patient does have dementia patient I believe he is confused when I evaluate the patient although she is able to provide me a good history sometimes she does not make sense.. Patient was discharged on multiple antibiotics on May 03 to a care home after she was found to have enterococcal bacteremia but patient is also on Ceftin and metronidazole along with the daptomycin unsure of the accuracy of these medications. Patient was also having diarrhea C. difficile is being ordered patient was started on normal saline and is admitted with with highly elevated creatinine of 5.435 baseline is around 1.2.. 05/14/2024 Patient is seen in follow-up today with nephrology, urology, infectious disease following. Kidney functions continue to worsen and creatinine is above 6 discussing possible renal replacement therapy. Patient with indwelling Martínez catheter and minimal to no output overnight with continued indwelling Martínez catheter. Patient continues with confusion which is baseline as patient has dementia. Patient currently residing at [facility] and family discussing possible hospice. Would like to discuss further with sister and make a final decision and will be likely looking into hospice house. Case management is following and will follow-up with family in the morning. Patient is currently afebrile and denies any chest pain or shortness of breath. Patient does have bilateral lower extremity swelling and reports normally wears compression stockings. Recommend Shai wraps on the lower extremities from toes up to the knees to aid in swelling of the lower extremities. Will follow-up on repeat labs and await family's recommendations and discussion with hospice. Review of systems: Unable to completely assess as patient is confused which is baseline. Patient has dementia PHYSICAL EXAMINATION: GENERAL: The patient is alert and confused, not in any acute distress. Well developed, well nourished. Obese, elderly appearing HEENT: Pupils are round and equally reacting to light. EOMI. No scleral icterus. No conjunctival pallor. Normocephalic, atraumatic. No pharyngeal erythema. No thyromegaly. CARDIOVASCULAR: S1 and S2 present. No murmurs, rubs, or gallops. PULMONARY: Chest is clear to auscultation, no wheezing or crackles. ABDOMEN: Soft, nontender, nondistended, normoactive bowel sounds. No palpable organomegaly. MUSCULOSKELETAL: No joint swelling or deformity. EXTREMITIES: No cyanosis, clubbing, bilateral lower extremity edema 1+ pitting NEUROLOGICAL: Gross neurological examination did not reveal any focal deficits. Patient has significant generalized weakness bedbound SKIN: No rashes. Assessment and plan -Acute kidney injury secondary to acute tubular necrosis which was believed to be secondary to antibiotic use, interstitial nephritis -Enterococcal bacteremia likely secondary to urinary tract infection -Benign hypertension -History of endometrial cancer her last chemo was in month of March and chemotherapy is being held because of her recent infection -Dementia with confusion at this time secondary to delirium secondary to hospitalization or may be even secondary to renal failure,use Seroquel at night time for agitation if needed -Generalized weakness chronic deconditioning -Depression -Gastroesophageal reflux disease -GI prophylaxis -DVT prophylaxis: Subcutaneous heparin -No code Plan: Patient is continued on antibiotics with infectious disease, urology, nephrology following. Patient continues with indwelling Martínez catheter with minimal output noted and continued hematuria Patient is being considered for possible renal replacement therapy although family discussing further amongst themselves about possible hospice. Per family and power of attorney general they have been discussing hospice for quite some time as patient has been clinically declining and currently residing at [facility] Kidney functions continue to worsen and will likely be evaluated and discussed with hospice tomorrow with possible hospice house discharge Patient with significant lower extremity swelling and edema 1+ pitting recommend Shai wraps to the lower extremities from the toes up to the knees Follow-up on repeat labs and continue with supportive care Overall prognosis is extremely poor and hospice is appropriate in this patient. The impression and plan of care has been dictated by Sofia Lake, Nurse Practitioner as directed. Dr. Vidal MD I have performed a history and examination and MDM of this patient, discussed the same with the dictator, and agree with the dictator's assessment and plan as written ,documented as a scribe. Based on total visit time, I have performed more than 50% of the visit. Objective - Vital Signs Vital signs: Vital Signs Temp 97 F L 05/14/24 11:51 Pulse 59 L 05/14/24 11:51 Resp 16 05/14/24 11:51 BP 163/97 05/14/24 11:51 Pulse Ox 95 05/14/24 11:51 FiO2 Intake & Output 05/13/24 05/14/24 05/14/24 18:59 06:59 18:59 Intake Total 130 590 Output Total 10 100 Balance 120 490 Weight 91.172 kg Intake: Intake, IV Titration 130 Amount Sodium Chloride 0.9% 1, 130 000 ml @ 130 mls/hr IV . Q7H42M [facility] Rx#:[id number] Oral 590 Output: Urine 10 100 Uretheral (Martínez) 10 Post Void Residual 0 Other: Voiding Method Indwelling Catheter - Labs CBC & Chem 7: 05/13/24 07:29 05/14/24 05:14 Labs: Abnormal Lab Results - Last 24 Hours (Table) 05/13/24 05/14/24 Range/Units 11:00 05:14 Carbon Dioxide 16.7 L (21.6-31.8) mmol/L Anion Gap 19.30 H (4.00-12.00) mmol/L BUN 74.1 H (9.0-27.0) mg/dL Creatinine 6.2 H (0.6-1.5) mg/dL Est GFR (CKD-EPI) 6 L (>=60) BUN/Creatinine Ratio 11.95 L (12.00-20.00) Ratio Calcium 8.2 L (8.7-10.3) mg/dL Urine Appearance Cloudy H (Clear) Urine Protein 2+ H (Negative) Urine Blood Large H (Negative) Ur Leukocyte Esterase Large H (Negative) Urine RBC >182 H (0-5) /hpf Urine WBC 181 H (0-5) /hpf Urine WBC Clumps Few H (None) /hpf
[2024-05-15 04:59] LABS: African American GFR (CKD) 8 (>60 ml/min/1.73 sqM); Anion Gap 12 mmol/L; Blood Urea Nitrogen 77 mg/dL (7-17); Calcium 8.1 mg/dL (8.4-10.2); Carbon Dioxide 18 mmol/L (22-30); Chloride 105 mmol/L (98-107); Glucose 94 mg/dL (74-99); Magnesium 2.2 mg/dL (1.6-2.3); Non-African American GFR(CKD) 7 (>60 ml/min/1.73 sqM); Phosphorus 4.3 mg/dL (2.5-4.5); Potassium 4.9 mmol/L (3.5-5.1); Sodium 135 mmol/L (137-145)
--- NOTE | 2024-05-15 10:10 | P.PN ---
Subjective Patient is seen in follow-up for acute kidney injury. Renal function stable. Has Martínez catheter. Urine output low Despite IV Lasix yesterday. Denies chest pain or shortness of breath. Vital signs are stable. General: No acute distress. Resting in bed. HEENT: Head exam is unremarkable. LUNGS: No audible rhonchi or wheezes. HEART: Rate and Rhythm are regular. ABDOMEN: Obese, nontender. EXTREMITITES: 1+ edema. Objective - Vital Signs Vital signs: Vital Signs Temp 97.4 F L 05/15/24 07:00 Pulse 60 05/15/24 07:00 Resp 18 05/15/24 07:00 BP 148/62 05/15/24 07:00 Pulse Ox 99 05/15/24 07:00 FiO2 Intake & Output 05/14/24 05/15/24 05/15/24 18:59 06:59 18:59 Output Total 300 Balance -300 Output: Urine 300 Other: Voiding Method Indwelling Catheter Indwelling Catheter - Labs CBC & Chem 7: 05/13/24 07:29 05/15/24 03:48 Labs: Abnormal Lab Results - Last 24 Hours (Table) 05/15/24 Range/Units 03:48 Sodium 135 L (137-145) mmol/L Carbon Dioxide 18 L (22-30) mmol/L BUN 77 H (7-17) mg/dL Creatinine 5.66 H (0.52-1.04) mg/dL Calcium 8.1 L (8.4-10.2) mg/dL Microbiology - Last 24 Hours (Table) 05/13/24 09:00 Blood Culture - Preliminary Blood 05/13/24 09:15 Blood Culture - Preliminary Blood Assessment and Plan Plan: Assessment: 1. Acute kidney injury secondary to ATN. Also concern for AIN from antibiotic use. 1% urine eosinophils. Creatinine stable at 5.66 today. Oliguric. Creatinine earlier this month was as low as 1.03. Moderate hydronephrosis noted on kidney ultrasound. Seen by urology. Patient does have recently placed ureteral stent. 2. Benign hypertension. Stable. 3. UTI. On antibiotics. ID following. 4. Dementia. 5. History of endometrial cancer. 6. Metabolic acidosis secondary to acute kidney injury and IV fluids. Improved with bicarb drip. Plan: Decrease rate of bicarb drip to 50 cc an hour. Add oral bicarb. Status post IV Lasix given May 14, 2024 with no significant improvement in urine output. Follow-up cultures. Avoid nephrotoxins, including NSAIDs and Fleet enemas. Maintain Martínez catheter. Strict I's and O's. Continue to monitor renal function and urine output. Renal replacement therapy has been discussed - At this time, plan is for hospice.
[2024-05-15] MEDS: SODIUM BICARBONATE TAB 650 MG TAB PO SCH (11:04)
--- NOTE | 2024-05-15 15:33 | P.PN ---
Progress Note - Text Progress Note Date: 05/15/24 78-year-old female was sent in because of acute renal failure [facility]. Patient is basically bedbound patient does have dementia patient I believe he is confused when I evaluate the patient although she is able to provide me a good history sometimes she does not make sense.. Patient was discharged on multiple antibiotics on [facility] after she was found to have enterococcal bacteremia but patient is also on Ceftin and metronidazole along with the daptomycin unsure of the accuracy of these medications. Patient was also having diarrhea C. difficile is being ordered patient was started on normal saline and is admitted with with highly elevated creatinine of 5.435 baseline is around 1.2.. 05/14/2024 Patient is seen in follow-up today with nephrology, urology, infectious disease following. Kidney functions continue to worsen and creatinine is above 6 discussing possible renal replacement therapy. Patient with indwelling Martínez catheter and minimal to no output overnight with continued indwelling Martínez catheter. Patient continues with confusion which is baseline as patient has dementia. Patient currently residing at [facility] and family discussing possible hospice. Would like to discuss further with sister and make a final decision and will be likely looking into hospice house. Case management is following and will follow-up with family in the morning. Patient is currently afebrile and denies any chest pain or shortness of breath. Patient does have bilateral lower extremity swelling and reports normally wears compression stockings. Recommend Shai wraps on the lower extremities from toes up to the knees to aid in swelling of the lower extremities. Will follow-up on repeat labs and await family's recommendations and discussion with hospice. May 15: Laying in bed. Poor appetite. Hospice team is out to talk to the patient and family. They are looking at hospice house in [place]. Looking into financial planning. Active Medications Acetaminophen (Acetaminophen Tab 325 Mg Tab) 650 mg PO Q6HR PRN PRN Reason: Mild Pain or Fever > 100.5 Hydrocodone Bitart/Acetaminophen (Hydrocodone/Apap 10-325mg 1 Each Tab) 1 each PO Q6H PRN PRN Reason: Pain Albuterol/Ipratropium (Ipratropium-Albuterol 3 Ml Neb) 3 ml INHALATION RT-Q6H PRN PRN Reason: Shortness Of Breath Aripiprazole (Aripiprazole 15 Mg Tab) 15 mg PO DAILY@0800 [facility] Last Admin: 05/15/24 08:59 Dose: 15 mg Cholecalciferol (Cholecalciferol 25 Mcg (1000 Iu) Tablet) 100 mcg PO DAILY@0800 [facility] Last Admin: 05/15/24 09:05 Dose: Not Given Clotrimazole (Clotrimazole 1% Cream 30 Gm Tube) 1 applic TOPICAL BID@0800,2100 [facility] Last Admin: 05/15/24 08:59 Dose: 1 applic Heparin Sodium (Porcine) (Heparin Sodium,Porcine 5,000 Unit/Ml 1 Ml Vial) 5,000 unit SQ Q8HR [facility] Last Admin: 05/15/24 11:03 Dose: Not Given Daptomycin 400 mg/ Sodium (Chloride) 50 mls @ 100 mls/hr IVPB Q48H [facility]; Protocol Last Admin: 05/13/24 23:42 Dose: 100 mls/hr Sodium Bicarbonate 150 ml/ (Dextrose/Water) 1,150 mls @ 50 mls/hr IV .Q23H [facility] Last Admin: 05/15/24 01:00 Dose: 80 mls/hr Lamotrigine (Lamotrigine 25 Mg Tab) 75 mg PO HS@2100 [facility] Last Admin: 05/14/24 21:20 Dose: 75 mg Melatonin (Melatonin 3 Mg Tablet) 3 mg PO HS@2100 PRN PRN Reason: Insomnia Last Admin: 05/13/24 20:20 Dose: 3 mg Metoprolol Tartrate (Metoprolol Tartrate 50 Mg Tab) 50 mg PO BID@0800,1700 [facility] Last Admin: 05/15/24 08:59 Dose: 50 mg Naloxone HCl (Naloxone 0.4 Mg/Ml 1 Ml Vial) 0.2 mg IV Q2M PRN PRN Reason: Opioid Reversal Petrolatum (Zinc Oxide Paste (Z-Guard) 1 Applic) 1 applic TOPICAL BID [facility]; Protocol Last Admin: 05/15/24 08:59 Dose: 1 applic Quetiapine Fumarate (Quetiapine 25 Mg Tab) 25 mg PO HS PRN PRN Reason: Agitation Sertraline HCl (Sertraline 100 Mg Tab) 100 mg PO HS@2100 [facility] Last Admin: 05/14/24 21:20 Dose: 100 mg Sodium Bicarbonate (Sodium Bicarbonate Tab 650 Mg Tab) 650 mg PO BID [facility] Last Admin: 05/15/24 11:04 Dose: Not Given Trazodone HCl (Trazodone Hcl 50 Mg Tab) 75 mg PO HS@2100 [facility] Last Admin: 05/14/24 21:21 Dose: 75 mg On examination: VITAL SIGNS: 97.8, 63, 18, 127/56, 98% room air GENERAL APPEARANCE: BMI 35.6, laying in bed tired HEENT: Normal external appearance of nose and ear. Oral cavity normal EYES: Pupils equal. Conjunctiva normal. NECK: JVD not raised. Mass not palpable. RESPIRATORY: Respiratory effort normal. Lungs decreased breath sounds CARDIOVASCULAR: First and second sounds normal. No edema. ABDOMEN: Soft. Liver and spleen not palpable. No tenderness. No mass palpable. PSYCHIATRY: Able to answer simple questions. Able to hold a simple conversation INVESTIGATIONS, reviewed in the clinical context: May 23: Potassium 4.9 BUN 77 creatinine 5.66 Assessment and plan -Acute kidney injury secondary to acute tubular necrosis which was believed to be secondary to antibiotic use, interstitial nephritis: Worsening -Enterococcal faecalis/VRE likely secondary to urinary tract infection, causing sepsis IV daptomycin -Essential hypertension Recent diagnosis of stage IV endometrial cancer -Diagnosed 03/12/2024 -Patient had carbo/Taxol weekly x 2 while inpatient at [facility] -Plans for follow-up with Medical Oncologist after case review with [employer] [facility] Dr. Sylvester and pt released from rehab -Prev summarized recent and current imaging (read reports). Does not appear to be significant change. Seen by radiation oncology. Not for any radiation -Vascular dementia moderate -Generalized weakness chronic deconditioning -Depression -Gastroesophageal reflux disease -No code Patient family looking into hospice. Looking at [facility]. Other medications to continue. Prognosis poor. Not eating. Comfort feeding. Patient really wants [place] food.
[2024-05-15 15:40] VITALS: BMI 35.6
[2024-05-15] MEDS: ONDANSETRON 4 MG TAB PO PRN (16:14)
[2024-05-15] MEDS: ONDANSETRON 4 MG/2 ML VIAL IVP PRN (16:31)
--- NOTE | 2024-05-15 17:50 | P.PN ---
Subjective Progress Note Date: 05/14/24 Principal diagnosis: Reason for follow-up is UTI and recent VRE bacteremia Patient is a 78-year-old female with a past medical history significant for asthma reflux osteoarthritis, did have a stage IV uterine cancer and was not being considered for radiation or chemotherapy patient did have a ureteral stent placement at [place] and recently admitted at this facility and did have VRE bacteremia treated with IV daptomycin brought back to the hospital with worsening of her kidney function. On today's evaluation that is 05/14/2024, patient has been afebrile, patient is breathing comfortably and is currently on room air, patient denies having any significant cough no chest pain shortness of breath, patient denies nausea vomiting or diarrhea and no abdominal pain seem to be slightly more awake alert today. Patient did have a creatinine of 6.2 no CBC was done today Objective - Vital Signs Vital signs: Vital Signs Temp 97 F L 05/14/24 11:51 Pulse 59 L 05/14/24 11:51 Resp 16 05/14/24 11:51 BP 163/97 05/14/24 11:51 Pulse Ox 95 05/14/24 11:51 FiO2 Intake & Output 05/13/24 05/14/24 05/14/24 18:59 06:59 18:59 Intake Total 130 590 Output Total 10 100 Balance 120 490 Weight 91.172 kg Intake: Intake, IV Titration 130 Amount Sodium Chloride 0.9% 1, 130 000 ml @ 130 mls/hr IV . Q7H42M [facility] Rx#:[id number] Oral 590 Output: Urine 10 100 Uretheral (Martínez) 10 Post Void Residual 0 Other: Voiding Method Indwelling Catheter Indwelling Catheter - Exam GENERAL DESCRIPTION: An elderly female lying in bed in no distress RESPIRATORY SYSTEM: Unlabored breathing , decreased breath sounds at bases HEART: S1 S2 regular rate and rhythm , ABDOMEN: Soft , no tenderness EXTREMITIES: No edema feet - Labs CBC & Chem 7: 05/13/24 07:29 05/15/24 03:48 Labs: Abnormal Lab Results - Last 24 Hours (Table) 05/14/24 Range/Units 05:14 Carbon Dioxide 16.7 L (21.6-31.8) mmol/L Anion Gap 19.30 H (4.00-12.00) mmol/L BUN 74.1 H (9.0-27.0) mg/dL Creatinine 6.2 H (0.6-1.5) mg/dL Est GFR (CKD-EPI) 6 L (>=60) BUN/Creatinine Ratio 11.95 L (12.00-20.00) Ratio Calcium 8.2 L (8.7-10.3) mg/dL Assessment and Plan (1) Leukocytosis Current Visit: No Status: Acute Priority: Medium Code(s): D72.829 - ELEVATED WHITE BLOOD CELL COUNT, UNSPECIFIED SNOMED Code(s): 390349486 (2) Positive blood culture Current Visit: No Status: Acute Code(s): R78.81 - BACTEREMIA SNOMED Code( s): 590592772 (3) Urinary tract infection Current Visit: No Status: Acute Code(s): N39.0 - URINARY TRACT INFECTION, SITE NOT SPECIFIED SNOMED Code(s): 05558688 Plan: 1patient presented to the hospital with a worsening of the kidney function in this patient who was recently admitted to the hospital he did have a enterococcal bacteremia now noted to have significantly positive UA elevated white count concerning for persistent UTI. 2urine culture has been requested as well as blood cultures which are currently pending 3patient to will continue with the daptomycin while waiting for the culture to finalize Dictation was produced using [email or web address] dictation software. please excuse any grammatical, word or spelling errors. Time with Patient: Less than 30
--- NOTE | 2024-05-15 17:51 | P.PN ---
Subjective Progress Note Date: 05/15/24 Principal diagnosis: Reason for follow-up is UTI and recent VRE bacteremia Patient is a 78-year-old female with a past medical history significant for asthma reflux osteoarthritis, did have a stage IV uterine cancer and was not being considered for radiation or chemotherapy patient did have a ureteral stent placement at [place] and recently admitted at this facility and did have VRE bacteremia treated with IV daptomycin brought back to the hospital with worsening of her kidney function. On today's evaluation that is 05/15/2024, Patient is afebrile this morning and denies any chills, patient mention breathing comfortably and is currently on room air, patient denies any chest pain occasional cough patient denies any abdominal pain no diarrhea no nausea no vomiting, mention feeling slightly better. Patient did have a creatinine of 5.66 no CBC was done today blood culture has been negative Objective - Vital Signs Vital signs: Vital Signs Temp 97.4 F L 05/15/24 07:00 Pulse 60 05/15/24 07:00 Resp 18 05/15/24 07:00 BP 148/62 05/15/24 07:00 Pulse Ox 99 05/15/24 07:00 FiO2 Intake & Output 05/14/24 05/15/24 05/15/24 18:59 06:59 18:59 Output Total 300 Balance -300 Output: Urine 300 Other: Voiding Method Indwelling Catheter Indwelling Catheter Indwelling Catheter - Exam GENERAL DESCRIPTION: An elderly female lying in bed in no distress RESPIRATORY SYSTEM: Unlabored breathing , decreased breath sounds at bases HEART: S1 S2 regular rate and rhythm , ABDOMEN: Soft , no tenderness EXTREMITIES: No edema feet - Labs CBC & Chem 7: 05/13/24 07:29 05/15/24 03:48 Labs: Abnormal Lab Results - Last 24 Hours (Table) 05/15/24 Range/Units 03:48 Sodium 135 L (137-145) mmol/L Carbon Dioxide 18 L (22-30) mmol/L BUN 77 H (7-17) mg/dL Creatinine 5.66 H (0.52-1.04) mg/dL Calcium 8.1 L (8.4-10.2) mg/dL Microbiology - Last 24 Hours (Table) 05/14/24 00:30 Urine Culture - Final Urine,Clean Catch 05/13/24 09:00 Blood Culture - Preliminary Blood 05/13/24 09:15 Blood Culture - Preliminary Blood Assessment and Plan (1) Leukocytosis Current Visit: No Status: Acute Priority: Medium Code(s): D72.829 - ELEVATED WHITE BLOOD CELL COUNT, UNSPECIFIED SNOMED Code(s): 739499540 (2) Positive blood culture Current Visit: No Status: Acute Code(s): R78.81 - BACTEREMIA SNOMED Code(s): 950617578 (3) Urinary tract infection Current Visit: No Status: Acute Code(s): N39.0 - URINARY TRACT INFECTION, SITE NOT SPECIFIED SNOMED Code(s): 07324217 Plan: 1patient presented to the hospital with a worsening of the kidney function in this patient who was recently admitted to the hospital he did have a enterococcal bacteremia now noted to have significantly positive UA elevated white count concerning for persistent UTI. 2urine culture has been requested as well as blood cultures which are currently pending 3patient remains to be afebrile did have some clinical improvement, to continue with the daptomycin, possible hospice may be a better option being discussed by admitting team Family at the bedside questions were answered Dictation was produced using [employer] dictation software. please excuse any grammatical, word or spelling errors. Time with Patient: Less than 30
[2024-05-16 07:40] VITALS: BP 142/78; PULSE 69; RESP 17; TEMP 98.2
[2024-05-16] MEDS: ACETAMINOPHEN TAB 325 MG TAB PO PRN (08:55)
--- NOTE | 2024-05-16 16:46 | P.DS ---
Providers Date of admission: 05/13/24 08:21 Expected date of discharge: 05/16/24 Attending physician: Jeff Ambrose Consults: 05/13/24 08:19 Consult Physician Routine Consulting Provider: Naty Wilkerson Consult Reason/Comments: ARF Do you want consulting provider notified?: Yes 05/13/24 12:39 Consult Physician Routine Consulting Provider: Alonzo Stiles Consult Reason/Comments: Enterococcal bacteremia on daptomycin which is being held Do you want consulting provider notified?: Yes 05/13/24 12:53 Consult Physician Routine Consulting Provider: Frankie Loza Consult Reason/Comments: Acute renal failure right-sided hydronephrosis endometrial cancer Do you want consulting provider notified?: Yes Primary care physician: [facility] Course: 78-year-old female was sent in because of acute renal failure on lab test that were done at the [facility]. Patient is basically bedbound patient does have dementia patient I believe he is confused when I evaluate the patient although she is able to provide me a good history sometimes she does not make sense.. Patient was discharged on multiple antibiotics on May 03 to a [facility] after she was found to have enterococcal bacteremia but patient is also on Ceftin and metronidazole along with the daptomycin unsure of the accuracy of these medications. Patient was also having diarrhea C. difficile is being ordered patient was started on normal saline and is admitted with with highly elevated creatinine of 5.435 baseline is around 1.2.. 05/14/2024 Patient is seen in follow-up today with nephrology, urology, infectious disease following. Kidney functions continue to worsen and creatinine is above 6 discussing possible renal replacement therapy. Patient with indwelling Martínez catheter and minimal to no output overnight with continued indwelling Martínez catheter. Patient continues with confusion which is baseline as patient has dementia. Patient currently residing at [facility] and family discussing possible hospice. Would like to discuss further with sister and make a final decision and will be likely looking into hospice house. Case management is following and will follow-up with family in the morning. Patient is currently afebrile and denies any chest pain or shortness of breath. Patient does have bilateral lower extremity swelling and reports normally wears compression stockings. Recommend Shai wraps on the lower extremities from toes up to the knees to aid in swelling of the lower extremities. Will follow-up on repeat labs and await family's recommendations and discussion with hospice. May 15: Laying in bed. Poor appetite. Hospice team is out to talk to the patient and family. They are looking at hospice house in [place]. Looking into financial planning. May 16: In bed. Comfortable. Patient does not want hospital food she wants [place] food. Discussed with patient. Discussed with hospice home team. On examination: VITAL SIGNS: 98.2, 69, 17, 142 x 78, 98% room air GENERAL APPEARANCE: laying in bed tired HEENT: Normal external appearance of nose and ear. Oral cavity normal EYES: Pupils equal. Conjunctiva normal. NECK: JVD not raised. Mass not palpable. RESPIRATORY: Respiratory effort normal. Lungs decreased breath sounds CARDIOVASCULAR: First and second sounds normal. No edema. ABDOMEN: Soft. Liver and spleen not palpable. No tenderness. No mass palpable. PSYCHIATRY: Able to answer simple questions. Able to hold a simple conversation INVESTIGATIONS, reviewed in the clinical context: May 23: Potassium 4.9 BUN 77 creatinine 5.66 Assessment and plan -Acute kidney injury secondary to acute tubular necrosis which was believed to be secondary to antibiotic use, interstitial nephritis: Worsening -Enterococcal faecalis/VRE likely secondary to urinary tract infection, causing sepsis IV daptomycin -Essential hypertension Recent diagnosis of stage IV endometrial cancer -Diagnosed 03/12/2024 -Patient had carbo/Taxol weekly x 2 while inpatient at [place] -Plans for follow-up with Medical Oncologist after case review with [employer] Onc Dr. Sylvester and pt released from rehab -Prev summarized recent and current imaging (read reports). Does not appear to be significant change. Seen by radiation oncology. Not for any radiation -Vascular dementia moderate -Generalized weakness chronic deconditioning -Depression -Gastroesophageal reflux disease -No code Disposition: [facility] Plan - Discharge Summary Discharge Rx Participant: Yes New Discharge Prescriptions: New QUEtiapine [SEROquel] 25 mg PO HS PRN tab PRN Reason: Agitation Continue Loperamide HCl [Imodium A-D] 2 mg PO BID PRN PRN Reason: Diarrhea Albuterol Sulfate [Albuterol Sulfate Hfa] 1 - 2 puff PO RT-Q4H PRN PRN Reason: Shortness Of Breath lamoTRIgine [LaMICtal] 75 mg PO HS@2100 #9 tab HYDROcodone/APAP 10-325MG [[place] 10-325] 1 tab PO Q4HR PRN #18 tab PRN Reason: Pain ondansetron HCL [Zofran] 8 mg PO Q8HR PRN PRN Reason: Nausea Acetaminophen Tab [Tylenol] 500 - 1,000 mg PO Q8H PRN PRN Reason: Pain Lidocaine-Prilocaine Cream [Emla Cream 2.5%/2.5%] 1 applic TOPICAL DAILY@0800 Sertraline [Zoloft] 100 mg PO HS@2100 Ipratropium-Albuterol Nebulize [Duoneb 0.5 mg-3 mg/3 ml Soln] 3 ml INHALATION RT-Q6H PRN PRN Reason: Shortness Of Breath Metoprolol Tartrate [Lopressor] 50 mg PO BID@0800,1700 Melatonin 3 mg PO HS@2100 ARIPiprazole [Abilify] 15 mg PO DAILY@0800 traZODone HCL [Desyrel] 75 mg PO HS@2100 #5 tab dronabinoL [Marinol] 5 mg PO BID@0800,1700 Ciclopirox Olamine [Loprox 0.77% cream] 1 applic TOPICAL BID@0800,2100 Discontinued Magnesium Hydroxide [Milk of Magnesia Concentrate] 7,200 mg PO Q48H PRN PRN Reason: Constipation ondansetron HCL [Zofran] 4 mg PO TID@0600,1400,2200 metroNIDAZOLE [Flagyl] 500 mg PO TID@0800,1400,2100 DAPTOmycin [Cubicin] 500 mg IV DAILY@0800 bisacodyL [Dulcolax] 10 mg RECTAL DAILY PRN PRN Reason: Constipation Na Phos,M-B/Na Phos,Di-Ba [Fleet Adult] 133 ml RECTAL DAILY PRN PRN Reason: Constipation Cholecalciferol [Vitamin D3 (25 Mcg = 1000 Iu)] 100 mcg PO DAILY@0800 Ferrous Sulfate [Iron (65 MG Elemental)] 325 mg PO DAILY@0800 Biotin 5,000 mcg PO DAILY@0800 guaiFENesin [guaiFENesin Oral Solution] 200 mg PO Q4H PRN PRN Reason: Cough cefUROXime axetiL [Ceftin] 500 mg PO BID@0800,1700 0.9 % Sodium Chloride [Sodium Chloride Flush] 10 ml IV DAILY@0800 Discharge Medication List Sertraline [Zoloft] 100 mg PO HS@209902/20/23 [History] ARIPiprazole [Abilify] 15 mg PO DAILY@79904/26/24 [History] Albuterol Sulfate [Albuterol Sulfate Hfa] 1 - 2 puff PO RT-Q4H PRN 04/26/24 [History] Ipratropium-Albuterol Nebulize [Duoneb 0.5 mg-3 mg/3 ml Soln] 3 ml INHALATION RT-Q6H PRN 04/26/24 [History] Loperamide HCl [Imodium A-D] 2 mg PO BID PRN 04/26/24 [History] Melatonin 3 mg PO HS@209904/26/24 [History] Metoprolol Tartrate [Lopressor] 50 mg PO BID@0800,169904/26/24 [History] HYDROcodone/APAP 10-325MG [[place] 10-325] 1 tab PO Q4HR PRN #18 tab 05/03/24 [Rx] lamoTRIgine [LaMICtal] 75 mg PO HS@2100 #9 tab 05/03/24 [Rx] traZODone HCL [Desyrel] 75 mg PO HS@2100 #5 tab 05/03/24 [Rx] Acetaminophen Tab [Tylenol] 500 - 1,000 mg PO Q8H PRN 05/13/24 [History] Ciclopirox Olamine [Loprox 0.77% cream] 1 applic TOPICAL BID@0800,209905/13/24 [History] Lidocaine-Prilocaine Cream [Emla Cream 2.5%/2.5%] 1 applic TOPICAL DAILY@79905/13/24 [History] dronabinoL [Marinol] 5 mg PO BID@0800,1700 05/13/24 [History] ondansetron HCL [Zofran] 8 mg PO Q8HR PRN 05/13/24 [History] QUEtiapine [SEROquel] 25 mg PO HS PRN tab 05/16/24 [Rx] Follow up Appointment(s)/Referral(s): Mark Richardson DO [Primary Care Provider] - 1-2 days Discharge Disposition: [facility] TO [facility]
--- NOTE | 2024-05-16 17:53 | P.PN ---
Subjective Progress Note Date: 05/16/24 Principal diagnosis: Reason for follow-up is UTI and recent VRE bacteremia Patient is a 78-year-old female with a past medical history significant for asthma reflux osteoarthritis, did have a stage IV uterine cancer and was not being considered for radiation or chemotherapy patient did have a ureteral stent placement at [place] and recently admitted at this facility and did have VRE bacteremia treated with IV daptomycin brought back to the hospital with worsening of her kidney function. On today's evaluation that is 05/16/2024,the patient remains to be afebrile, the patient is hemodynamic stable she is breathing comfortable vomiting or requiring supplemental oxygen slightly sleepy but did not answer any question no vomiting or diarrhea has been reported. No new diabetes been obtained today blood cultures negative so far Objective - Vital Signs Vital signs: Vital Signs Temp 98.2 F 05/16/24 07:19 Pulse 69 05/16/24 08:00 Resp 17 05/16/24 08:00 BP 142/78 05/16/24 07:19 Pulse Ox 98 05/16/24 07:19 FiO2 Intake & Output 05/15/24 05/16/24 05/16/24 18:59 06:59 18:59 Output Total 125 Balance -125 Weight 91.172 kg Output: Urine 125 Uretheral (Martínez) 125 Other: Voiding Method Indwelling Catheter Indwelling Catheter Indwelling Catheter # Voids 0 - Exam GENERAL DESCRIPTION: An elderly female lying in bed in no distress RESPIRATORY SYSTEM: Unlabored breathing , decreased breath sounds at bases HEART: S1 S2 regular rate and rhythm , ABDOMEN: Soft , no tenderness EXTREMITIES: No edema feet - Labs CBC & Chem 7: 05/13/24 07:29 05/15/24 03:48 Labs: Microbiology - Last 24 Hours (Table) 05/13/24 09:00 Blood Culture - Preliminary Blood 05/13/24 09:15 Blood Culture - Preliminary Blood Assessment and Plan (1) Leukocytosis Status: Acute Priority: Medium Code(s): D72.829 - ELEVATED WHITE BLOOD CELL COUNT, UNSPECIFIED SNOMED Code(s): 301530990 (2) Positive blood culture Status: Acute Code(s): R78.81 - BACTEREMIA SNOMED Code(s): 591912354 (3) Urinary tract infection Status: Acute Code(s): N39.0 - URINARY TRACT INFECTION, SITE NOT SPECIFIED SNOMED Code(s): 94735915 Plan: 1patient presented to the hospital with a worsening of the kidney function in this patient who was recently admitted to the hospital he did have a entero coccal bacteremia now noted to have significantly positive UA elevated white count concerning for persistent UTI. 2urine culture has been requested as well as blood cultures which are currently pending 3patient remains to be afebrile and blood culture has been negative possible plan is for hospice which is appropriate antibiotics can be safely discontinued Dictation was produced using Well dictation software. please excuse any grammatical, word or spelling errors. Time with Patient: Less than 30
--- NOTE | 2024-05-23 07:46 | CDI ---
Documentation Clarification Form Date: 05/23/2024 From: Keily Botello Phone: [phone] Admit Date: 05/13/2024 08:21:00 AM Patient Name: Anupama Corona Visit Number: [id number] Discharge Date: 05/16/2024 02:16:00 PM ATTENTION: The Clinical Documentation Specialists (CDI) and [facility] Coding Staff appreciate your assistance in clarifying documentation. Please respond to the clarification below the line at the bottom and electronically sign. The CDI & [facility] Coding staff will review the response and follow-up if needed. Please note: Queries are made part of the Legal Health Record. If you have any questions, please contact the author of this message via ITS. Dr. Jeff Ambrose: Sepsis is documented in the Discharge Summary on 05/16 which may lack sufficient clinical evidence/support in the medical record. Additional clarification is requested. History/Risk Factors: 78-year-old female with a history of asthma, dementia, recent admit for VRE bacteremia who presented with MARLEE on labs found at longterm Clinical Indicators: 05/13 Triage VS: 175/76, 98.0, 70, 18, 98% room air 05/13-05/16 Tmax: 98.4 on 05/16 05/16 Discharge Summary, Assessment and Plan: "Enterococcal faecalis/VRE likely secondary to urinary tract infection, causing sepsis. IV daptomycin" 05/13 WBC: 19.5 Lactic Acid: 1.4 05/13 Urinalysis: Appearance: Cloudy, Protein: 2+, Blood: Large, Leukocyte Esterase: Large, RBC: >182, WBC: 181, WBC Clumps: Few 05/13 Blood Culture: No growth after 5 days 05/14 Urine Culture: No growth after 18 hours Treatment: Normal Saline 1000cc IV bolus once 05/13 then 130cc/hour DC'd 05/14 Ceftriaxone 2gram IV once 05/13 Daptomycin 400mg IV [id number] 05/14-05/16 Please clarify if Sepsis is a valid diagnosis? [ ] No, Sepsis is ruled out [ ] Yes, Sepsis is present as evidence by (additional clinical support): [ ] Other (please specify diagnosis) [ ] Unable to determine SIRS Criteria: 2 or more of the following may indicate SIRS Temperature < 96.8F (36C) or > 101.0F (38.3C) Heart Rate > 90 bpm Respiratory Rate > 20 breaths/min or PaCO2 < 32 mmHg White Blood Cell Count > 12,000 or < 4,000 cells/mm3 or > 10% bands MTDD
== END 2024-05-16 14:16 | disposition hospice, inpatient (51) | DRG 683 ==
LOC: EC 06:37 → 5NMEDONC 08:21 → 1SOBS 05-14 20:05 → 4SSUR 05-15 17:03
PROVIDERS: ADMIT Hospitalist; ATTEND Hospitalist
DX: N17.0 Acute kidney failure with tubular necrosis (principal); A04.72 Enterocolitis due to Clostridium difficile, not specified as recurrent; F03.93 Unspecified dementia, unspecified severity, with mood disturbance; E87.1 Hypo-osmolality and hyponatremia; F01.B3 Vascular dementia, moderate, with mood disturbance; B95.2 Enterococcus as the cause of diseases classified elsewhere; N13.6 Pyonephrosis; T36.8X5A Adverse effect of other systemic antibiotics, initial encounter; X58.XXXA Exposure to other specified factors, initial encounter; E86.0 Dehydration; F32.A Depression, unspecified; F90.9 Attention-deficit hyperactivity disorder, unspecified type; G47.00 Insomnia, unspecified; I10 Essential (primary) hypertension; K21.9 Gastro-esophageal reflux disease without esophagitis; N32.81 Overactive bladder; M17.0 Bilateral primary osteoarthritis of knee; Z74.01 Bed confinement status; Z80.52 Family history of malignant neoplasm of bladder; Z79.899 Other long term (current) drug therapy; Z82.49 Family history of ischemic heart disease and other diseases of the circulatory system; Z86.16 Personal history of COVID-19; Z96.82 Presence of neurostimulator; Z90.49 Acquired absence of other specified parts of digestive tract; Z98.84 Bariatric surgery status
CPT/HCPCS: 36415; 51702; 71045; 76770; 80048; 80053; 81001; 83605; 83735; 84100; 85025; 85610; 85730; 87040; 87086; 87205; 93005; 96361; 96365; 96366; 96372; 99285